=== PATIENT | female | born 1990 | race Hispanic/Latino ===

== ENCOUNTER 2016-09-25 14:44 | Inpatient (IN) | payer MEDICARE, MEDICAID ==
[~2016-09-25] VITALS: Ht 154.9 cm; Wt 50.3 kg
[~2016-09-25 14:44] MED LIST: HYDR-4003 PO; LEUP3.75 IM; ONDA4TAB48 PO; ONDA8TAB10 PO; [UNRECOGNIZED DRUG - CODE] IV
[2016-09-25 14:55] VITALS: BP 113/74; PULSE 78; RESP 16; O2SAT 100
[2016-09-25 17:49] LABS: BASOPHILS % (AUTO) 0.3 % (0-3); EOSINOPHILS % (AUTO) 1.9 % (0-5); MONOCYTES % (AUTO) 5.9 % (4-12); Mean Corpuscular Hemoglobin 29.2 pg (27.0-35.0); Mean Corpuscular Volume 89.8 fL (81-100); NEUTROPHILS % (AUTO) 48.1 % (40-74); Platelet Count 216 bil/L (150-400)
--- NOTE | 2016-09-25 18:04 | ED.REPORT ---
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 She reports that pain radiates into her back and down to her knees and it feels just like a porphyria attack. Associated symptoms include feeling bloated, loss of appetite , feeling generally uncomfortable, and nausea. She recently moved back to the area from [place], [place] and has not had a Hemin infusion for two weeks. She reports regularly taking oxycodone as needed for pain that turns out to be on average 2- 3 times per month. She had two doses today before arrival. She reports no other medications. Her last period was a while ago. She denies any fever or . Nursing Notes Stated Complaint: ABDOMINAL PAIN, NAUSEA Chief Complaint: Female Abdominal Pain Nursing Notes Reviewed: Yes ([employer], meds not reconciled) Allergies: Coded Allergies: NSAIDS (Non-Steroidal Anti-Inflamma (Verified Allergy, Severe, 09/25/16) ibuprofen (Verified Allergy, Severe, 09/25/16) acetaminophen (Verified Allergy, Unknown, 09/25/16) dextromethorphan (Verified Allergy, Unknown, 09/25/16) doxylamine (Verified Allergy, Unknown, 09/25/16) pseudoephedrine (Verified Allergy, Unknown, 09/25/16) Barbiturates (Verified Adverse Reaction, Severe, UNSAFE IN ACUTE PORPHYRIA , 09/25/16) Estrogens (Verified Adverse Reaction, Severe, UNSAFE IN ACUTE PORPHYRIA, ) Succinimides (Verified Adverse Reaction, Severe, UNSAFE IN ACUTE PORPHYRIA , 09/25/16) Sulfa (Sulfonamide Antibiotics) (Verified Adverse Reaction, Severe, UNSAFE IN ACUTE PORPHYRIA, 09/25/16) aminopyrine (Verified Adverse Reaction, Severe, UNSAFE IN ACUTE PORPHYRIA , 09/25/16) antipyrine (Verified Adverse Reaction, Severe, UNSAFE IN ACUTE PORPHYRIA, 09/25/16) carbamazepine (Verified Adverse Reaction, Severe, UNSAFE IN ACUTE PORPHYRIA, 09/25/16) carisoprodol (Verified Adverse Reaction, Severe, UNSAFE IN ACUTE PORPHYRIA , 09/25/16) clonazepam (Verified Adverse Reaction, Severe, UNSAFE IN ACUTE PORPHYRIA ( HIGH DOSES), 09/25/16) danazol (Verified Adverse Reaction, Severe, UNSAFE IN ACUTE PORPHYRIA, 09/25) diclofenac (Verified Adverse Reaction, Severe, UNSAFE IN ACUTE PORPHYRIA, 09/25/16) ergot alkaloids (Verified Adverse Reaction, Severe, UNSAFE IN ACUTE PORPHYRIA, 09/25/16) ethchlorvynol (Verified Adverse Reaction, Severe, UNSAFE IN ACUTE PORPHYRIA, 09/25/16) glutethimide (Verified Adverse Reaction, Severe, UNSAFE IN ACUTE PORPHYRIA , 09/25/16) griseofulvin (Verified Adverse Reaction, Severe, UNSAFE IN ACUTE PORPHYRIA , 01/19/15) mebutamate (Verified Adverse Reaction, Severe, UNSAFE IN ACUTE PORPHYRIA, 09/25/16) meprobamate (Verified Adverse Reaction, Severe, UNSAFE IN ACUTE PORPHYRIA , 09/25/16) methyprylon (Verified Adverse Reaction, Severe, UNSAFE IN ACUTE PORPHYRIA , 09/25/16) metoclopramide (Verified Adverse Reaction, Severe, UNSAFE IN ACUTE PORPHYRIA, 09/25/16) phenytoin (Verified Adverse Reaction, Severe, UNSAFE IN ACUTE PORPHYRIA, ) phytonadione (Verified Adverse Reaction, Severe, UNSAFE IN ACUTE PORPHYRIA , 09/25/16) primidone (Verified Adverse Reaction, Severe, UNSAFE IN ACUTE PORPHYRIA, ) progesterone (Verified Adverse Reaction, Severe, UNSAFE IN ACUTE PORPHYRIA , 09/25/16) pyrazinamide (Verified Adverse Reaction, Severe, UNSAFE IN ACUTE PORPHYRIA , 09/25/16) rifampin (Verified Adverse Reaction, Severe, UNSAFE IN ACUTE PORPHYRIA, 09/25/16) tybamate (Verified Adverse Reaction, Severe, UNSAFE IN ACUTE PORPHYRIA, 09/25/16) valproic acid (Verified Adverse Reaction, Severe, UNSAFE IN ACUTE PORPHYRIA, 09/25/16) Scheduled Duloxetine (Duloxetine) 30 Mg Capsule.dr 30 MG PO DAILY Hemin (Panhematin) 313 Mg Vial 313 MG IV QW Fridays Leuprolide Acetate (Lupron Depot) 3.75 Mg Disp.syrin 3.75 MG IM MONTHLY Scheduled PRN Diazepam (Diazepam) 5 Mg Tablet 5 MG PO TID PRN PRN For Anxiety Gabapentin (Gabapentin) 100 Mg Capsule 100 MG PO TID PRN PRN For Pain Hydrocodone-Acetaminophen 5-325 mg (Hydrocodone-Acetaminophen 5-325 mg) 1 Each Tablet 1-2 EACH PO Q6 PRN PRN For Pain Ondansetron ODT (Ondansetron ODT) 8 Mg Tablet.odt 4 MG PO Q4H PRN PRN For Nausea /Vomiting Promethazine (Promethazine) 12.5 Mg Tablet 12.5 MG PO PRN For Nausea/Vomiting General Time Seen by MD: 18:02 Chief Complaint Abdominal pain Hx Obtained From: Patient Arrived By: Walk-in Sudden in Onset?: Yes Onset Occurred: 2 days ago Symptom Duration: Since onset Location: : Diffuse Radiation: : Back (back and knees) Severity: Current: Severe Severity: Maximum: Severe Recent Healthcare: No recent doctor visit Similar Sx Previous: Yes Past Medical History Past Medical History Notes: Last Admit Past Medical History Porphyria Acute intermittent porphyria, diagnosed in 2011-maintained on weekly Hemin infusions with recent addition of low-dose Lupron monthly to suppress ovarian function and prevent menstrual cycles -followed by Dr Bocanegra -port placement on September 25, 2012, for hemin infusions. Attention deficit hyperactivity disorder Thrombocytopenia, Abdominal US without splenomegaly 01/2013 History of recurrent urinary tract infections. Past Surgical History port placement Reports: Portocath Family History Noncontributory Smoking History Never Smoker Social History Alcohol Use: Denies alcohol use Drug Use: Denies drug use Other Social History: Local resident Ambulatory Status Independent Review of Systems Review of Systems Note: feels bloated. loss of appetite. Generally uncomftorable. Constitutional: Denies: Fever GI: Reports: Abdominal pain, Nausea Female: Denies: Complete sys rev & neg: except as marked. Physical Exam Initial Vital Signs Vital Signs (First) Date Time Temp Pulse Resp B/P Pulse Ox O2 Delivery O2 Flow Rate FiO2 09/25/16 14:55 36.0 78 16 113/74 100 09/25/16 19:51 Room Air Initial VS: Reviewed, Vital signs normal General/Constitutional: Awake, Alert, No acute distress mildly uncomftorable. Patient has been seen before with distress being similar to prior visit. Respiratory / Chest: Atraumatic, Breath sounds NL, Breath sounds = bilat, No respiratory distress, No rales, No rhonchi, No wheezing Cardiovascular: Heart rate NL, Regular rhythm, Heart sounds NL, No gallop, No murmurs, No rubs Tenderness/Guarding/Rebound: Positive: Tender epigastric (trace tenderness) no enlarged liver or signs of peritonitis. Back: Atraumatic, Full range of motion Head / Eyes: Atraumatic, Normocephalic, PERRL, EOMI contact lenses are worn by patient. ENT: Atraumatic, Mucous membranes moist Skin: Atraumatic, Color NL, No rash, Warm, Dry Neurologic: Oriented X3, Speech NL Neck: Atraumatic, Full range of motion Upper Extremity / MS: Atraumatic, Full range of motion Lower Extremity / Pelvis / MS: Atraumatic, Full range of motion Interpretation & Diagnostics Lab Results Interpretation Result Diagram: 09/25/16 1730 09/25/16 1730 Test 09/25/16 17:30 09/25/16 18:37 White Blood Count 5.9th/mm3 (3.8-10.1) Red Blood Count 3.91mil/mm3 (3.90-5.20) Hemoglobin 11.4g/dL (12.0-15.6) Hematocrit 35.1% (35.0-46.0) Mean Corpuscular Volume 89.8fL (81-100) Mean Corpuscular Hemoglobin 29.2pg (27.0-35.0) Mean Corpuscular Hemoglobin Concent 32.5% (32.0-37.0) Red Cell Distribution Width 14.0% (12.3-15.4) Platelet Count 216bil/L (150-400) Neutrophils (%) (Auto) 48.1% (40-74) Lymphocytes (%) (Auto) 43.6% (14-46) Monocytes (%) (Auto) 5.9% (4-12) Eosinophils (%) (Auto) 1.9% (0-5) Basophils (%) (Auto) 0.3% (0-3) Sodium Level 136mEq/L (134-144) Potassium Level 3.7mEq/L (3.5-5.2) Chloride Level 98mEq/L (97-108) Carbon Dioxide Level 23mmol/L (18-29) Blood Urea Nitrogen 24mg/dL (6-20) Creatinine 0.88mg/dL (0.57-1.00) Estimat Glomerular Filtration Rate 112mL/min (>59) Glucose Level 115mg/dL (60-99) Calcium Level 8.6mg/dL (8.5-10.1) Magnesium Level 1.9mg/dL (1.6-2.6) Total Bilirubin 0.3mg/dL (0.0-1.2) Aspartate Amino Transf (AST/SGOT) 52U/L (0-50) Alanine Aminotransferase (ALT/SGPT) 31U/L (0-32) Alkaline Phosphatase 106U/L (25-150) Total Protein 7.5g/dL (6.4-8.4) Albumin 4.2g/dL (3.4-5.0) Lipase 34U/L (13-60) Hold [place] Top Tube Received (Received) Urine Color Dark yellow (YELLOW) Urine Appearance Hazy (CLEAR,HAZY) Urine pH 6.0 (5.0-8.0) Urine Specific [place] 1.015 (1.003-1.035) Urine Protein Negativemg/dL (NEG,TRACE) Urine Glucose (UA) Negativemg/dL (NEGATIVE) Urine Ketones Negativemg/dL (NEGATIVE) Urine Occult Blood Negative (NEGATIVE) Urine Nitrite Negative (NEGATIVE) Urine Bilirubin Negative (NEGATIVE) Urine Urobilinogen Normalmg/dL (NORMAL) Urine Leukocyte Esterase Negative (NEGATIVE) Urine RBC 0-2/hpf (0-2) Urine WBC 0-5/hpf (0-5) Urine Epithelial Cells Moderate/hpf (NONE-MOD) Urine Crystals None seen (NONE SEEN) Urine Bacteria Few/hpf (NONE-FEW) Urine Hyaline Casts None/lpf (NONE) Urine Granular Casts None seen (NONE SEEN) Urine Waxy Casts None seen (NONE SEEN) Urine Red Blood Cell Casts None seen (NONE SEEN) Urine White Blood Cell Casts None seen (NONE SEEN) Urine Mucus Present (None Seen) Urine Trichomonas None seen (NONE SEEN) Urine Yeast None (NONE SEEN) Urinalysis Comment None Urine Culture Reflexed Not indicated Lab Results Interpretation: CBC normal CMP normal, and AST marginally elevated (new from more than 1 year ago) Urine dip negative Urine negative Re-Eval/Medical Decision Med Decision/Clinical Course This is a 26-year-old female who has been diagnosed with porphyria and is well- known to the hospital, but he was been residing in [place] for the past year and now returns complaining of acute abdominal pain of identical character to previous acute porphyria attacks. She has a Port-A-Cath in place that she can receive weekly hemin infusions, but due to the logistics of the move has not had her routine infusion. She reports his symptoms are identical to prior exacerbations, she reports no atypical features, no fevers, or additional complaint. Reports she is not on OCPs but does not think she is , and urine is negative. She is afebrile normal vitals. She appears uncomfortable does require some titrated Dilaudid Port-A-Cath is accessed. She is known to me, I seen her previously and she appears identical, I am not appreciate findings clinically to suggest an alternate etiology or need for emergent imaging. I discussed the case with Dr. Fabian, on-call with the patient's previous battery mechanic Dr. Bocanegra (before she moved away) confirmed the plan to bring her in to the hospital for a hemin transfusion at a dose of 4 mg/kg slow infusion. Source of Hx: Old records Consultation #1: Referral / Consult Name: John Fabian MD Call Returned at: 18:27 Supervisor Intelligence Analyst: Agrees with eval, Agrees with plan Note: Discussed patient case with Dr. Fabian and plan for Hemin fusion. Dr. Fabian agrees with the plan. Consultation #2: Referral / Consult Name: Emani Mike DO Call Returned at: 18:35 Note: Discussed patient case with Dr. Mike. Differential Diagnosis: Positive: Acute abdominal pain, Porphyria, Negative: Abscess, Appendicitis, Ectopic preg ruptured, Ectopic , Esophageal rupture, Gun shot wound abdomen, Mesenteric ischemia, Myocardial infarction, Pancreatitis, Pyelonephritis, Stab wound abdomen Counseled Regarding: Diagnosis, Lab results Discharge & Departure Primary Impression: Acute intermittent porphyria Additional Impression: H/O medication noncompliance Disposition: ADMITTED TO HOSPITAL Discharge Condition All VS Reviewed: Yes Condition: Stable Referrals: Dinorah Domínguez MD (PCP) Scribe Attestation Portions of this note were transcribed by Elan Ng and Cleo Gutierrez. I, Dr. Wood, personally performed the history, physical exam and medical decision- making; I reviewed and confirmed the accuracy of the information in the transcribed note. Signed by Elan Ng and Zaki Long, 09/25/16 - 1919. copies to: Dinorah Domínguez MD, Matthew F MD Sep 25, 2016 18:04 Elan Ng Sep 25, 2016 18:13 Cleo Gutierrez Sep 25, 2016 19:18
[2016-09-25] MEDS ORDERED: Ondansetron 2 mg/mL 2 mL Inj IVPUSH ONE (18:05)
[2016-09-25] MEDS ORDERED: 0.9% Sodium Chloride 1,000 ML IV ONE (18:10)
[2016-09-25] MEDS: HYDROmorphone 0.5 mg/0.5 mL iSecure Syringe IVPUSH PRN ×3 (18:25→19:00)
[2016-09-25] MEDS ORDERED: STERILE IV ONE (18:30)
[2016-09-25] MEDS ORDERED: HEMIN IV ONE (18:30)
[2016-09-25 18:31] LABS: Magnesium 1.9 mg/dL (1.6-2.6)
[2016-09-25] MEDS ORDERED: [UNRECOGNIZED DRUG - OTHER] (19:14)
[2016-09-25] MEDS ORDERED: Ondansetron 2 mg/mL 2 mL Inj IVPUSH PRN (19:25)
[2016-09-25] MEDS ORDERED: Alum-Mag Hydrox-Simeth 30 mL Suspension PO PRN (19:25)
[2016-09-25] MEDS ORDERED: HYDROmorphone 1 mg/mL Inj IVPUSH PRN ×4 (19:25→20:30)
[2016-09-25] MEDS: 0.9% Sodium Chloride 1,000 ML IV SCH (19:25)
[2016-09-25] MEDS ORDERED: PROM12.510 PO (19:32)
[2016-09-25] MEDS ORDERED: DULO30CA50 PO (19:32)
[2016-09-25] MEDS ORDERED: DIAZ5TAB3 PO (19:32)
[2016-09-25] MEDS ORDERED: GABA-500 PO (19:32)
[2016-09-25 19:51] VITALS: BP 106/67; PULSE 77; RESP 16; O2SAT 96
--- NOTE | 2016-09-25 19:54 | PCM.HPMED ---
Subjective Date of Service Sep 25, 2016 Primary Provider: Admitting Physician: Primary Care Physician: Dinorah Domínguez MD Attending Physician: Admit Status: From the Emergency Department Chief Complaint: abdominal pain, "pain similar to prior acute porphyria attacks" History of Present Illness: 26yoF with past medical history of acute intermittent porphyria admitted with 1- 2 days history of worsening abdominal pain similar to prior episodes of acute intermittent porphyria. Patient states that she recently moved back to the area to be closer to her family. She normally receives hemin infusions weekly but last infusion was 10 days ago. As per patient and her boyfriend (at bedside), if hemin infusion is missed (>7 days) she will have an acute episode. Abdominal pain is rated 8/10 and 7/10 on presentation with radiation throughout abdomen and to knees. She also endorses some nausea and mild dyspnea and feels as this is associated with abdominal pain but denies fever, chills, vomiting, lightheadedness, dizziness, dysuria or urinary frequency. Presenting vital signs T36.0, HR 78, RR 16, BP 113/74, 100% on RA Hgb 11.4, BUN 24, Glucose 115, AST 52 Review of Systems: complete review of systems obtained. positive as per HPI otherwise negative. Allergies Coded Allergies: NSAIDS (Non-Steroidal Anti-Inflamma (Verified Allergy, Severe, 09/25/16) ibuprofen (Verified Allergy, Severe, 09/25/16) acetaminophen (Verified Allergy, Unknown, 09/25/16) dextromethorphan (Verified Allergy, Unknown, 09/25/16) doxylamine (Verified Allergy, Unknown, 09/25/16) pseudoephedrine (Verified Allergy, Unknown, 09/25/16) Barbiturates (Verified Adverse Reaction, Severe, UNSAFE IN ACUTE PORPHYRIA , 09/25/16) Estrogens (Verified Adverse Reaction, Severe, UNSAFE IN ACUTE PORPHYRIA, ) Succinimides (Verified Adverse Reaction, Severe, UNSAFE IN ACUTE PORPHYRIA , 09/25/16) Sulfa (Sulfonamide Antibiotics) (Verified Adverse Reaction, Severe, UNSAFE IN ACUTE PORPHYRIA, 09/25/16) aminopyrine (Verified Adverse Reaction, Severe, UNSAFE IN ACUTE PORPHYRIA , 09/25/16) antipyrine (Verified Adverse Reaction, Severe, UNSAFE IN ACUTE PORPHYRIA, 09/25/16) carbamazepine (Verified Adverse Reaction, Severe, UNSAFE IN ACUTE PORPHYRIA, 09/25/16) carisoprodol (Verified Adverse Reaction, Severe, UNSAFE IN ACUTE PORPHYRIA , 09/25/16) clonazepam (Verified Adverse Reaction, Severe, UNSAFE IN ACUTE PORPHYRIA ( HIGH DOSES), 09/25/16) danazol (Verified Adverse Reaction, Severe, UNSAFE IN ACUTE PORPHYRIA, 09/25) diclofenac (Verified Adverse Reaction, Severe, UNSAFE IN ACUTE PORPHYRIA, 09/25/16) ergot alkaloids (Verified Adverse Reaction, Severe, UNSAFE IN ACUTE PORPHYRIA, 09/25/16) ethchlorvynol (Verified Adverse Reaction, Severe, UNSAFE IN ACUTE PORPHYRIA, 09/25/16) glutethimide (Verified Adverse Reaction, Severe, UNSAFE IN ACUTE PORPHYRIA , 09/25/16) griseofulvin (Verified Adverse Reaction, Severe, UNSAFE IN ACUTE PORPHYRIA , 01/19/15) mebutamate (Verified Adverse Reaction, Severe, UNSAFE IN ACUTE PORPHYRIA, 09/25/16) meprobamate (Verified Adverse Reaction, Severe, UNSAFE IN ACUTE PORPHYRIA , 09/25/16) methyprylon (Verified Adverse Reaction, Severe, UNSAFE IN ACUTE PORPHYRIA , 09/25/16) metoclopramide (Verified Adverse Reaction, Severe, UNSAFE IN ACUTE PORPHYRIA, 09/25/16) phenytoin (Verified Adverse Reaction, Severe, UNSAFE IN ACUTE PORPHYRIA, ) phytonadione (Verified Adverse Reaction, Severe, UNSAFE IN ACUTE PORPHYRIA , 09/25/16) primidone (Verified Adverse Reaction, Severe, UNSAFE IN ACUTE PORPHYRIA, ) progesterone (Verified Adverse Reaction, Severe, UNSAFE IN ACUTE PORPHYRIA , 09/25/16) pyrazinamide (Verified Adverse Reaction, Severe, UNSAFE IN ACUTE PORPHYRIA , 09/25/16) rifampin (Verified Adverse Reaction, Severe, UNSAFE IN ACUTE PORPHYRIA, 09/25/16) tybamate (Verified Adverse Reaction, Severe, UNSAFE IN ACUTE PORPHYRIA, 09/25/16) valproic acid (Verified Adverse Reaction, Severe, UNSAFE IN ACUTE PORPHYRIA, 09/25/16) Home Medications zolodex hemin - weekly injections oxycodone cannabis tinctures PMH Acute intermittent porphyria Attention deficit hyperactivity disorder Chronic thrombocytopenia H/o recurrent UTI Surgical History Port placement Social History Hx Alcohol Use: No Hx Substance Use: No (Occassional marijuana oil usage for pain/nausea) Hx Tobacco Use: No Smoking Status: Never Smoker Exam Vital Signs Vital Sign - Last Date Time Temp Pulse Resp B/P Pulse Ox O2 Delivery O2 Flow Rate FiO2 09/25/16 14:55 36.0 78 16 113/74 100 Exam General: Alert, Oriented X3, Cooperative, mild distress, scratching body during exam Eyes: PERRLA, Scleral Anicteric Mouth: Mouth Normal, Mucous Membranes Moist/[place] Neck: Supple, no Thyromegaly, trachea central. Chest & Lungs: CTA bilateral, no rhonchi, wheezes, rales, good respiratory effort Cardiovascular: Normal S1, Normal S2, No Murmurs/Rubs/Gallops, Regular Rate/ Rhythm, (No JVD, no peripheral edema) Pulses: Radial (present and equal), Dorsalis Pedi (present and equal) Abdomen: Soft, diffusely tender, Non-distended, Normoactive bowel tones, no rebound tenderness. Musculoskeletal: Unremarkable. Normal range of motion, no swollen or erythematous joints Extremities: no edema, no cyanosis, no clubbing. Skin: No rashes. Warm and dry, no erythematous areas Neurological: Grossly neurologically intact, has generalized weakness, Normal Speech, Sensation Intact Lymphatic: Lymph nodes Cervical and Axillary not palpable. Lab and Diagnostics Result Diagram: 09/25/16 1730 09/25/16 173 Assessment & Plan 26yoF with past medical history of intermittent porphyria on regular hemin infusions admitted with 2 days history of worsening abdominal pain similar to previous Abdominal pain, acute -likely secondary to acute intermittent porphyria -pt with regular hemin infusion last being 2 weeks ago -pain management, hydromorphone 1-2mg IV q2HR PRN, will adjust as needed -diphenhydramine 25mg q4HR PRN, ondansetron 4mg IV q4HR PRN -hemin started in ED -hematology consulted, recs appreciated Nausea, acute, POA -secondary to abdominal pain -ondansetron 4mg IV q4HR PRN -general diet available advise clears at this time advance as tolerated H/o thrombocytopenia, chronic -platelet count currently stable -continue to monitor Chronic anemia, POA -mild anemia noted on admit labs -continue to monitor H/o recurrent UTI, chronic -patient asymptomatic -UA pending on admission Pain Evaluation: Adequate Pain Control VTE Prophylaxis: SCDs, Other (ambulate TID) Resuscitation Status: CPR: Attempt Resuscitation Danette Nolan DO Sep 25, 2016 19:54
[2016-09-25] MEDS ORDERED: Polyethylene Glycol (PEG) 17 Gm Powder PO PRN (19:55)
[2016-09-25 20:23] LABS: APPEARANCE,URINE HAZY (CLEAR,HAZY); COLOR,URINE DARK YELLOW (YELLOW); OCCULT BLOOD,URINE NEGATIVE (NEGATIVE); UROBILINOGEN,URINE NORMAL (NORMAL)
--- NOTE | 2016-09-25 20:30 | NUR ---
Admit to 1004 Pt arrived from ED at 2030. Oriented to room, routines, plan of care and hourly rounding on going. Px 03/03 and itching from shari BENITO aware.
[2016-09-25] MEDS ORDERED: HYDROmorphone 2 mg/mL Inj IVPUSH PRN (20:35)
[2016-09-25 20:50] VITALS: BP 101/62; PULSE 91; RESP 18; O2SAT 98
[2016-09-25] MEDS ORDERED: HYDROmorphone 1 mg/mL Inj ONE (22:26)
[2016-09-25] MEDS: HYDROmorphone 1 mg/mL Inj IVPUSH PRN (22:40)
[2016-09-26] VITALS (13 sets, daily range): BP systolic 108–127; BP diastolic 58–83; PULSE 76–92; RESP 16–20; O2SAT 96–100
[2016-09-26] MEDS: HYDROmorphone 1 mg/mL Inj IVPUSH PRN ×3 (01:05→07:52)
--- NOTE | 2016-09-26 04:43 | NUR ---
Px/itching Pt continues with px 05/03, IV dilaudid given q3hrs, Pt has side effect of itching and requires benadryl- MD aware and Pt has history of this. MD did increase benadryl to 50mg q6hrs, as prior dosing not effective and increased dilaudid to q2hrs bringing px to 03/03
[2016-09-26] MEDS: 0.9% Sodium Chloride 1,000 ML IV SCH ×2 (05:07→16:02)
[2016-09-26 05:12] LABS: BASOPHILS % (AUTO) 0.2 % (0-3); EOSINOPHILS % (AUTO) 2.5 % (0-5); Mean Corpuscular Volume 91.9 fL (81-100); NEUTROPHILS % (AUTO) 40.8 % (40-74); Platelet Count 160 bil/L (150-400)
[2016-09-26] MEDS: Ondansetron 2 mg/mL 2 mL Inj IVPUSH PRN ×3 (05:12→20:47)
[2016-09-26] MEDS: Dextrose 5% 500 ML IV SCH (07:56)
[2016-09-26] MEDS ORDERED: Ondansetron 2 mg/mL 2 mL Inj IVPUSH PRN (08:00)
[2016-09-26] MEDS: HYDROmorphone PCA 0.2 mg/mL 30 mL Inj IV PRN (08:40)
[2016-09-26] MEDS: MetoCLOpramide 5 mg/mL 2 mL Inj IVPUSH PRN ×3 (08:41→23:06)
--- NOTE | 2016-09-26 12:09 | NUR ---
JOVANI signed. Diamond White SCENIC DESIGNER
--- NOTE | 2016-09-26 14:06 | NUR ---
Social Work- Initial Assessment Data: Pt is a 26 year old female admitted 09/25/16 for acute porphyria per H&P. Pt's insurance is [employer]. Pt does not have a PCP, as she recently relocated. DANY met with pt at bedside to discuss discharge plan, DANY role explained. Pt was drowsy but alert and oriented x3. [place] resides [place] with her boyfriend in an apartment, where he assists her with ADLs. Pt does not use DME and does not drive. Pt has not HH or SNF history. Pt has no LTC insurance or VA benefits. SW spoke with pt regarding DPOA, pt states she has not completed this. SW encouraged pt to bring completed forms into the hospital. Pt to discharge home with boyfriend to transport via POV. SW provided phone number and plan on whiteboard. No anticipated discharge needs. SW will continue to follow if needs arise. Assessment: [place]. Plan: Pt to discharge home with boyfriend to transport via POV. No anticipated discharge needs. DANY will continue to follow if needs arise. PIPPA [place] Addendum: 09/26/16 at 1409 by CHERIE RUFFIN Amended: Links added.
[2016-09-26] MEDS: 0.9% Sodium Chloride 250 ML IV SCH (14:35)
[2016-09-26] MEDS ORDERED: Sodium Chloride LOK Flush 10 mL Syringe IVFLUSH PRN ×2 (14:35)
[2016-09-26] MEDS ORDERED: HepLOK Flush 100 unit/mL 5 mL Inj IVFLUSH PRN (14:35)
--- NOTE | 2016-09-26 14:57 | PCM.PNMED ---
Subjective Date of Service Sep 26, 2016 Subjective She continues to have pain typical for her Porphyria. She appears oversedated on the current Dilaudid dosing, falling asleep mid sentence repeatedly. Exam Vital Signs Vital Sign - Last Date Time Temp Pulse Resp B/P Pulse Ox O2 Delivery O2 Flow Rate FiO2 09/26/16 06:40 36.8 76 18 108/69 98 Room Air Intake and Output 09/25/16 09/25/16 09/26/16 Cumulative From/Thru 15:00 23:00 07:00 09/25/16 14:55 - 09/26/16 06:40 Intake Total 1000 ml 1643 ml 2643 ml Output Total 550 ml 550 ml Balance 1000 ml 1093 ml 2093 ml Intake Oral 800 ml 800 ml IV Total 1000 ml 843 ml 1843 ml Output Urine Total 550 ml 550 ml # Voids 2 2 # Bowel Movements 0 0 Exam General: Alert, Oriented X3, Cooperative, mild distress, scratching body during exam Chest & Lungs: CTA bilateral Cardiovascular: Normal S1, Normal S2, No Murmurs/Rubs/Gallops, Regular Rate/ Rhythm Abdomen: Soft, diffusely tender, Non-distended, Normoactive bowel tones, no rebound tenderness. Musculoskeletal: Unremarkable. Normal range of motion, no swollen or erythematous joints Extremities: no edema Skin: No rashes. Warm and dry, no erythematous areas Neurological: Grossly neurologically intact, has generalized weakness, Normal Speech when able to keep awake IVs and Medications Medications Reviewed: Medications were reviewed in detail Lab and Diagnostics Result Diagram: 09/26/16 0504 09/26/16 0504 Assessment & Plan 26yoF with past medical history of intermittent porphyria on regular hemin infusions admitted with 2 days history of worsening abdominal pain similar to previous Abdominal pain, acute -likely secondary to acute intermittent porphyria -pt with regular hemin infusion last being 2 weeks ago -pain management, hydromorphone 1-2mg IV q2HR PRN, 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 -diphenhydramine 25mg q4HR PRN, ondansetron 4mg IV q4HR PRN -hemin started in ED, and will dose daily for up to 4 days as needed. -hematology consulted, recs appreciated Nausea, acute, POA -secondary to abdominal pain -ondansetron 4mg IV q4HR PRN -general diet available advise clears at this time advance as tolerated H/o thrombocytopenia, chronic -platelet count currently stable -continue to monitor Chronic anemia, POA -mild anemia noted on admit labs -continue to monitor H/o recurrent UTI, chronic -UA is normal. Silver Encarnacion MD VTE Prophylaxis: SCDs, Other (ambulate TID) VTE Mechanical Devices: Intermittant Pneumatic CD Resuscitation Status: CPR: Attempt Resuscitation Alejandra Encarnacion MD Sep 26, 2016 07:56
[2016-09-26] MEDS: STERILE IV SCH (20:11)
[2016-09-26] MEDS: HEMIN IV SCH (20:11)
[2016-09-26] MEDS ORDERED: 0.9% Sodium Chloride 100 ML ONE (20:21)
[2016-09-27] VITALS (11 sets, daily range): BP systolic 101–133; BP diastolic 64–88; PULSE 80–109; RESP 16–20; O2SAT 96–100
[2016-09-27] MEDS: 0.9% Sodium Chloride 1,000 ML IV SCH ×3 (02:04→23:02)
--- NOTE | 2016-09-27 02:40 | NUR ---
Activity/pain/nausea Hemin IV infused without issues. 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 CPOx 96% O2 sats. Pt has been drowsy but awakens easily. Given scheduled Gabapentin to help with itching and pt has only needed Benadryl x1 this shift, so itching seems to be improving. Pt complaint of nausea x2 without emesis, alternating between Zofran and Reglan as needed.
--- NOTE | 2016-09-27 05:49 | PCM.PNMED ---
Subjective Date of Service Sep 27, 2016 Subjective Patient says her pain is 7/10, it is a dull pain below her sternum but also diffuse pain. She says she is suppsed to see Dr. Hutchins in a week but had to come to ED due to pain. She was a patient of his before moving to [place], [place] where she aslo started phlebotomy to remove iron due to hemin infusions. She has received daily infusion of hemin since admission. She takes Zolodex to prevent menstruation. It usualy takes her several days to get over her "flares" . She says she is ok with switching over to IV pain meds from the TRIMMER SORTER but not ready for PO meds yet. She denies fevers and chills. She does have nause that is well controlled on reglan and zofran. Endorsing poor appetite. She was ordering from her menu prior to this interview. Exam Vital Signs Vital Sign - Last Date Time Temp Pulse Resp B/P Pulse Ox O2 Delivery O2 Flow Rate FiO2 09/27/16 02:00 16 98 09/27/16 00:36 36.9 85 120/80 Room Air Intake and Output 09/26/16 09/26/16 09/27/16 Cumulative From/Thru 15:00 23:00 07:00 09/25/16 14:55 - 09/27/16 04:49 Intake Total 2052 ml 1007 ml 5702 ml Output Total 1300 ml 1850 ml Balance 752 ml 1007 ml 3852 ml Intake Oral 700 ml 1500 ml IV Total 1352 ml 1007 ml 4202 ml Output Urine Total 1300 ml 1850 ml # Voids 2 # Bowel Movements 0 0 Exam Eyes: [place] conjunctivae. No ptosis Neck: No masses, trachea midline, no thyromegaly Lungs: CTA with normal respiratory effort CV: RRR, no murmurs/rubs/gallops GI: Soft, with no hepatosplenomegaly Skin: Warm and dry. No rash, lesions or ulcers Psych: A&O X3, with approprate affect Neuro: No focal deficits Lab and Diagnostics CBC Test 09/26/16 05:04 White Blood Count 5.6th/mm3 (3.8-10.1) Red Blood Count 3.47mil/mm3 (3.90-5.20) Hemoglobin 10.4g/dL (12.0-15.6) Hematocrit 31.9% (35.0-46.0) Mean Corpuscular Volume 91.9fL (81-100) Mean Corpuscular Hemoglobin 30.0pg (27.0-35.0) Mean Corpuscular Hemoglobin Concent 32.6% (32.0-37.0) Red Cell Distribution Width 14.0% (12.3-15.4) Platelet Count 160bil/L (150-400) Neutrophils (%) (Auto) 40.8% (40-74) Lymphocytes (%) (Auto) 48.1% (14-46) Monocytes (%) (Auto) 8.0% (4-12) Eosinophils (%) (Auto) 2.5% (0-5) Basophils (%) (Auto) 0.2% (0-3) CMP Test 09/25/16 17:30 09/26/16 05:04 09/27/16 18:20 Magnesium Level 1.9mg/dL Lipase 34U/L Hold [place] Top Tube Received Sodium Level 138mEq/L Potassium Level 4.1mEq/L Chloride Level 105mEq/L Carbon Dioxide Level 23mmol/L Blood Urea Nitrogen 17mg/dL Creatinine 0.80mg/dL Estimat Glomerular Filtration Rate 125mL/min Glucose Level 103mg/dL Calcium Level 8.1mg/dL Total Bilirubin 0.3mg/dL Aspartate Amino Transf (AST/SGOT) 46U/L Alanine Aminotransferase (ALT/SGPT) 27U/L Alkaline Phosphatase 94U/L Total Protein 6.5g/dL Albumin 3.7g/dL Iron Level 84ug/dL Total Iron Binding Capacity 280ug/dL Percent Iron Saturation 30%sat Unsaturated Iron Binding 195.5ug/dL Ferritin 3104ng/mL Result Diagram: 09/26/16 0504 09/26/16 0504 Microbiology Laboratory Tests Test 09/27/16 18:20 Iron Level 84ug/dL (35-150) Total Iron Binding Capacity 280ug/dL (250-450) Percent Iron Saturation 30%sat (15-50) Unsaturated Iron Binding 195.5ug/dL Ferritin 3104ng/mL (13-150) Assessment & Plan 26yoF with 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 -hematology consulted, recs appreciated: Called Dr. Hutchins today, he was not aware of consult prior to today. He will see the patient. He does not feel phlebotomy has a big role in her treatment Nausea, acute, POA -secondary to abdominal pain -ondansetron 4mg IV q4HR PRN -general diet available advise clears at this time advance as tolerated: She is eating general diet H/o thrombocytopenia, chronic -platelet count currently stable -continue to monitor Chronic anemia, POA -mild anemia noted on admit labs: Hb=10.4 today. Iron panel reveals anemia of chronic disease, elevated Ferritin levels -continue to monitor, follow hematology recs H/o recurrent UTI, chronic -UA is normal. Silver Encarnacion MD Pain Evaluation: Adequate Pain Control VTE Prophylaxis: SCDs, Other (ambulate TID) VTE Mechanical Devices: Intermittant Pneumatic CD Resuscitation Status: CPR: Attempt Resuscitation Soraya Juarez DO Sep 27, 2016 05:49
[2016-09-27] MEDS: Dextrose 5% 500 ML IV SCH (07:22)
[2016-09-27] MEDS: HYDROmorphone PCA 0.2 mg/mL 30 mL Inj IV PRN (07:51)
[2016-09-27] MEDS: Ondansetron 2 mg/mL 2 mL Inj IVPUSH PRN ×2 (09:32→14:52)
[2016-09-27] MEDS: HYDROmorphone 1 mg/mL Inj IVPUSH PRN ×4 (14:27→22:16)
--- NOTE | 2016-09-27 14:30 | NUR ---
Dilaudid CRIME SPECIALIST discontinued. Pt given 1mg of Dilaudid IV. Pt c/o severe itching afterwards. Pt given gabapentin but is not yet due for benadryl. Will give morphine next when pt c/o pain. Will continue to monitor.
[2016-09-27] MEDS: 0.9% Sodium Chloride 250 ML IV SCH (14:35)
[2016-09-27] MEDS ORDERED: MetoCLOpramide 5 mg/mL 2 mL Inj IVPUSH PRN (16:50)
[2016-09-27 19:01] LABS: Unsaturated Iron Binding 195.5 ug/dL
[2016-09-27] MEDS ORDERED: 0.9% Sodium Chloride 100 ML ONE (20:12)
[2016-09-27] MEDS: STERILE IV SCH (20:29)
[2016-09-27] MEDS: HEMIN IV SCH (20:29)
--- NOTE | 2016-09-27 20:40 | CCS NOTE ---
[facility] [address], [address] [address] MEDICAL ONCOLOGY OFFICE NOTE PATIENT: CAMRON DA SILVA : 1990 MR#: [id number] DATE: 09/25/2016 JOB ID: [id number] DATE: 09/27/2016 HISTORY OF PRESENT ILLNESS: The patient is a 26-year-old lady whom I had seen last about two years ago in October 2015 for acute intermittent porphyria. She was followed prior to that since the beginning of [id number] at our clinic and was getting hemin treatments. Her last hemin infusion was in December/January of 2015 at our clinic and she was receiving it at 4 mg/kg equal to 200 mg once a week with some interruptions due to patient compliance. She was also on ovarian suppression with Lupron injections once a month since recurrent acute porphyria attacks were often triggered by menstrual cycles. She then moved to [place] and therefore I had not seen her over the past two years. Her boyfriend had a business there and she was staying there and transferred her care to a hematology/oncology clinic there. She has recently returned to the area and has contacted our office to re-establish care and was supposed to have a followup with me in the next few days in the clinic She has been admitted in the weekend with abdominal pain that she was not able to control at home with nausea and came into the ED on Tuesday evening and had gotten a partial dose of hemin and a full dose yesterday afternoon. In the past, her acute porphyrias were cleared with often infectious processes either viral respiratory infection or UTIs, a few times with exposure to alcohol. She also occasionally smoked marijuana, but has not been using that for quite some time since she was in [place]. We have obtained the large body of records from the clinic in [place] and this was partially reviewed. She has continued the same management there with weekly administration of IV hemin for prophylaxis and porphyria attack prevention and still had every few months episodes of attacks and brief hospitalization. In addition, she was getting Zoladex injections for ovarian suppression there. Her last hemin infusion was, however, about 2-3 weeks ago and she has missed a couple of weekly doses due to the move. The last Zoladex injection was apparently a month and a half ago. She has not had any menstrual cycles as expected. Due to iron accumulation associated with hemin, she has had a few phlebotomies that have been performed over the past couple of months in [place] every two weeks. EXAMINATION: She is afebrile. Appears in no apparent distress. I have seen her in much more discomfort than currently. She is on a DAIRY CATTLE FARMER pump. Lungs: Clear to auscultation. Heart regular. Abdomen is soft. No rash. She has a new portal catheter. Lab studies are reviewed. 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 I had seen her two years ago last when she moved to [place]. She has relocated back to this area. She states that she has some emotional imbalance and had voiced suicidal ideation to the doctors there, although she did not mean it seriously, she says, but they contacted her family and her mom had her transferred back here to be closer to family. On my exam today, she appears relatively comfortable. At other admits with porphyria attacks, she was at times quite ill with significant nausea, vomiting and abdominal pain which currently seems to be relatively mild. In addition to pain syndrome, other factors during an attack in the past have been occasional elevation of transaminases and also electrolyte issues with hyponatremia. She has not had any neurological symptoms so far. During the current attacks daily, she had IV hemin at 4 mg/kg which translates to about 220 mg total every 24 hours. She has a new portal catheter that is being used and was placed in [place]. At times, she has required premedication with Tylenol during the hemin infusion since occasionally infusion-related low-grade fever was noted in the past but, at this point, it is not occurring. I am ordering a second iron panel to assess the current situation. I do not believe that it is urgent to resume phlebotomies. The current attack does not seem to have had any obvious trigger other than missing a few doses of preventive weekly hemin. I am going to re-establish her prophylaxis in the clinic for next week after obtaining insurance authorization, etc. I am hopeful that she can be discharged in a day or two after she is through with this current attack. Her hemin infusion of today has not been administered yet. TIME SPENT WITH PATIENT: Approximately 1 hour 5 minutes were spent in counseling and coordination of care.
[2016-09-28] MEDS: HYDROmorphone 1 mg/mL Inj IVPUSH PRN ×2 (04:27→09:28)
[2016-09-28] MEDS: Ondansetron 2 mg/mL 2 mL Inj IVPUSH PRN ×5 (04:31→21:19)
--- NOTE | 2016-09-28 05:25 | NUR ---
Hemin/Pain Pt received Hemin infusion per eMAR without issues. Pt reporting pain steady at 7/8 out of 10 with little relief with current pain regimen. paged and ordered Dilaudid 1-2mg q 4 hrs and Oxycodone 10 mg PO q 6 hrs. Pt took oxycodone at bedtime and was able to sleep 4 full hours before needing something for pain this morning. Pt has continued to need Benadryl 50 mg IV for itching and nausea x1 this morning with Zofran given. Pt now resting and appears comfortable.
[2016-09-28 06:20] VITALS: BP 102/67; PULSE 70; RESP 16; O2SAT 96
[2016-09-28] MEDS: 0.9% Sodium Chloride 1,000 ML IV SCH ×2 (09:29→19:59)
[2016-09-28 11:03] LABS: BASOPHILS % (AUTO) 0.1 % (0-3); EOSINOPHILS % (AUTO) 1.8 % (0-5); MONOCYTES % (AUTO) 8.6 % (4-12); Mean Corpuscular Hemoglobin 29.7 pg (27.0-35.0); Mean Corpuscular Volume 88.2 fL (81-100); NEUTROPHILS % (AUTO) 72.5 % (40-74); Platelet Count 149 bil/L (150-400)
[2016-09-28] MEDS: HYDROmorphone PCA 0.2 mg/mL 30 mL Inj IV PRN (13:18)
[2016-09-28 13:20] VITALS: RESP 18; O2SAT 98
[2016-09-28 14:21] VITALS: BP 105/70; PULSE 80; RESP 16; O2SAT 97
[2016-09-28] MEDS: 0.9% Sodium Chloride 250 ML IV SCH (14:35)
[2016-09-28] MEDS: STERILE IV SCH (19:30)
[2016-09-28] MEDS: HEMIN IV SCH (19:30)
--- NOTE | 2016-09-28 19:41 | NUR ---
Pain Pt had increasing pain and nausea with vomiting this AM and was frustrated that her pain had not gone below 5/10. Discussed with MD and switched pt back to MEDICAL LIAISON. Pt given 0.3mg bolus and then button. Pt's pain was improved and she was able to rest comfortably. Pt has not had anymore vomiting, but is using anti-emetics. NUTRITION PROGRAM INSTRUCTOR in place. Pt declined AM gabapentin due to nausea.
[2016-09-28] MEDS ORDERED: 0.9% Sodium Chloride 0 ML ONE (20:29)
[2016-09-28 20:40] VITALS: RESP 16; O2SAT 100
[2016-09-28 20:46] VITALS: BP 125/85; PULSE 106; RESP 18; O2SAT 99
--- NOTE | 2016-09-28 21:08 | PCM.PNMED ---
Subjective Date of Service Sep 28, 2016 Subjective Patient is seen and examined. She says she is feeling itchy, benadryl is not lasting long enough. She is given PACKER DENTURE pump again this AM due to inadequate control with IV PRN. She is hoping to go home tomorrow. She is slightly edematous from IV fluids, they were stopped during this visit. She says Dr. Bocanegra has seen her. No other concerns Exam Vital Signs Vital Sign - Last Date Time Temp Pulse Resp B/P Pulse Ox O2 Delivery O2 Flow Rate FiO2 09/28/16 20:46 36.8 106 18 125/85 99 Room Air Intake and Output 09/27/16 09/27/16 09/28/16 Cumulative From/Thru 15:00 23:00 07:00 09/25/16 14:55 - 09/28/16 06:20 Intake Total 600 ml 2859 ml 9961 ml Output Total 1600 ml 1550 ml 5000 ml Balance -1000 ml 1309 ml 4961 ml Intake Oral 600 ml 600 ml 3500 ml IV Total 2259 ml 6461 ml Output Urine Total 1600 ml 1550 ml 5000 ml # Voids 3 7 # Bowel Movements 0 0 0 Exam General: NAD HEENT: NAD, face appears swollen Heart: RRR, no s3/s4 Lungs: CTA, no crackles or wheezes Abd: Soft, Non-tender Neuro: No focal deficits Psych: Neg for anxiety IVs and Medications IV Fluids None Medications Reviewed: Medications were reviewed in detail Lab and Diagnostics Result Diagram: 09/28/16 1055 09/28/16 1055 Microbiology Laboratory Tests Test 09/27/16 18:20 Iron Level 84ug/dL (35-150) Total Iron Binding Capacity 280ug/dL (250-450) Percent Iron Saturation 30%sat (15-50) Unsaturated Iron Binding 195.5ug/dL Ferritin 3104ng/mL (13-150) Assessment & Plan 26yoF with 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 : No dose available for tonight per pharmacy -hematology consulted, recs appreciated: Called Dr. Hutchins today, he was not aware of consult prior to 09/27/16. He does not feel phlebotomy has a big role in her treatment Nausea, acute, POA -secondary to abdominal pain -ondansetron 4mg IV q4HR PRN -general diet available advise clears at this time advance as tolerated: She is eating general diet H/o thrombocytopenia, chronic -platelet count currently stable -continue to monitor Chronic anemia, POA -mild anemia noted on admit labs: Hb=10.4 today. Iron panel reveals anemia of chronic disease, elevated Ferritin levels -continue to monitor, follow hematology recs H/o recurrent UTI, chronic -UA is normal. Pain Evaluation: Adequate Pain Control VTE Prophylaxis: SCDs, Other (ambulate TID) VTE Mechanical Devices: Intermittant Pneumatic CD Resuscitation Status: CPR: Attempt Resuscitation Soraya Juarez DO Sep 28, 2016 21:08
--- NOTE | 2016-09-28 22:30 | NUR ---
Hemin/activity Pharmacist contacted this RN to inform that they do not have any IV Hemin in house. Pharmacist reported that they contacted the MD with no new orders. Explained issue to pt, who is understanding and reporting to be feeling much better. Nausea and pain have both decreased. Pt reporting pain at 5/10 (the lowest she has had since arrival). Pt continues on OPTOMETRIC TECHNICIAN Dilaudid, IV benadryl for itching and Zofran IV to prevent nausea. Pt has walked 2 laps in the hallway with her boyfriend.
[2016-09-29] MEDS: Ondansetron 2 mg/mL 2 mL Inj IVPUSH PRN ×3 (01:15→10:22)
[2016-09-29 01:25] VITALS: RESP 16; O2SAT 100
[2016-09-29] MEDS: HYDROmorphone PCA 0.2 mg/mL 30 mL Inj IV PRN (01:40)
[2016-09-29 04:33] VITALS: BP_SYST 135; BP_SYST 97; BP_DIAS 54; BP_DIAS 83; PULSE 91; RESP 16; O2SAT 100; O2SAT 99
[2016-09-29 05:40] VITALS: RESP 16; O2SAT 100
[2016-09-29 05:54] LABS: BASOPHILS % (AUTO) 0.2 % (0-3); EOSINOPHILS % (AUTO) 4.3 % (0-5); Mean Corpuscular Hemoglobin 29.9 pg (27.0-35.0); NEUTROPHILS % (AUTO) 52.5 % (40-74); Platelet Count 157 bil/L (150-400)
[2016-09-29] MEDS ORDERED: HEMIN IV ONE (07:05)
[2016-09-29] MEDS ORDERED: STERILE IV ONE (07:05)
--- NOTE | 2016-09-29 07:36 | NUR ---
Hemin Call from Pharmacist this morning and dose of Hemin was found, new order to transfuse. IV Hemin given with 0.22 micron filter.
[2016-09-29] MEDS: 0.9% Sodium Chloride 250 ML IV SCH (08:18)
[2016-09-29 10:30] VITALS: RESP 14; O2SAT 98
--- NOTE | 2016-09-29 11:00 | NUR ---
Pt request Pt requesting to DC. advised. Pt "wants to be DC'd off of her YOUTH LIAISON OFFICER and get out of here."
[2016-09-29 12:00] VITALS: RESP 16; O2SAT 99
--- NOTE | 2016-09-29 12:51 | PCM.DC.MED ---
Discharge Summary Date of Service Sep 29, 2016 Dates of Hospitalization Date of Hospital Admission Sep 25, 2016 at 19:53 Date of Discharge: Sep 29, 2016 Providers: Admitting Physician: Emani Mike DO Primary Care Physician: Dinorah Domínguez MD Attending Physician: Emani Mike DO Diagnosis at Time of Discharge Diagnosis at Time of Discharge Acute intermittent porphyria, chronic thrombocytopenia, chronic anemia due to chronic disease, chronic recurrent UTI Consultations Hematology Brief History 26yoF with past medical history of acute intermittent porphyria admitted with 1- 2 days history of worsening abdominal pain similar to prior episodes of acute intermittent porphyria. Patient states that she recently moved back to the area to be closer to her family. She normally receives hemin infusions weekly but last infusion was 10 days ago. As per patient and her boyfriend (at bedside), if hemin infusion is missed (>7 days) she will have an acute episode. Abdominal pain is rated 8/10 and 7/10 on presentation with radiation throughout abdomen and to knees. She also endorses some nausea and mild dyspnea and feels as this is associated with abdominal pain but denies fever, chills, vomiting, lightheadedness, dizziness, dysuria or urinary frequency. 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 Her home medication Zoladex was continued. Hematology is consulted and they recommended no phlebotomy during this visit. On the day of discharge patient is feeling much better. She is asking to go home. She is tolerating general diet and ambulating. Nausea, acute POA: She is given Zofran Chronic anemia, POA: Daily CBC her partner as well as iron panel to monitor. H/o recurrent UTI, chronic -UA is normal. Exam Vital Signs (Last) Date Time Temp Pulse Resp B/P Pulse Ox O2 Delivery O2 Flow Rate FiO2 09/29/16 10:30 14 98 09/29/16 04:33 36.9 91 97/54 Room Air Exam Gen. no acute distress, HEENT: Bluish discoloration over the face excessive iron, atraumatic Heart: RRR, no S3-S4 murmurs Lungs: Clear to auscultation, no wheezes or crackles Abdomen nontender nondistended, normal bowel sounds Extremities: Negative for edema Psych: Negative for anxiety Neuro: No focal deficits. Test 09/25/16 17:30 09/25/16 18:37 09/26/16 05:04 09/27/16 18:20 Magnesium Level 1.9mg/dL (1.6-2.6) Lipase 34U/L (13-60) Hold [place] Top Tube Received (Received) Urine Color Dark yellow (YELLOW) Urine Appearance Hazy (CLEAR,HAZY) Urine pH 6.0 (5.0-8.0) Urine Specific [place] 1.015 (1.003-1.035) Urine Protein Negativemg/dL (NEG,TRACE) Urine Glucose (UA) Negativemg/dL (NEGATIVE) Urine Ketones Negativemg/dL (NEGATIVE) Urine Occult Blood Negative (NEGATIVE) Urine Nitrite Negative (NEGATIVE) Urine Bilirubin Negative (NEGATIVE) Urine Urobilinogen Normalmg/dL (NORMAL) Urine Leukocyte Esterase Negative (NEGATIVE) Urine RBC 0-2/hpf (0-2) Urine WBC 0-5/hpf (0-5) Urine Epithelial Cells Moderate/hpf (NONE-MOD) Urine Crystals None seen (NONE SEEN) Urine Bacteria Few/hpf (NONE-FEW) Urine Hyaline Casts None/lpf (NONE) Urine Granular Casts None seen (NONE SEEN) Urine Waxy Casts None seen (NONE SEEN) Urine Red Blood Cell Casts None seen (NONE SEEN) Urine White Blood Cell Casts None seen (NONE SEEN) Urine Mucus Present (None Seen) Urine Trichomonas None seen (NONE SEEN) Urine Yeast None (NONE SEEN) Urinalysis Comment None Urine Culture Reflexed Not indicated Total Bilirubin 0.3mg/dL (0.0-1.2) Aspartate Amino Transf (AST/SGOT) 46U/L (0-50) Alanine Aminotransferase (ALT/SGPT) 27U/L (0-32) Alkaline Phosphatase 94U/L (25-150) Total Protein 6.5g/dL (6.4-8.4) Albumin 3.7g/dL (3.4-5.0) Iron Level 84ug/dL (35-150) Total Iron Binding Capacity 280ug/dL (250-450) Percent Iron Saturation 30%sat (15-50) Unsaturated Iron Binding 195.5ug/dL Ferritin 3104ng/mL (13-150) Test 09/28/16 14:28 09/29/16 05:40 White Blood Count 6.3th/mm3 (3.8-10.1) Red Blood Count 3.74mil/mm3 (3.90-5.20) Hemoglobin 11.2g/dL (12.0-15.6) Hematocrit 32.9% (35.0-46.0) Mean Corpuscular Volume 88.0fL (81-100) Mean Corpuscular Hemoglobin 29.9pg (27.0-35.0) Mean Corpuscular Hemoglobin Concent 34.0% (32.0-37.0) Red Cell Distribution Width 13.5% (12.3-15.4) Platelet Count 157bil/L (150-400) Neutrophils (%) (Auto) 52.5% (40-74) Lymphocytes (%) (Auto) 31.8% (14-46) Monocytes (%) (Auto) 11.0% (4-12) Eosinophils (%) (Auto) 4.3% (0-5) Basophils (%) (Auto) 0.2% (0-3) Sodium Level 140mEq/L (134-144) Potassium Level 4.0mEq/L (3.5-5.2) Chloride Level 101mEq/L (97-108) Carbon Dioxide Level 27mmol/L (18-29) Blood Urea Nitrogen 6mg/dL (6-20) Creatinine 0.65mg/dL (0.57-1.00) Estimat Glomerular Filtration Rate 159mL/min (>59) Glucose Level 88mg/dL (60-99) Calcium Level 8.3mg/dL (8.5-10.1) Microbiology Results Laboratory Tests Test 09/27/16 18:20 Iron Level 84ug/dL (35-150) Total Iron Binding Capacity 280ug/dL (250-450) Percent Iron Saturation 30%sat (15-50) Unsaturated Iron Binding 195.5ug/dL Ferritin 3104ng/mL (13-150) Discharge Medications Discharge Medications Duloxetine (Duloxetine) 30 Mg Capsule.dr 30 MG PO DAILY (Reported) Hemin (Panhematin) 313 Mg Vial 313 MG IV QW (Reported) Fridays Leuprolide Acetate (Lupron Depot) 3.75 Mg Disp.syrin 3.75 MG IM MONTHLY ( Reported) As needed Diazepam (Diazepam) 5 Mg Tablet 5 MG PO TID PRN PRN For Anxiety (Reported) Gabapentin (Gabapentin) 100 Mg Capsule 100 MG PO TID PRN PRN For Pain (Reported ) Hydrocodone-Acetaminophen 5-325 mg (Hydrocodone-Acetaminophen 5-325 mg) 1 Each Tablet 1-2 EACH PO Q6 PRN PRN For Pain Prescribed by: SUNNY CRUMP MD Hydrocodone-Acetaminophen 5-325 mg (Hydrocodone-Acetaminophen 5-325 mg) 1 Each Tablet 1 TABLET PO Q4H PRN PRN For Pain Prescribed by: SORAYA ALMONTE DO Ondansetron ODT (Zofran ODT) 4 Mg Tablet 4 MG PO Q4H PRN PRN For Nausea Prescribed by: SORAYA ALMONTE DO Promethazine (Promethazine) 12.5 Mg Tablet 12.5 MG PO PRN For Nausea/Vomiting ( Reported) Soraya Almonte DO Sep 29, 2016 12:51
--- NOTE | 2016-09-29 12:55 | PCM.DIMED ---
Discharge Instructions Date of Service Sep 29, 2016 Dates of Hospitalization Sep 25, 2016 at 19:53 Discharge Diagnosis Discharge Diagnosis Acute intermittent Pophyria, ADHD, Chronic thrombocytopenia, Recurrent UTI Test Results Laboratory Tests Test 09/28/16 14:28 09/29/16 05:40 White Blood Count 6.3th/mm3 (3.8-10.1) Red Blood Count 3.74mil/mm3 (3.90-5.20) Hemoglobin 11.2g/dL (12.0-15.6) Hematocrit 32.9% (35.0-46.0) Mean Corpuscular Volume 88.0fL (81-100) Mean Corpuscular Hemoglobin 29.9pg (27.0-35.0) Mean Corpuscular Hemoglobin Concent 34.0% (32.0-37.0) Red Cell Distribution Width 13.5% (12.3-15.4) Platelet Count 157bil/L (150-400) Neutrophils (%) (Auto) 52.5% (40-74) Lymphocytes (%) (Auto) 31.8% (14-46) Monocytes (%) (Auto) 11.0% (4-12) Eosinophils (%) (Auto) 4.3% (0-5) Basophils (%) (Auto) 0.2% (0-3) Sodium Level 140mEq/L (134-144) Potassium Level 4.0mEq/L (3.5-5.2) Chloride Level 101mEq/L (97-108) Carbon Dioxide Level 27mmol/L (18-29) Blood Urea Nitrogen 6mg/dL (6-20) Creatinine 0.65mg/dL (0.57-1.00) Estimat Glomerular Filtration Rate 159mL/min (>59) Glucose Level 88mg/dL (60-99) Calcium Level 8.3mg/dL (8.5-10.1) Diet No restrictions Activity No restrictions Call your provider Fever or Chills, Shortness of breath, Bleeding, Chest pain, Vomitting, Excessive diarrhea, Weakness (unilateral), Other Patient Instructions Follow-up with PCP in: 2 weeks Provider: Dewey Penny MD Follow-up in: 1 week Soraya Juarez DO Sep 29, 2016 12:55
[2016-09-29] MEDS ORDERED: ONDA4TAB9 PO (12:59)
[2016-09-29] MEDS ORDERED: HYDR-4003 PO (13:01)
--- NOTE | 2016-09-29 13:02 | PCM.DC.MED ---
Discharge Summary Date of Service Sep 29, 2016 Dates of Hospitalization Date of Hospital Admission Sep 25, 2016 at 19:53 Providers: Admitting Physician: Emani Mike DO Primary Care Physician: Dinorah Domínguez MD Attending Physician: Emani Mike DO Diagnosis at Time of Discharge Diagnosis at Time of Discharge Acute intermittent Pophyria, ADHD, Chronic thrombocytopenia, Recurrent UTI Brief History 26yoF with past medical history of acute intermittent porphyria admitted with 1- 2 days history of worsening abdominal pain similar to prior episodes of acute intermittent porphyria. Patient states that she recently moved back to the area to be closer to her family. She normally receives hemin infusions weekly but last infusion was 10 days ago. As per patient and her boyfriend (at bedside), if hemin infusion is missed (>7 days) she will have an acute episode. Abdominal pain is rated 8/10 and 7/10 on presentation with radiation throughout abdomen and to knees. She also endorses some nausea and mild dyspnea and feels as this is associated with abdominal pain but denies fever, chills, vomiting, lightheadedness, dizziness, dysuria or urinary frequency. Presenting vital signs T36.0, HR 78, RR 16, BP 113/74, 100% on RA Hgb 11.4, BUN 24, Glucose 115, AST 52 Hospital Course 26yoF with past medical history of intermittent porphyria on regular hemin infusions admitted with 2 days history of worsening abdominal pain similar to previous Abdominal pain, acute -likely secondary to acute intermittent porphyria -pt with regular hemin infusion last being 2 weeks ago -pain management, switched her to IV dialudid Q4H PRN alternating with Morphine : switched back to [employer] -diphenhydramine 25mg q4HR PRN, ondansetron 4mg IV q4HR PRN, Reglan PRN -hemin started in ED, and will dose daily for up to 4 days as needed. : No dose available for tonight per pharmacy -hematology consulted, recs appreciated: Called Dr. Hutchins today, he was not aware of consult prior to 09/27/16. He does not feel phlebotomy has a big role in her treatment Nausea, acute, POA -secondary to abdominal pain -ondansetron 4mg IV q4HR PRN -general diet available advise clears at this time advance as tolerated: She is eating general diet H/o thrombocytopenia, chronic -platelet count currently stable -continue to monitor Chronic anemia, POA -mild anemia noted on admit labs: Hb=10.4 today. Iron panel reveals anemia of chronic disease, elevated Ferritin levels -continue to monitor, follow hematology recs H/o recurrent UTI, chronic -UA is normal. Exam Vital Signs (Last) Date Time Temp Pulse Resp B/P Pulse Ox O2 Delivery O2 Flow Rate FiO2 09/29/16 10:30 14 98 09/29/16 04:33 36.9 91 97/54 Room Air Test 09/25/16 17:30 09/25/16 18:37 09/26/16 05:04 09/27/16 18:20 Magnesium Level 1.9mg/dL (1.6-2.6) Lipase 34U/L (13-60) Hold [place] Top Tube Received (Received) Urine Color Dark yellow (YELLOW) Urine Appearance Hazy (CLEAR,HAZY) Urine pH 6.0 (5.0-8.0) Urine Specific [place] 1.015 (1.003-1.035) Urine Protein Negativemg/dL (NEG,TRACE) Urine Glucose (UA) Negativemg/dL (NEGATIVE) Urine Ketones Negativemg/dL (NEGATIVE) Urine Occult Blood Negative (NEGATIVE) Urine Nitrite Negative (NEGATIVE) Urine Bilirubin Negative (NEGATIVE) Urine Urobilinogen Normalmg/dL (NORMAL) Urine Leukocyte Esterase Negative (NEGATIVE) Urine RBC 0-2/hpf (0-2) Urine WBC 0-5/hpf (0-5) Urine Epithelial Cells Moderate/hpf (NONE-MOD) Urine Crystals None seen (NONE SEEN) Urine Bacteria Few/hpf (NONE-FEW) Urine Hyaline Casts None/lpf (NONE) Urine Granular Casts None seen (NONE SEEN) Urine Waxy Casts None seen (NONE SEEN) Urine Red Blood Cell Casts None seen (NONE SEEN) Urine White Blood Cell Casts None seen (NONE SEEN) Urine Mucus Present (None Seen) Urine Trichomonas None seen (NONE SEEN) Urine Yeast None (NONE SEEN) Urinalysis Comment None Urine Culture Reflexed Not indicated Total Bilirubin 0.3mg/dL (0.0-1.2) Aspartate Amino Transf (AST/SGOT) 46U/L (0-50) Alanine Aminotransferase (ALT/SGPT) 27U/L (0-32) Alkaline Phosphatase 94U/L (25-150) Total Protein 6.5g/dL (6.4-8.4) Albumin 3.7g/dL (3.4-5.0) Iron Level 84ug/dL (35-150) Total Iron Binding Capacity 280ug/dL (250-450) Percent Iron Saturation 30%sat (15-50) Unsaturated Iron Binding 195.5ug/dL Ferritin 3104ng/mL (13-150) Test 09/28/16 14:28 09/29/16 05:40 White Blood Count 6.3th/mm3 (3.8-10.1) Red Blood Count 3.74mil/mm3 (3.90-5.20) Hemoglobin 11.2g/dL (12.0-15.6) Hematocrit 32.9% (35.0-46.0) Mean Corpuscular Volume 88.0fL (81-100) Mean Corpuscular Hemoglobin 29.9pg (27.0-35.0) Mean Corpuscular Hemoglobin Concent 34.0% (32.0-37.0) Red Cell Distribution Width 13.5% (12.3-15.4) Platelet Count 157bil/L (150-400) Neutrophils (%) (Auto) 52.5% (40-74) Lymphocytes (%) (Auto) 31.8% (14-46) Monocytes (%) (Auto) 11.0% (4-12) Eosinophils (%) (Auto) 4.3% (0-5) Basophils (%) (Auto) 0.2% (0-3) Sodium Level 140mEq/L (134-144) Potassium Level 4.0mEq/L (3.5-5.2) Chloride Level 101mEq/L (97-108) Carbon Dioxide Level 27mmol/L (18-29) Blood Urea Nitrogen 6mg/dL (6-20) Creatinine 0.65mg/dL (0.57-1.00) Estimat Glomerular Filtration Rate 159mL/min (>59) Glucose Level 88mg/dL (60-99) Calcium Level 8.3mg/dL (8.5-10.1) Microbiology Results Laboratory Tests Test 09/27/16 18:20 Iron Level 84ug/dL (35-150) Total Iron Binding Capacity 280ug/dL (250-450) Percent Iron Saturation 30%sat (15-50) Unsaturated Iron Binding 195.5ug/dL Ferritin 3104ng/mL (13-150) Discharge Medications Discharge Medications Duloxetine (Duloxetine) 30 Mg Capsule.dr 30 MG PO DAILY (Reported) Hemin (Panhematin) 313 Mg Vial 313 MG IV QW (Reported) Fridays Leuprolide Acetate (Lupron Depot) 3.75 Mg Disp.syrin 3.75 MG IM MONTHLY ( Reported) As needed Diazepam (Diazepam) 5 Mg Tablet 5 MG PO TID PRN PRN For Anxiety (Reported) Gabapentin (Gabapentin) 100 Mg Capsule 100 MG PO TID PRN PRN For Pain (Reported ) Hydrocodone-Acetaminophen 5-325 mg (Hydrocodone-Acetaminophen 5-325 mg) 1 Each Tablet 1-2 EACH PO Q6 PRN PRN For Pain Prescribed by: SUNNY CRUMP MD Hydrocodone-Acetaminophen 5-325 mg (Hydrocodone-Acetaminophen 5-325 mg) 1 Each Tablet 1 TABLET PO Q4H PRN PRN For Pain Prescribed by: SORAYA ALMONTE DO Ondansetron ODT (Zofran ODT) 4 Mg Tablet 4 MG PO Q4H PRN PRN For Nausea Prescribed by: SORAYA ALMONTE DO Promethazine (Promethazine) 12.5 Mg Tablet 12.5 MG PO PRN For Nausea/Vomiting ( Reported) Followup Plan Discharge Diet: No restrictions Discharge Activity: No restrictions Follow-up with PCP in: 2 weeks Provider: Dewey Penny MD Follow-up in: 1 week Soraya Almonte DO Sep 29, 2016 13:02
--- NOTE | 2016-09-29 14:49 | NUR ---
DC Port de-accessed via IVT. Pt understands all discharge instructions and has medication prescriptions in hand. Leaves with boyfriend to home. Care discontinued
[2016-10-06] MEDS ORDERED: [UNRECOGNIZED DRUG - CODE] SUBQ (09:56)
== END 2016-09-29 14:55 | disposition home or self-care (01) | DRG 642 ==
LOC: SED 14:44 → OSC 19:53
PROVIDERS: ADMIT Neuromusculoskeletal Medicine & OMM; ATTEND Internal Medicine
DX: E80.21 Acute intermittent (hepatic) porphyria (principal); D69.6 Thrombocytopenia, unspecified; D64.9 Anemia, unspecified; Z87.440 Personal history of urinary (tract) infections; R11.0 Nausea

== ENCOUNTER 2016-10-28 20:28 | Emergency (ER) | payer MEDICARE, MEDICAID ==
[~2016-10-28] VITALS: Ht 154.9 cm; Wt 54.0 kg
[~2016-10-28 20:28] MED LIST changes: +DIAZ5TAB3 PO; +DULO30CA50 PO; +GABA-500 PO; -LEUP3.75 IM; -ONDA4TAB48 PO; +ONDA4TAB9 PO; -ONDA8TAB10 PO; +PROM12.510 PO; +[UNRECOGNIZED DRUG - CODE] SUBQ
[2016-10-28 20:56] VITALS: PULSE 79; RESP 20; O2SAT 98
--- NOTE | 2016-10-28 21:33 | ED.REPORT ---
HPI-General Illness Date of Service Oct 28, 2016 ED Provider: Esequiel Marie MD A 26 year old female with a history of porphyria presents to the ED complaining of flare up of porphyria symptoms which include generalized pain and nausea onset yesterday. The patient normally receives hemin transfusions every Tuesday , but missed her appointment yesterday because her clinic stopped accepting her insurance. The patient thinks that flare up is related to not receiving transfusion, or it may be related to stress. Per boyfriend, the patient gets sick if she goes a week without transfusions. She also reports syncopal episode that occurred yesterday. The patient was woken up by her boyfriend after fainting yesterday, and she reports that when she woke up this morning she did not remember fainting the day before. The patient took oxycodone before arrival at ED. Nursing Notes Stated Complaint: PORPHYRA Chief Complaint: General Complaint Nursing Notes Reviewed: Yes Allergies: Coded Allergies: NSAIDS (Non-Steroidal Anti-Inflamma (Verified Allergy, Severe, 09/25/16) ibuprofen (Verified Allergy, Severe, 09/25/16) acetaminophen (Verified Allergy, Unknown, 09/25/16) dextromethorphan (Verified Allergy, Unknown, 09/25/16) doxylamine (Verified Allergy, Unknown, 09/25/16) pseudoephedrine (Verified Allergy, Unknown, 09/25/16) Barbiturates (Verified Adverse Reaction, Severe, UNSAFE IN ACUTE PORPHYRIA , 09/25/16) Estrogens (Verified Adverse Reaction, Severe, UNSAFE IN ACUTE PORPHYRIA, ) Succinimides (Verified Adverse Reaction, Severe, UNSAFE IN ACUTE PORPHYRIA , 09/25/16) Sulfa (Sulfonamide Antibiotics) (Verified Adverse Reaction, Severe, UNSAFE IN ACUTE PORPHYRIA, 09/25/16) aminopyrine (Verified Adverse Reaction, Severe, UNSAFE IN ACUTE PORPHYRIA , 09/25/16) antipyrine (Verified Adverse Reaction, Severe, UNSAFE IN ACUTE PORPHYRIA, 09/25/16) carbamazepine (Verified Adverse Reaction, Severe, UNSAFE IN ACUTE PORPHYRIA, 09/25/16) carisoprodol (Verified Adverse Reaction, Severe, UNSAFE IN ACUTE PORPHYRIA , 09/25/16) clonazepam (Verified Adverse Reaction, Severe, UNSAFE IN ACUTE PORPHYRIA ( HIGH DOSES), 09/25/16) danazol (Verified Adverse Reaction, Severe, UNSAFE IN ACUTE PORPHYRIA, 09/25) diclofenac (Verified Adverse Reaction, Severe, UNSAFE IN ACUTE PORPHYRIA, 09/25/16) ergot alkaloids (Verified Adverse Reaction, Severe, UNSAFE IN ACUTE PORPHYRIA, 09/25/16) ethchlorvynol (Verified Adverse Reaction, Severe, UNSAFE IN ACUTE PORPHYRIA, 09/25/16) glutethimide (Verified Adverse Reaction, Severe, UNSAFE IN ACUTE PORPHYRIA , 09/25/16) griseofulvin (Verified Adverse Reaction, Severe, UNSAFE IN ACUTE PORPHYRIA , 01/19/15) mebutamate (Verified Adverse Reaction, Severe, UNSAFE IN ACUTE PORPHYRIA, 09/25/16) meprobamate (Verified Adverse Reaction, Severe, UNSAFE IN ACUTE PORPHYRIA , 09/25/16) methyprylon (Verified Adverse Reaction, Severe, UNSAFE IN ACUTE PORPHYRIA , 09/25/16) metoclopramide (Verified Adverse Reaction, Severe, UNSAFE IN ACUTE PORPHYRIA, 09/25/16) phenytoin (Verified Adverse Reaction, Severe, UNSAFE IN ACUTE PORPHYRIA, ) phytonadione (vitamin K1) (Verified Adverse Reaction, Severe, UNSAFE IN ACUTE PORPHYRIA, 09/25/16) primidone (Verified Adverse Reaction, Severe, UNSAFE IN ACUTE PORPHYRIA, ) progesterone (Verified Adverse Reaction, Severe, UNSAFE IN ACUTE PORPHYRIA , 09/25/16) pyrazinamide (Verified Adverse Reaction, Severe, UNSAFE IN ACUTE PORPHYRIA , 09/25/16) rifampin (Verified Adverse Reaction, Severe, UNSAFE IN ACUTE PORPHYRIA, 09/25/16) tybamate (Verified Adverse Reaction, Severe, UNSAFE IN ACUTE PORPHYRIA, 09/25/16) valproic acid (Verified Adverse Reaction, Severe, UNSAFE IN ACUTE PORPHYRIA, 09/25/16) Scheduled Duloxetine (Duloxetine) 30 Mg Capsule.dr 30 MG PO prn Goserelin Acetate (Zoladex) 3.6 Mg Impl 3.6 MG SUBQ MONTHLY Hemin (Panhematin) 313 Mg Vial 313 MG IV QW Scheduled PRN Diazepam (Diazepam) 5 Mg Tablet 5 MG PO TID PRN PRN For Anxiety Gabapentin (Gabapentin) 100 Mg Capsule 100 MG PO TID PRN PRN For Pain Hydrocodone-Acetaminophen 5-325 mg (Hydrocodone-Acetaminophen 5-325 mg) 1 Each Tablet 1-2 EACH PO Q6 PRN PRN For Pain Ondansetron ODT (Zofran ODT) 4 Mg Tablet 4 MG PO Q4H PRN PRN For Nausea Promethazine (Promethazine) 12.5 Mg Tablet 12.5 MG PO PRN For Nausea/Vomiting General Time Seen by MD: 21:31 Chief Complaint Other (generalized pain) Hx Obtained From: Patient, Other family... (boyfriend) Arrived By: Walk-in Sudden in Onset?: No Onset Occurred: Yesterday Symptom Duration: Since onset Severity: Current: Moderate Severity: Maximum: Moderate Recent Healthcare: Recent doctor visit Similar Sx Previous: No Past Medical History Past Medical History Notes: Last Admit Past Medical History Porphyria. Hospitalized for porphyria in the past. Acute intermittent porphyria, diagnosed in 2011-maintained on weekly Hemin infusions with recent addition of low-dose Lupron monthly to suppress ovarian function and prevent menstrual cycles -followed by Dr Bocanegra -port placement on September 25, 2012, for hemin infusions. Attention deficit hyperactivity disorder Thrombocytopenia, Abdominal US without splenomegaly 01/2013 History of recurrent urinary tract infections. Takes oxycodone as needed, usually 2 per day. Past Surgical History port placement Reports: Portocath Family History Noncontributory Smoking History Never Smoker Social History Approximately one month ago, the patient moved to [place] from [place]. In [place], her transfusions were covered by [employer], medicare and medicaid. These insurance agencies covered the patient's treatment in [place] until yesterday. The patient is currently trying to get enrolled in a clinic that will accept her insurance in order to continue hemin transfusions. Alcohol Use: Denies alcohol use Drug Use: Denies drug use Other Social History: Local resident Ambulatory Status Independent Review of Systems generalized pain. memory problems. Full Review of Systems GI: Reports: Nausea Neurologic: Reports: Syncope Complete sys rev & neg: except as marked. Physical Exam Vital Signs Vital Signs Date Time Temp Pulse Resp B/P Pulse Ox O2 Delivery O2 Flow Rate FiO2 10/29/16 00:21 91 16 131/88 95 Room Air 10/28/16 23:58 98 16 127/82 95 Room Air 10/28/16 23:31 90 16 134/79 95 Room Air 10/28/16 20:56 36.2 79 20 98 Room Air Initial VS: Reviewed, Vital signs normal General/Constitutional: Awake, Alert Patient appears to be in no distress. She is specific about pain medication needs. Head / Eyes: Normocephalic, PERRL, EOMI ENT: Atraumatic, Mucous membranes moist Neck: No swelling Respiratory / Chest: Atraumatic, Breath sounds NL, Breath sounds = bilat, No respiratory distress, No rales, No rhonchi, No wheezing Cardiovascular: Heart rate NL, Regular rhythm, Heart sounds NL, No gallop, No murmurs, No rubs Diffuse tenderness in abdomen. Upper Extremities Upper Extremity / MS: No swelling, No edema Lower Extremity / Pelvis / MS: No swelling, No edema Skin: Color NL, Warm, Dry Neurologic: Oriented X3, Speech NL Interpretation & Diagnostics Lab Results Interpretation Result Diagram: 10/28/16 2210 10/28/16 2210 Test 10/28/16 22:10 White Blood Count 6.9th/mm3 (3.8-10.1) Red Blood Count 3.65mil/mm3 (3.90-5.20) Hemoglobin 10.8g/dL (12.0-15.6) Hematocrit 32.6% (35.0-46.0) Mean Corpuscular Volume 89.3fL (81-100) Mean Corpuscular Hemoglobin 29.6pg (27.0-35.0) Mean Corpuscular Hemoglobin Concent 33.1% (32.0-37.0) Red Cell Distribution Width 12.9% (12.3-15.4) Platelet Count 90bil/L (150-400) Neutrophils (%) (Auto) 51.5% (40-74) Lymphocytes (%) (Auto) 38.1% (14-46) Monocytes (%) (Auto) 7.7% (4-12) Eosinophils (%) (Auto) 2.3% (0-5) Basophils (%) (Auto) 0.1% (0-3) Band Neutrophils % 0% (1-5) Hold Blue Top Tube Received (Received) Sodium Level 140mEq/L (134-144) Potassium Level 4.0mEq/L (3.5-5.2) Chloride Level 100mEq/L (97-108) Carbon Dioxide Level 26mmol/L (18-29) Blood Urea Nitrogen 15mg/dL (6-20) Creatinine 0.80mg/dL (0.57-1.00) Estimat Glomerular Filtration Rate 125mL/min (>59) Glucose Level 122mg/dL (60-99) Calcium Level 8.8mg/dL (8.5-10.1) Magnesium Level 2.1mg/dL (1.6-2.6) Total Bilirubin 0.3mg/dL (0.0-1.2) Aspartate Amino Transf (AST/SGOT) 63U/L (0-50) Alanine Aminotransferase (ALT/SGPT) 42U/L (0-32) Alkaline Phosphatase 116U/L (25-150) Total Protein 7.4g/dL (6.4-8.4) Albumin 4.0g/dL (3.4-5.0) Hold [place] Top Tube Received (Received) Lab Results Interpretation: Mild thrombocytopenia and mild anemia Re-Eval/Medical Decision Med Decision/Clinical Course 26-year-old female who missed her weekly dose of Hemin due to problems with her insurance. She presents now with start of abdominal pain and is concerned she is having acute exacerbation of porphyria. She was hydrated and given her weekly dose of Hemin, and her symptoms were totally relieved. She is being discharged home to resume her regular medication regimen. Source of Hx: Old records Time of Eval: 21:38 Re-Evaluation/Progress Note: Explained plan to help patiernt with pain and nausea. Time of Eval: 23:26 Re-Evaluation/Progress Note: Rechecked patient who has had their hemin transfusion. The patient needs to go to the bathroom. Time of Eval: 23:39 Re-Evaluation/Progress Note: Rechecked patient, explained test results, diagnosis, and plan for discharge. Emphasized need for patient to enroll in clinic that accepts patient's insurance. Patient understands and agrees with the plan. All questions addressed. Counseled Regarding: Diagnosis, Lab results, Need for follow-up, When/why to return to ED Discharge & Departure Primary Impression: Acute intermittent porphyria Disposition: Home Discharge Condition All VS Reviewed: Yes Condition: Stable Patient Instructions: Acute Porphyria (ED) Additional Instructions: You were given your standard Hemin infusion here in the emergency room, and fluid, pain medication, and nausea medication. Continue your efforts to arrange for your weekly infusions. Referrals: Dinorah Domínguez MD (PCP) Scribe Attestation Portions of this note were transcribed by Elan Ng. I, Dr. Marie personally performed the history, physical exam and medical decision-making; I reviewed and confirmed the accuracy of the information in the transcribed note. Signed by: Jina Torres, 10/29/2016, 0131. copies to: Dinorah Domínguez MD, Howard L MD Oct 28, 2016 21:33 Elan Ng Oct 28, 2016 21:42
[2016-10-28] MEDS ORDERED: 0.9% Sodium Chloride 1,000 ML IV ONE (21:40)
[2016-10-28] MEDS ORDERED: STERILE IV ONE (21:40)
[2016-10-28] MEDS ORDERED: HEMIN IV ONE (21:40)
[2016-10-28] MEDS ORDERED: Ondansetron 2 mg/mL 2 mL Inj IV PRN (21:40)
[2016-10-28 22:22] LABS: Mean Corpuscular Hemoglobin 29.6 pg (27.0-35.0); Mean Corpuscular Volume 89.3 fL (81-100); Platelet Count 90 bil/L (150-400)
[2016-10-28 22:23] LABS: BASOPHILS % (AUTO) 0.1 % (0-3); EOSINOPHILS % (AUTO) 2.3 % (0-5); MONOCYTES % (AUTO) 7.7 % (4-12); NEUTROPHILS % (AUTO) 51.5 % (40-74)
[2016-10-28] MEDS: HYDROmorphone 0.5 mg/0.5 mL iSecure Syringe IVPUSH PRN ×4 (22:46→23:57)
[2016-10-28 22:49] LABS: Magnesium 2.1 mg/dL (1.6-2.6)
[2016-10-28 23:31] VITALS: BP 134/79; PULSE 90; RESP 16; O2SAT 95
[2016-10-28] MEDS ORDERED: HepLOK Flush 100 unit/mL 5 mL Inj ONE (23:54)
[2016-10-28 23:58] VITALS: BP 127/82; PULSE 98; RESP 16; O2SAT 95
[2016-10-29 00:21] VITALS: BP 131/88; PULSE 91; RESP 16; O2SAT 95
== END 2016-10-29 00:22 | disposition home or self-care (01) ==
LOC: SED 20:28
DX: E80.21 Acute intermittent (hepatic) porphyria (principal); Z88.2 Allergy status to sulfonamides; Z88.5 Allergy status to narcotic agent; Z88.8 Allergy status to other drugs, medicaments and biological substances
CPT/HCPCS: 36415; 80053; 83735; 85025; 96361; 96374; 96375; 96376; 99285; J1170; J1200; J1640; J1642; J2405; J7030

== ENCOUNTER 2016-11-05 15:50 | Emergency (ER) | payer MEDICARE, MEDICAID ==
[~2016-11-05] VITALS: Ht 154.9 cm; Wt 54.5 kg
[2016-11-05 16:02] VITALS: BP 114/74; PULSE 84; RESP 16; O2SAT 98
[2016-11-05 18:04] LABS: BASOPHILS % (AUTO) 0.2 % (0-3); EOSINOPHILS % (AUTO) 1.9 % (0-5); MONOCYTES % (AUTO) 8.3 % (4-12); Mean Corpuscular Hemoglobin 29.1 pg (27.0-35.0); Mean Corpuscular Volume 89.4 fL (81-100); NEUTROPHILS % (AUTO) 44.7 % (40-74); Platelet Count 85 bil/L (150-400)
[2016-11-05] MEDS ORDERED: Ondansetron 2 mg/mL 2 mL Inj IVPUSH ONE (18:10)
--- NOTE | 2016-11-05 18:13 | ED.REPORT ---
HPI-Abd Pain F Under 40 Date of Service Nov 05, 2016 ED Provider: Patrick Wood MD The patient is a 26 year old female who presents to the ED due to an acute episode of porphyria onset last night. She describes the pain as "sharp and heated" in her lower abdomen that radiates to her back. Pt c/o associated nausea. Nothing exacerbates the pain. She is accompanied by boyfriend who gives the PMHx. In the last month, her insurance recently discontinued coverage for her treatment. She came to the ED 9 days ago for similar symptoms bc she wasn't able to schedule an appointment for her hemin transfusions. Since then, she has tried to resolve her insurance difficulties with no success. The pt receives hemen transfusion, 200 mg, and she also takes Zoladex. She denies fevers or any other symptoms. Nursing Notes Stated Complaint: ACUTE PORPHYRIA Chief Complaint: Female Abdominal Pain Nursing Notes Reviewed: Yes ([employer], meds not reconciled) Allergies: Coded Allergies: NSAIDS (Non-Steroidal Anti-Inflamma (Verified Allergy, Severe, 11/05/16) ibuprofen (Verified Allergy, Severe, 11/05/16) acetaminophen (Verified Allergy, Unknown, 11/05/16) dextromethorphan (Verified Allergy, Unknown, 11/05/16) doxylamine (Verified Allergy, Unknown, 11/05/16) pseudoephedrine (Verified Allergy, Unknown, 11/05/16) Barbiturates (Verified Adverse Reaction, Severe, UNSAFE IN ACUTE PORPHYRIA , 11/05/16) Estrogens (Verified Adverse Reaction, Severe, UNSAFE IN ACUTE PORPHYRIA, ) Succinimides (Verified Adverse Reaction, Severe, UNSAFE IN ACUTE PORPHYRIA , 11/05/16) Sulfa (Sulfonamide Antibiotics) (Verified Adverse Reaction, Severe, UNSAFE IN ACUTE PORPHYRIA, 11/05/16) aminopyrine (Verified Adverse Reaction, Severe, UNSAFE IN ACUTE PORPHYRIA , 11/05/16) antipyrine (Verified Adverse Reaction, Severe, UNSAFE IN ACUTE PORPHYRIA, 11/05/16) carbamazepine (Verified Adverse Reaction, Severe, UNSAFE IN ACUTE PORPHYRIA, 11/05/16) carisoprodol (Verified Adverse Reaction, Severe, UNSAFE IN ACUTE PORPHYRIA , 11/05/16) clonazepam (Verified Adverse Reaction, Severe, UNSAFE IN ACUTE PORPHYRIA ( HIGH DOSES), 11/05/16) danazol (Verified Adverse Reaction, Severe, UNSAFE IN ACUTE PORPHYRIA, ) diclofenac (Verified Adverse Reaction, Severe, UNSAFE IN ACUTE PORPHYRIA, 11/05/16) ergot alkaloids (Verified Adverse Reaction, Severe, UNSAFE IN ACUTE PORPHYRIA, 11/05/16) ethchlorvynol (Verified Adverse Reaction, Severe, UNSAFE IN ACUTE PORPHYRIA, 11/05/16) glutethimide (Verified Adverse Reaction, Severe, UNSAFE IN ACUTE PORPHYRIA , 11/05/16) griseofulvin (Verified Adverse Reaction, Severe, UNSAFE IN ACUTE PORPHYRIA , 11/05/16) mebutamate (Verified Adverse Reaction, Severe, UNSAFE IN ACUTE PORPHYRIA, 11/05/16) meprobamate (Verified Adverse Reaction, Severe, UNSAFE IN ACUTE PORPHYRIA , 11/05/16) methyprylon (Verified Adverse Reaction, Severe, UNSAFE IN ACUTE PORPHYRIA , 11/05/16) metoclopramide (Verified Adverse Reaction, Severe, UNSAFE IN ACUTE PORPHYRIA, 11/05/16) phenytoin (Verified Adverse Reaction, Severe, UNSAFE IN ACUTE PORPHYRIA, ) phytonadione (vitamin K1) (Verified Adverse Reaction, Severe, UNSAFE IN ACUTE PORPHYRIA, 11/05/16) primidone (Verified Adverse Reaction, Severe, UNSAFE IN ACUTE PORPHYRIA, ) progesterone (Verified Adverse Reaction, Severe, UNSAFE IN ACUTE PORPHYRIA , 11/05/16) pyrazinamide (Verified Adverse Reaction, Severe, UNSAFE IN ACUTE PORPHYRIA , 11/05/16) rifampin (Verified Adverse Reaction, Severe, UNSAFE IN ACUTE PORPHYRIA, ) tybamate (Verified Adverse Reaction, Severe, UNSAFE IN ACUTE PORPHYRIA, ) valproic acid (Verified Adverse Reaction, Severe, UNSAFE IN ACUTE PORPHYRIA, 11/05/16) Scheduled Duloxetine (Duloxetine) 30 Mg Capsule.dr 30 MG PO prn Goserelin Acetate (Zoladex) 3.6 Mg Impl 3.6 MG SUBQ MONTHLY Hemin (Panhematin) 313 Mg Vial 313 MG IV QW Scheduled PRN Diazepam (Diazepam) 5 Mg Tablet 5 MG PO TID PRN PRN For Anxiety Gabapentin (Gabapentin) 100 Mg Capsule 100 MG PO TID PRN PRN For Pain Hydrocodone-Acetaminophen 5-325 mg (Hydrocodone-Acetaminophen 5-325 mg) 1 Each Tablet 1-2 EACH PO Q6 PRN PRN For Pain Ondansetron ODT (Zofran ODT) 4 Mg Tablet 4 MG PO Q4H PRN PRN For Nausea Promethazine (Promethazine) 12.5 Mg Tablet 12.5 MG PO PRN For Nausea/Vomiting General Time Seen by MD: 18:03 Chief Complaint Abdominal pain Hx Obtained From: Patient Arrived By: Walk-in Sudden in Onset?: Yes Onset Occurred: Yesterday Symptom Duration: Since onset Location: : Abdomen lower Quality: Burning, Painful, Sharp Radiation: : Back Severity: Current: Moderate Recent Healthcare: Recent doctor visit Similar Sx Previous: Yes Past Medical History 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 Hospitalized for porphyria in the past. 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 Attention deficit hyperactivity disorder Thrombocytopenia, Abdominal US without splenomegaly 01/2013 History of recurrent urinary tract infections. Takes oxycodone as needed, usually 2 per day. Past Surgical History port placement Reports: Portocath Family History Noncontributory Smoking History Never Smoker Social History Approximately one month ago, the patient moved to [place] from [place]. In [place], her transfusions were covered by [employer], medicare and medicaid. These insurance agencies covered the patient's treatment in [place] until yesterday. The patient is currently trying to get enrolled in a clinic that will accept her insurance in order to continue hemin transfusions. Alcohol Use: Denies alcohol use Drug Use: Denies drug use Other Social History: Local resident Ambulatory Status Independent Review of Systems Constitutional: Denies: Fever GI: Reports: Abdominal pain, Nausea Musculoskeletal: Reports: Back pain Complete sys rev & neg: except as marked. Physical Exam Physical Exam Notes: Initial Vital Signs Vital Signs (First) Date Time Temp Pulse Resp B/P Pulse Ox O2 Delivery O2 Flow Rate FiO2 11/05/16 16:02 36.6 84 16 114/74 98 Room Air Initial VS: Reviewed, Vital signs normal Head / Eyes: Atraumatic, Normocephalic, PERRL ENT: Mucous membranes moist, Conjunctiva normal Neck: Supple, Non-tender Extremities: Vascular intact, Neuro intact, No swelling Skin: Warm, Dry General/Constitutional: Awake, No acute distress fatigued unchanged from previous exams Respiratory / Chest: Atraumatic, Breath sounds NL, Breath sounds = bilat Cardiovascular: Heart rate NL, Regular rhythm, Heart sounds NL Abdomen: Atraumatic, Soft, Non-tender Back: Atraumatic, Inspection NL, Full range of motion Interpretation & Diagnostics Lab Results Interpretation Result Diagram: 11/05/16 1755 11/05/16 1755 Test 11/05/16 17:55 11/05/16 18:00 White Blood Count 4.2th/mm3 (3.8-10.1) Red Blood Count 3.95mil/mm3 (3.90-5.20) Hemoglobin 11.5g/dL (12.0-15.6) Hematocrit 35.3% (35.0-46.0) Mean Corpuscular Volume 89.4fL (81-100) Mean Corpuscular Hemoglobin 29.1pg (27.0-35.0) Mean Corpuscular Hemoglobin Concent 32.6% (32.0-37.0) Red Cell Distribution Width 13.3% (12.3-15.4) Platelet Count 85bil/L (150-400) Neutrophils (%) (Auto) 44.7% (40-74) Lymphocytes (%) (Auto) 44.9% (14-46) Monocytes (%) (Auto) 8.3% (4-12) Eosinophils (%) (Auto) 1.9% (0-5) Basophils (%) (Auto) 0.2% (0-3) Sodium Level 139mEq/L (134-144) Potassium Level 3.7mEq/L (3.5-5.2) Chloride Level 99mEq/L (97-108) Carbon Dioxide Level 24mmol/L (18-29) Blood Urea Nitrogen 20mg/dL (6-20) Creatinine 0.74mg/dL (0.57-1.00) Estimat Glomerular Filtration Rate 137mL/min (>59) Glucose Level 116mg/dL (60-99) Calcium Level 8.5mg/dL (8.5-10.1) Magnesium Level 1.9mg/dL (1.6-2.6) Total Bilirubin 0.3mg/dL (0.0-1.2) Aspartate Amino Transf (AST/SGOT) 51U/L (0-50) Alanine Aminotransferase (ALT/SGPT) 35U/L (0-32) Alkaline Phosphatase 116U/L (25-150) Total Protein 7.7g/dL (6.4-8.4) Albumin 4.2g/dL (3.4-5.0) Lipase 397U/L (13-60) Urine Color Yellow (YELLOW) Urine Appearance Hazy (CLEAR,HAZY) Urine pH 7.0 (5.0-8.0) Urine Specific Waterflow 1.010 (1.003-1.035) Urine Protein Negativemg/dL (NEG,TRACE) Urine Glucose (UA) Negativemg/dL (NEGATIVE) Urine Ketones Negativemg/dL (NEGATIVE) Urine Occult Blood Negative (NEGATIVE) Urine Nitrite Negative (NEGATIVE) Urine Bilirubin Moderate (NEGATIVE) Urine Ictotest Positive (Negative) Urine Urobilinogen Normalmg/dL (NORMAL) Urine Leukocyte Esterase Trace (NEGATIVE) Urine RBC 0-2/hpf (0-2) Urine WBC 0-5/hpf (0-5) Urine Epithelial Cells Occasional/hpf (NONE-MOD) Urine Crystals None seen (NONE SEEN) Urine Bacteria None/hpf (NONE-FEW) Urine Hyaline Casts None/lpf (NONE) Urine Granular Casts None seen (NONE SEEN) Urine Waxy Casts None seen (NONE SEEN) Urine Red Blood Cell Casts None seen (NONE SEEN) Urine White Blood Cell Casts None seen (NONE SEEN) Urine Mucus None seen (None Seen) Urine Trichomonas None seen (NONE SEEN) Urine Yeast None (NONE SEEN) Urine Culture Reflexed Indicated Hold Urine Received (Received) Lab Results Interpretation: CBC Gutierrez, cytopenia CMP normal Re-Eval/Medical Decision Med Decision/Clinical Course This is a 26-year-old female who has porphyria and requires weekly hemin transfusions thru her port. She had traditionally been followed by Dr. Bocanegra for hematology, but moved away to [place]-and just recently moved back in recent months. She has attempted restart with the clinic, and she received several transfusions there, but apparently this been a change in her insurance, so she was recently told she could not get her infusion through [facility] clinic. He realizes that she She was told that things be set up so she could go through the clinic at [facility] this Tuesday, but when she called today it was not set up and she had no place to go. (Social work note from oncology does indicate that was the plan), and now she is having worsening exacerbation of pain. She reports the pain is identical to all of her previous exacerbations, and denies any atypical features. She is not febrile or toxic, but it is mildly uncomfortable. Review of chronic thrombocytopenia, but no other marked findings. She received a transfusion hemin in the department. She is post and now receive Zoladex 3.6 mg injection every 4 weeks which is not received, we do not have this available in pharmacy to administer. The marriage and family social worker was also consultated, and have been able to confirm that indeed '[facility] clinics except the insurance that she has, although because it is a weekend and holiday were not able at this time to sort out if she can establish with the [facility], or have to go up to the [facility]. The marriage and family social worker also wonders if the hemin transfusions might be able to given by home infusions, as the patient's insurance does not permit this. At this stage given a holiday weekend, with not been able to solve the formal dilemma of the setting of the patient's routine prescriptions. At this point the plan is to discharge the patient home and she is now feeling better after several rounds of pain medicine and her hemin transfusion. On Tuesday and they will contact Dr. Bocanegra's office to see if they have any additional input on how to set things up for her-even if it is with a different clinic. She has an appointment to establish care with her primary care physician at [facility] this week, and they may further able to facilitate referrals and set up. I have not been able to give a different timeline of exactly when her routine infusions, and even at which clinic will be available. Efforts this week we will continue to sort this out. The patient does understand that the emergency department does remain in option of last resort. Patient is discharged in improved condition. Source of Hx: Old records Differential Diagnosis: Positive: Acute abdominal pain, Porphyria, Negative: Abscess, C. diff colitis, Cholangitis, Cholecystitis, Cholelithiasis, Diverticular disease, Ectopic preg ruptured, Ectopic , Esophageal rupture, Esophagitis, Gun shot wound abdomen, Infectious mononucleosis, Intrauterine , Myocardial infarction, Stab wound abdomen Counseled Regarding: Diagnosis, Lab results Discharge & Departure Primary Impression: acute intermittant porphyria Disposition: ADMITTED TO HOSPITAL Discharge Condition All VS Reviewed: Yes Condition: Stable Additional Instructions: 1. I am sorry about the insurance challenges she had getting set up for your treatment for the porphyria. 2. We have provided a transfusion of the heme and this week. 3. Our marriage and family social worker has confirmed that there may be a couple of options available-according to the marriage and family social worker, the hematology clinic through [facility] should actually be able to provide coverage. It is not entirely clear still, whether is just miscommunication and the be managed at the [facility] location, or whether or not he will require treatment at [facility]. 4. Please call the hematology office at [facility] on Tuesday to discuss further. 5. Additionally, I would call back Dr. Bocanegra's office to see if they can help as well - and tell them what happened this Tuesday. They may still be able to help you in the interim. It might-although it is not clear-be possible set up for home infusion of hemin according to the marriage and family social worker. Your primary care physician will need to set up the referral, and likely get the arrangement details from the entry level account manager. He is keep your appointment at [facility] this week as the PCP may also help coordinate care. 6. Return to the emergency department if new or worsening symptoms. Referrals: DANISH (PCP) Raymundo Attestation Portion of this note were transcribed by Chelle Murrieta. I, Dr. Wood, personally performed the history, physical exam, and medical decision-making: I reviewed and confirmed the accuracy for the information in the transcribed note. Signed by: raymundo Mercado, 11/05/16 2100 copies to: Patrick Angela MD Nov 05, 2016 18:13 Chelle Murrieta Nov 05, 2016 18:27
[2016-11-05] MEDS: HYDROmorphone 1 mg/mL Inj IVPUSH PRN ×7 (18:15→20:42)
[2016-11-05] MEDS ORDERED: [UNRECOGNIZED DRUG - OTHER] SUBQ ONE (18:25)
[2016-11-05] MEDS ORDERED: HEMIN IV ONE (18:25)
[2016-11-05] MEDS ORDERED: STERILE IV ONE (18:25)
[2016-11-05] MEDS ORDERED: HYDROmorphone 1 mg/mL Inj IVPUSH PRN (18:25)
[2016-11-05 18:29] LABS: Magnesium 1.9 mg/dL (1.6-2.6)
[2016-11-05 18:55] VITALS: BP 120/76; PULSE 80; RESP 17; O2SAT 94
[2016-11-05 19:01] LABS: APPEARANCE,URINE HAZY (CLEAR,HAZY); COLOR,URINE YELLOW (YELLOW); OCCULT BLOOD,URINE NEGATIVE (NEGATIVE); UROBILINOGEN,URINE NORMAL (NORMAL)
[2016-11-05 19:06] LABS: ICTOTEST,URINE POSITIVE (Negative)
[2016-11-05 20:59] VITALS: BP_SYST 104; PULSE 111; RESP 14; O2SAT 95
[2016-11-05] MEDS ORDERED: Famotidine Inj 20 MG in IV Premix 1 EACH IV ONE (21:15)
[2016-11-05 23:32] VITALS: BP 110/72; PULSE 102; RESP 16; O2SAT 96
[2016-11-05] MEDS ORDERED: HepLOK Flush 100 unit/mL 5 mL Inj ONE (23:58)
[2016-11-06 00:08] VITALS: BP 112/70; PULSE 100; RESP 14; O2SAT 97
== END 2016-11-06 00:09 | disposition home or self-care (01) ==
LOC: SED 15:50
DX: E80.21 Acute intermittent (hepatic) porphyria (principal); D69.6 Thrombocytopenia, unspecified; F90.9 Attention-deficit hyperactivity disorder, unspecified type; Z87.440 Personal history of urinary (tract) infections; Z79.891 Long term (current) use of opiate analgesic; Z88.1 Allergy status to other antibiotic agents; Z88.2 Allergy status to sulfonamides; Z88.6 Allergy status to analgesic agent; Z88.8 Allergy status to other drugs, medicaments and biological substances
CPT/HCPCS: 36415; 80053; 81000; 81025; 83690; 83735; 85025; 87086; 87088; 96361; 96365; 96375; 96376; 99285; J1170; J1200; J1640; J1642; J2405; J3490

== ENCOUNTER 2016-11-15 21:21 | Inpatient (IN) | payer MEDICARE, MEDICAID ==
[~2016-11-15] VITALS: Ht 154.9 cm; Wt 56.6 kg
[2016-11-15 21:24] VITALS: BP 107/72; PULSE 82; RESP 16; O2SAT 99
--- NOTE | 2016-11-15 23:47 | ED.REPORT ---
HPI-Abd Pain F Under 40 Date of Service Nov 15, 2016 ED Provider: Karis Lindsey MD Patient is a 26 year old female with a history of acute intermittent porphyria presents to the ED complaining of generalized pain onset 4 days ago. Patient states that her pain is most severe in her abdomen, spine, knees, and ribs. Patient states that her pain has been increasing in severity since onset and is what she always experiences this type of pain with her porphyria. Her episodes typically last for 2-3 days, with periods of 6-12 hours in between when she is pain free. She reports associated nausea, vomiting, and brown colored urine. She denies fever or chills. Patient was previously followed by Dr. Bocanegra at [facility] Oncology, where she received weekly hemin infusions. Patient had moved to [place] for several years and just moved back to the area last month. She was able to have 5x hemin infusions when she was suddenly informed that her insurance was no longer covered. She has therefore not had a hemin infusion in 3 weeks. The patient can now be seen through [facility] in [facility]. 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 Patient was seen in the ED on October 28 and for this complaint, given hemin injections. Nursing Notes Stated Complaint: ABD PAIN,ACUTE PORPHYRIA Chief Complaint: Female Abdominal Pain Nursing Notes Reviewed: Yes Allergies: Coded Allergies: NSAIDS (Non-Steroidal Anti-Inflamma (Verified Allergy, Severe, 11/15/16) ibuprofen (Verified Allergy, Severe, 11/15/16) acetaminophen (Verified Allergy, Unknown, 11/15/16) dextromethorphan (Verified Allergy, Unknown, 11/15/16) doxylamine (Verified Allergy, Unknown, 11/15/16) pseudoephedrine (Verified Allergy, Unknown, 11/15/16) Barbiturates (Verified Adverse Reaction, Severe, UNSAFE IN ACUTE PORPHYRIA , 11/15/16) Estrogens (Verified Adverse Reaction, Severe, UNSAFE IN ACUTE PORPHYRIA, ) Succinimides (Verified Adverse Reaction, Severe, UNSAFE IN ACUTE PORPHYRIA , 11/15/16) Sulfa (Sulfonamide Antibiotics) (Verified Adverse Reaction, Severe, UNSAFE IN ACUTE PORPHYRIA, 11/15/16) aminopyrine (Verified Adverse Reaction, Severe, UNSAFE IN ACUTE PORPHYRIA , 11/15/16) antipyrine (Verified Adverse Reaction, Severe, UNSAFE IN ACUTE PORPHYRIA, 11/15/16) carbamazepine (Verified Adverse Reaction, Severe, UNSAFE IN ACUTE PORPHYRIA, 11/15/16) carisoprodol (Verified Adverse Reaction, Severe, UNSAFE IN ACUTE PORPHYRIA , 11/15/16) clonazepam (Verified Adverse Reaction, Severe, UNSAFE IN ACUTE PORPHYRIA ( HIGH DOSES), 11/15/16) danazol (Verified Adverse Reaction, Severe, UNSAFE IN ACUTE PORPHYRIA, ) diclofenac (Verified Adverse Reaction, Severe, UNSAFE IN ACUTE PORPHYRIA, 11/15/16) ergot alkaloids (Verified Adverse Reaction, Severe, UNSAFE IN ACUTE PORPHYRIA, 11/15/16) ethchlorvynol (Verified Adverse Reaction, Severe, UNSAFE IN ACUTE PORPHYRIA, 11/15/16) glutethimide (Verified Adverse Reaction, Severe, UNSAFE IN ACUTE PORPHYRIA , 11/15/16) griseofulvin (Verified Adverse Reaction, Severe, UNSAFE IN ACUTE PORPHYRIA , 11/15/16) mebutamate (Verified Adverse Reaction, Severe, UNSAFE IN ACUTE PORPHYRIA, 11/15/16) meprobamate (Verified Adverse Reaction, Severe, UNSAFE IN ACUTE PORPHYRIA , 11/15/16) methyprylon (Verified Adverse Reaction, Severe, UNSAFE IN ACUTE PORPHYRIA , 11/15/16) metoclopramide (Verified Adverse Reaction, Severe, UNSAFE IN ACUTE PORPHYRIA, 11/15/16) phenytoin (Verified Adverse Reaction, Severe, UNSAFE IN ACUTE PORPHYRIA, ) phytonadione (vitamin K1) (Verified Adverse Reaction, Severe, UNSAFE IN ACUTE PORPHYRIA, 11/15/16) primidone (Verified Adverse Reaction, Severe, UNSAFE IN ACUTE PORPHYRIA, ) progesterone (Verified Adverse Reaction, Severe, UNSAFE IN ACUTE PORPHYRIA , 11/15/16) pyrazinamide (Verified Adverse Reaction, Severe, UNSAFE IN ACUTE PORPHYRIA , 11/15/16) rifampin (Verified Adverse Reaction, Severe, UNSAFE IN ACUTE PORPHYRIA, ) tybamate (Verified Adverse Reaction, Severe, UNSAFE IN ACUTE PORPHYRIA, ) valproic acid (Verified Adverse Reaction, Severe, UNSAFE IN ACUTE PORPHYRIA, 11/15/16) Scheduled Duloxetine (Duloxetine) 30 Mg Capsule.dr 30 MG PO prn Goserelin Acetate (Zoladex) 3.6 Mg Impl 3.6 MG SUBQ MONTHLY Hemin (Panhematin) 313 Mg Vial 313 MG IV QW Scheduled PRN Diazepam (Diazepam) 5 Mg Tablet 5 MG PO TID PRN PRN For Anxiety Gabapentin (Gabapentin) 100 Mg Capsule 100 MG PO TID PRN PRN For Pain Hydrocodone-Acetaminophen 5-325 mg (Hydrocodone-Acetaminophen 5-325 mg) 1 Each Tablet 1-2 EACH PO Q6 PRN PRN For Pain Ondansetron ODT (Zofran ODT) 4 Mg Tablet 4 MG PO Q4H PRN PRN For Nausea Promethazine (Promethazine) 12.5 Mg Tablet 12.5 MG PO PRN For Nausea/Vomiting General Time Seen by MD: 23:31 Chief Complaint Abdominal pain Hx Obtained From: Patient Arrived By: Walk-in Sudden in Onset?: Yes Onset Occurred: 3 days ago Symptom Duration: Intermittent Location: : Diffuse Quality: Painful Radiation: : Back Severity: Current: Moderate Severity: Maximum: Moderate Recent Healthcare: Recent doctor visit Past Medical History Past Medical History Notes: Previous Admitting Supervisor Dr. Bocanegra- Now seen at [facility] by Dr. Bustamante Last Admit 09/25-03/10 for porphyria ED visit 10/28/16 and 11/05/16 - porphyria (DC home following hemin injection, insurance no longer allows patient to be seen at [facility] oncology)) Past Medical History Porphyria. Hospitalized for porphyria in the past. 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 Attention deficit hyperactivity disorder Thrombocytopenia, Abdominal US without splenomegaly 01/2013 History of recurrent urinary tract infections. Takes oxycodone as needed, usually 2 per day. Past Surgical History port placement Reports: Portocath Family History Noncontributory Smoking History Never Smoker Social History Approximately one month ago, the patient moved to [place] from [place]. In [place], her transfusions were covered by blue cross, medicare and medicaid. Alcohol Use: Denies alcohol use Drug Use: Denies drug use Other Social History: Good social support, Local resident Ambulatory Status Independent Review of Systems Constitutional: Denies: Chills, Fever Cardiovascular: Reports: Chest pain (rib pain) GI: Reports: Abdominal pain, Nausea, Vomiting Female: Reports: Hematuria Musculoskeletal: Reports: Back pain, Extremity pain, Neck pain Complete sys rev & neg: except as marked. Physical Exam Initial Vital Signs Vital Signs (First) Date Time Temp Pulse Resp B/P Pulse Ox O2 Delivery O2 Flow Rate FiO2 11/15/16 21:24 36.4 82 16 107/72 99 Room Air Initial VS: Reviewed, Vital signs normal Head / Eyes: Atraumatic, Normocephalic, PERRL ENT: Mucous membranes moist, Conjunctiva normal, No scleral icterus Neck: Supple, Non-tender, Full range of motion Extremities: Vascular intact, Neuro intact, No swelling, No tenderness Skin: Warm, Dry, No cyanosis Neurologic: Alert, Oriented, Nonfocal Psychiatric: Mood/affect normal, Behavior normal, Normal thought content General/Constitutional: Awake, Alert, Cooperative, Not toxic appearing Respiratory / Chest: Atraumatic, Breath sounds NL, Breath sounds = bilat Cardiovascular: Heart rate NL, Regular rhythm, Heart sounds NL Abdomen: Atraumatic, Soft, No guarding, No rebound Generalized abdominal pain Back: Atraumatic, Full range of motion Interpretation & Diagnostics Lab Results Interpretation Result Diagram: 11/15/16 2352 11/15/16 2352 Test 11/15/16 23:52 11/16/16 01:50 White Blood Count 5.1th/mm3 (3.8-10.1) Red Blood Count 3.54mil/mm3 (3.90-5.20) Hemoglobin 10.4g/dL (12.0-15.6) Hematocrit 31.9% (35.0-46.0) Mean Corpuscular Volume 90.1fL (81-100) Mean Corpuscular Hemoglobin 29.4pg (27.0-35.0) Mean Corpuscular Hemoglobin Concent 32.6% (32.0-37.0) Red Cell Distribution Width 13.3% (12.3-15.4) Platelet Count 115bil/L (150-400) Neutrophils (%) (Auto) 32.0% (40-74) Lymphocytes (%) (Auto) 56.2% (14-46) Monocytes (%) (Auto) 8.8% (4-12) Eosinophils (%) (Auto) 2.6% (0-5) Basophils (%) (Auto) 0.2% (0-3) Sodium Level 140mEq/L (134-144) Potassium Level 3.9mEq/L (3.5-5.2) Chloride Level 101mEq/L (97-108) Carbon Dioxide Level 25mmol/L (18-29) Blood Urea Nitrogen 23mg/dL (6-20) Creatinine 0.87mg/dL (0.57-1.00) Estimat Glomerular Filtration Rate 114mL/min (>59) Glucose Level 105mg/dL (60-99) Calcium Level 9.1mg/dL (8.5-10.1) Total Bilirubin 0.2mg/dL (0.0-1.2) Aspartate Amino Transf (AST/SGOT) 47U/L (0-50) Alanine Aminotransferase (ALT/SGPT) 33U/L (0-32) Alkaline Phosphatase 119U/L (25-150) Total Protein 6.7g/dL (6.4-8.4) Albumin 4.0g/dL (3.4-5.0) Hold [place] Top Tube Received (Received) Re-Eval/Medical Decision Med Decision/Clinical Course The patient presents with increasing abdominal pain which is her usual presentation for acute porphyria. She is given multiple doses of pain medication as well as Hemin with only minimal improvement. The patient was here on the and is unable to follow-up with hematology due to some insurance issues. She has not been receiving regular infusions. The patient required admission for continued pain control. She had requested Dilaudid and Benadryl which she was given and had continued itching but no rash. Source of Hx: Old records, Family Re-Evaluation/Progress : Time of Eval: 02:11 Re-Evaluation/Progress Note: Pt rechecked. Informed pt of need for admission. Pt understands and agrees with the plan for admission. All questions addressed. Consultation #1: Referral / Consult Name: Emmanuel Shipman MD Consulted With: Hospitalist Call Returned at: 02:24 Pneumatic Tester: Will see patient, Agrees with eval, Agrees with plan, Accepts admit Consultation #2: Referral / Consult Name: Hector Hernandez MD Pneumatic Tester: Will see patient Counseled Regarding: Diagnosis, Lab results, Need for admission Discharge & Departure Primary Impression: Acute intermittent porphyria Disposition: ADMITTED TO HOSPITAL Discharge Condition All VS Reviewed: Yes Condition: Stable Referrals: Dinorah Domínguez MD (PCP) Scribe Attestation Portions of this note were transcribed by Brianna Yeboah and Heather Weaver I, personally performed the history, physical exam and medical decision-making;I reviewed and confirmed the accuracy of the information in the transcribed note. Signed by Brianna Yeboah and Jina Tejada. 11/16/16 0301 copies to: Dinorah Domínguez MD, Jena M MD Nov 15, 2016 23:47 Brianna Yeboah Nov 15, 2016 23:55 Heather Weaver Nov 16, 2016 02:00
[2016-11-15] MEDS ORDERED: HEMIN IV ONE (23:55)
[2016-11-15] MEDS ORDERED: HYDROmorphone 1 mg/mL Inj IVPUSH ONE (23:55)
[2016-11-15] MEDS ORDERED: STERILE IV ONE (23:55)
[2016-11-15] MEDS ORDERED: 0.9% Sodium Chloride 1,000 ML IV ONE (23:55)
[2016-11-15] MEDS ORDERED: Ondansetron 2 mg/mL 2 mL Inj IVPUSH PRN (23:55)
[2016-11-16] VITALS (9 sets, daily range): BP systolic 105–120; BP diastolic 65–78; PULSE 79–112; RESP 14–16; O2SAT 94–100
[2016-11-16 00:06] LABS: BASOPHILS % (AUTO) 0.2 % (0-3); EOSINOPHILS % (AUTO) 2.6 % (0-5); MONOCYTES % (AUTO) 8.8 % (4-12); Mean Corpuscular Hemoglobin 29.4 pg (27.0-35.0); Mean Corpuscular Volume 90.1 fL (81-100); Platelet Count 115 bil/L (150-400)
[2016-11-16] MEDS ORDERED: HYDROmorphone 1 mg/mL Inj IVPUSH ONE ×2 (00:50→02:05)
[2016-11-16] MEDS ORDERED: 0.9% Sodium Chloride 1,000 ML IV ONE (01:15)
[2016-11-16] MEDS ORDERED: Famotidine Inj 20 MG in IV Premix 1 EACH IV ONE (02:05)
[2016-11-16] MEDS ORDERED: HYDROmorphone 0.5 mg/0.5 mL iSecure Syringe IVPUSH PRN (03:05)
[2016-11-16] MEDS ORDERED: Polyethylene Glycol (PEG) 17 Gm Powder PO PRN (03:05)
[2016-11-16] MEDS ORDERED: Alum-Mag Hydrox-Simeth 30 mL Suspension PO PRN (03:05)
--- NOTE | 2016-11-16 03:15 | PCM.HPMED ---
Subjective Date of Service Nov 16, 2016 Primary Provider: Admitting Physician: Emmanuel Shipman MD Primary Care Physician: Dinorah Domínguez MD Attending Physician: Emmanuel Shipman MD Admit Status: From the Emergency Department, Remote Telemetry Chief Complaint: Generalized pain with associated nausea, chills, vomiting History of Present Illness: Ms. Newsome is a pleasant 26-year-old woman with history of acute intermittent porphyria once managed with weekly hemin infusions, and multiple hospitalizations for acute exacerbations, that presented to [facility] with a 4 day history of severe, generalized pain that is worsening, with associated nausea, and vomiting. She was admitted for management of symptoms secondary to acute intermittent porphyria. Hospital day 1 Ms. Newsome states that she recently moved back to the [facility] from [place], and she is in the process of reestablishing care locally. She has recently followed up with Dr. Bustamante in [place] oncology, and she reports that Dr. Shankar's concerned with the long-term effects of hemin infusions. She did not receive a hemin fusion for this week. Her pain is described as generalized, severe, and debilitating. She states she has experienced these episodes before, always due to an exacerbation of her porphyria. She denies any fever, but does admit to associated chills, nausea, vomiting, abdominal pain , generalized pain, irritability, and itching.She has multiple hospitalizations in recent past for similar presentations. Due to patient's extensive list of allergies, she reports that Dilaudid, Benadryl, and gabapentin, seemed to work well for her pain control, with few side effects. In the ED, T 36.4, pulse 82, respiratory rate 16, blood pressure 107/72, 99% on room air; initial labs revealed WBC 5.1, hemoglobin 10.4, hematocrit 31.9, platelets 115; total bili 0.2, AST 47, ALT 33, alkaline phosphatase 119; urine porphobilinogen was obtained and sent. Initial therapies included Benadryl, Dilaudid, famotidine, and hemin infusion was completed. The ED kindly contacted Dr. Hernandez of oncology, whom agrees to follow-up in morning. She was seen in the ED, in stable condition. Awaiting transfer to [facility]. Review of Systems: Complete ROS obtained; pertinent positives and negatives as noted above Allergies Coded Allergies: NSAIDS (Non-Steroidal Anti-Inflamma (Verified Allergy, Severe, 11/15/16) ibuprofen (Verified Allergy, Severe, 11/15/16) acetaminophen (Verified Allergy, Unknown, 11/15/16) dextromethorphan (Verified Allergy, Unknown, 11/15/16) doxylamine (Verified Allergy, Unknown, 11/15/16) pseudoephedrine (Verified Allergy, Unknown, 11/15/16) Barbiturates (Verified Adverse Reaction, Severe, UNSAFE IN ACUTE PORPHYRIA , 11/15/16) Estrogens (Verified Adverse Reaction, Severe, UNSAFE IN ACUTE PORPHYRIA, ) Succinimides (Verified Adverse Reaction, Severe, UNSAFE IN ACUTE PORPHYRIA , 11/15/16) Sulfa (Sulfonamide Antibiotics) (Verified Adverse Reaction, Severe, UNSAFE IN ACUTE PORPHYRIA, 11/15/16) aminopyrine (Verified Adverse Reaction, Severe, UNSAFE IN ACUTE PORPHYRIA , 11/15/16) antipyrine (Verified Adverse Reaction, Severe, UNSAFE IN ACUTE PORPHYRIA, 11/15/16) carbamazepine (Verified Adverse Reaction, Severe, UNSAFE IN ACUTE PORPHYRIA, 11/15/16) carisoprodol (Verified Adverse Reaction, Severe, UNSAFE IN ACUTE PORPHYRIA , 11/15/16) clonazepam (Verified Adverse Reaction, Severe, UNSAFE IN ACUTE PORPHYRIA ( HIGH DOSES), 11/15/16) danazol (Verified Adverse Reaction, Severe, UNSAFE IN ACUTE PORPHYRIA, ) diclofenac (Verified Adverse Reaction, Severe, UNSAFE IN ACUTE PORPHYRIA, 11/15/16) ergot alkaloids (Verified Adverse Reaction, Severe, UNSAFE IN ACUTE PORPHYRIA, 11/15/16) ethchlorvynol (Verified Adverse Reaction, Severe, UNSAFE IN ACUTE PORPHYRIA, 11/15/16) glutethimide (Verified Adverse Reaction, Severe, UNSAFE IN ACUTE PORPHYRIA , 11/15/16) griseofulvin (Verified Adverse Reaction, Severe, UNSAFE IN ACUTE PORPHYRIA , 11/15/16) mebutamate (Verified Adverse Reaction, Severe, UNSAFE IN ACUTE PORPHYRIA, 11/15/16) meprobamate (Verified Adverse Reaction, Severe, UNSAFE IN ACUTE PORPHYRIA , 11/15/16) methyprylon (Verified Adverse Reaction, Severe, UNSAFE IN ACUTE PORPHYRIA , 11/15/16) metoclopramide (Verified Adverse Reaction, Severe, UNSAFE IN ACUTE PORPHYRIA, 11/15/16) phenytoin (Verified Adverse Reaction, Severe, UNSAFE IN ACUTE PORPHYRIA, ) phytonadione (vitamin K1) (Verified Adverse Reaction, Severe, UNSAFE IN ACUTE PORPHYRIA, 11/15/16) primidone (Verified Adverse Reaction, Severe, UNSAFE IN ACUTE PORPHYRIA, ) progesterone (Verified Adverse Reaction, Severe, UNSAFE IN ACUTE PORPHYRIA , 11/15/16) pyrazinamide (Verified Adverse Reaction, Severe, UNSAFE IN ACUTE PORPHYRIA , 11/15/16) rifampin (Verified Adverse Reaction, Severe, UNSAFE IN ACUTE PORPHYRIA, ) tybamate (Verified Adverse Reaction, Severe, UNSAFE IN ACUTE PORPHYRIA, ) valproic acid (Verified Adverse Reaction, Severe, UNSAFE IN ACUTE PORPHYRIA, 11/15/16) Home Medications Obtained from ED documentation: Duloxetine (Duloxetine) 30 Mg Capsule.dr 30 MG PO prn Goserelin Acetate (Zoladex) 3.6 Mg Impl 3.6 MG SUBQ MONTHLY Hemin (Panhematin) 313 Mg Vial 313 MG IV QW Scheduled PRN Diazepam (Diazepam) 5 Mg Tablet 5 MG PO TID PRN PRN For Anxiety Gabapentin (Gabapentin) 100 Mg Capsule 100 MG PO TID PRN PRN For Pain Hydrocodone-Acetaminophen 5-325 mg (Hydrocodone-Acetaminophen 5-325 mg) 1 Each Tablet 1-2 EACH PO Q6 PRN PRN For Pain Ondansetron ODT (Zofran ODT) 4 Mg Tablet 4 MG PO Q4H PRN PRN For Nausea Promethazine (Promethazine) 12.5 Mg Tablet 12.5 MG PO PRN For Nausea/Vomiting PMH Acute intermittent porphyria Attention deficit hyperactivity disorder Chronic thrombocytopenia H/o recurrent UTI Additional info: Previous Mini Baccarat Dealer Dr. Bocanegra- Now seen at [facility] by Dr. Bustamante Last Admit 09/25-03/10 for porphyria ED visit 10/28/16 and 11/05/16 - porphyria (DC home following hemin injection, insurance no longer allows patient to be seen at [facility] oncology) Surgical History Left-sided port placement Family History Both parents alive and well, she has a brother and sister, reported as healthy; she is the eldest; maternal grandmother has diabetes and hypertension Social History Hx Alcohol Use: No Hx Substance Use: Yes (marijuana; occasional her pain) Hx Tobacco Use: No Smoking Status: Never Smoker Living Arrangement: with Family (recently returned to [facility] from [place]) Exam Vital Signs Vital Sign - Last Date Time Temp Pulse Resp B/P Pulse Ox O2 Delivery O2 Flow Rate FiO2 11/15/16 21:24 36.4 82 16 107/72 99 Room Air Exam General: Alert and oriented 3; in mild to moderate distress secondary to reported pain and itching HEENT: Atraumatic, mucous membranes moist, sclera anicteric Neck: Full range of motion chin to chest without pain Chest: Left-sided port, without surrounding erythema, bandages clean/dry/intact Cardiac: Regular rate and rhythm at time of examination without any appreciable murmurs Respiratory: Adequate air flow all og; no wheeze or rhonchi appreciated Abdomen: Soft, nondistended; reports generalized pain MSK: Able to move 4/4 against gravity Skin: Warm and dry; multiple tattoos Neuro: CN II-XII grossly intact; speech without slur; facial expressions symmetric Psych: Appropriate mood, affect, and responses to questioning; despite severe pain, pt was cooperative and appreciative of care Lab and Diagnostics Result Diagram: 11/15/16235111/15/16 235 Assessment & Plan Ms. Newsome is a pleasant 26-year-old woman with history of acute intermittent porphyria once managed with weekly hemin infusions, and multiple hospitalizations for acute exacerbations, that presented to [facility] with a 4 day history of severe, generalized pain that is worsening, with associated nausea, and vomiting. She was admitted for management of symptoms secondary to acute intermittent porphyria. Hospital day 1 Acute intermittent porphyria, acute flare, present on admission. Under therapy - Received hemin ED - Oncology note dated 10/06/16: Weekly hemin infusion at the approximate 4 mg/kg , rounded to 250 mg; ovarian suppression also resumed, Lupron switched to Zoladex which is given 3.6 mg every 4 weeks - Oncology consultation order placed; ED contacted Dr. Hernandez, whom kindly agreed to follow up with patient Intractable pain refractory to oral medications, present on admission. Under therapy - Secondary to porphyria flare, as noted above - Patient has extensive list of allergies - Dilaudid RESEARCH NURSE, opioid tolerant initiated - Benadryl as needed - Gabapentin also ordered, as patient reports this has helped in the past PRN: Care will be needed in choosing as needed medications, as patient cannot tolerate acetaminophen, NSAIDs Diet: General DVT: SCDs only at this time GI: Not indicated CODE STATUS: Full code Patient status: Due to severity of presenting symptoms, likely course of care, and risk of adverse events, anticipated length of stay is less than 2 midnight, patient admitted as observation at this time Pain Evaluation: Adequate Pain Control GI Prophylaxis: Not indicated VTE Prophylaxis: SCDs Resuscitation Status: CPR: Attempt Resuscitation Attending Statement The patient was seen and examined together with Dr. Fleming on 11/16 and I agree with the history, exam and plan as outlined in the note above. Abbey Fleming DO Nov 16, 2016 03:14 Emmanuel Shipman MD Nov 16, 2016 19:06
[2016-11-16] MEDS: HYDROmorphone PCA 0.2 mg/mL 30 mL Inj IV PRN (04:30)
[2016-11-16] MEDS: Dextrose 5% 500 ML IV SCH (04:31)
--- NOTE | 2016-11-16 05:25 | NUR ---
ADMIT Patient arrives drowsy and complaining of pain. BIAS BINDING FOLDER dilaudid set up and patient instructed how to use it. Dozing intermittently, arouses easily. Patient med rec will have to be finished in a.m. as she is too sleepy to go over it.
[2016-11-16 07:18] LABS: BASOPHILS % (AUTO) 0.2 % (0-3); EOSINOPHILS % (AUTO) 2.2 % (0-5); MONOCYTES % (AUTO) 7.6 % (4-12); Mean Corpuscular Hemoglobin 29.7 pg (27.0-35.0); Mean Corpuscular Volume 92.9 fL (81-100); NEUTROPHILS % (AUTO) 45.4 % (40-74); Platelet Count 108 bil/L (150-400)
[2016-11-16] MEDS ORDERED: DULoxetine 30 mg DR Capsule PO SCH (07:40)
[2016-11-16] MEDS: DULoxetine 30 mg DR Capsule PO SCH (09:56)
--- NOTE | 2016-11-16 13:19 | NUR ---
Social Work Note - Screening: D/A: EMR reviewed, the Pt is a 26 y/o female that was admitted under observation status for acute porphyria. The Pt's PCP is MD Dinorah Domínguez and her primary insurance is [employer] with a [employer] supplement. The Pt lives independently in [place] with her family. The Pt does not have an Advanced Directive, paperwork provided. The Pt has been previously seen at [facility] with MD Bocanegra for weekly hemin infusions but her care was recently transferred to [facility] with MD Bustamante following due to insurance reasons. As per notes, the Pt reports she has not received her infusion due to MD Shankar's concerns with the long-term effects of hemin infusions. Attending MD in contact with regarding concerns for ongoing infusions, seeking assistance with coordination of these services. DANY t/c to Jj DAS at [facility], PIPPA confirmed that Pt was referred to [facility] due to insurance reasons. PIPPA informed DANY that the Pt's referral was completed on 11APR and her consult was completed on 19APR. MEDIA CONSULTANT OUTSIDE SALES informed SW to contact [facility] for additional assistance and referral if needed. DANY placed call to [facility], left voicemail. SW awaiting return call for additional assistance. DANY will continue to follow. PIPPA [place] Anode Worker Addendum: 11/16/16 at 1546 by SUHAIL TALLEY SS DANY internet site designer note reviewed. PIPPA [place]ales
--- NOTE | 2016-11-16 13:22 | NUR ---
Port called IV therapy concerning port. shift supervisor melting reported that it flushed but not able to sustain IVF infusing.
--- NOTE | 2016-11-16 14:30 | NUR ---
Social Work Note - Continued Discharge Planning: D/A: SW received call from [facility] paper stacker. SW informed that the Oncology department had order labs for the Pt last week and was waiting for results before determining a care plan for the Pt. RN reported that the Pt has a f/u appointment scheduled for tomorrow 11/17/16 at 1140am. MD and RN informed of updated information. Telephone number given to [facility] RN for assistance. SW to follow. P: The Pt is not medically stable for discharge at this time. Updated Pt information from [facility] Oncology given to [facility] RN for further assistance. SW to follow. PIPPA [place] Special Education Para Professional Addendum: 11/16/16 at 1546 by SUHALI TALLEY DANY geotechnical intern note reviewed. PIPPA [place]
[2016-11-16] MEDS: Ondansetron 2 mg/mL 2 mL Inj IVPUSH PRN (17:15)
--- NOTE | 2016-11-16 17:42 | NUR ---
Pain/nausea/itching Pt c/o pain every time she is awake, asking for bolus dose. At times shaking. Within 1 minute of asking pt is asleep, no bolus/clinical dose given. MD notified and DC bolus/clinical dosing. Pt c/o nausea x1 later in shift. No emesis present. Rx given. Had small amounts to eat and tolerating. Falling asleep easily taking a long time to complete meal. C/o itching at 1700, benadryl given per request.
[2016-11-16] MEDS ORDERED: Sodium Chloride LOK Flush 10 mL Syringe IVFLUSH PRN ×2 (19:45)
[2016-11-16] MEDS ORDERED: HepLOK Flush 100 unit/mL 5 mL Inj IVFLUSH PRN (19:45)
[2016-11-16] MEDS: 0.9% Sodium Chloride 250 ML IV SCH (19:45)
[2016-11-16] MEDS ORDERED: STERILE IV ONE (23:59)
[2016-11-16] MEDS ORDERED: HEMIN IV ONE (23:59)
[2016-11-17] VITALS (12 sets, daily range): BP systolic 101–117; BP diastolic 71–82; PULSE 86–105; RESP 16–22; O2SAT 92–97
[2016-11-17] MEDS: HYDROmorphone PCA 0.2 mg/mL 30 mL Inj IV PRN ×5 (00:06→18:44)
[2016-11-17] MEDS: Dextrose 5% 500 ML IV SCH (03:01)
[2016-11-17] MEDS: Ondansetron 2 mg/mL 2 mL Inj IVPUSH PRN ×3 (03:42→22:14)
--- NOTE | 2016-11-17 05:24 | NUR ---
PAIN/NAUSEA Patient continues to c/o pain but is quite drowsy and falls back to sleep without issue. Became nauseated after Hemin infusion, zofran given. Continue to monitor.
[2016-11-17 06:42] LABS: BASOPHILS % (AUTO) 0.2 % (0-3); EOSINOPHILS % (AUTO) 1.4 % (0-5); MONOCYTES % (AUTO) 8.1 % (4-12); Mean Corpuscular Hemoglobin 29.7 pg (27.0-35.0); Mean Corpuscular Volume 91.1 fL (81-100); Platelet Count 113 bil/L (150-400)
[2016-11-17] MEDS: DULoxetine 30 mg DR Capsule PO SCH (09:13)
--- NOTE | 2016-11-17 13:03 | NUR ---
Social Work: Continued d/c planning Data: Pt is on day 1 of hospitalization. EMR reviewed. FINAL INSPECTOR PAPER and UR RN spoke with MD regarding d/c plan. MD hospitalist states that pt's previous oncologist cannot see pt due to insurance issues. SAROJ RN following up on this and will notify FINAL INSPECTOR PAPER once solution is found. FINAL INSPECTOR PAPER will continue to follow. Plan: Pt will d/c home via POV when medically stable. FINAL INSPECTOR PAPER will continue to follow for needs. PIPPA Oleary
--- NOTE | 2016-11-17 19:19 | NUR ---
Pain/nausea/itching Pt reports forgets to push MEDIA RELATIONS INTERN button until pain is 8/10, then takes a long time to recover. 1 dose of nausea medications given with good relief. c/o itching - benadryl given and increased during the shift with minimal relief.
[2016-11-17] MEDS ORDERED: HYDROmorphone PCA 0.2 mg/mL 30 mL Inj - Opioid Tolerant IV PRN (20:45)
--- NOTE | 2016-11-17 20:51 | CCS NOTE ---
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 She was managed at our clinic between 2011 and 2014 and then left the state to [place] and after two years gap returned to this area was again admitted with an acute attack and that is when I got back involved in her care on September 27, 2016 during another hospitalization. We resumed her previous treatment plan which was weekly prophylactic hemin administration at approximately 4 mg/kg once a week IV to prevent acute attacks given the previous experience as well as ovarian suppression with Zoladex injections to prevent menstrual cycles as they have been exacerbating her acute attacks. This treatment plan was also continued while she was in [place] by the local money examiner/oncologist there before she transferred back and was for a few weeks without treatment in that transfer situation and therefore had an acute attack/exacerbation. I had seen her last about six weeks ago on October 08 and she was doing very well. At that day she received the last dose of Zoladex at 3.6 mg subcu which is being given once a month on October 06 and received hemin at our center weekly through October 20. It was then realized that the patient's new insurance did not cover our clinic and it would be out of network and she could no longer come to our center. Since [facility] was in the network and the closest possibility was [facility] cancer clinic, I referred her to establish care there and continued treatment. Apparently, she was seen there by Dr. Bustamante but had not been started on continuation of her weekly hemin as he was not familiar with the diagnosis of management yet, and told her that he was not yet comfortable administering prophylactic hemin. She had also missed her ovarian suppression injection Zoladex that would have been due on November 06. As similar in previous visit, the patient after missing a couple of weeks of prevention, has ended in an acute attack of porphyria and came to the emergency department. Instead of going to the emergency department of the [facility], she came to [facility]. Apparently she was told that she should come here by some staff there. I have been contacted by the hospitalist team to revisit the situation. She was admitted with nausea, vomiting, abdominal pain and body pain which is her usual presentation. At times she has also associated hyponatremia and slight elevation of liver enzymes. She has been given hemin infusion in the ED, a total dose of 300 mg on November 15 at night, a second dose was given last night, and a third dose will be due tonight. LABORATORIES: Show a white count of 6.7, hemoglobin 12, platelets 113. Chemistry shows stable electrolytes. Creatinine 0.72, slight elevation of ALT at 35, albumin normal. Urinalysis showed no evidence of urinary tract infection on admission. PHYSICAL EXAMINATION: She is quite uncomfortable and is on a FINANCE INSURANCE MANAGER pump. Vitals stable. Abdomen is soft. No rash. ASSESSMENT/PLAN: A 26-year-old lady with acute intermittent porphyria that was diagnosed in beginning of 2011 after onset of recurrent symptoms in late 2010 and has had a complex management. I had evaluated her and found the extensive abnormalities in her 24-hour urine collection consistent with acute intermittent porphyria. She was also sent to Dr. Melvi Medrano with Hematology at the [facility] for a second opinion with whom I had been in phone communication, but she saw her also in the clinic after awhile and agreed with the diagnosis. We were not able to control the recurrent hospitalization and attacks with the standard preventions of triggers as well as ovarian suppression since menstrual cycles were associated with attacks. Eventually, we had to start her on preventive weekly hemin infusion once a week at approximately 4 mg/kg. This was the only way to prevent attacks over the past five years and even with this strategy missing just one week of treatment at times has led to a hospitalization or additional triggers such as urinary tract infection. Dr. Medrano had also entertained even the possibility of twice weekly hemin administration for prevention but, so far, luckily that has not become necessary. For details, please refer to above summary. Unfortunately, the patient is now in between management due to insurance issues as she could no longer come to our Cancer Center for therapy since late September. I have personally spoken to Dr. Bustamante at [facility] today to assure that he is aware of the complexity of her management and the course of the past five years and that she needs to continue prophylactic hemin since Dr. Bustamante is now going to assume her care at [facility] since they are in the network for her current insurance which she will maintain at least for the remainder of this year and potentially longer. During the acute attack, she should continue hemin at 250 mg IV every 24 hours. She has had so far two doses and the 3rd one will be due tonjayden, and Dr. Juarez and I spoke about that and she will receive it tonight as well. This should continue for another 2-3 days. Usually, she requires five days of hemin infusion daily to recover from the acute attack. FINANCE INSURANCE MANAGER pump is continued for pain management, and I suggested considering a low-dose basal rate to improve her pain control. Relevant records of the last five years including lab studies and [facility] office notes was personally printed by me and will be faxed to Dr. Bustamante's office tomorrow so that she can resume her next hemin infusion which will be due next Tuesday, November 24, at their office after the discharge here. TIME SPENT WITH PATIENT: Approximately one at 1 hour and 15 minutes were spent in counseling and coordination of care.
[2016-11-17] MEDS: 0.9% Sodium Chloride 250 ML IV SCH (21:09)
[2016-11-17] MEDS ORDERED: STERILE IV ONE (23:55)
[2016-11-17] MEDS ORDERED: HEMIN IV ONE (23:55)
[2016-11-18] VITALS (14 sets, daily range): BP systolic 104–143; BP diastolic 69–96; PULSE 80–103; RESP 15–18; O2SAT 90–100
[2016-11-18] MEDS: HYDROmorphone PCA 0.2 mg/mL 30 mL Inj IV PRN ×3 (00:39→23:37)
--- NOTE | 2016-11-18 01:58 | PCM.PNMED ---
Subjective Date of Service Nov 17, 2016 Subjective Patient is seen and examined. She states that she has seen Dr. Robby pearson for initial visit to establish care he was going to work her up to actually diagnose her acute porphyria. She states that his office has asked her to go to the [facility] for her treatment. Patient complains of itching. We will maximize the Benadryl dose Patient complains of inadequate pain control states that 6 out 10. Explained to her that we worry about respiratory depression and she is on a high-dose protocol. I have told her I will try to give her more clicks the same amount of pain medication. She is agreeable to this plan. We will plan for him an infusion #3at midnight Exam Vital Signs Vital Sign - Last Date Time Temp Pulse Resp B/P Pulse Ox O2 Delivery O2 Flow Rate FiO2 11/17/16 12:00 36.8 89 20 117/82 96 Room Air Intake and Output 11/16/16 11/16/16 11/17/16 Cumulative From/Thru 15:00 23:00 07:00 11/15/16 21:24 - 11/17/16 06:26 Intake Total 665 ml 126 ml 2791 ml Output Total 1150 ml 600 ml 1750 ml Balance -485 ml -474 ml 1041 ml Intake Oral 540 ml 540 ml IV Total 125 ml 126 ml 2251 ml Output Urine Total 1150 ml 600 ml 1750 ml # Bowel Movements 0 0 Exam General: NAD, laying in bed, HEENT: NCAT, Eyes: [place] conjunctivae. No ptosis, PERRL Neck: No masses, trachea midline, no thyromegaly Lungs: CTA with normal respiratory effort, no crackles or wheezes CV: RRR, no murmurs/rubs/gallops, normal PMI GI: Soft, diffusely tender with no hepatosplenomegaly MSK: Normal gait and station, Skin: Warm and dry. Psych: A&O X3, with appropriate affect Neuro: No focal deficits IVs and Medications IV Fluids None Lab and Diagnostics Result Diagram: 11/17/1661911/17/16619 Assessment & Plan Ms. Newsome is a pleasant 26-year-old woman with history of acute intermittent porphyria once managed with weekly hemin infusions, and multiple hospitalizations for acute exacerbations, that presented to [facility] with a 4 day history of severe, generalized pain that is worsening, with associated nausea, and vomiting. She was admitted for management of symptoms secondary to acute intermittent porphyria. Hospital day 1 Acute intermittent porphyria, acute flare, present on admission. Under therapy - Received hemin ED - Oncology note dated 10/06/16: Weekly hemin infusion at the approximate 4 mg/kg , rounded to 250 mg; ovarian suppression also resumed, Lupron switched to Zoladex which is given 3.6 mg every 4 weeks, she is not currently due until November 22 - Oncology consultation order placed; ED initially contacted Dr. Hernandez from admission time records, following the admission we contacted Dr. Bocanegra who noticed the patient very well. He agrees to see the patient on 11/17 after discussing the case with Dr. Bustamante. Received a call from Dr. Bocanegra around 7 PM 11/17 asking to reconsider her pain protocol, put her on Dilaudid drip to keep up with her pain. pharmacy did not quite know quickly how to set this up easily. As this is the end of day shift, we defer this to the day team tomorrow. Please work with pharmacy to see if this is feasible. -- Please call Dr. Bocanegra, and continue to schedule nightly infusions of hemin as recommended by him. Currently she is getting them at a total of 250 units at midnight. Follow his recommendations Intractable pain refractory to oral medications, present on admission. Under therapy - Secondary to porphyria flare, as noted above - Patient has extensive list of allergies - Dilaudid SALES SERVICE MANAGER, opioid tolerant initiated: Just the evening of 11/[address] Bocanegra's call, changed patient's number of demand boluses to 8 from 6 to keep the same total medication of 2.4 milligrams per hour. She was agreeable to this plan - Benadryl as needed: increased dose per paitent request this AM - Gabapentin also ordered, as patient reports this has helped in the past PRN: Care will be needed in choosing as needed medications, as patient cannot tolerate acetaminophen, NSAIDs Diet: General DVT: SCDs only at this time GI: Not indicated CODE STATUS: Full code Patient status: Due to severity of presenting symptoms, likely course of care, and risk of adverse events, anticipated length of stay is less than 2 midnight, patient admitted as observation at this time Pain Evaluation: Pain not Controlled GI Prophylaxis: Not indicated VTE Prophylaxis: SCDs Resuscitation Status: CPR: Attempt Resuscitation Soraya Juarez DO Nov 17, 2016 16:05
[2016-11-18] MEDS: Dextrose 5% 500 ML IV SCH (03:25)
--- NOTE | 2016-11-18 06:00 | NUR ---
Pain/Nausea/Itching/Hemin Infusion Pt anxious and gets restless. She was noted to be more anxious especially when faimily/visitors were in room. Started patient on Dilaudid continuos rate 0.3 mg last night. Pt still reports pain at 8/10 and asking staff to give her bolus doses several times. Encouraging patient that hopefully with the continuous rate, we can control her pain without need for frequent bolus. Pt expressed anxiety that it's not enough and requesting staff to give her bolus. Pt requesting Benadryl every 4h when it's due. She was noted to be drowsy and drifts back to sleep right away especially after doses of Benadryl. Continuous rate 0.3 mg was stopped since 0130. She reports pain as low 6/10 this am. Pt started to wake up more this am and requested her next Benadryl dose this am. Patient reports that MD told her she would be changing the Bendaryl to q3h prn but instructed pt that it's still ordered q4h prn. Hemin infusion given last night as ordered. Zofran x1 given for nausea. Pt taking po without any vomiting noted/reported.
[2016-11-18 07:05] LABS: Mean Corpuscular Hemoglobin 29.3 pg (27.0-35.0); Mean Corpuscular Volume 91.7 fL (81-100)
[2016-11-18] MEDS: DULoxetine 30 mg DR Capsule PO SCH (09:03)
[2016-11-18] MEDS: Ondansetron 2 mg/mL 2 mL Inj IVPUSH PRN ×4 (09:09→18:59)
--- NOTE | 2016-11-18 16:42 | NUR ---
Social Work: Continued d/c planning Data & Assessment: Pt is on day 2 of hospitalization for acute porphyria per H&P. EMR reviewed. SW followed up with UR RN regarding pt's insurance. MD Bocanegra has seen pt- per his note, "Dr. Bustamante is now going to assume her care at [facility] since they are in the network for her current insurance which she will maintain at least for the remainder of this year and potentially longer." Pt's current insurance is [employer] and [facility] Supp. Pt's next hemin infusion is November 24 at MD Bustamante's office. Records have been faxed to Robby's office, ensuring pt can continue her care there. SW to follow up with pt regarding infusion and to ensure pt is aware and able to make this appointment. Plan: Pt will d/c home via POV when medically stable. POLICY DIRECTOR to follow up with pt regarding hemin infusion and ensure pt is aware and able to make appointment with MD Bustamante. POLICY DIRECTOR will continue to follow for needs. PIPPA Sotelo
--- NOTE | 2016-11-18 17:43 | PCM.PNMED ---
Subjective Date of Service Nov 18, 2016 Subjective Very unhappy. Says is not getting adequate pain control, currently 7/10 and best she's been is 4/10 which is not good enough. Nurse did stop her basal rate during the night. Gen pain from chest to knees. Also unhappy that perip IV line is being used for GUIDANCE DIRECTOR when she has a port-cath, thinks it's leaking (which nurse says it has after she scratches body a lot and dislodges). Exam Vital Signs Vital Sign - Last Date Time Temp Pulse Resp B/P Pulse Ox O2 Delivery O2 Flow Rate FiO2 11/18/16 17:00 16 94 11/18/16 16:41 36.2 80 116/70 Room Air 11/18/16 00:45 2.00 Intake and Output 11/17/16 11/17/16 11/18/16 Cumulative From/Thru 15:00 23:00 07:00 11/15/16 21:24 - 11/18/16 05:42 Intake Total 600 ml 854 ml 4245 ml Output Total 600 ml 900 ml 3250 ml Balance 0 ml -46 ml 995 ml Intake Oral 600 ml 582 ml 1722 ml IV Total 272 ml 2523 ml Output Urine Total 600 ml 900 ml 3250 ml # Bowel Movements 0 0 0 Exam Alert and oriented Heart reg lungs clear Abd; fairly soft (states don't push too hard), BT present, no obvious tenderness to light palp Extrem: no edema IVs and Medications Medications Reviewed: Medications were reviewed in detail Lab and Diagnostics Result Diagram: 11/18/16 0616 11/17/16 0620 Assessment & Plan Ms. Newsome is a pleasant 26-year-old woman with history of acute intermittent porphyria once managed with weekly hemin infusions, and multiple hospitalizations for acute exacerbations, that presented to [facility] with a 4 day history of severe, generalized pain that is worsening, with associated nausea, and vomiting. She was admitted for management of symptoms secondary to acute intermittent porphyria. Hospital day 1 Acute intermittent porphyria, acute flare, present on admission. Under therapy - Received hemin in ED, then daily since (at approx midnight) - Oncology note dated 10/06/16: Weekly hemin infusion at the approximate 4 mg/kg , rounded to 250 mg; ovarian suppression also resumed, Lupron switched to Zoladex which is given 3.6 mg every 4 weeks, she is not currently due until November 22 - Oncology consultation done by Dr Bocanegra who recommended continuing the hemin and placing her on Dilaudid drip to keep up with her pain. Intractable pain refractory to oral medications, present on admission. Under therapy - Secondary to porphyria flare, as noted above - Patient has extensive list of allergies - Dilaudid GUIDANCE DIRECTOR, opioid tolerant initiated: the evening of 11/[address] Bocanegra's call, changed patient's number of demand boluses to 8 from 6 to keep the same total medication of 2.4 milligrams per hour. She was agreeable to this plan - Basal rate was stopped during the night by the nurse, discussed with nurse today who will resume basal rate, also see if the central port can be used ( previous nurse thought it wasn't working well enough) - Benadryl as needed: increased dose per paitent request this AM - Gabapentin also ordered, as patient reports this has helped in the past PRN: Care will be needed in choosing as needed medications, as patient cannot tolerate acetaminophen, NSAIDs Diet: General DVT: SCDs only at this time GI: Not indicated CODE STATUS: Full code Patient status: Due to severity of presenting symptoms, likely course of care, and risk of adverse events, anticipated length of stay is less than 2 midnight, patient admitted as observation at this time GI Prophylaxis: Not indicated VTE Prophylaxis: SCDs Resuscitation Status: CPR: Attempt Resuscitation Yvette Kitchen MD Nov 18, 2016 17:43
--- NOTE | 2016-11-18 19:33 | NUR ---
Pain management Dilaudid SHELVER changed to ordered continuous + patient control settings because pt. states pain is "out of control". She is currently sitting upright, using her phone and eating dinner. Will continue to monitor now that continuous rate is started.
[2016-11-18] MEDS: 0.9% Sodium Chloride 250 ML IV SCH (19:45)
[2016-11-18] MEDS ORDERED: HEMIN IV ONE (23:50)
[2016-11-18] MEDS ORDERED: STERILE IV ONE (23:50)
[2016-11-19] VITALS (11 sets, daily range): BP systolic 98–112; BP diastolic 58–75; PULSE 83–106; RESP 14–16; O2SAT 94–100
[2016-11-19] MEDS ORDERED: 0.9% Sodium Chloride 100 ML ONE (00:05)
[2016-11-19] MEDS: Dextrose 5% 500 ML IV SCH (03:01)
[2016-11-19] MEDS: Ondansetron 2 mg/mL 2 mL Inj IVPUSH PRN ×2 (04:20→19:48)
--- NOTE | 2016-11-19 07:18 | NUR ---
Anxiety/Pain Pt very anxious at beginning of shift and unable to manage pain. Boyfriend at bedside during early evening, he expressed much concern over her anxiety and pain. Followed protocol with STRAW HAT BRIM CUTTER OPERATOR and administered bolus x 2 which pt stated didnt help. Benadryl for itchiness helped pt with pain, sleep and lowered anxiety level throughout night. CPOX on ear while sleeping, fell off frequently and needed to be repositioned throughout night. Beeping of monitor did not arouse pt or disturb her sleep. Pt arousable to touch or voice directed at her. At checks, she stated that she was relieved that the pain was under control at this time. No further c/o of pain until 0500. 1 bolus requested at 0550. Frequent rounding continues.
[2016-11-19] MEDS: DULoxetine 30 mg DR Capsule PO SCH (08:25)
[2016-11-19] MEDS: HYDROmorphone PCA 0.2 mg/mL 30 mL Inj IV PRN ×2 (10:11→17:27)
--- NOTE | 2016-11-19 11:32 | NUR ---
Palliative Care Palliative Care received order from Dr Kitchen 11/19/16 to assist with pain management. Patient is a 26 year old woman with history of acute intermittent porphyria and multiple hospitalizations for acute exacerbations. She was admitted 11/16/16 for care of symptoms secondary to acute intermittent porphyria. Patient lives at home with family. Karma Newsome ([facility] [place]) [phone] Palliative Care to follow. Ibeth Valdez
--- NOTE | 2016-11-19 11:42 | PCM.PNMED ---
Subjective Date of Service Nov 19, 2016 Subjective Still severe pain, generalized to mid body. Very upset about lack of pain control. Exam Vital Signs Vital Sign - Last Date Time Temp Pulse Resp B/P Pulse Ox O2 Delivery O2 Flow Rate FiO2 11/19/16 08:00 88 11/19/16 07:50 14 97 11/19/16 07:50 36.9 107/72 Room Air 11/18/16 00:45 2.00 Intake and Output 11/18/16 11/18/16 11/19/16 Cumulative From/Thru 15:00 23:00 07:00 11/15/16 21:24 - 11/18/16 17:26 Intake Total 720 ml 4965 ml Output Total 500 ml 3750 ml Balance 220 ml 1215 ml Intake Oral 600 ml 2322 ml IV Total 120 ml 2643 ml Output Urine Total 500 ml 3750 ml # Bowel Movements 0 Exam Gen: alert and oriented, appears in at least mod distress due to pain Heart: REg Lungs: clear Abd: soft, BT present, nontender to light palp Extrem: no edema IVs and Medications Medications Reviewed: Medications were reviewed in detail Lab and Diagnostics Result Diagram: 11/18/1616 11/17/16 0620 Assessment & Plan Ms. Newsome is a pleasant 26-year-old woman with history of acute intermittent porphyria once managed with weekly hemin infusions, and multiple hospitalizations for acute exacerbations, that presented to [facility] with a 4 day history of severe, generalized pain that is worsening, with associated nausea, and vomiting. She was admitted for management of symptoms secondary to acute intermittent porphyria. Acute intermittent porphyria, acute flare, present on admission. Under therapy - Received hemin in ED, then daily since (at approx midnight) - Oncology note dated 10/06/16: Weekly hemin infusion at the approximate 4 mg/kg , rounded to 250 mg; ovarian suppression also resumed, Lupron switched to Zoladex which is given 3.6 mg every 4 weeks, she is not currently due until November 22 - Oncology consultation done by Dr Bocanegra who recommended continuing the hemin and placing her on Dilaudid drip to keep up with her pain. Intractable pain refractory to oral medications, present on admission. Under therapy - Secondary to porphyria flare, as noted above - Patient has extensive list of allergies - Dilaudid DATA ANALYSIS MANAGER, opioid tolerant initiated: the evening of 11/[address] Bocanegra's call, 11/17 changed patient's number of demand boluses to 8 from 6 to keep the same total medication of 2.4 milligrams per hour. - Basal rate was stopped during the night by the nurse, discussed with nurse who will resume basal rate, also see if the central port can be used ( previous nurse thought it wasn't working well enough) - Benadryl as needed: increased dose per paitent request 11/17 AM - Gabapentin also ordered, as patient reports this has helped in the past - Pain still not controlled, will consult palliative care for pain management recommendations PRN: Care will be needed in choosing as needed medications, as patient cannot tolerate acetaminophen, NSAIDs Diet: General DVT: SCDs only at this time GI: Not indicated CODE STATUS: Full code Patient status: Due to severity of presenting symptoms, likely course of care, and risk of adverse events, anticipated length of stay is less than 2 midnight, patient admitted as observation at this time Pain Evaluation: Pain not Controlled GI Prophylaxis: Not indicated VTE Prophylaxis: SCDs Resuscitation Status: CPR: Attempt Resuscitation Yvette Kitchen MD Nov 19, 2016 11:42
[2016-11-19] MEDS ORDERED: HYDROmorphone 1 mg/mL Inj IVPUSH ONE ×2 (12:10→12:15)
[2016-11-19 13:17] LABS: Mean Corpuscular Hemoglobin 29.5 pg (27.0-35.0); Mean Corpuscular Volume 90.9 fL (81-100)
--- NOTE | 2016-11-19 13:46 | PCM.CONPAL ---
Date of Service Nov 19, 2016 Date of Hospital Admission: Nov 16, 2016 at 02:53 Date of Palliative Consult: Nov 19, 2016 Requesting Provider: Yvette Kitchen MD Reason Palliative Care Consult: Pain Hospital Unit @time of consult: Other (MOC) Palliative Care Recommendation Summary of palliative recommendations: -Symptom management (Pain/other)- one-time extra dose 0.5 mg IV hydromorphone now; increase patient controlled dose via MUSIC VIDEO DIRECTOR to 0.4 mg Q 10 min w appropriate lockout. Continue basal at 0.3 mg/hr. Follow and adjust. If she appears oversedated, decrease basal to 0.1 mg/hr but do not discontinue completely. (Returned to recheck later in PM- nurse reports not further crying, is more comfortable. Will continue current management.) Per her request, adjust frequency of IV Benadryl to 25 mg Q 2 hr prn pruritis ( she believes increased freq gives better results). Once symptoms stabilized, continue meds for additional 12-24 hours at those levels and then begin rapid taper and return to outpatient PO pain meds (oxycodone 5-10 mg up to TID prn). Make her diazepam scheduled TID with hold for excessive lethargy. Consider referral to outpatient chronic pain clinic for halfway followup, in addition to her hem/onc followup at [facility]. Additional laboratories ordered to rule out unexpected pathology essentially unremarkable, including CBC, CMP and lipase. For constipation, increase Miralax and senna to scheduled BID. -DPOA/Advanced Directives/POLST- full code Additional Medical Diagnoses with primary management by Hospitalist team include : Acute intermittent porphyria, acute flare, present on admission. Under therapy - Oncology consultation done by Dr Bocanegra who recommended continuing the hemin and placing her on Dilaudid drip to keep up with her pain. Intractable pain refractory to oral medications, present on admission. Under therapy Problems: End of Life Preferences Full code Resuscitation Status Resuscitation Status: CPR: Attempt Resuscitation . 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 She was admitted for management of symptoms secondary to acute intermittent porphyria. Hospital day 1 Ms. Newsome states that she recently moved back to the [place] area from [place], and she is in the process of reestablishing care locally. She has recently followed up with Dr. Bustamante in [place] oncology, and she reports that Dr. Shankar's concerned with the long-term effects of hemin infusions. She did not receive a hemin fusion for this week. Her pain is described as generalized, severe, and debilitating. She states she has experienced these episodes before, always due to an exacerbation of her porphyria. She denies any fever, but does admit to associated chills, nausea, vomiting, abdominal pain , generalized pain, irritability, and itching.She has multiple hospitalizations in recent past for similar presentations. Due to patient's extensive list of allergies, she reports that Dilaudid, Benadryl, and gabapentin, seemed to work well for her pain control, with few side effects. In the ED, T 36.4, pulse 82, respiratory rate 16, blood pressure 107/72, 99% on room air; initial labs revealed WBC 5.1, hemoglobin 10.4, hematocrit 31.9, platelets 115; total bili 0.2, AST 47, ALT 33, alkaline phosphatase 119; urine porphobilinogen was obtained and sent. Initial therapies included Benadryl, Dilaudid, famotidine, and hemin infusion was completed. The ED kindly contacted Dr. Hernandez of oncology, whom agrees to follow-up in morning. Since admit, w continued pain. Palliat consulted to assist w management. Prior to visiting I reviewed records in EMR in detail (of interest, I admitted/ followed patient here in 2014). Spoke w nurses and w her hospitalist. When seen, was tearful, c/o severe abd pain, typical of her porphyria, but worse than usual. No current n, v. Last BM 4-5 days ago. Distraught and angry at inadequate symptom mngmnt. Reviewed outpt meds in detail w her; reviewed recent use of narcs (claims oxycodone 5-10 mg daily/intermittently, but later admits to IV narcs at many ER visits, so question of tolerance remains open). Reviewed and d/w her nurses in detail her med usage/changes in regimen over last several days. Continues on IV hemin daily- last dose to be given today it appears. Past Medical History Significant PMH Noted: Acute intermittent porphyria Attention deficit hyperactivity disorder Chronic thrombocytopenia H/o recurrent UTI Surgical history Port placement L upper chest 2013 Social History Living Situation: As noted in H+P. See Dr. Bocanegra's noted for addtn'l details of her troubles w establishing ongoing care Palliative Performance Scale PPS Patient Status: Baseline PPS Ambulation: Full PPS Activity: Normal activity & work PPS Self-Care: Full Self Care PPS Intake: Normal PPS Conscious Level: Full Performance Scale: 100% POLST at Time of Admission Previous POLST?: No Allergy Allergies Reviewed: Yes (extensive allergy list) Medications Current Medications: Current Medications Diphenhydramine HCl 25 mg Q4H PRN IVPUSH; Start 11/17/16 at 14:20; Stop at 16:11; Status DC Diphenhydramine HCl 50 mg Q4H PRN IVPUSH Last administered on 11/19/16 08:26; Admin Dose 50 MG; Start 11/17/16 at 16:11; Stop 11/19/16 at 12:10; Status DC Hydromorphone/ Sodium Chloride Per Protocol PRN PRN IV; Start 11/17/16 at 20:45 ; Stop 11/19/16 at 12:10; Status DC Diazepam 5 mg TID PO; Start 11/19/16 at 14:30 Diphenhydramine HCl 25 mg Q2 PRN IVPUSH Last administered on 11/19/16 12:49; Admin Dose 25 MG; Start 11/19/16 at 12:30 Hydromorphone/ Sodium Chloride Per Protocol PRN PRN IV; Start 11/19/16 at 12:10 Polyethylene Glycol 17 gm BID PO; Start 11/19/16 at 20:30 Senna 17.2 mg BID PO; Start 11/19/16 at 20:30 Scheduled Duloxetine (Duloxetine) 30 Mg Capsule.dr 30 MG PO prn Gabapentin (Gabapentin) 100 Mg Capsule 100 MG PO Q8HR Goserelin Acetate (Zoladex) 3.6 Mg Impl 3.6 MG SUBQ MONTHLY Hemin (Panhematin) 313 Mg Vial 313 MG IV QW Scheduled PRN Diazepam (Diazepam) 5 Mg Tablet 5 MG PO EVERY 8 HOURS PRN PRN For Anxiety Hydrocodone-Acetaminophen 5-325 mg (Hydrocodone-Acetaminophen 5-325 mg) 1 Each Tablet 1-2 EACH PO Q6 PRN PRN For Pain Ondansetron ODT (Zofran ODT) 4 Mg Tablet 4 MG PO Q4H PRN PRN For Nausea Promethazine (Promethazine) 12.5 Mg Tablet 12.5 MG PO PRN For Nausea/Vomiting Objective Findings Exam Vital Sign - Last Date Time Temp Pulse Resp B/P Pulse Ox O2 Delivery O2 Flow Rate FiO2 11/19/16 08:00 88 11/19/16 07:50 14 97 11/19/16 07:50 36.9 107/72 Room Air 11/18/16 00:45 2.00 Intake and Output 11/18/16 11/18/16 11/19/16 Cumulative From/Thru 15:00 23:00 07:00 11/15/16 21:24 - 11/18/16 17:26 Intake Total 720 ml 4965 ml Output Total 500 ml 3750 ml Balance 220 ml 1215 ml Intake Oral 600 ml 2322 ml IV Total 120 ml 2643 ml Output Urine Total 500 ml 3750 ml # Bowel Movements 0 Objective Tearful anguished young woman lying in bed. VS noted. Skin W+D. Mild tachycardia. HEENT neg. Lungs CTA. Abd soft and intermittently tender- pain behaviors and findings vary with distraction. Ext unremarkable. Labs pending incl CBC, CMP, lipase to r/o new pathology contributing to her out- of-ordinary symptoms. Lab/Diagnostics Lab and Imaging results reviewed in detail in EMR. Time spent Total time 70 minutes; >50% face to face with patient, providing counselling regarding plans and recommendations, and in care coordination with her medical teams. Wade Cheng MD Nov 19, 2016 13:46
--- NOTE | 2016-11-19 14:06 | NUR ---
Social Work- Readiness for Discharge Data: EMR reviewed. Pt is on day 3 of hospitalization. Pt is not medically stable for discharge, anticipate 1-2 more days. Pt is ambulating in room. SW followed up with pt regarding hemin infusion at MD Bustamante's office on 24 November. Pt is aware of appointment and states that she has transportation and will be able to make that infusion. SW confirmed discharge plan with pt, pt to discharge home with family to transport via POV and follow up with MD Bustamante for infusion. No anticipated discharge needs. SW will continue to follow if needs arise. Assessment: [place] base. Plan: Pt to discharge home with family to transport via POV and follow up with MD Bustamante for infusion on November 24. No anticipated discharge needs. SW will continue to follow if needs arise. Diamond White MSW
--- NOTE | 2016-11-19 19:26 | NUR ---
Pain management Pt. crying with pain most of the morning, despite USED CAR MAKE READY WORKER dilaudid and IV benadryl. Says she is "just tired of being in pain all the time" and is wanting the pain meds to change. MDs notified, and palliative consult ordered. After changes of USED CAR MAKE READY WORKER dosing and addition of scheduled valium, pt was much more relaxed in the afternoon, stating her pain was much better and was able to take a long nap. Oxygen saturation monitored by continuous pulse ox. This afternoon, mother and MD came in the room to find patient asleep. They tried to wake her but she wouldnt wake up. I was called in, and I vigorously shook her and she startled awake. She has been awake since then, talking with mother and boyfriend.
[2016-11-19] MEDS: Polyethylene Glycol (PEG) 17 Gm Powder PO SCH (20:20)
--- NOTE | 2016-11-19 20:35 | CCS NOTE ---
[facility] [address] [address] MEDICAL ONCOLOGY OFFICE NOTE PATIENT: CAMRON DA SILVA : 1990 MR#: [id number] DATE: 11/16/2016 JOB ID: [id number] DATE: SUBJECTIVE: Patient was extremely sedated this evening due to increase of MARITIME ENGINEER pain medication, as well as administration of Ativan for anxiety. Apparently, she was very anxious and agitated with her pain issues and Palliative Care was involved now with Dr. Cheng. The patient's mother was in the room today. Even though she was profoundly lethargic, the patient was arousable and was able to answer questions and was oriented. Her vitals are stable. She remains afebrile. There appears to be a slight improvement in her comfort level today compared to yesterday. Hemin was administered yesterday evening as planned at 250 mg IV. On exam, she has no rash. Abdomen has been soft. Lab studies show no major abnormalities. ASSESSMENT AND PLAN: A 26-year-old lady with acute intermittent porphyria attack. For details, please refer to my note of Tuesday. She had continued daily Hemin infusion at 250 mg IV every 24 hours and the next one will be due tonight before midnight. There seemed to be a slight improvement in her pain level and anxiety per increase of medication. I am hopeful that over the weekend she will be able to turn around and come off the MARITIME ENGINEER. My records as discussed in my note of November 17 have been faxed to the office of Dr. Shankar with instruction that the patient will be due to coal picker her weekly Hemin infusion next Tuesday, November 24, along with her Zoladex injection for ovarian suppression. Her mother was also pleased about that. We will continue the care due to the insurance issues at [facility].
[2016-11-19] MEDS ORDERED: STERILE IV ONE (23:50)
[2016-11-19] MEDS ORDERED: HEMIN IV ONE (23:50)
[2016-11-20] VITALS (14 sets, daily range): BP systolic 98–125; BP diastolic 58–87; PULSE 89–115; RESP 14–20; O2SAT 92–100
[2016-11-20] MEDS: Ondansetron 2 mg/mL 2 mL Inj IVPUSH PRN ×4 (00:58→19:17)
[2016-11-20] MEDS: 0.9% Sodium Chloride 250 ML IV SCH (01:30)
[2016-11-20] MEDS: Dextrose 5% 500 ML IV SCH ×2 (03:01→22:08)
[2016-11-20] MEDS: HYDROmorphone PCA 0.2 mg/mL 30 mL Inj IV PRN ×3 (04:32→22:47)
--- NOTE | 2016-11-20 05:40 | NUR ---
Pain/anxiety Pain appeared better control throughout night and anxiety appears alleviated with cj Valium did ask for a bolus dose on elevator adjuster but only twice through shift
--- NOTE | 2016-11-20 09:10 | NUR ---
JOVANI signed by pt PIPPA Jarquin
[2016-11-20] MEDS: Polyethylene Glycol (PEG) 17 Gm Powder PO SCH ×2 (09:13→20:41)
[2016-11-20] MEDS: DULoxetine 30 mg DR Capsule PO SCH (09:14)
[2016-11-20] MEDS ORDERED: HYDROmorphone PCA 0.2 mg/mL 30 mL Inj IV PRN (12:20)
--- NOTE | 2016-11-20 13:07 | PCM.PNMED ---
Subjective Date of Service Nov 20, 2016 Subjective Reports being awakened this morning by sudden worsening of abd pain like a knife stabbing her and it has persisted. She feels it's her porphyria pain, just worse. Exam Vital Signs Vital Sign - Last Date Time Temp Pulse Resp B/P Pulse Ox O2 Delivery O2 Flow Rate FiO2 11/20/16 10:13 36.6 108 16 103/70 94 Room Air 11/18/16 00:45 2.00 Intake and Output 11/19/16 11/19/16 11/20/16 Cumulative From/Thru 15:00 23:00 07:00 11/15/16 21:24 - 11/20/16 06:46 Intake Total 920 ml 620 ml 901 ml 7406 ml Output Total 1500 ml 700 ml 750 ml 6700 ml Balance -580 ml -80 ml 151 ml 706 ml Intake Oral 800 ml 500 ml 360 ml 3982 ml IV Total 120 ml 120 ml 541 ml 3424 ml Output Urine Total 1500 ml 700 ml 750 ml 6700 ml # Bowel Movements 0 Exam Gen: crying, legs drawn up, appears in sig distress from pain Heart: Reg Lungs: clear ant/lat Abd: tenses to exam and refuses all but a very light touch to abd so difficult to evaluate, BT decreased but present Extrem: no edema IVs and Medications Medications Reviewed: Medications were reviewed in detail Lab and Diagnostics Result Diagram: 11/19/16 1313 11/19/16 1313 Assessment & Plan Ms. 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 She was admitted for management of symptoms secondary to acute intermittent porphyria. Acute intermittent porphyria, acute flare, present on admission. Under therapy - Received hemin in ED, then daily since (at approx midnight), has received 5 doses, discussed with Dr Bocanegra by phone today. Although she usually improves after 5 doses he says there is no limit so continue daily until improved. Dose ordered for this evening (computer won't allow it to be ordered qd, only one time) - Oncology note dated 10/06/16: Weekly hemin infusion at the approximate 4 mg/kg , rounded to 250 mg; ovarian suppression also resumed, Lupron switched to Zoladex which is given 3.6 mg every 4 weeks, she is not currently due until November 22 - Oncology consultation done by Dr Bocanegra 11/17 who recommended continuing the hemin and placing her on Dilaudid drip to keep up with her pain. He also did a follow up visit 11/19 Intractable pain refractory to oral medications, present on admission. Under therapy - Secondary to porphyria flare, as noted above - Patient has extensive list of allergies - Dilaudid HAND STONECUTTER, opioid tolerant initiated: the evening of 11/[address] Bocanegra's call, 11/17 changed patient's number of demand boluses to 8 from 6 to keep the same total medication of 2.4 milligrams per hour. - Basal rate was stopped during the night by the nurse, discussed with nurse who will resume basal rate, also see if the central port can be used ( previous nurse thought it wasn't working well enough) - Palliative Care consulted 11/20 and continued the basal rate at .3 and increased pt bolus to .4 every 10 min, I will increase it today to .5 - Benadryl as needed: increased dose per paitent request 11/17 AM and then Palliative Care changed the 50 q 4 to 25 q 2 - Gabapentin also ordered, as patient reports this has helped in the past, will increase from 100 to 200 mg tid - Since pain suddenly worsened this morning I feel we need to evaluate for other causes but patient is refusing abd xrays. - Discussed with Dr Bocanegra who felt she should be evaluated for other etiologies of worsening abdominal pain and recommended CT instead of Xrays, will also repeat chemscreen and CBC (although both were normal yesterday) and obtain UA (if patient will agree to any of these) Addendum at 1500: Patient wishes to try Fentanyl HAND STONECUTTER instead of Dilaudid. Discussed dosing with pharmacist Iftikhar and will change to what he says are equivalent doses of Fentanyl. Later nurse called to say patient was too sedated and she didn't feel comfortable with the basal rate so this is held and the bolus dose decreased. But if becomes more alert should have low threshold for resuming basal rate as holding it earlier in hospital stay was felt to contribute to current poor pain control 1844 addendum: CT negative except constipation, relayed to nurse to tell pt ( who doesn't want to see me anymore) and also to give prn meds for constipation UA with a few WBC's, culture pending. CBC and Chem unremarkable PRN: Care will be needed in choosing as needed medications, as patient cannot tolerate acetaminophen, NSAIDs Diet: General DVT: SCDs only at this time GI: Not indicated CODE STATUS: Full code Patient status: Due to severity of presenting symptoms, likely course of care, and risk of adverse events, anticipated length of stay is less than 2 midnight, patient admitted as observation at this time GI Prophylaxis: Not indicated VTE Prophylaxis: SCDs Resuscitation Status: CPR: Attempt Resuscitation Yvette Kitchen MD Nov 20, 2016 13:07
[2016-11-20 14:55] LABS: Mean Corpuscular Hemoglobin 29.4 pg (27.0-35.0); Mean Corpuscular Volume 89.1 fL (81-100)
[2016-11-20] MEDS ORDERED: fentaNYL PCA 10 mCg/mL 30 mL Inj IV PRN ×2 (15:00→16:50)
--- NOTE | 2016-11-20 15:00 | NUR ---
Pain management issues Pt has made multiple requests for more pain medications today. Pt has been crying, and at times verbally abrasive. Hospitalist was called in to speak with the patient, and then again when the pt's mother arrived (per the mother's request). The pt had made multiple threats of leaving, and asking to be discharged because her pain was not being managed. Hospitalist has been notified each time, and the pt's AIR FILLER dose was increased from 0.4mg to 0.5mg. Pt agreed to try a Fentanly AIR FILLER (she has not tried this medication before). Initially, pt did not notice a difference with the increased Dilaudid AIR FILLER dose, but experienced a decrease in pain shortly before the Dilaudid AIR FILLER was discontinued to switch to Fentanyl AIR FILLER.
[2016-11-20 15:14] LABS: APPEARANCE,URINE CLEAR (CLEAR,HAZY); COLOR,URINE YELLOW (YELLOW); OCCULT BLOOD,URINE TRACE (NEGATIVE); PH,URINE 7.5 (5.0-8.0); UROBILINOGEN,URINE NORMAL (NORMAL)
--- NOTE | 2016-11-20 16:51 | DRSVH ---
PROCEDURE: CT ABDOMEN AND PELVIS WITH CONTRAST ([id number]) INDICATIONS: abd pain TECHNIQUE: After the administration of oral and intravenous contrast, 5 mm thick sections acquired from the diap hragms to the symphysis. 5 mm thick coronal and sagittal reformats were performed. For radiation do se reduction, the following was used: automated exposure control, adjustment of mA and/or kV accordi ng to patient size. COMPARISON: [facility], CT, ABD/PELVIS W/CON (PN), 09/15/2014, 12:33. FINDINGS: Image quality: Excellent. ABDOMEN: Lung bases: Lung bases are clear. Heart size is normal. Solid organs: Liver and spleen are normal in size and enhancement. Gallbladder is unremarkable. Bi liary system is non-dilated. Pancreas enhances normally. No adrenal nodules. Kidneys are normal in size and enhancement, without hydronephrosis. Peritoneum and bowel: Stomach, small bowel, and colon loops are normal in caliber and wall thickness . No free fluid or air. Moderate stool is present throughout colon without obstruction. Nodes and vessels: No retroperitoneal or mesenteric adenopathy. Aorta and inferior vena cava are no rmal in caliber. Miscellaneous: No ventral hernias. PELVIS: Genitourinary: Bladder wall thickness is normal. Miscellaneous: No inguinal hernias or adenopathy. Bones: No suspicious bony lesions. No vertebral body compression fractures. IMPRESSION: 1. Moderate stool suggesting constipation. No gross obstruction. Dictated by: Wendi Bradford M.D. on 11/20/2016 at 16:48 Approved by: Wendi Bradford M.D. on 11/20/2016 at 16:50
--- NOTE | 2016-11-20 18:37 | NUR ---
FUNERAL LIMOUSINE DRIVER Dilaudid FUNERAL LIMOUSINE DRIVER discontinued around 153 so that fentanyl FUNERAL LIMOUSINE DRIVER could be started. At this time, pt is experiencing much better pain control. Pt verbalized that it would be ok for her to go for a CT before the FUNERAL LIMOUSINE DRIVER started. When she returned, her pain was still under control and pt was napping frequently. Vitals have been stable and pt responds and wakes up to verbal stimuli. Has not requested her pain medication at this time. Fentanyl FUNERAL LIMOUSINE DRIVER has not been started at this time. Will continue to monitor
--- NOTE | 2016-11-20 20:53 | NUR ---
PAIN/ANX/NAUSEA/ITCHING Pt's boyfriend visited pt and were heard yelling at each other in room. Security called, but boyfriend left willingly. Pt then reporting still itching (though benadryl given q2h), still nausea (though zofran given q4h), and no pain relief, though started on fentanyl BILLET EXAMINER. Paged Dr. Nolan, "Pt not experiencing relief from BILLET EXAMINER. Still nausea though receiving Zofran. Still itching though receiving Benadryl. Recommendations?" Called back. read through her chart, comparing what she had last visit and will reevaluate what we can give her. She reported though that we already increased gabapentin and benadryl, and is already on a opioid-tolerant BILLET EXAMINER dosing and we "don't want to knock her out." Hourly rounding. Addendum: 11/20/16 at 2156 by KERRI WASHINGTON RN Pt no longer crying, but still complaining of ineffective pain management. Paged Dr. Nolan again: "Pt would like to speak with you. I explained our concerns about knocking her out, but she still c/o ineffective pain management."
[2016-11-20] MEDS ORDERED: HYDROmorphone 0.5 mg/0.5 mL iSecure Syringe IVPUSH PRN (22:10)
--- NOTE | 2016-11-20 22:35 | NUR ---
PAIN Per new orders from Dr. Nolan, bolus of 1mg dilaudid pt stated "I felt it right away. Even the benadryl helps with the pain." PHYSICAL THERAPIST ASSISTANT dilaudid to be set-up. Pt on continuous pulse oximetry, pt currently awake and talking with family, not drowsy at all. Pt seems happy with the change in orders for pain management. Hourly rounding. Addendum: 11/20/16 at 2305 by KERRI WASHINGTON RN PHYSICAL THERAPIST ASSISTANT started, explained how to use, lockout times, and pt is only person to push the button. Gave loading dose of 0.3mg. Pt expressed frustration about this medication not working right away and did not push the button as soon as was given to her. Explained pain medication does not work immediately so she needs to push the button to start to decrease her pain and wait for it to build-up to reach a tolerable pain level, and we will test this PHYSICAL THERAPIST ASSISTANT for a couple hours and then evaluate effectiveness.
[2016-11-20] MEDS ORDERED: HEMIN IV ONE (23:50)
[2016-11-20] MEDS ORDERED: STERILE IV ONE (23:50)
[2016-11-21] VITALS (19 sets, daily range): BP systolic 91–107; BP diastolic 59–70; PULSE 90–111; RESP 16–20; O2SAT 94–100
[2016-11-21] MEDS: 0.9% Sodium Chloride 250 ML IV SCH ×2 (00:04→04:48)
[2016-11-21] MEDS: Ondansetron 2 mg/mL 2 mL Inj IVPUSH PRN ×4 (00:04→21:54)
[2016-11-21] MEDS: DULoxetine 30 mg DR Capsule PO SCH (09:19)
[2016-11-21] MEDS: Polyethylene Glycol (PEG) 17 Gm Powder PO SCH ×2 (09:20→21:46)
[2016-11-21] MEDS: HYDROmorphone PCA 0.2 mg/mL 30 mL Inj IV PRN (10:38)
--- NOTE | 2016-11-21 12:45 | NUR ---
elevated pulse per Telemetry sinus Tacy 120. Bp 105/68, pulse 111-114, Temp 98.1, stable oxygenation. Patient is asymptomatic. ariela mchugh hospitalist and called back. no new orders received.
[2016-11-21] MEDS ORDERED: HEMIN IV ONE (15:35)
[2016-11-21] MEDS ORDERED: STERILE IV ONE (15:35)
--- NOTE | 2016-11-21 15:41 | PCM.PNMED ---
Subjective Date of Service Nov 21, 2016 Subjective Patient was seen and examined at bedside today. Patient denies any chest pain, shortness of breath, vomiting, diarrhea, but reports nausea and abdominal pain. Overnight events: Patient's pain seemed to be uncontrolled and the patient seemed to be very agitated overnight. Exam Vital Signs Vital Sign - Last Date Time Temp Pulse Resp B/P Pulse Ox O2 Delivery O2 Flow Rate FiO2 11/21/16 12:41 36.7 111 16 105/68 96 Room Air 11/18/16 00:45 2.00 Intake and Output 11/20/16 11/20/16 11/21/16 Cumulative From/Thru 15:00 23:00 07:00 11/15/16 21:24 - 11/21/16 06:32 Intake Total 1060 ml 800 ml 9266 ml Output Total 100 ml 700 ml 7500 ml Balance 960 ml 100 ml 1766 ml Intake Oral 960 ml 628 ml 5570 ml IV Total 100 ml 172 ml 3696 ml Output Urine Total 100 ml 700 ml 7500 ml # Bowel Movements 0 Exam Physical Exam: GEN: Patient was awake, alert, responding appropriately to questions HEENT: Pupils equal round and reactive to light, extraocular eye muscles intact , Neck soft supple, trachea midline, nomocephalic/atraumatic CV: +S1/S2, regular rate and rhythm, no murmurs auscultated, left Groshong in place Respiratory: CTAB, no wheezes, rales, rhonchi GI: +bowel sounds x4, soft, compressible, tender to palpation EXT: no clubbing, cyanosis, edema Neuro: Cranial nerves II-XII grossly intact Psych: mood and affect were appropriate IVs and Medications Medications Reviewed: Medications were reviewed in detail Lab and Diagnostics Result Diagram: 11/20/16 1430 11/20/16 1430 Assessment & Plan 26-year-old female with presents with acute intermittent porphyria exacerbation. Acute intermittent porphyria, acute flare, present on admission. - Patient has received 5 doses of hemin 250 mg IV -Patient still has significant pain we will give another dose today. According to previous notes this was discussed with Dr. Tam who states that she should receive 250 mg of hematin until her symptoms resolve - Oncology note dated 10/06/16: Weekly hemin infusion at the approximate 4 mg/kg , rounded to 250 mg; ovarian suppression also resumed, Lupron switched to Zoladex which is given 3.6 mg every 4 weeks, she is not currently due until November 22 - Oncology consultation done by Dr Bocanegra 11/17 who recommended continuing the hemin and placing her on Dilaudid drip to keep up with her pain. He also did a follow up visit 11/19 Intractable pain refractory to oral medications, present on admission. - Secondary to porphyria flare, as noted above - Patient has extensive list of allergies - Dilaudid FREIGHT BOOKER, opioid tolerant initiated: 11/17 changed patient's number of demand boluses to 8 from 6 to keep the same total medication of 2.4 milligrams per hour. - Patients basal rate was increased to 0.5 every 10 minutes yesterday. - Hold Benadryl 50mg IV [id number] as needed for itching, will try patient on the Vistaril 50 mg 3 times a day. - Gabapentin increased to 300 mg 3 times a day -CT of the abdomen was negative except for constipation -UA was positive for trace leukoesterase UTI -Patient has trace leukoesterase -We will treat with Rocephin daily as patient does continue to have increased in abdominal pain -We will continue to monitor Diet: General DVT: SCDs only at this time GI: Not indicated CODE STATUS: Full code GI Prophylaxis: Not indicated VTE Prophylaxis: SCDs Resuscitation Status: CPR: Attempt Resuscitation Time spent Greater than 45 minutes Emani Mike DO Nov 21, 2016 15:41 PRN: Care will be needed in choosing as needed medications, as patient cannot tolerate acetaminophen, NSAIDs Diet: General DVT: SCDs only at this time GI: Not indicated CODE STATUS: Full code Patient status: Due to severity of presenting symptoms, likely course of care, and risk of adverse events, anticipated length of stay is less than 2 midnight, patient admitted as observation at this time GI Prophylaxis: Not indicated VTE Prophylaxis: SCDs Resuscitation Status: CPR: Attempt Resuscitation Emani Mike DO Nov 21, 2016 15:41
[2016-11-21] MEDS ORDERED: HYDROmorphone PCA 0.2 mg/mL 30 mL Inj IV PRN (15:50)
[2016-11-21] MEDS: cefTRIAXone Inj 2,000 MG in Dextrose 5% Minibag Plus 50 ML IV SCH (17:35)
--- NOTE | 2016-11-21 19:19 | NUR ---
Pain Increased pain 7/10 Abdomen. CINNAMON GRINDER Dilaudid as ordered with effective results. patient is easily aroused, RR 16 with stable oxygenation 98% RA. Hospitalist at bed side and spoke to the patient r/t pain management. New orders for Vistaril PRN and CINNAMON GRINDER dilaudid 0.4 mg to 0.5 mg. per hospitalist do not give PRN Benadryl and Vistaril at the same time. Report given to Night nurse
[2016-11-21] MEDS: Dextrose 5% 500 ML IV SCH (22:08)
[2016-11-22] VITALS (10 sets, daily range): BP systolic 97–145; BP diastolic 64–90; PULSE 73–130; RESP 16–18; O2SAT 92–99
[2016-11-22] MEDS: Ondansetron 2 mg/mL 2 mL Inj IVPUSH PRN ×3 (03:02→19:43)
[2016-11-22] MEDS: 0.9% Sodium Chloride 250 ML IV SCH (03:15)
--- NOTE | 2016-11-22 06:04 | NUR ---
Shift Note Assumed pt care at 1900,pt pain managed with PRINTED CIRCUIT PHOTOGRAPHER Dilaudid, given Bolus x2 this shift, effective, 02 at 2l/min given at 0400 for 02 at 89-90%, RR at 16, pt awake, and alert, acoustic pulse ox probe on at all times, call light in reach, qhrly checks done.
[2016-11-22] MEDS: DULoxetine 30 mg DR Capsule PO SCH (09:01)
[2016-11-22] MEDS: Polyethylene Glycol (PEG) 17 Gm Powder PO SCH ×2 (09:02→19:02)
[2016-11-22] MEDS ORDERED: diphenhydrAMINE 50 mg Capsule PO PRN (09:10)
[2016-11-22 09:17] LABS: Mean Corpuscular Hemoglobin 29.7 pg (27.0-35.0); Mean Corpuscular Volume 87.6 fL (81-100)
[2016-11-22 09:58] LABS: Magnesium 1.6 mg/dL (1.6-2.6)
[2016-11-22] MEDS ORDERED: HYDROmorphone 0.5 mg/0.5 mL iSecure Syringe IVPUSH PRN (10:00)
--- NOTE | 2016-11-22 11:05 | NUR ---
Case Management: Per PLUMBING HARDWARE ASSEMBLER, pt requesting to speak with SAROJ RN re: insurance coverage questions. Spoke with pt at bedside at 10:55 am following MD visit today. Pt eating breakfast (oatmeal). After introducing self to pt and asking what questions or concerns pt had, pt asking if she will be discharged tomorrow as she has an appointment at a "dispensary" tomorrow at 1 pm. Asked pt if she discussed this with her physician, who had just left the room. Pt stated no. Pt indicated her ride to the appt would be her boyfriend. MD still on unit, states discharge will be dependent upon weaning of IV pain meds and if tolerating po. Communicated to pt that her discharge will be dependent upon if she is medically ready for discharge. Pt lying in bed with eyes closed, drowsy, just nodding acknowledgement. Asked pt if any questions about insurance, pt shook head no. Updated pt's nurse and PLUMBING HARDWARE ASSEMBLER re: above. SAROJ Peralta RN
--- NOTE | 2016-11-22 13:12 | PCM.PALLBR ---
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 Completed her IV hemin last week and finally seems to be symptomatically improving. Palliative medicine consulted to assist with symptom management. Summary of palliative recommendations: -Symptom management (Pain/other)- begin transition to oral meds with rapid taper off ASSOCIATE DIRECTOR OF DEVELOPMENT. I initially started her on scheduled oral hydromorphone, 4 mg every 8 hours, but have already reduced that to 2 mg every 8 hours and nurses may hold the medication if she remains drowsy. She also has additional breakthrough prn oral hydromorphone. Nurses will encourage her to use these and taper off ASSOCIATE DIRECTOR OF DEVELOPMENT through the day and evening (basal mode was already discontinued). If her pain remains well controlled, further wean from oral hydromorphone to her usual oxycodone, which she claimed she took 5-10 mg once or twice a day as needed, hopefully before discharge tomorrow. Switch her prn IV Benadryl to oral and also change IV to ODT Zofran prn Continue her diazepam scheduled TID with hold for excessive lethargy. Consider referral to outpatient chronic pain clinic for long-term followup, in addition to her hem/onc followup at [facility]. For constipation, continue Miralax and senna scheduled BID, though nurses may hold if diarrhea develops. -DPOA/Advanced Directives/POLST- full code Additional Medical Diagnoses with primary management by Hospitalist team include : Acute intermittent porphyria, acute flare, present on admission. Under therapy Intractable pain refractory to oral medications, present on admission. Under therapy Problems: End of Life Preferences Full code Resuscitation Status Resuscitation Status: CPR: Attempt Resuscitation POLST Updates/Changes Previous POLST?: No . Pain: Mild Symptom management: Drowsiness/sleepiness, Pain Total time 35 minutes; >50% face to face with patient and/or family, providing counselling regarding plans and recommendations, and in care coordination with his/her medical teams. Palliative Brief Note Date of Service November 22, 2016 . Returned to reevaluate patient. Prior to visiting, reviewed her updated records in the EMR in detail, spoke with her bedside nurse. She continued to require high-dose narcotics through the weekend. Nursing notes indicated she was distraught and tearful at times with complaints of pain. Today, however, she seems much more comfortable. She is actually sleeping when I arrived and remains drowsy after I awakened her and we talked. She says her pain is much better controlled and when I told her we would begin to wean her off her IV pain medications she was completely comfortable with that, saying that she hoped she could be off all IV meds and ready to go home tomorrow. On exam, young woman lying in bed in no distress. Vital signs noted. Skin is warm and dry. Lungs clear, heart sounds regular, abdomen is flat, soft, minimally tender. No peritoneal signs. Nurses note she has had several bowel movements without difficulty. Lab and imaging studies reviewed in detail. No evidence of other ongoing pathology in the abdomen. Wade Cheng MD November 22, 2016 13:12
[2016-11-22] MEDS ORDERED: STERILE IV ONE (14:25)
[2016-11-22] MEDS ORDERED: HEMIN IV ONE (14:25)
--- NOTE | 2016-11-22 14:51 | PCM.PNMED ---
Subjective Date of Service November 22, 2016 Subjective Patient was seen and examined at bedside today. Patient denies any chest pain, shortness of breath, vomiting, diarrhea. Patient stated that her nausea has improved however she still complains of some abdominal pain but this is also improved. Overnight events: Patient states that she started her menstrual cycle overnight. The patient has been on ovarian suppression as her menstrual cycles have been known to stimulate her porphyria exacerbations. Exam Vital Signs Vital Sign - Last Date Time Temp Pulse Resp B/P Pulse Ox O2 Delivery O2 Flow Rate FiO2 11/22/16 09:20 111 11/22/16 05:55 16 95 11/22/16 05:00 37.3 103/65 Nasal Cannula 2.00 Intake and Output 11/21/16 11/21/16 11/22/16 Cumulative From/Thru 15:00 23:00 07:00 11/15/16 21:24 - 11/22/16 06:00 Intake Total 1210 ml 500 ml 72843 ml Output Total 7500 ml Balance 1210 ml 500 ml 3476 ml Intake Oral 1100 ml 350 ml 7020 ml IV Total 110 ml 150 ml 3956 ml Output Urine Total 7500 ml # Voids 3 4 7 # Bowel Movements 0 Exam Physical Exam: GEN: Patient was awake, alert, responding appropriately to questions HEENT: Pupils equal round and reactive to light, extraocular eye muscles intact , Neck soft supple, trachea midline, nomocephalic/atraumatic CV: +S1/S2, regular rate and rhythm, no murmurs auscultated Respiratory: CTAB, no wheezes, rales, rhonchi GI: +bowel sounds x4, soft, compressible, tender to palpation EXT: no clubbing, cyanosis, edema Neuro: Cranial nerves II-XII grossly intact Psych: mood and affect were appropriate IVs and Medications Medications Reviewed: Medications were reviewed in detail Lab and Diagnostics Result Diagram: 11/22/1690911/22/16909 Assessment & Plan 26-year-old female with presents with acute intermittent porphyria exacerbation. Acute intermittent porphyria, acute flare, present on admission. - Patient has received 6 doses of hemin 250 mg IV -Patient still has significant pain we will give another dose today. According to previous notes this was discussed with Dr. Bocanegra who states that she should receive 250 mg of hematin until her symptoms resolve - Oncology note dated 10/06/16: Weekly hemin infusion at the approximate 4 mg/kg , rounded to 250 mg; ovarian suppression also resumed, Lupron switched to Zoladex which is given 3.6 mg every 4 weeks, which is due today November 22 - Dr. Bocanegra following Intractable pain refractory to oral medications, present on admission (improving ) - Secondary to porphyria flare, as noted above - Patient has extensive list of allergies - We will discontinue Dilaudid SOCIAL SERVICES ANALYST - Discontinue IV Dilaudid switch patient over to 2 mg by mouth every 4 hours when necessary - Will try patient on Vistaril 50 mg 3 times a day. - Continue Gabapentin 300 mg 3 times a day - CT of the abdomen was negative except for constipation - UA was positive for trace leukoesterase Hypoxia -Most likely secondary to oversedation of medications -Discontinue Dilaudid switch patient over to by mouth 2 mg scheduled every 8hrs -Discontinued Benadryl and switch patient over to Vistaril -We will obtain a chest x-ray to assess for pneumonia versus atelectasis may consider CT angiogram to rule out for PE -Incentive spirometer ordered UTI -Patient has trace leukoesterase -We will treat with Rocephin daily as patient does continue to have increased in abdominal pain -We will continue to monitor Diet: General DVT: SCDs only at this time GI: Not indicated CODE STATUS: Full code Disposition: The patient has had an unusual course to her porphyria exacerbation. The patient's case was discussed with Dr. Bocanegra her oncologist who feels that this is been a particularly extended course. The patient has experienced some episodes of hypoxia which is new to her and is most likely secondary from medication sedation from her extreme pain. This hypoxia is most likely atelectasis and the patient will have a chest x-ray and given an incentive spirometer in order to rule out atelectasis versus pneumonia. Many of the patient's sedating medications have been changed or decreased. It was explained to the patient with teach back method as this is necessary as she is becoming hypoxic and the patient states that she understands and is amenable to this. GI Prophylaxis: Not indicated VTE Prophylaxis: SCDs Resuscitation Status: CPR: Attempt Resuscitation Emani Mike DO November 22, 2016 14:51 Emani Mike DO November 22, 2016 14:51
--- NOTE | 2016-11-22 15:10 | NUR ---
Pain management Patient agreeable with plan for pain management. Seen by Dr. Cheng and Dr. Bocanegra this am. Explained to patient the importance of weaning off from IV pain meds to oral. Patient cooperative with all care and treatment. Benadryl and zofran effective, no further complaints of nausea/vomiting. Eating and drinking well. Ambulating in the room, SBA for safety. Will continue to monitor.
--- NOTE | 2016-11-22 15:17 | DRSVH ---
PROCEDURE: X-RAY CHEST ONE VIEW ([id number]) INDICATIONS: hypoxia TECHNIQUE: One view of the chest was acquired. COMPARISON: [facility], CR, CHEST 1VW (PORTABLE), 01/18/2012, 8:13. [facility], CR, CHEST 1VW (PORTABLE), 06/12/2014, 18:36. FINDINGS: Surgical changes and devices: Stable position of left subclavian chest port. Lungs and pleura: No pleural effusions or pneumothorax. Right upper and medial left lower lung patc hy airspace opacity present.. Mediastinum: Mediastinal contours appear normal. Heart size is normal. Bones and chest wall: No suspicious bony lesions. Overlying soft tissues appear unremarkable. IMPRESSION: Right upper and left lower lobe airspace opacities suspicious for aspiration or developin g pneumonia. Dictated by: Rober Finch [facility] Interpreted: Shonna Draper MD on 11/22/2016 at 15:15 Transcribed by: HERMINIA on 11/22/2016 at 15:17 Approved by: Shonna Draper MD, PhD on 11/22/2016 at 16:15
[2016-11-22] MEDS ORDERED: 0.9% Sodium Chloride 100 ML ONE (15:57)
[2016-11-22] MEDS: cefTRIAXone Inj 2,000 MG in Dextrose 5% Minibag Plus 50 ML IV SCH (17:34)
--- NOTE | 2016-11-22 18:22 | CCS NOTE ---
[facility] [address], [address] [address] MEDICAL ONCOLOGY OFFICE NOTE PATIENT: CAMRON DA SILVA : 1990 MR#: [id number] DATE: 11/16/2016 JOB ID: [id number] DATE: 11/22/2016 SUBJECTIVE: I have reviewed the course of her labs and clinical course over the weekend. I spoke on Tuesday with the hospitalist, Dr. Kitchen, as the patient was having still persistent, in fact increasing abdominal pain. In her to avoid the risk that she could have an additional problem intra-abdominally, given the somewhat delayed course of recovery with this admission, I suggested to obtain a CT of the abdomen and pelvis to rule out any concomitant intra-abdominal problem. The CT showed constipation but no other abnormalities. She had some liver enzyme abnormality and she was also given a single dose of ceftriaxone for possibility of urinary tract infection as part of the workup of abdominal pain. The urinalysis had shown a trace positivity for leukocyte esterase and had 6-10 WBCs. Culture was nondiagnostic with mixed atul. She has been receiving daily Hemin infusion at 4 mg/kg, rounded up to 250 mg IV since her admission on November 16. The last dose was given last night. I have also noticed that the patient had a couple of episodes of slightly reduced O2 saturation and that she had been given oxygen at 2 L. Her heart rate has been around 110. Blood pressure is stable. She has been afebrile, although her temperature was 37.4 earlier today Lab studies show a white count of 7.8, hemoglobin 11.3, platelet count 116. Chemistry shows normal electrolytes, creatinine 0.8. Liver enzymes show slight deterioration with ALT 45, AST 57, normal bilirubin and albumin. She also reports that she started having her menstrual periods again last night, likely after missing her Zoladex injection two weeks ago for ovarian suppression. PHYSICAL EXAM: When I saw her today, again she was deeply sedated and sleeping but arousable. Her oxygenation was in the upper 80s initially, but after taking some deep breaths while she is awake, O2 sat improved to 94% to 95%. On auscultation, she has bilateral basilar crackles. She denies any chest pain and does not feel particularly short of breath and has no difficulty breathing, and has a soft abdomen and no rash. Her legs show no asymmetry or evidence of edema or rash. The pain has been mostly in upper quadrant of the abdomen on both sides below her rib cage. She states that the pain has started to improve. MEDICATIONS: She is on: 1. Diazepam 5 mg b.i.d. 2. Dilaudid 2 mg every 8 hours p.o. 3. The CORKING MACHINE OPERATOR is being reduced. 4. She is also on gabapentin 300 mg t.i.d. 5. Vistaril for itching. 6. Ceftriaxone started yesterday, 2 g IV q.24 hours. 7. Cymbalta 30 mg daily. ASSESSMENT AND PLAN: A 26-year-old lady admitted on November 16 with generalized pain and nausea and particularly abdominal pain similar to previous presentations for her acute intermittent porphyria attacks. Usually after 4-5 days of daily hemin infusion, her symptoms start to recover, but this admission, it has lingered longer, even though she has been promptly started with the Hemin, 1st does administered in the ED and continued daily. CT of the abdomen and pelvis was negative for appendicitis or any kidney stones. That was done over the weekend. She has been asking heavily for medications that have sedation effect, both in terms of increasing her CORKING MACHINE OPERATOR, along with antihistamines to help with the itching and anti-anxiety medication, all of which are adding to sedation. On Tuesday, she was complaining about severe pain and her symptoms not being adequately controlled and essentially desires to be mostly asleep and comfortable rather than risking any severe pain. However, I have the sense that this has been contributing to some respiratory issues. I am seeing for the first time that she has had episodes of hypoxia, which she has never had with previous attacks. Her lung auscultation also shows some crackles. I think staying in bed for several days with shallow breathing and being sedated from pain medication might have caused bilateral atelectasis versus aspiration from her own saliva. Less likely appears a PE. She has no chest pain and no subjective sense of short of breath. I spoke with both the hospitalist team, Dr. Mike, and the palliative care team, Dr. Cheng, and welcome reduction in her medication intensity and the transition to oral meds. I explained to the patient that she needs to use bedside spirometry and avoid heavy sedation. Her chest x-ray is being ordered to rule out infiltrate. If her chest x-ray is normal, then that would be a strong reason to consider a CT angio of the chest to rule out PE. Another differential diagnosis would be respiratory muscle weakness due to acute porphyria effect on neuromuscular respiratory muscles. I am somewhat reassured that when she was awakened and prompted to take deep breaths, she was able to do that and her O2 saturation was normal on room air. She has started her menstrual period last night due to missing the Zoladex injection two weeks ago as part of the problem of losing her insurance authorization at our center and being transferred to [facility] without resuming her injection there. The menstrual cycle might be a contributing factor to this time somewhat unusual longer duration and severity of her attack. For now, will continue daily hemin infusion. Approximately 1 hour was spent in counseling and coordination of care.
[2016-11-22] MEDS: HYDROmorphone PCA 0.2 mg/mL 30 mL Inj IV PRN (18:43)
[2016-11-22] MEDS: Dextrose 5% 500 ML IV SCH (20:57)
[2016-11-22] MEDS: Piperacillin-Tazo 3.375 Gm Inj 3.375 GM in Dextrose 5% Minibag Plus 50 ML IV SCH (20:58)
--- NOTE | 2016-11-22 21:24 | NUR ---
Nausea Pt reported nausea at shift change 1900. No vomitus. Zofran 4mg IV push administered, to some relief. No symptoms 1 hour later. Will continue to monitor.
[2016-11-23] VITALS (13 sets, daily range): BP systolic 85–153; BP diastolic 47–75; PULSE 58–110; RESP 15–19; O2SAT 92–100
[2016-11-23] MEDS ORDERED: hydrOXYzine Pamoate 25 mg Capsule PO PRN ×2 (04:58→12:05)
[2016-11-23] MEDS: Piperacillin-Tazo 3.375 Gm Inj 3.375 GM in Dextrose 5% Minibag Plus 50 ML IV SCH ×3 (05:22→21:03)
[2016-11-23] MEDS: 0.9% Sodium Chloride 250 ML IV SCH (05:52)
[2016-11-23] MEDS: HYDROmorphone PCA 0.2 mg/mL 30 mL Inj IV PRN (06:23)
--- NOTE | 2016-11-23 06:42 | NUR ---
Pain Pt's pain was relatively controlled. She stated 5-6/10 rather than the 8-9/10. And was able to express that it was "somewhat better than before". She mentioned wanting to move to oral pain medication so she could go home, yet pushes her CARDIOTHORACIC ICU RN frequently. Some itchiness was reported, it appeared that the vistaril was effective at minimizing that itchiness.
[2016-11-23] MEDS: Polyethylene Glycol (PEG) 17 Gm Powder PO SCH ×2 (08:17→21:02)
[2016-11-23] MEDS: DULoxetine 30 mg DR Capsule PO SCH (08:17)
--- NOTE | 2016-11-23 08:51 | PCM.PALLBR ---
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 Completed her IV hemin last week and finally seems to be symptomatically improving. Palliative medicine consulted to assist with symptom management. Summary of palliative recommendations: Symptom management (Pain/other): 1. Stop LANDSCAPE LABORER. (done at around 9am). 2. Continue dilaudid 2 mg q 8 hours scheduled and 2 mg q 4 hours PRN. 3. Pruritis: likely 2/2 opiate use. D/C IV benadryl. Continue po vistaril. If her pain remains well controlled, we discussed moving from oral hydromorphone to her usual oxycodone, which she claimed she took 5-10 mg once or twice a week as needed. Consider referral to outpatient chronic pain clinic for intermediate accountant followup, in addition to her hem/onc followup at [facility]. For constipation, continue Miralax and senna scheduled BID, though nurses may hold if diarrhea develops. -DPOA/Advanced Directives/POLST- full code Additional Medical Diagnoses with primary management by Hospitalist team include : Acute intermittent porphyria, acute flare, present on admission. Under therapy Intractable pain refractory to oral medications, present on admission. Under therapy Problems: End of Life Preferences Full code Resuscitation Status Resuscitation Status: CPR: Attempt Resuscitation POLST Updates/Changes Previous POLST?: No Total time 65 minutes; >50% face to face with patient and/or family, providing counselling regarding plans and recommendations, and in care coordination with his/her medical teams. Palliative Brief Note Date of Service November 23, 2016 . Patient Identification: This is a 26-year-old female who was admitted 11/16/16 with acute intermittent porphyria exacerbation managed with weekly hemin infusions, who continues to be hospitalized for persistent abdominal pain. She has been receiving daily Hemin infusion at 4 mg/kg, rounded up to 250 mg IV since her admission on November 16. The last dose was given night of . This is Hospital Day 9. Dr. Tanner rounds today to reevaluate patient's pain. Prior to visiting, reviewed her updated records in the EMR in detail, spoke with her bedside nurse. She continued to use her dilaudid LANDSCAPE LABORER overnight, rather than oral dilaudid ordered. Nursing notes indicated she thinks her pain is better and talks about taking oral meds but continues to push her LANDSCAPE LABORER button regularly. On interview today, pt is tearful and upset that Dr. Tanner has stopped LANDSCAPE LABORER dilaudid. She attests to 6/10 pain and doesn't think she can get through this pain without IV pain meds. We talk for some time about her distress and her expectations that pain will be worse. Pt requestin. IV pain meds today and until her menses is over. 2. Zoladex injection in hospital before she leaves to prevent her next period. 3. Restart Hemin infusions as outpatient, as she has had them monthly for the last 5 years since her diagnosis of porphyria. Dr. Tanner called Dr. Bocanegra, who said he prefers IV med is stopped today and he will reinforce that when he round on her later. Dr. Bocanegra says that there is no reason to administrer Zoladex now, as pt already has her menses. This should be done as outpatient in a few weeks. He explains that he has clearly communicated to Dr. Shankar about the patient's condition and that she needs both Zoladex and Hemin infusions to control her porphyria and prevent future admissions for pain. Dr. Tanner communicates this back to patient and her boyfriend. Now pt is more composed and willing to try oral pain medications at the direction of Dr. Bocanegra. Dr. Tanner counsels her that she will return around noon to check on the pain control. On exam, young woman sitting up in bed and tearful. Vital signs noted. Skin is warm and dry. Lungs clear, heart sounds regular, abdomen is flat, soft, minimally tender. Lab and imaging studies reviewed in detail. No evidence of other ongoing pathology in the abdomen. Ila Tanner MD November 23, 2016 08:51 minimally tender. Lab and imaging studies reviewed in detail. No evidence of other ongoing pathology in the abdomen. Ila Tanner MD November 23, 2016 08:51
--- NOTE | 2016-11-23 10:12 | NUR ---
Lab draw Unable to have good blood return left chest port. Called IV therapy and at bed side.
--- NOTE | 2016-11-23 10:20 | NUR ---
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 Dr. Cheng at bed side. per SWIMMING POOL MAINTENANCE SUPERVISOR history..Completed 3, partial 0, Denies 8, and total day shift before SWIMMING POOL MAINTENANCE SUPERVISOR DC'd 0.9mg. Dr. Cheng aware. PO Dilaudid given once so far this shift and pain still 01/01 per patient report.
[2016-11-23 10:33] LABS: Mean Corpuscular Hemoglobin 29.4 pg (27.0-35.0); Mean Corpuscular Volume 87.8 fL (81-100)
--- NOTE | 2016-11-23 12:26 | NUR ---
Mentation patient is alert and oriented X3. Patient walked around the [place] [address] with out difficulty breathing or SOB. no c/o pain or discomfort during walk reported by patient. BP after walk 99/57, pulse 92, RR15, Temp 36.9, Oxygen 100% RA on right foot toe. unable to check oxygen due to long nails and nail slovak bilateral hands. patient ordered lunch and sitting in chair at bed side. Encouraged to eat meals in chair and walks in the [place] [address] and patient is cooperative and pleasant.
--- NOTE | 2016-11-23 12:43 | NUR ---
Social Work- Readiness for Discharge Data: EMR reviewed. Pt is on day 7 of hospitalization for acute porphyria per H&P. Pt is not medically stable, likely anticipate discharge tomorrow. Pt is up ambulating independently in her room. Pt has been transitioned to PO medications. Pt to receive hemin infusion on 24 NOVEMBER at MD Bustamante's office at [facility]. Pt to discharge home with significant other to transport via POV. SW will continue to follow. Assessment: Pt who is independent at baseline. Plan: Pt to receive hemin infusion on 24 NOVEMBER at MD Bustamante's office at [facility]. Pt to discharge home with significant other to transport via POV. SW will continue to follow. PIPPA Sotelo Addendum: 11/23/16 at 1345 by CHERIE RUFFIN [facility] confirmed pt's appointment with MD Bustamante. Prior date is incorrect. Correct date is NOVEMBER 26, with an 8:50 am check in. PIPPA Sotelo
--- NOTE | 2016-11-23 13:31 | NUR ---
Pain PRN Dilaudid given for pain 6/10 abdominal pain after walk in the [place] way 2 times. PT will work with patient, pre medicated with PRN Dilaudid
--- NOTE | 2016-11-23 14:45 | NUR ---
Physical Therapy Patient worked/walked with Physical therapy this shift. PRN Dilaudid prior to PT with effective results. Tolerating well PO fluids. Incentive spirometery encouraged for cough and deep breathing and compliant. Dr. Lei in to see patient. Stable oxygenation this shift so far. Stable vital signs. Stable mood. continue to monitor.
--- NOTE | 2016-11-23 17:28 | PCM.PNMED ---
Subjective Date of Service November 23, 2016 Subjective Patient was seen and examined at bedside today. Patient denies any chest pain, shortness of breath, vomiting, diarrhea. Patient still complains of significant abdominal pain but states that her nausea has improved. Patient has been eating all of her meals with no vomiting. Overnight events: None Exam Vital Signs Vital Sign - Last Date Time Temp Pulse Resp B/P Pulse Ox O2 Delivery O2 Flow Rate FiO2 11/23/16 12:25 36.9 92 15 99/57 100 Room Air 11/22/16 05:00 2.00 Intake and Output 11/22/16 11/22/16 11/23/16 Cumulative From/Thru 15:00 23:00 07:00 11/15/16 21:24 - 11/23/16 06:30 Intake Total 1535 ml 541 ml 79560 ml Output Total 1050 ml 8550 ml Balance 485 ml 541 ml 4502 ml Intake Oral 1050 ml 300 ml 8370 ml IV Total 485 ml 241 ml 4682 ml Output Urine Total 1050 ml 8550 ml # Voids 1 8 # Bowel Movements 1 1 Exam Physical Exam: GEN: Patient was awake, alert, responding appropriately to questions HEENT: Pupils equal round and reactive to light, extraocular eye muscles intact , Neck soft supple, trachea midline, nomocephalic/atraumatic CV: +S1/S2, regular rate and rhythm, no murmurs auscultated Respiratory: CTAB, no wheezes, rales, rhonchi GI: +bowel sounds x4, soft, compressible, tenderness to palpation EXT: no clubbing, cyanosis, edema Neuro: Cranial nerves II-XII grossly intact Psych: mood and affect were appropriate IVs and Medications Medications Reviewed: Medications were reviewed in detail Lab and Diagnostics Result Diagram: 11/23/16 1023 11/23/16 1023 Assessment & Plan 26-year-old female with presents with acute intermittent porphyria exacerbation. Acute intermittent porphyria, acute flare, present on admission. - Patient has received 7 doses of hemin 250 mg IV -Patient still has significant pain we will give another dose today. According to previous notes this was discussed with Dr. Bocanegra who states that she should receive 250 mg of hematin until her symptoms resolve - Oncology note dated 10/06/16: Weekly hemin infusion at the approximate 4 mg/kg , rounded to 250 mg; ovarian suppression also resumed, Lupron switched to Zoladex which is given 3.6 mg every 4 weeks, which is due today November 22 (at this time because we do not have that drug and our stores patient will have to follow up outpatient in order to get this medication) - Dr. Bocanegra following Intractable pain refractory to oral medications, present on admission (improving ) - Secondary to porphyria flare, as noted above - Patient has extensive list of allergies -Discontinue Dilaudid CLINICAL EDUCATOR - Discontinue by mouth Dilaudid as requested by patient -Start Percocet 5/325mg one to 2 by mouth when necessary every 6 hours - Decreased Vistaril 25 mg 3 times a day as patient had significant sedation - Continue Gabapentin 300 mg 3 times a day - CT of the abdomen was negative - UA was positive for trace leukoesterase Hypoxia vs pneumonia -Most likely secondary to oversedation of medications -Discontinue Dilaudid switch patient over to by mouth 2 mg scheduled every 8hrs -Discontinued Benadryl and switch patient over to Vistaril -We will obtain a chest x-ray to assess for pneumonia versus atelectasis may consider CT angiogram to rule out for PE -Incentive spirometer ordered UTI -Patient has trace leukoesterase -We will treat with Rocephin daily as patient does continue to have increased in abdominal pain -We will continue to monitor Diet: General DVT: SCDs only at this time CODE STATUS: Full code Disposition: The patient is still in a porphyria exacerbation however it does seem to be improving. The patient is now up for all her meals and is currently walking and encouraged continued to do this as this will help with the disease process. The patient is a little adamant about lying in bed all day however he think that this is infection causing a possible aspiration pneumonia with an underlying atelectasis. The patient has been encouraged to use her incentive spirometer 10 times an hour and to become for all of her meals and to walk around the nurse's station daily. The patient stated that she would cooperate with nursing staff in this regard. The patient states that the Dilaudid is not helping her pain and would like to switch back to her normal home dose of hydrocodone. The patient has been started on hydrocodone 5/325mg one to 2 pills when necessary every 6 hours. We will attempt to reschedule the patient' s outpatient appointment with Dr. Bustamante for next week. The patient is progressing almost likely be discharged home in the next 1-2 days. The patient' s course was discussed in depth with Dr. Bocanegra (oncology) today. GI Prophylaxis: Not indicated VTE Prophylaxis: SCDs Resuscitation Status: CPR: Attempt Resuscitation Emani Mike DO November 23, 2016 17:28
[2016-11-23] MEDS ORDERED: HEMIN IV ONE (17:30)
[2016-11-23] MEDS ORDERED: STERILE IV ONE (17:30)
--- NOTE | 2016-11-23 17:46 | NUR ---
Pain Notified Dr. Mike r/t patient stating," Dilaudid is not doing anything to relieve pain." new orders for PRN [place]. patient aware.
[2016-11-23] MEDS: HYDROcodone-APAP 5-325 mg Tablet PO PRN ×2 (17:51→17:55)
--- NOTE | 2016-11-23 18:26 | CCS NOTE ---
[facility] [address] [place] [address], [address] [address] MEDICAL ONCOLOGY OFFICE NOTE PATIENT: CAMRON DA SILVA : 1990 MR#: [id number] DATE: 11/16/2016 JOB ID: [id number] DATE: 11/23/2016 SUBJECTIVE: The patient appears slightly improved today compared to yesterday in terms of pain and ambulation. She did have a borderline temperature of 38.0 yesterday evening. The chest x-ray did show some opacities in the airspace of the left lower lobe as well as right upper lobe suggestive for possible aspiration as was suspected by me. However, with her sitting up more and working on the spirometry, her O2 saturation has improved, has been mostly above 95% on room air. The hospitalist team has changed her antibiotic from ceftriaxone to Zosyn to cover possibility of aspiration pneumonia. Her blood pressure is low but stable, and she has not had any febrile episodes during the day. She has started having her menstrual cycle yesterday. EXAMINATION: On exam, she is interactive, less sedated but still somewhat lethargic. Her pain is better. Abdomen is soft. Lungs show also better auscultation sounds in the bases than yesterday. Spirometry is at bedside. No rash. She does not seem to have any focal neurologic signs. LABORATORIES: Labs of today, show a white count of 7.5, hemoglobin 11, platelets 120. Chemistry shows normal electrolytes and creatinine. ASSESSMENT AND PLAN: A 26-year-old lady with recurrent acute porphyria attack precipitated by the fact that she missed her outpatient prophylactic weekly hemin infusion for two consecutive weeks and also missed her ovarian suppression with Zoladex injection once a month in mid October that has resulted fairly quickly in regaining menstrual cycle that started yesterday. With this acute attack, she has had longer duration of hospitalization and needing daily hemin now for seven days. Over the past 24 hours, we are finally noticing a turn around and improvement. In addition, she seemed to have a urinary tract infection although mild and the possible aspiration as she was on a large number of medications to manage her pain and agitation and anxiety associated with severe sedation. Chest x-ray is somewhat suggestive for that and she did have this episode of mild room-air hypoxia that has improved today and she is on appropriate antibiotic with Zosyn. I spoke with the hospitalist team as well as with Dr. Tanner of Palliative Care. She is agreeable with the change to oral pain management and I think she is certainly ready for that. She is ambulating in the room. I am hopeful that she can be then changed to oral antibiotics tomorrow and potentially be discharged on if the current trend continues. In order to assure that she does not get another menstrual cycle next month in case she misses Zoladex injection again, I am writing for the injection that she missed in mid October to be administered during this hospitalization. In the past, we know that menstrual cycles are heavily associated with getting an acute porphyria attack. I recommended that she goes ahead with the hemin infusion again today evening with reassessment tomorrow.
[2016-11-23] MEDS: diphenhydrAMINE 50 mg Capsule PO PRN (19:22)
[2016-11-24] MEDS: HYDROcodone-APAP 5-325 mg Tablet PO PRN ×2 (02:13→08:35)
[2016-11-24 02:16] VITALS: BP 104/69; PULSE 94; RESP 16; O2SAT 100
[2016-11-24] MEDS: Piperacillin-Tazo 3.375 Gm Inj 3.375 GM in Dextrose 5% Minibag Plus 50 ML IV SCH ×2 (05:22→13:00)
[2016-11-24] MEDS: diphenhydrAMINE 50 mg Capsule PO PRN (05:30)
--- NOTE | 2016-11-24 05:47 | NUR ---
Shift note Patient up ambulating w/ S/O at shift start he brought her dinner burger! medicated once w/[place] and Benadryl slept well through night
[2016-11-24 06:02] VITALS: BP 107/72; PULSE 90; RESP 16; O2SAT 100
[2016-11-24] MEDS: Polyethylene Glycol (PEG) 17 Gm Powder PO SCH (08:30)
[2016-11-24] MEDS: DULoxetine 30 mg DR Capsule PO SCH (08:34)
[2016-11-24] MEDS: [UNRECOGNIZED DRUG - OTHER] SUBQ ONE ×2 (08:38→11:59)
[2016-11-24 10:04] VITALS: BP 104/66; PULSE 92; RESP 16; O2SAT 97
[2016-11-24 10:42] VITALS: PULSE 82
--- NOTE | 2016-11-24 10:45 | NUR ---
Morning Rounds Staffed patient's case with Dr. Mike and case management. Dr. Mike stated patient will be discharging today, but an attempt is being made to get Zoladox injection in our pharmacy to administer to patient prior to discharge, if this cannot be done though, patient will still discharge today. stated patient has an appointment with Dr. Bustamante today, but this appointment needs to be rescheduled for sometime next week, will need UA to make this appointment prior to discharge today.
--- NOTE | 2016-11-24 12:07 | NUR ---
Zoladex Inj/Discharge Contacted Dr. Mike with the following cook page: Patient has now been given Zoladex injection, please place discharge order if still planning on discharging today. Thank you. Mayra BERGERON
[2016-11-24] MEDS ORDERED: GABA100C PO (12:13)
--- NOTE | 2016-11-24 12:21 | PCM.DIMED ---
Discharge Instructions Date of Service November 24, 2016 Dates of Hospitalization Nov 16, 2016 at 02:53 Discharge Diagnosis Discharge Diagnosis Acute intraventricular porphyria flare Intractable pain Aspiration Pneumonia UTI Medication Instructions You have been prescribed the antibiotic Augmentin for aspiration pneumonia. Please take yogurt or lactobacillus pills with this medication as it does have the side effect of causing loose stools. However if you take yogurt or lactobacillus pills while on this medication and this can decrease the side effects. Diet Other (please maintain your current porphyria diet) Activity No restrictions (gradually return to normal daily activities) Call your provider Fever or Chills, Shortness of breath, Vomitting, Excessive diarrhea, Weakness ( unilateral) Patient Instructions Follow-up with PCP in: 1 week (you have an appointment with Dr. Shankar this Tuesday11/26/16 at 8:40 AM. Please do not miss this appointment as he will continue with your regular hemin infusions) Provider: Dinorah Domínguez MD Follow-up in: 1 week (if an appointment has not been made please call to schedule an appointment) Emani Mike DO November 24, 2016 12:21
[2016-11-24] MEDS ORDERED: AMOX-366 PO (12:23)
--- NOTE | 2016-11-24 12:31 | PCM.DC.MED ---
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 She was admitted for management of symptoms secondary to acute intermittent porphyria. Hospital day 1 Ms. Newsome states that she recently moved back to the [facility] from [place], and she is in the process of reestablishing care locally. She has recently followed up with Dr. Bustamante in [place] oncology, and she reports that Dr. Shankar's concerned with the long-term effects of hemin infusions. She did not receive a hemin fusion for this week. Her pain is described as generalized, severe, and debilitating. She states she has experienced these episodes before, always due to an exacerbation of her porphyria. She denies any fever, but does admit to associated chills, nausea, vomiting, abdominal pain , generalized pain, irritability, and itching.She has multiple hospitalizations in recent past for similar presentations. Due to patient's extensive list of allergies, she reports that Dilaudid, Benadryl, and gabapentin, seemed to work well for her pain control, with few side effects. In the ED, T 36.4, pulse 82, respiratory rate 16, blood pressure 107/72, 99% on room air; initial labs revealed WBC 5.1, hemoglobin 10.4, hematocrit 31.9, platelets 115; total bili 0.2, AST 47, ALT 33, alkaline phosphatase 119; urine porphobilinogen was obtained and sent. Initial therapies included Benadryl, Dilaudid, famotidine, and hemin infusion was completed. The ED kindly contacted Dr. Hernandez of oncology, whom agrees to follow-up in morning. Since admit, w continued pain. Palliat consulted to assist w management. Prior to visiting I reviewed records in EMR in detail (of interest, I admitted/ followed patient here in 2014). Spoke w nurses and w her hospitalist. When seen, was tearful, c/o severe abd pain, typical of her porphyria, but worse than usual. No current n, v. Last BM 4-5 days ago. Distraught and angry at inadequate symptom mngmnt. Reviewed outpt meds in detail w her; reviewed recent use of narcs (claims oxycodone 5-10 mg daily/intermittently, but later admits to IV narcs at many ER visits, so question of tolerance remains open). Reviewed and d/w her nurses in detail her med usage/changes in regimen over last several days. Continues on IV hemin daily- last dose to be given today it appears. Hospital Course 26-year-old female with presents with acute intermittent porphyria exacerbation. The patient was admitted with acute intermittent porphyria flare. This was a significantly difficult case for this particular patient. Generally after 4 doses of hemin the patient returns back to her normal baseline status however the patient was given 8 doses while here in the hospital before there any significant changes in the patient's pain. Pain management was also very difficult for the patient and may have been a little too sedated and therefore she aspirated and developed an aspiration pneumonia. The patient was immediately placed on Zosyn and this also helped to improve the patient's hypoxia. The patient was a little difficult during this admission and was very demanding especially in regards to her pain medications. After the patient's pain medications were scaled back her Dilaudid PLANT RELIABILITY ENGINEER remained hooked up to the patient however it was turned off without the patient's knowledge. This remained off for 24 hours and the patient 's pain was well-controlled. The patient is now back on her normal pain medication regiment and the PLANT RELIABILITY ENGINEER pump has been removed from her room and she is now currently stable. The patient's porphyria flare may have been secondary to missing her dose of Zoladex as the patient is currently menstruating. Menstruation is a known trigger for this patient's porphyria and this may explain why this particular episode was worse than usual. The patient did receive a dose of Zoladex today 11/24/2016 and the patient should resume her regular normally scheduled Zoladex dosaging to prevent further triggering of her porphyria flares. The patient is being discharged home in stable conditioning and finishing out 5 more days of antibiotic therapy for the aspiration pneumonia. This case was discussed extensively with Dr. Bocanegra with oncology and he agrees with the current plan and has been involved throughout the course of this patient's stay. See below for full hospital course: Acute intermittent porphyria, acute flare, present on admission. - Patient has received 7 doses of hemin 250 mg IV -Patient still has significant pain we will give another dose today. According to previous notes this was discussed with Dr. Bocanegra who states that she should receive 250 mg of hematin until her symptoms resolve - Oncology note dated 10/06/16: Weekly hemin infusion at the approximate 4 mg/kg , rounded to 250 mg; ovarian suppression also resumed, Lupron switched to Zoladex which is given 3.6 mg every 4 weeks, which is due today November 22 (at this time because we do not have that drug and our stores patient will have to follow up outpatient in order to get this medication) - Dr. Bocanegra following Intractable pain refractory to oral medications, present on admission (improving ) - Secondary to porphyria flare, as noted above - Patient has extensive list of allergies -Discontinue Dilaudid PLANT RELIABILITY ENGINEER - Discontinue by mouth Dilaudid as requested by patient -Start Percocet 5/325mg one to 2 by mouth when necessary every 6 hours - Decreased Vistaril 25 mg 3 times a day as patient had significant sedation - Continue Gabapentin 300 mg 3 times a day - CT of the abdomen was negative - UA was positive for trace leukoesterase Hypoxia vs pneumonia -Most likely secondary to oversedation of medications -Discontinue Dilaudid switch patient over to by mouth 2 mg scheduled every 8hrs -Discontinued Benadryl and switch patient over to Vistaril -We will obtain a chest x-ray to assess for pneumonia versus atelectasis may consider CT angiogram to rule out for PE -Incentive spirometer ordered UTI -Patient has trace leukoesterase -We will treat with Rocephin daily as patient does continue to have increased in abdominal pain -We will continue to monitor Diet: General DVT: SCDs only at this time CODE STATUS: Full code Disposition: The patient is still in a porphyria exacerbation however it does seem to be improving. The patient is now up for all her meals and is currently walking and encouraged continued to do this as this will help with the disease process. The patient is a little adamant about lying in bed all day however he think that this is infection causing a possible aspiration pneumonia with an underlying atelectasis. The patient has been encouraged to use her incentive spirometer 10 times an hour and to become for all of her meals and to walk around the nurse's station daily. The patient stated that she would cooperate with nursing staff in this regard. The patient states that the Dilaudid is not helping her pain and would like to switch back to her normal home dose of hydrocodone. The patient has been started on hydrocodone 5/325mg one to 2 pills when necessary every 6 hours. We will attempt to reschedule the patient' s outpatient appointment with Dr. Bustamnate for next week. The patient is progressing almost likely be discharged home in the next 1-2 days. The patient' s course was discussed in depth with Dr. Bocanegra (oncology) today. Exam Vital Signs (Last) Date Time Temp Pulse Resp B/P Pulse Ox O2 Delivery O2 Flow Rate FiO2 11/24/16 10:42 82 11/24/16 10:04 36.6 16 104/66 97 Room Air 11/22/16 05:00 2.00 Exam Physical Exam: GEN: Patient was awake, alert, responding appropriately to questions HEENT: Pupils equal round and reactive to light, extraocular eye muscles intact , Neck soft supple, trachea midline, nomocephalic/atraumatic CV: +S1/S2, regular rate and rhythm, no murmurs auscultated Respiratory: CTAB, no wheezes, rales, rhonchi GI: +bowel sounds x4, soft, compressible, mild tenderness to palpation significantly improved from yesterday EXT: no clubbing, cyanosis, edema Neuro: Cranial nerves II-XII grossly intact Psych: mood and affect were appropriate Test 11/15/16 23:52 11/16/16 01:50 11/17/16 06:20 11/19/16 13:13 Hold [place] Top Tube Received (Received) Neutrophils (%) (Auto) 70.0% (40-74) Lymphocytes (%) (Auto) 20.1% (14-46) Monocytes (%) (Auto) 8.1% (4-12) Eosinophils (%) (Auto) 1.4% (0-5) Basophils (%) (Auto) 0.2% (0-3) Lipase 14U/L (13-60) Test 11/20/16 14:40 11/22/16 09:10 11/23/16 10:23 Urine Color Yellow (YELLOW) Urine Appearance Clear (CLEAR,HAZY) Urine pH 7.5 (5.0-8.0) Urine Specific [place] 1.010 (1.003-1.035) Urine Protein Negativemg/dL (NEG,TRACE) Urine Glucose (UA) Negativemg/dL (NEGATIVE) Urine Ketones Negativemg/dL (NEGATIVE) Urine Occult Blood Trace (NEGATIVE) Urine Nitrite Negative (NEGATIVE) Urine Bilirubin Negative (NEGATIVE) Urine Urobilinogen Normalmg/dL (NORMAL) Urine Leukocyte Esterase Trace (NEGATIVE) Urine RBC 0-2/hpf (0-2) Urine WBC 6-10/hpf (0-5) Urine Epithelial Cells Moderate/hpf (NONE-MOD) Urine Crystals None seen (NONE SEEN) Urine Bacteria Few/hpf (NONE-FEW) Urine Hyaline Casts None/lpf (NONE) Urine Granular Casts None seen (NONE SEEN) Urine Waxy Casts None seen (NONE SEEN) Urine Red Blood Cell Casts None seen (NONE SEEN) Urine White Blood Cell Casts None seen (NONE SEEN) Urine Mucus None seen (None Seen) Urine Trichomonas None seen (NONE SEEN) Urine Yeast None (NONE SEEN) Urinalysis Comment None Urine Culture Reflexed Indicated Hemoglobin A1c 5.3% (4.8-5.6) Magnesium Level 1.6mg/dL (1.6-2.6) Total Bilirubin 0.4mg/dL (0.0-1.2) Aspartate Amino Transf (AST/SGOT) 57U/L (0-50) Alanine Aminotransferase (ALT/SGPT) 45U/L (0-32) Alkaline Phosphatase 134U/L (25-150) Total Protein 6.5g/dL (6.4-8.4) Albumin 3.9g/dL (3.4-5.0) White Blood Count 7.5th/mm3 (3.8-10.1) Red Blood Count 3.78mil/mm3 (3.90-5.20) Hemoglobin 11.1g/dL (12.0-15.6) Hematocrit 33.2% (35.0-46.0) Mean Corpuscular Volume 87.8fL (81-100) Mean Corpuscular Hemoglobin 29.4pg (27.0-35.0) Mean Corpuscular Hemoglobin Concent 33.4% (32.0-37.0) Red Cell Distribution Width 12.9% (12.3-15.4) Platelet Count 120bil/L (150-400) Sodium Level 134mEq/L (134-144) Potassium Level 3.6mEq/L (3.5-5.2) Chloride Level 95mEq/L (97-108) Carbon Dioxide Level 24mmol/L (18-29) Blood Urea Nitrogen 10mg/dL (6-20) Creatinine 0.88mg/dL (0.57-1.00) Estimat Glomerular Filtration Rate 112mL/min (>59) Glucose Level 114mg/dL (60-99) Calcium Level 9.1mg/dL (8.5-10.1) Discharge Medications Discharge Medications Amoxicillin/Clav K 875-125 mg (Augmentin 875-125 mg) 1 Each Tablet 1 TABLET PO BID Prescribed by: YESIKA GAN DO Duloxetine (Duloxetine) 30 Mg Capsule.dr 30 MG PO prn (Reported) Gabapentin (Neurontin) 100 Mg Capsule 300 MG PO TID Prescribed by: YESIKA GAN DO Goserelin Acetate (Zoladex) 3.6 Mg Impl 3.6 MG SUBQ MONTHLY (Reported) Hemin (Panhematin) 313 Mg Vial 313 MG IV QW (Reported) As needed Diazepam (Diazepam) 5 Mg Tablet 5 MG PO EVERY 8 HOURS PRN PRN For Anxiety ( Reported) Hydrocodone-Acetaminophen 5-325 mg (Hydrocodone-Acetaminophen 5-325 mg) 1 Each Tablet 1-2 EACH PO Q6 PRN PRN For Pain Prescribed by: SUNNY CRUMP MD Ondansetron ODT (Zofran ODT) 4 Mg Tablet 4 MG PO Q4H PRN PRN For Nausea Prescribed by: ELENA ALMONTE DO Promethazine (Promethazine) 12.5 Mg Tablet 12.5 MG PO PRN For Nausea/Vomiting ( Reported) Additional med instructions You have been prescribed the antibiotic Augmentin for aspiration pneumonia. Please take yogurt or lactobacillus pills with this medication as it does have the side effect of causing loose stools. However if you take yogurt or lactobacillus pills while on this medication and this can decrease the side effects. Followup Plan Discharge Diet: Other (please maintain your current porphyria diet) Discharge Activity: No restrictions (gradually return to normal daily activities) Follow-up with PCP in: 1 week (you have an appointment with Dr. Shankar this Tuesday11/26/16 at 8:40 AM. Please do not miss this appointment as he will continue with your regular hemin infusions) Provider: Dinorah Domínguez MD Follow-up in: 1 week (if an appointment has not been made please call to schedule an appointment) Time spent Greater than 35 minutes copies to: Dinorah Domínguez MD, Precious L DO November 24, 2016 12:31
--- NOTE | 2016-11-24 13:32 | NUR ---
Social Work: Discharge Data: Pt is on day 8 of hospitalization. EMR reviewed. D/C orders are in. No d/c planning needs at this time. GRADE FOREMAN will continue to follow if needs arise. Assessment: Pt who is independent at baseline. Plan: Pt will d/c home via POV today. No d/c planning needs at this time. GRADE FOREMAN will continue to follow if needs arise. PIPPA [place]
--- NOTE | 2016-11-24 13:44 | PCM.PALLBR ---
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 Completed her IV hemin last week and finally seems to be symptomatically improving. Palliative medicine consulted to assist with symptom management. Summary of palliative recommendations: Symptom management (Pain/other): 1. Stop AUTO SERVICE WRITER. (done around 9am on 11/23/16). 2. Dilaudid 2 mg q 8 hours scheduled and 2 mg q 4 hours PRN were both discontinued by Dr. Mike yesterday evening 11/23/2016. Pain is currently well controlled with [place] 5mg PO Q6 hours PRN. 3. Pruritis: likely 2/2 opiate use. Continue po vistaril. Her pain is well controlled on oral [place] 5mg, but patient prefers her usual oxycodone/Percocet, which she claimed she took 5-10 mg once or twice a week as needed. The decision to discharge the patient on [place] or Percocet will be deferred to the hospitalist. Consider referral to outpatient chronic pain clinic for care home followup, in addition to her hem/onc followup at [facility]. For constipation, continue Miralax and senna scheduled BID, though nurses may hold if diarrhea develops. -DPOA/Advanced Directives/POLST- full code Additional Medical Diagnoses with primary management by Hospitalist team include : Acute intermittent porphyria, acute flare, present on admission. Under therapy Intractable pain refractory to oral medications, present on admission. Under therapy Problems: End of Life Preferences Full code Disposition Home Resuscitation Status Resuscitation Status: CPR: Attempt Resuscitation POLST Updates/Changes Previous POLST?: No . Pain: Mild Symptom management: Pain Total time 25 minutes; >50% face to face with patient and/or family, providing counselling regarding plans and recommendations, and in care coordination with his/her medical teams. Attending Statement Dr Tanner attended resident physician and discussed pt management with resident. I agree with the palliative care plan outlined above by resident physician Dr. Chaparro. Palliative Brief Note Date of Service November 24, 2016 . This is a 26-year-old female who was admitted 11/16/16 with acute intermittent porphyria exacerbation managed with weekly hemin infusions, who continues to be hospitalized for persistent abdominal pain. She has been receiving daily Hemin infusion at 4 mg/kg, rounded up to 250 mg IV since her admission on November 16. The last dose was given night of . This is Hospital Day 10. Patient was switched from oral Dilaudid to oral [place] yesterday evening, which apparently works well for her. On interview today, patient appears comfortable and in no acute distress. She reports significant pain improvement on the [place] 5mg although she prefers her usual Oxycodone/Percocet. Patient has not had any pain medication since 8am this morning, but denies any pain currently. She has no complaint and is waiting to be discharged. On exam, young woman sitting up in bed and comfortable. Vital signs noted. Skin is warm and dry. Lab and imaging studies reviewed in detail. No evidence of other ongoing pathology in the abdomen. Belkis Awad DO November 24, 2016 13:44 Ila Tanner MD November 24, 2016 13:52
[2016-11-24] MEDS ORDERED: HYDR-4003 PO (14:08)
--- NOTE | 2016-11-24 14:59 | NUR ---
Discharge Note Patient given all discharge instructions and information, including appointment information for this Tuesday with Dr. Bustamante. Patient's IV discontinued at this time, intact. Patient's port was deaccessed earlier by IV therapy. Patient's telemetry removed at this time. Patient declined assistance with getting dressed and ready for discharge. Patient stated she will gather her belongings herself and stated she has a ride coming. She agreed to call for help once her ride arrives so that she can be transported to waiting vehicle via wheelchair.
--- NOTE | 2016-11-24 16:36 | NUR ---
Transport via Wheelchair Patient's family member arrived and she was transported to waiting vehicle via wheelchair at this time.
--- NOTE | 2016-11-24 18:29 | CCS NOTE ---
[facility] [address], [address] [address] MEDICAL ONCOLOGY OFFICE NOTE PATIENT: CAMRON DA SILVA : 1990 MR#: [id number] DATE: 11/16/2016 JOB ID: [id number] DATE: 11/24/2016 SUBJECTIVE: The patient seems to have been improving over the past 48 hours and has been ambulating more. She has now completely switched to p.o. pain medication over the past couple of days and has started keeping her food down without any nausea or vomiting. This is her second day of IV Zosyn for presumed aspiration pneumonia. Her oxygenation has normalized and she has been afebrile. White count of yesterday was 7.5, hemoglobin 11, platelet count 120. Chemistry shows no significant abnormalities. They were not able to give her the Zoladex injection yesterday evening as the medication was not available in the inpatient pharmacy. OBJECTIVE: On exam, her abdomen is soft. She is interactive although still somewhat lethargic from pain medication and her twice daily diazepam. ASSESSMENT AND PLAN: A 26-year-old lady with acute intermittent porphyria and recent attack that was the longest lasting from her hospitalizations I have seen over the past years; likely aggravated by repeat onset of her menstrual cycle and possible infectious issues. She however had improved over the past 48 hours. The patient is interested in discharge and I discussed that with the hospitalist team and she will be switched to oral antibiotic from her Zosyn to continue as an outpatient. She should be following up with her new Hematology/Oncology doctor, Dr. Shankar at [place] next Tuesday, December 01, when she should be receiving her weekly prophylactic Hemin. Weekly administration of Hemin is crucial in her case to prevent recurrent attacks as it has been given over the past five years. I was able to obtain Zoladex after discussing with our oncology pharmacy and the drug was sent to the hospital for administration with one month dose of Zoladex 3.6 mg subcu today before she is discharged so that she is covered to prevent future menstrual cycles. She has been on ovarian suppression for the past 3-4 years. She might benefit from increasing the dose to the 10 mg vial and administered every three months so that avoidance of menstruation is more securely achieved. cc: Dr. Shankar at [facility]
== END 2016-11-24 16:30 | disposition home or self-care (01) | DRG 642 ==
LOC: SED 21:21 → OBSVTOIN 11-16 02:53 → MOC 11-16 02:53
PROVIDERS: ADMIT Hospitalist; ATTEND Hospitalist
DX: E80.21 Acute intermittent (hepatic) porphyria (principal); J69.0 Pneumonitis due to inhalation of food and vomit; N39.0 Urinary tract infection, site not specified; Z51.5 Encounter for palliative care; R10.84 Generalized abdominal pain; R11.2 Nausea with vomiting, unspecified

== ENCOUNTER 2017-01-13 20:23 | Inpatient (IN) | payer MEDICARE, MEDICAID ==
[~2017-01-13] VITALS: Ht 154.9 cm; Wt 57.0 kg
[~2017-01-13 20:23] MED LIST changes: +AMOX-366 PO; -GABA-500 PO; +GABA100C PO
[2017-01-13 20:27] VITALS: BP 130/88; PULSE 86; RESP 16; O2SAT 100
--- NOTE | 2017-01-13 20:44 | ED.REPORT ---
[facility] Illness Date of Service Jan 13, 2017 ED Provider: Sarita Hayden MD Patient is a 26 year old female with a hx porphyria who presents to the ED complaining of abdominal pain onset 3 days ago. Associated symptoms include vomiting today. She was seen at [facility] prior to arrival where she was given morphine and Benadryl without relief. They refused to admit her and reportedly treated her like a drug seeker. She has had cold-like symptoms for 4 days and abdominal and vomiting pain since yesterday. This morning she woke up feeling worse and has not been able to eat or keep her pain medications down. Associated symptoms include epigastric pain that radiates to her L flank and down the back of her leg. She denies fever, discolored urine, or any other symptoms. She had a dose of hemin yesterday. She normally gets 3-4 doses when she has acute attacks. She has had Zofran once today and received one bag of normal saline. She normally takes 2, 5mg hydrocodone for pain. Nursing Notes Stated Complaint: ACUTE PORPHYRIA Chief Complaint: Female Abdominal Pain Nursing Notes Reviewed: Yes Allergies: Coded Allergies: NSAIDS (Non-Steroidal Anti-Inflamma (Verified Allergy, Severe, 11/15/16) ibuprofen (Verified Allergy, Severe, 11/15/16) acetaminophen (Verified Allergy, Unknown, 11/15/16) dextromethorphan (Verified Allergy, Unknown, 11/15/16) doxylamine (Verified Allergy, Unknown, 11/15/16) pseudoephedrine (Verified Allergy, Unknown, 11/15/16) Barbiturates (Verified Adverse Reaction, Severe, UNSAFE IN ACUTE PORPHYRIA , 11/15/16) Estrogens (Verified Adverse Reaction, Severe, UNSAFE IN ACUTE PORPHYRIA, ) Succinimides (Verified Adverse Reaction, Severe, UNSAFE IN ACUTE PORPHYRIA , 11/15/16) Sulfa (Sulfonamide Antibiotics) (Verified Adverse Reaction, Severe, UNSAFE IN ACUTE PORPHYRIA, 11/15/16) aminopyrine (Verified Adverse Reaction, Severe, UNSAFE IN ACUTE PORPHYRIA , 11/15/16) antipyrine (Verified Adverse Reaction, Severe, UNSAFE IN ACUTE PORPHYRIA, 11/15/16) carbamazepine (Verified Adverse Reaction, Severe, UNSAFE IN ACUTE PORPHYRIA, 11/15/16) carisoprodol (Verified Adverse Reaction, Severe, UNSAFE IN ACUTE PORPHYRIA , 11/15/16) clonazepam (Verified Adverse Reaction, Severe, UNSAFE IN ACUTE PORPHYRIA ( HIGH DOSES), 11/15/16) danazol (Verified Adverse Reaction, Severe, UNSAFE IN ACUTE PORPHYRIA, ) diclofenac (Verified Adverse Reaction, Severe, UNSAFE IN ACUTE PORPHYRIA, 11/15/16) ergot alkaloids (Verified Adverse Reaction, Severe, UNSAFE IN ACUTE PORPHYRIA, 11/15/16) ethchlorvynol (Verified Adverse Reaction, Severe, UNSAFE IN ACUTE PORPHYRIA, 11/15/16) glutethimide (Verified Adverse Reaction, Severe, UNSAFE IN ACUTE PORPHYRIA , 11/15/16) griseofulvin (Verified Adverse Reaction, Severe, UNSAFE IN ACUTE PORPHYRIA , 11/15/16) mebutamate (Verified Adverse Reaction, Severe, UNSAFE IN ACUTE PORPHYRIA, 11/15/16) meprobamate (Verified Adverse Reaction, Severe, UNSAFE IN ACUTE PORPHYRIA , 11/15/16) methyprylon (Verified Adverse Reaction, Severe, UNSAFE IN ACUTE PORPHYRIA , 11/15/16) metoclopramide (Verified Adverse Reaction, Severe, UNSAFE IN ACUTE PORPHYRIA, 11/15/16) phenytoin (Verified Adverse Reaction, Severe, UNSAFE IN ACUTE PORPHYRIA, ) phytonadione (vitamin K1) (Verified Adverse Reaction, Severe, UNSAFE IN ACUTE PORPHYRIA, 11/15/16) primidone (Verified Adverse Reaction, Severe, UNSAFE IN ACUTE PORPHYRIA, ) progesterone (Verified Adverse Reaction, Severe, UNSAFE IN ACUTE PORPHYRIA , 11/15/16) pyrazinamide (Verified Adverse Reaction, Severe, UNSAFE IN ACUTE PORPHYRIA , 11/15/16) rifampin (Verified Adverse Reaction, Severe, UNSAFE IN ACUTE PORPHYRIA, ) tybamate (Verified Adverse Reaction, Severe, UNSAFE IN ACUTE PORPHYRIA, ) valproic acid (Verified Adverse Reaction, Severe, UNSAFE IN ACUTE PORPHYRIA, 11/15/16) Scheduled Goserelin Acetate (Zoladex) 3.6 Mg Impl 3.6 MG SUBQ MONTHLY Hemin (Panhematin) 313 Mg Vial 250 MG IV QW WEDNESDAYS Scheduled PRN Diazepam (Diazepam) 5 Mg Tablet 5 MG PO EVERY 8 HOURS PRN PRN For Anxiety Duloxetine (Duloxetine) 30 Mg Capsule.dr 30 MG PO DAILY PRN PRN For Pain Gabapentin (Gabapentin) 100 Mg Capsule 100 MG PO TID PRN PRN For Pain Hydrocodone-Acetaminophen 5-325 mg (Hydrocodone-Acetaminophen 5-325 mg) 1 Each Tablet 1 TABLET PO Q6H PRN PRN For Mild Pain Ondansetron ODT (Zofran ODT) 4 Mg Tablet 4 MG PO Q4H PRN PRN For Nausea General Time Seen by MD: 20:40 Chief Complaint Abdominal pain Hx Obtained From: Patient Arrived By: Walk-in Sudden in Onset?: Yes Onset Occurred: 4 days ago Symptom Duration: Since onset Recent Healthcare: Recent doctor visit Similar Sx Previous: Yes Past Medical History Past Medical History Notes: Porphyria. Hospitalized for porphyria in the past. 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 Attention deficit hyperactivity disorder Thrombocytopenia, Abdominal US without splenomegaly 01/2013 History of recurrent urinary tract infections. Takes oxycodone as needed, usually 2 per day. Past Medical History Porphyria. Hospitalized for porphyria in the past. 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 Attention deficit hyperactivity disorder Thrombocytopenia, Abdominal US without splenomegaly 01/2013 History of recurrent urinary tract infections. Takes oxycodone as needed, usually 2 per day. Past Surgical History port placement Reports: Portocath Family History Noncontributory Smoking History Never Smoker Social History Approximately one month ago, the patient moved to [place] from [place]. In [place], her transfusions were covered by [employer] cross, medicare and medicaid. Uses CBD oil for pain Alcohol Use: Denies alcohol use Other Social History: Good social support, Local resident Ambulatory Status Independent Review of Systems -discolored urine Full Review of Systems Constitutional: Denies: Fever GI: Reports: Abdominal pain, Vomiting Musculoskeletal: Reports: Back pain, Extremity pain Complete sys rev & neg: except as marked. Physical Exam Vital Signs Vital Signs Date Time Temp Pulse Resp B/P Pulse Ox O2 Delivery O2 Flow Rate FiO2 01/13/17 23:03 73 114/63 96 Room Air 01/13/17 23:00 73 114/63 96 Room Air 01/13/17 20:27 36.4 86 16 130/88 100 Initial VS: Reviewed, Vital signs normal Head / Eyes: Atraumatic, Normocephalic Neck: Full range of motion Respiratory: Breath sounds normal, Clear to auscultation, No respiratory distress Cardiovascular: Regular rate & rhythm, Heart sounds normal, Intact distal pulses Skin: Warm, Dry Neurologic: Alert, Oriented, Nonfocal Psychiatric: Mood/affect normal, Behavior normal, Normal thought content General/Constitutional: Awake, Alert, Well developed Behavior: Positive: Tearful Abdomen: Atraumatic, No rebound Tenderness/Guarding/Rebound: Positive: Tender diffuse (mild ) slightly distended Some guarding hypoactive bowel tones Back: No CVA tenderness Interpretation & Diagnostics Interpretation & Diagnostics: labs were drawn earlier today at [facility]. Reviewed. Normal CMP and CBC. Re-Eval/Medical Decision Time of Eval: 21:30 Re-Evaluation/Progress Note: Discussed paln for admission. Patient understands and agrees with plan. All questions addressed at this time. Consultation : Referral / Consult Name: Danette Nolan DO Consulted With: Hospitalist Call Returned at: 21:58 Sanforizing Machine Operator: Will see patient, Agrees with eval, Agrees with plan, Accepts admit Note: Discussed pt's case. Accepts admit. Counseled Regarding: Diagnosis, Lab results, Need for admission Discharge & Departure Primary Impression: acute intermittant porphyria Disposition: ADMITTED TO HOSPITAL Discharge Condition All VS Reviewed: Yes Condition: Improved Referrals: Dinorah Domínguez MD (PCP) Scribe Attestation Portions of this note were transcribed by Asha Nelson. I, Dr. Hayden personally performed the history, physical exam and medical decision-making; I reviewed and confirmed the accuracy of the information in the transcribed note. Signed by: Asha Nelson 01/13/17, [id number] copies to: Dinorah Domínguez MD, Shawna L MD Jan 13, 2017 20:44 ASHA NELSON Jan 13, 2017 20:51
[2017-01-13] MEDS ORDERED: 0.9% Sodium Chloride 1,000 ML IV ONE (21:01)
[2017-01-13] MEDS ORDERED: HEMIN IV ONE (21:05)
[2017-01-13] MEDS ORDERED: HYDROmorphone 1 mg/mL Inj IVPUSH ONE ×2 (21:05→22:55)
[2017-01-13] MEDS ORDERED: HYDROmorphone 1 mg/mL Inj IVPUSH PRN (21:05)
[2017-01-13] MEDS ORDERED: Ondansetron 2 mg/mL 2 mL Inj IVPUSH ONE (21:05)
[2017-01-13] MEDS ORDERED: STERILE IV ONE (21:05)
[2017-01-13] MEDS ORDERED: GABA-500 PO (21:50)
[2017-01-13] MEDS ORDERED: Polyethylene Glycol (PEG) 17 Gm Powder PO PRN (22:40)
[2017-01-13] MEDS ORDERED: Alum-Mag Hydrox-Simeth 30 mL Suspension PO PRN (22:40)
[2017-01-13] MEDS ORDERED: HYDROmorphone PCA 0.2 mg/mL 30 mL Inj IV PRN (22:40)
[2017-01-13] MEDS ORDERED: HYDROmorphone 0.5 mg/0.5 mL iSecure Syringe IVPUSH PRN (22:40)
[2017-01-13] MEDS ORDERED: diphenhydrAMINE 50 mg Capsule PO ONE (22:40)
[2017-01-13] MEDS ORDERED: diphenhydrAMINE 25 mg Capsule PO ONE (22:50)
[2017-01-13 23:00] VITALS: BP 114/63; PULSE 73; O2SAT 96
[2017-01-13 23:03] VITALS: BP 114/63; PULSE 73; O2SAT 96
--- NOTE | 2017-01-13 23:29 | PCM.HPMED ---
Subjective Date of Service Jan 13, 2017 Primary Provider: Admitting Physician: Danette Nolan DO Primary Care Physician: Dinoarh Domínguez MD Attending Physician: Danette Nolan DO Chief Complaint: Abd pain History of Present Illness: Romi Newsome is a 26-year-old woman with history of intermittent porphyria who presented with worsening abdominal pain over 3 days to schedule a hospital emergency department. Symptoms are associated with vomiting, nausea, feeling of pressure sharp pain in her epigastrium with radiation down into her limbs. On presentation she stated her pain was 8 out of 10, and currently after receiving treatment in the ER is down to 7 out of 10. She reportedly when she noted general prior to [facility] and was given morphine and Benadryl without relief, they declined to admit her so she reported to [facility]. She claims that her symptoms are synonymous with her previous acute attacks, citing that she has had cold-like symptoms for the last 4 days, vomiting and abdominal pain since yesterday. She stated she could not eat or keep any of her pain meds down today prompting her to go to the hospital. She had a dose of Hemin yesterday and typically gets 3-4 doses when she has acute attacks, 250 mg was administered in the ER. She said Zofran and 1 L normal saline, home pain medication includes 10 mg of hydrocodone for pain. Endorses continued abdominal pain, nausea without vomiting, constipation, and pruritus. No fevers, chills, dysuria, shortness of breath, lightheadedness or dizziness. On presentation: 36.4C 86, 16, 130/88, 100% on room air. Labs from [facility]: WBC 4.3, Hgb 10.5, platelets 67 Chemistry: Sodium 140, potassium 4.0, chloride 105, bicarbonate 28, BUN 16, creatinine 0.72, glucose 85, total bilirubin 0.3, ALT/AST 61/56 Review of Systems: A comprehensive review of systems was conducted with the patient and found to be negative except as above in the history of presenting illness. Allergies Coded Allergies: NSAIDS (Non-Steroidal Anti-Inflamma (Verified Allergy, Severe, 11/15/16) ibuprofen (Verified Allergy, Severe, 11/15/16) acetaminophen (Verified Allergy, Unknown, 11/15/16) dextromethorphan (Verified Allergy, Unknown, 11/15/16) doxylamine (Verified Allergy, Unknown, 11/15/16) pseudoephedrine (Verified Allergy, Unknown, 11/15/16) Barbiturates (Verified Adverse Reaction, Severe, UNSAFE IN ACUTE PORPHYRIA , 11/15/16) Estrogens (Verified Adverse Reaction, Severe, UNSAFE IN ACUTE PORPHYRIA, ) Succinimides (Verified Adverse Reaction, Severe, UNSAFE IN ACUTE PORPHYRIA , 11/15/16) Sulfa (Sulfonamide Antibiotics) (Verified Adverse Reaction, Severe, UNSAFE IN ACUTE PORPHYRIA, 11/15/16) aminopyrine (Verified Adverse Reaction, Severe, UNSAFE IN ACUTE PORPHYRIA , 11/15/16) antipyrine (Verified Adverse Reaction, Severe, UNSAFE IN ACUTE PORPHYRIA, 11/15/16) carbamazepine (Verified Adverse Reaction, Severe, UNSAFE IN ACUTE PORPHYRIA, 11/15/16) carisoprodol (Verified Adverse Reaction, Severe, UNSAFE IN ACUTE PORPHYRIA , 11/15/16) clonazepam (Verified Adverse Reaction, Severe, UNSAFE IN ACUTE PORPHYRIA ( HIGH DOSES), 11/15/16) danazol (Verified Adverse Reaction, Severe, UNSAFE IN ACUTE PORPHYRIA, ) diclofenac (Verified Adverse Reaction, Severe, UNSAFE IN ACUTE PORPHYRIA, 11/15/16) ergot alkaloids (Verified Adverse Reaction, Severe, UNSAFE IN ACUTE PORPHYRIA, 11/15/16) ethchlorvynol (Verified Adverse Reaction, Severe, UNSAFE IN ACUTE PORPHYRIA, 11/15/16) glutethimide (Verified Adverse Reaction, Severe, UNSAFE IN ACUTE PORPHYRIA , 11/15/16) griseofulvin (Verified Adverse Reaction, Severe, UNSAFE IN ACUTE PORPHYRIA , 11/15/16) mebutamate (Verified Adverse Reaction, Severe, UNSAFE IN ACUTE PORPHYRIA, 11/15/16) meprobamate (Verified Adverse Reaction, Severe, UNSAFE IN ACUTE PORPHYRIA , 11/15/16) methyprylon (Verified Adverse Reaction, Severe, UNSAFE IN ACUTE PORPHYRIA , 11/15/16) metoclopramide (Verified Adverse Reaction, Severe, UNSAFE IN ACUTE PORPHYRIA, 11/15/16) phenytoin (Verified Adverse Reaction, Severe, UNSAFE IN ACUTE PORPHYRIA, ) phytonadione (vitamin K1) (Verified Adverse Reaction, Severe, UNSAFE IN ACUTE PORPHYRIA, 11/15/16) primidone (Verified Adverse Reaction, Severe, UNSAFE IN ACUTE PORPHYRIA, ) progesterone (Verified Adverse Reaction, Severe, UNSAFE IN ACUTE PORPHYRIA , 11/15/16) pyrazinamide (Verified Adverse Reaction, Severe, UNSAFE IN ACUTE PORPHYRIA , 11/15/16) rifampin (Verified Adverse Reaction, Severe, UNSAFE IN ACUTE PORPHYRIA, ) tybamate (Verified Adverse Reaction, Severe, UNSAFE IN ACUTE PORPHYRIA, ) valproic acid (Verified Adverse Reaction, Severe, UNSAFE IN ACUTE PORPHYRIA, 11/15/16) Home Medications Home medications from previous discharge summary November 24, 2016 Duloxetine (Duloxetine) 30 Mg Capsule.dr 30 MG PO prn (Reported) Gabapentin (Neurontin) 100 Mg Capsule 300 MG PO TID Prescribed by: YESIKA GAN DO Goserelin Acetate (Zoladex) 3.6 Mg Impl 3.6 MG SUBQ MONTHLY (Reported) Hemin (Panhematin) 313 Mg Vial 313 MG IV QW (Reported) As needed Diazepam (Diazepam) 5 Mg Tablet 5 MG PO EVERY 8 HOURS PRN PRN For Anxiety ( Reported) Hydrocodone-Acetaminophen 5-325 mg (Hydrocodone-Acetaminophen 5-325 mg) 1 Each Tablet 1-2 EACH PO Q6 PRN PRN For Pain Prescribed by: SUNNY CRUMP MD Ondansetron ODT (Zofran ODT) 4 Mg Tablet 4 MG PO Q4H PRN PRN For Nausea Prescribed by: ELENA ALMONTE DO Promethazine (Promethazine) 12.5 Mg Tablet 12.5 MG PO PRN For Nausea/Vomiting ( Reported) PMH Porphyria. Hospitalized for porphyria in the past. 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 Attention deficit hyperactivity disorder Thrombocytopenia, Abdominal US without splenomegaly 01/2013 History of recurrent urinary tract infections. Surgical History Left-sided port placement Family History Both parents alive and well, she has a brother and sister, reported as healthy; she is the eldest; maternal grandmother has diabetes and hypertension Social History Hx Alcohol Use: No Hx Substance Use: Yes (marijuana; occasional her pain) Hx Tobacco Use: No Smoking Status: Never Smoker Living Arrangement: with Family Exam Vital Signs Vital Sign - Last Date Time Temp Pulse Resp B/P Pulse Ox O2 Delivery O2 Flow Rate FiO2 01/13/17 23:03 73 114/63 96 Room Air 01/13/17 20:27 36.4 16 Exam General: Laying in bed, moderate distress, uncomfortable occasional writhing HEENT: Normocephalic, atraumatic, EOMI grossly, his membranes moist, neck supple without lymphadenopathy, conjunctiva pink, tongue has annular midline scar Cardiovascular: Regular rate and rhythm, no clicks murmurs rubs, peripheral pulses 2/4 equal bilaterally Pulmonary: Clear to auscultation bilaterally, no W/R/R. Abdominal: Soft to palpation, bowel sounds present 4, no hepatosplenomegaly. Negative rebound. Diffusely tender, markedly so in the epigastrium. Extremities: No edema appreciated. No tenderness, asymmetry. Neuro: Neurologically grossly intact, strength is equal bilaterally upper and lower extremities. MSK: Able to move extremities on their own volition, strength 5 out of 5 equal bilaterally to upper and lower extremities. Psych: Oriented person, place, time and situation. She is intermittently tearful with some pressured speech with pangs of pain. Otherwise appropriate mood and affect Assessment & Plan Ms. Newsome is a pleasant 26-year-old woman with history of acute intermittent porphyria managed with weekly hemin infusions, and multiple hospitalizations for acute exacerbations, that presented to [facility] with a 4 day history cold-like symptoms, and worsening abdominal pain, nausea no vomiting. She is admitted for management of symptoms secondary to acute intermittent porphyria. Hospital day 1 Acute intermittent porphyria, acute flare, present on admission. Treatment ongoing. - Received hemin ED - Flare most likely precipitated by URI. History of recurrent UTIs, without dysuria at this time, will check UA. - Weekly hemin infusion at the approximate 4 mg/kg, rounded to 250 mg; ovarian suppression with Zoladex which is given 3.6 mg every 4 weeks - Review of previous hospitalization and discussion with pharmacist showed she received hemin in the ER, on admission, and on day 2 of hospitalization. - We will order morning dose of Hemin to be given, - Consider heme-onc consultation if patient's symptoms do not begin to improve. - CBC, CMP, UA tomorrow morning. Intractable pain refractory to oral medications, present on admission. Initiated and ongoing. - Secondary to porphyria flare, as noted above - Patient has extensive list of allergies - Dilaudid REAL ESTATE SITE ANALYST, opioid tolerant initiated -patient stated pain was managed with REAL ESTATE SITE ANALYST at previous hospitalization from 11/16/2016. However review of that hospitalization showed that she had hypoxic events, recommend transitioning to oral pain management once pain has been brought under control. - Gabapentin 100 mg 3 times a day, continued from ambulatory - Benadryl as needed for itching, nausea. Acute URI, POA, active -Afebrile, lungs clear on exam, felt to be viral in nature, normal white count on labs -pneumonia is not felt to be present in this patient based on exam and current findings. Concern for opioid abuse, POA, active -Documentation from [facility] shows concern for opioid abuse, citing patient asked to have the Dilaudid push very fast and then became angry when it was not and ultimately held. -Review of previous hospitalization showed hypoxic events which were attributed to narcotics. -Discussed with patient the use of REAL ESTATE SITE ANALYST to get pain under control but we will transferred over to oral medications as soon as possible, patient stated understanding and agreement. -Discussed with nurse to monitor for signs of abuse, patient's boyfriend is in the room and to monitor for signs of diversion. Patient is admitted to inpatient status, greater than 2 minutes and dissipated based on presenting symptoms, complexity of care, and anticipated risk of adverse events. Pain Evaluation: Adequate Pain Control GI Prophylaxis: Not indicated VTE Prophylaxis: SCDs Resuscitation Status: CPR: Attempt Resuscitation Attending Statement The patient was seen and examined together with house staff on 01/14/2017 and I agree with the history, exam and plan as outlined in the note above. Jah Jacques DO Jan 13, 2017 23:29 Danette Nolan DO Jan 14, 2017 03:26
[2017-01-13 23:30] VITALS: BP 105/69; PULSE 76; RESP 16; O2SAT 96
[2017-01-13] MEDS ORDERED: DULoxetine 30 mg DR Capsule PO PRN (23:30)
[2017-01-13] MEDS: 0.9% Sodium Chloride 1,000 ML IV SCH (23:58)
[2017-01-14] VITALS (10 sets, daily range): BP systolic 105–131; BP diastolic 57–88; PULSE 73–90; RESP 10–17; O2SAT 94–100
[2017-01-14 00:02] LABS: APPEARANCE,URINE CLEAR (CLEAR,HAZY); COLOR,URINE YELLOW (YELLOW); OCCULT BLOOD,URINE NEGATIVE (NEGATIVE); UROBILINOGEN,URINE NORMAL (NORMAL)
[2017-01-14] MEDS ORDERED: Heparin 5,000 Unit/mL Inj SUBQ SCH (00:30)
[2017-01-14] MEDS ORDERED: diphenhydrAMINE 25 mg Capsule PO ONE (04:05)
[2017-01-14] MEDS: Ondansetron 2 mg/mL 2 mL Inj IVPUSH PRN ×3 (04:16→12:43)
[2017-01-14 06:01] LABS: BASOPHILS % (AUTO) 0 % (0-3); EOSINOPHILS % (AUTO) 3.2 % (0-5); MONOCYTES % (AUTO) 6.1 % (4-12); Mean Corpuscular Hemoglobin 29.2 pg (27.0-35.0); Mean Corpuscular Volume 91.5 fL (81-100); NEUTROPHILS % (AUTO) 68.5 % (40-74); Platelet Count 81 bil/L (150-400)
--- NOTE | 2017-01-14 06:03 | NUR ---
Admit to 1020 Pt arrived from ED very tired, able to transfer self to bed, falls to sleep during conversation; respirations regular, >10/minute, O2 > 95 on room air. C/o pain 6/10 and has severe itching, Benadryl received in ED. TRIMMING MACHINE SET UP OPERATOR initiated which gave pt adequate control except after sleeping for several hours, bolus required to regain manageable pain level. Pulse oximetry, bedside commode in place, IV fluids infusing. Nausea controlled with Zofran, one episode of emesis. Mds discussed stopping TRIMMING MACHINE SET UP OPERATOR in am with transition to oral pain meds, this increased pt anxiety considerably, Dr Nolan allows for continued use of TRIMMING MACHINE SET UP OPERATOR for now. Port accessed, has stiff flush and good blood return. Oriented to hospital routines, call light, plan of care; hourly rounding ongoing.
[2017-01-14] MEDS ORDERED: HEMIN IV ONE (08:00)
[2017-01-14] MEDS ORDERED: STERILE IV ONE (08:00)
[2017-01-14] MEDS: 0.9% Sodium Chloride 1,000 ML IV SCH ×3 (10:33→21:42)
[2017-01-14] MEDS: 0.9% Sodium Chloride 250 ML IV SCH (11:18)
[2017-01-14] MEDS ORDERED: Sodium Chloride LOK Flush 10 mL Syringe IVFLUSH PRN ×2 (11:20)
[2017-01-14] MEDS ORDERED: HepLOK Flush 100 unit/mL 5 mL Inj IVFLUSH PRN (11:20)
--- NOTE | 2017-01-14 11:41 | PCM.PNMED ---
Subjective Date of Service Jan 14, 2017 Subjective pt looked drowsy but easily arousable still has significant abdominal pain, had vomiting discussed the case with send out respiratory PCR given productive cough, Spo2 remained stable 93 on RA, started [id number] changed SLAT TWISTER setting to standard from opioid tolerant Exam Vital Signs Vital Sign - Last Date Time Temp Pulse Resp B/P Pulse Ox O2 Delivery O2 Flow Rate FiO2 01/14/17 10:55 37.1 90 16 105/57 94 Nasal Cannula 2.00 Intake and Output 01/13/17 01/13/17 01/14/17 Cumulative From/Thru 15:00 23:00 07:00 01/13/17 20:27 - 01/14/17 05:28 Intake Total 1000 ml 1559 ml 2559 ml Balance 1000 ml 1559 ml 2559 ml IV Total 1000 ml 1559 ml 2559 ml Exam Drowsy, uncomfortable due to pain no JVD, MMM, no LAD RRR, nl s1, s2 no mrg CTAB, no w,c S,diffuse tenderness, hypoactive BS+ warm, no edema, pulses 2/2 IVs and Medications Medications Reviewed: Medications were reviewed in detail Lab and Diagnostics Result Diagram: 01/14/1730 01/14/17 0530 Assessment & Plan Ms. Newsome is a pleasant 26-year-old woman with history of acute intermittent porphyria managed with weekly hemin infusions, and multiple hospitalizations for acute exacerbations, that presented to [facility] with a 4 day history cold-like symptoms, and worsening abdominal pain, nausea no vomiting. She is admitted for management of symptoms secondary to acute intermittent porphyria. Hospital day 1 acute, active Acute intermittent porphyria, acute flare, present on admission. recurrent episode since recent hospitalization in OCT, likely trigged by URI, pt was on regular Zoladex and Hemin -s/p hemin 01/11 regular dose and 01/13 in ED, -discussed case with , will continue hemin daily dosing(due to unavailability at pharmacy) 4mg/kg/day -daily CBC -O2 supplement as needed Intractable pain refractory to oral medications, present on admission. Initiated and ongoing. - Secondary to porphyria flare, as noted above - Patient has extensive list of allergies - Dilaudid SLAT TWISTER, standard setting, please consider to change to oral once pain is better controlled, monitor respiratory status closely as pt had aspiration PNA with respiratory depression in last hospitalization, - Gabapentin 100 mg 3 times a day, continued from ambulatory - Benadryl as needed for itching, nausea. probable acute URI, POA, active -get resp PCR, CXR dispo: likely at least 3-4more days, assess daily with hemin tx, d/c once pain is under control Full Code GI Prophylaxis: Not indicated VTE Prophylaxis: SCDs Resuscitation Status: CPR: Attempt Resuscitation Time spent 35min Benitez Lockhart MD Jan 14, 2017 11:41
[2017-01-14] MEDS: HYDROmorphone PCA 0.2 mg/mL 30 mL Inj IV PRN (13:10)
--- NOTE | 2017-01-14 14:20 | DRSVH ---
PROCEDURE: X-RAY CHEST ONE VIEW, PORTABLE ([id number]) INDICATIONS: pneumonia TECHNIQUE: One view of the chest was acquired. COMPARISON: 11/22/2016 FINDINGS: Surgical changes and devices: Bilateral nipple jewelry. Left-sided port with tip over the distal SVC. . Lungs and pleura: No pleural effusions or pneumothorax. Lungs are clear. The radiodensities over th e right upper and left lower lung og have resolved. Mediastinum: Mediastinal contours appear normal. Heart size is normal. Bones and chest wall: No suspicious bony lesions. Overlying soft tissues appear unremarkable. IMPRESSION: No acute cardiopulmonary abnormality. Dictated by: Colby Dale M.D. on 01/14/2017 at 14:16 Approved by: Colby Dale M.D. on 01/14/2017 at 14:18
--- NOTE | 2017-01-14 16:57 | NUR ---
Social Work: Update Note D: Per MD, RN, and pharmacist in AM multidisciplinary rounds, pt is not likely to discharge for 3-4 more days. Per pharmacist, pt's medication administered at [facility] costs $18,000 per dose and is not covered by pt's listed insurance. Pt has Medicare and [employer]. Medication is Hemin and pt receives 250 mg 1x/day. Pharmacist states pt's insurance doesn't cover medication but SW will need to confirm. Pt reported to RN that pt had agreement with oncologist at [facility] to receive medication necessary for admitting diagnosis and medication is covered at [facility] based on "agreement with oncologist." Per RN, prior to arriving to [facility], pt arrived at [facility] and felt she was treated as though she was drug seeking so pt left A and came to [facility] to receive better care. Per RN, pt is very happy with care at [facility] and would like to transfer oncology to [facility] provider and receive medication at [facility]. At this time, RN states pt might not be aware of medication cost per day at [facility] but SW must confirm that medication is not covered at [facility]. A: TBD P: SW to determine if pt's doses of Hemin are covered at [facility] by Medicare and [employer]SH[employer] and if not, confirm the low is $18,000 per dose as quoted by the [facility] pharmacist. Follow-up with pt regarding cost of medication per day while at hospital once cost is determined. SW to explore if pt can continue oncology and care at [facility] where pt states she has an "agreement with oncologist at [facility] to have medication covered" ([facility] potentially contracted with oncology to cover medication at hospital). PIPPA Camara
--- NOTE | 2017-01-14 18:32 | NUR ---
PO Intake/Pain Pt had poor PO intake earlier today, this evening a bit better. N/V without emesis today, 4mg IV Zofran given per pt request then able to drink and order dinner tray tonight. Pt c/o pain 12/01 all day; WELLNESS EDUCATOR Dilaudid infusing with a few bolus doses today; pt requesting continuous today. RN explained that the medication had dropped her respirations and SPO2 earlier in shift, hence 1-2L O2 NC when sleeping and continuous pulse ox applied to monitor SPO2; pt seemed to understand that pain control is important but so is response to pain medications and over medicating. RN inquired if pt sees a pain specialist for her pain when not in the hospital and pt states she has not seen one yet, but had an appointment in the future to see one, but then admitted to the hospital. She also states that she takes PO Duloxetine for pain and anxiety at home. Pt more alert and conversational this evening than previously in shift. Will continue to monitor with frequent rounds.
[2017-01-15] VITALS (8 sets, daily range): BP systolic 117–124; BP diastolic 77–85; PULSE 71–89; RESP 14–17; O2SAT 94–98
[2017-01-15] MEDS: Ondansetron 2 mg/mL 2 mL Inj IVPUSH PRN ×4 (06:42→20:27)
[2017-01-15] MEDS: HYDROmorphone PCA 0.2 mg/mL 30 mL Inj IV PRN ×2 (10:30→22:05)
[2017-01-15] MEDS: 0.9% Sodium Chloride 1,000 ML IV SCH ×2 (10:41→21:10)
[2017-01-15] MEDS: HEMIN IV SCH (10:41)
[2017-01-15] MEDS: STERILE IV SCH (10:41)
[2017-01-15] MEDS: 0.9% Sodium Chloride 250 ML IV SCH (11:18)
--- NOTE | 2017-01-15 14:47 | NUR ---
JOVANI signed. Diamond White LIVESTOCK AGENT
--- NOTE | 2017-01-15 15:23 | NUR ---
Family request Eder mchugh hospitalist r/t family/mother wanting to speak to hospitalist regarding better pain management.
--- NOTE | 2017-01-15 16:24 | NUR ---
Pain/nausea/anxiety PRN anti anxiety given as ordered for due to patient is in tears and anxious. family at bed side. Family spoke to hospitalist and new orders for basal rate 0.5 mg/hour. STOCK GRADER running as ordered. Anti nausea given as ordered with effective results.
--- NOTE | 2017-01-15 16:28 | NUR ---
Social Work- Initial Assessment Data: See Initial Assessment. 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 Pt's current insurance is [facility] and [facility] Supp. Pt's PCP is Dinorah Domínguez MD. Pt's designated contact is JAYDEN Alfaro [phone] and mother Karma Newsome, . Pt's readmit risk score is 4 high risk. Pt has a long history of admissions at [facility]. Pt was referred to [facility] for management of her porphyria because they accept pt's prior insurance of [employer] and [employer] Supp. Pt was last discharged from [facility] on 24 NOVEMBER with a discharge plan of home no needs, as pt was transitioned to PO medications and ambulating independently in the room. Pt requested that ATOMIC FUEL ASSEMBLER meet with her at bedside today. SW met with pt and pt's boyfriend at bedside regarding discharge planning, SW role explained. Pt was alert and oriented x3 but was in pain during this assessment. Pt responded with her eyes closed. Per pt and SO, pt and SO now reside in [place]. SO is pt's caregiver through [facility]. Pt reports she has chronic pain and memory issues associated with her disease and medications. Pt uses no DME at baseline. Pt does not drive. Pt has no LTC or VA benefits. Pt has no HH or SNF history. Pt recently presented to [facility] and, per pt, was denied admission. Pt is very upset by this. Per ED note, pt left AMA. Per prior ATOMIC FUEL ASSEMBLER note, pt's hemin is very expensive and coverage of this drug at [facility] is unknown. When ATOMIC FUEL ASSEMBLER was speaking with pt, pt requested that ATOMIC FUEL ASSEMBLER move pt's oncology services back to [facility] and hemin infusions back to [facility]. Pt and boyfriend state the care is better here and they are hopeful it will be covered because pt's insurance is different now than in past admissions. SW to discuss with the possibility of this. Pt anticipated to discharge in 3-4 days after receiving daily hemin infusions and her pain in controlled. Pt is likely to discharge home with her SO, no additional needs. SW will continue to follow and coordinate pt's care as able. Assessment: Pt who requests that her care be transferred back to [facility] Plan: Pt recently presented to [facility] and, per pt, was denied admission. Pt is very upset by this. Per ED note, pt left AMA. Per prior ATOMIC FUEL ASSEMBLER note, pt's hemin is very expensive and coverage of this drug at [facility] is unknown. When ATOMIC FUEL ASSEMBLER was speaking with pt, pt requested that ATOMIC FUEL ASSEMBLER move pt's oncology services back to [facility] and hemin infusions back to [facility]. Pt and boyfriend state the care is better here and they are hopeful it will be covered because pt's insurance is different now than in past admissions. SW to discuss with MD the possibility of this. Pt anticipated to discharge in 3-4 days after receiving daily hemin infusions and her pain in controlled. Pt is likely to discharge home with her SO, no additional needs. SW will continue to follow and coordinate pt's care as able. PIPPA Sotelo Addendum: 01/15/17 at 1634 by CHERIE LAZCANO Amended: Links added.
--- NOTE | 2017-01-15 23:06 | PCM.PNMED ---
Subjective Date of Service Jan 15, 2017 Subjective Patient is complaining that her current CONCERT SINGER pump with hydromorphone is not controlling her pain. She states that her pain is constantly a 5 or above. Her mother arrived and was very concerned that even though the nurse felt the patient was sleeping most the time when she entered her roommates when the patient wakes up with pain that is bothering the patient the most that she has no basal hydromorphone going while she is sleeping. Patient expresses her frustration that multiple providers have questioned her drug-seeking behavior in the past and states that her porphyria is extremely painful and she finds that many healthcare providers do not seem to believe her. I reassured her that I was there to help her and help control her pain. Exam Vital Signs Vital Sign - Last Date Time Temp Pulse Resp B/P Pulse Ox O2 Delivery O2 Flow Rate FiO2 01/15/17 20:35 36.9 74 16 124/85 95 Room Air 01/14/17 17:50 2.00 Intake and Output 01/14/17 01/14/17 01/15/17 Cumulative From/Thru 15:00 23:00 07:00 01/13/17 20:27 - 01/15/17 06:23 Intake Total 200 ml 1202 ml 418 ml 4379 ml Output Total 650 ml 1500 ml 2800 ml 4950 ml Balance -450 ml -298 ml -2382 ml -571 ml Intake Oral 200 ml 100 ml 418 ml 718 ml IV Total 1102 ml 3661 ml Output Urine Total 500 ml 1500 ml 2800 ml 4800 ml Emesis 150 ml 0 ml 150 ml Exam General: Patient is resting comfortably supine in bed. HEENT: Head is atraumatic and normocephalic. Eyes: Pupils are equally round and reactive to light and accommodation. Extraocular muscles are intact. Sclera are white, anicteric. Subconjunctival mucosa is pink. Ears and nose are unremarkable. Oropharynx: There is no mucosal lesions, there is no thrush, there is no pharyngitis. Neck: Is supple, there are no nodes, or masses or tenderness. Chest: Is clear to auscultation and percussion. There are no rales, rhonchi, wheezes or rubs. Heart: Rate, rhythm is regular. There is no murmur, rub or gallop. Abdomen: Good bowel sounds are present. Abdomen is soft, and tender to palpation. There is no rebound tenderness. Extremities: Are symmetrical and well perfused. There is no edema, there is no cellulitis, no rash. Neurologic: There are no focal neurological deficits. Cranial nerves II through XII are intact. There are no sensory or motor deficits. Psychiatric: Patients mood is calm and shows no sign of agitation. Genital: Deferred Rectal: Deferred Lab and Diagnostics Result Diagram: 01/14/17 0530 01/14/17 0530 Microbiology RHINOVIRUS OR ENTEROVIRUS PCR Final 01/14/17-5 Organism 1 RHINOVIRUS/ENTEROVIRUS TIME CALLED: 1123 DATE CALLED: 01/14/17 FLOOR/DOCTOR: TAPAN/HUGO Mackenzie X-Rays, CTs and MRIs PROCEDURE: X-RAY CHEST ONE VIEW, PORTABLE ([id number]) INDICATIONS: pneumonia TECHNIQUE: One view of the chest was acquired. COMPARISON: 11/22/2016 FINDINGS: Surgical changes and devices: Bilateral nipple jewelry. Left-sided port with tip over the distal SVC.. Lungs and pleura: No pleural effusions or pneumothorax. Lungs are clear. The radiodensities over the right upper and left lower lung og have resolved. Mediastinum: Mediastinal contours appear normal. Heart size is normal. Bones and chest wall: No suspicious bony lesions. Overlying soft tissues appear unremarkable. IMPRESSION: No acute cardiopulmonary abnormality. Dictated by: Colby Dale M.D. on 01/14/2017 at 14:16 Approved by: Colby Dale M.D. on 01/14/2017 at 14:18 Assessment & Plan Ms. 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 with a 4 day history cold-like symptoms, and worsening abdominal pain, nausea no vomiting. She is admitted for management of symptoms secondary to acute intermittent porphyria. Hospital day 2 Acute intermittent porphyria, acute flare, present on admission. recurrent episode since recent hospitalization in [place], likely trigged by URI, pt was on regular Zoladex and Hemin -Patient is s/p hemin 01/11 regular dose and 01/13 in ED, -The discussed case with , will continue hemin daily dosing(due to unavailability at pharmacy) 4mg/kg/day -Continue daily CBC and chemistry profile -O2 supplement as needed -We will advance Dilaudid CONCERT SINGER and to include a basal rate of 0.5 mg per hour to see if this helps the patient's pain Intractable pain refractory to oral medications, present on admission. Initiated and ongoing. - Secondary to porphyria flare, as noted above - Patient has extensive list of allergies - Dilaudid CONCERT SINGER, standard setting, we will order a basal rate of 0.5 mg per hour see if this help control the patient is pain while monitoring respiratory status closely as pt had aspiration PNA with respiratory depression in last hospitalization, - Gabapentin 100 mg 3 times a day, continued from ambulatory - Benadryl as needed for itching, nausea. Acute URI, POA, active -Continue supportive care Disposition: The patient will likely be here at least 3-4more days. We will assess daily with hemin tx, d/c once pain is under control. Consider formal hematology consultation. The patient is a Full Code Pain Evaluation: Adequate Pain Control GI Prophylaxis: Not indicated VTE Prophylaxis: SCDs VTE Mechanical Devices: Intermittant Pneumatic CD Resuscitation Status: CPR: Attempt Resuscitation Howard Carlson MD Jan 15, 2017 23:06
[2017-01-16] VITALS (14 sets, daily range): BP systolic 111–128; BP diastolic 69–73; PULSE 77–101; RESP 14–18; O2SAT 92–98
[2017-01-16] MEDS: Ondansetron 2 mg/mL 2 mL Inj IVPUSH PRN ×3 (00:29→18:01)
--- NOTE | 2017-01-16 02:35 | NUR ---
Nausea Patient complaining of mild nausea. Zofran given q4. Patient has COMMUNICATIONS INTERN Dilaudid for pain. Continuous pulse ox, 94%. Room air. Vitals stable. Patient resting in bed. drowsy. Family by bedside. Patient complains of being itchy. Benadryl given q4.
[2017-01-16 05:33] LABS: BASOPHILS % (AUTO) 0.2 % (0-3); EOSINOPHILS % (AUTO) 3.2 % (0-5); MONOCYTES % (AUTO) 12.5 % (4-12); Mean Corpuscular Hemoglobin 29.2 pg (27.0-35.0); Mean Corpuscular Volume 87.2 fL (81-100); NEUTROPHILS % (AUTO) 49.6 % (40-74); Platelet Count 100 bil/L (150-400)
[2017-01-16 06:05] LABS: Magnesium 1.5 mg/dL (1.6-2.6)
[2017-01-16] MEDS: 0.9% Sodium Chloride 1,000 ML IV SCH ×2 (08:19→19:53)
[2017-01-16] MEDS ORDERED: Magnesium Sulf 4 Gm/100 mL H2O 4 GM in IV Premix 1 EACH IV ONE (08:25)
[2017-01-16] MEDS: HYDROmorphone PCA 0.2 mg/mL 30 mL Inj IV PRN ×2 (09:15→18:36)
[2017-01-16] MEDS: 0.9% Sodium Chloride 250 ML IV SCH (11:18)
--- NOTE | 2017-01-16 12:30 | NUR ---
Congestion/Headache Pt woke from sleeping and c/o 9/10 pain in abdomen and head along with congestion. Educated pt on use of STYLIST APPRENTICE and reminded her that she can hit her button for a dose of pain medication. Notified MD of congestion and gave pt new order of zyrtec. Gave pt prn dose of gabapentin for pain and diazepam for anxiety.
[2017-01-16] MEDS: HEMIN IV SCH (12:44)
[2017-01-16] MEDS: STERILE IV SCH (12:44)
--- NOTE | 2017-01-16 14:30 | NUR ---
Hemin Verified with pharmacy Hemin transfused via portacath. Flushed with 10mls NS before and after transfusion. Hemin infused thru filtered line. Infused without any adverse reactions. Denies chest pain, SOB, Nausea.
--- NOTE | 2017-01-16 15:08 | NUR ---
Social Work- Update Note Data: SW placed call to [facility] EDUCATIONAL PROGRAM DIRECTOR regarding transitioning pt's care to [place]. Left message requesting return call on Tuesday. DANY will continue to follow. PIPPA Sotelo
--- NOTE | 2017-01-16 22:52 | PCM.PNMED ---
Subjective Date of Service Jan 16, 2017 Subjective Patient complains of upper respiratory congestion and has Vicks VapoRub rubbed on her chest. He states that the congestion is giving her a headache. Her abdominal pain is much better controlled today. And she is otherwise more comfortable. She has no other new complaints. Exam Vital Signs Vital Sign - Last Date Time Temp Pulse Resp B/P Pulse Ox O2 Delivery O2 Flow Rate FiO2 01/16/17 20:45 14 93 01/16/17 19:30 37.1 86 128/69 Room Air 01/14/17 17:50 2.00 Intake and Output 01/15/17 01/15/17 01/16/17 Cumulative From/Thru 15:00 23:00 07:00 01/13/17 20:27 - 01/16/17 06:33 Intake Total 1083 ml 1550 ml 1440 ml 8452 ml Output Total 1000 ml 500 ml 6450 ml Balance 1083 ml 550 ml 940 ml 2002 ml Intake Oral 700 ml 200 ml 1618 ml IV Total 1083 ml 850 ml 1240 ml 6834 ml Output Urine Total 1000 ml 500 ml 6300 ml Emesis 150 ml # Bowel Movements 0 0 Exam General: Patient is resting comfortably supine in bed. She has Vicks VapoRub on her neck and chest. HEENT: Head is atraumatic and normocephalic. Eyes: Pupils are equally round and reactive to light and accommodation. Extraocular muscles are intact. Sclera are white, anicteric. Subconjunctival mucosa is pink. Ears and nose are unremarkable. Oropharynx: There is no mucosal lesions, there is no thrush, there is no pharyngitis. Voice sounds nasally congested. Neck: Is supple, there are no nodes, or masses or tenderness. Chest: Is clear to auscultation and percussion. There are no rales, rhonchi, wheezes or rubs. Heart: Rate, rhythm is regular. There is no murmur, rub or gallop. Abdomen: Good bowel sounds are present. Abdomen is soft, and with slight decrease in tenderness to palpation. There is no rebound tenderness. Extremities: Are symmetrical and well perfused. There is no edema, there is no cellulitis, no rash. Neurologic: There are no focal neurological deficits. Cranial nerves II through XII are intact. There are no sensory or motor deficits. Psychiatric: Patients mood is calm and shows no sign of agitation. Genital: Deferred Rectal: Deferred Lab and Diagnostics Result Diagram: 01/16/17 0501/16/17509 Microbiology RHINOVIRUS OR ENTEROVIRUS PCR Final 01/14/17-1124 Organism 1 RHINOVIRUS/ENTEROVIRUS TIME CALLED: 1123 DATE CALLED: 01/14/17 FLOOR/DOCTOR: TAPAN/HUGO Mackenzie X-Rays, CTs and MRIs PROCEDURE: X-RAY CHEST ONE VIEW, PORTABLE ([id number]) INDICATIONS: pneumonia TECHNIQUE: One view of the chest was acquired. COMPARISON: 11/22/2016 FINDINGS: Surgical changes and devices: Bilateral nipple jewelry. Left-sided port with tip over the distal SVC.. Lungs and pleura: No pleural effusions or pneumothorax. Lungs are clear. The radiodensities over the right upper and left lower lung og have resolved. Mediastinum: Mediastinal contours appear normal. Heart size is normal. Bones and chest wall: No suspicious bony lesions. Overlying soft tissues appear unremarkable. IMPRESSION: No acute cardiopulmonary abnormality. Dictated by: Colby Dale M.D. on 01/14/2017 at 14:16 Approved by: Colby Dale M.D. on 01/14/2017 at 14:18 Assessment & Plan Ms. 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 She is admitted for management of symptoms secondary to acute intermittent porphyria. Hospital day 2 Acute intermittent porphyria, acute flare, present on admission. recurrent episode since recent hospitalization in [place], likely trigged by URI, pt was on regular Zoladex and Hemin -Patient is s/p hemin 01/11 regular dose and 01/13 in ED, -The discussed case with , will continue hemin daily dosing(due to unavailability at pharmacy) 4mg/kg/day -Continue daily CBC and chemistry profile -O2 supplement as needed -We have advanced Dilaudid YARD GOODS SALESPERSON to include a basal rate of 0.5 mg per hour to see if this helps the patient's pain. It appears to have been quite successful in controlling her pain. Intractable pain refractory to oral medications, present on admission. Initiated and ongoing. - Secondary to porphyria flare, as noted above - Patient has extensive list of allergies - Dilaudid YARD GOODS SALESPERSON, standard setting, we have added a basal rate of 0.5 mg per hour see if this help control the patient is pain while monitoring respiratory status closely as pt had aspiration PNA with respiratory depression in last hospitalization, appears to have helped her pain considerably. Since O2 sats are staying normal. Her caregiver is staying with her at night. - Gabapentin 100 mg 3 times a day, continued from ambulatory - Benadryl as needed for itching, nausea. Acute URI, present at the time of admission, active - Rhinovirus isolated -Continue supportive care and symptomatic treatment - We will add Zyrtec 10 mg by mouth daily Disposition: The patient will likely be here at least 3-4 more days. We will assess daily with hemin tx, d/c once pain is under control. Consider formal hematology consultation. The patient is a Full Code Pain Evaluation: Adequate Pain Control GI Prophylaxis: Not indicated VTE Prophylaxis: SCDs VTE Mechanical Devices: Intermittant Pneumatic CD Resuscitation Status: CPR: Attempt Resuscitation Howard Carlson MD Jan 16, 2017 22:52
[2017-01-17] VITALS (10 sets, daily range): BP systolic 112–133; BP diastolic 71–80; PULSE 86–89; RESP 14–20; O2SAT 92–98
[2017-01-17] MEDS: HYDROmorphone PCA 0.2 mg/mL 30 mL Inj IV PRN ×3 (04:28→20:15)
[2017-01-17] MEDS: Ondansetron 2 mg/mL 2 mL Inj IVPUSH PRN ×4 (04:39→18:09)
[2017-01-17] MEDS: 0.9% Sodium Chloride 1,000 ML IV SCH ×3 (05:39→23:33)
--- NOTE | 2017-01-17 06:03 | NUR ---
Pain Pt. was sleepy earlier in shift. However, around 0300 pt. rated pain 8/10. Bolus given via DRY GOODS CLERK Dilaudid. Afterwards, pt. did fall back asleep. Will continue to monitor.
[2017-01-17 06:20] LABS: Magnesium 1.7 mg/dL (1.6-2.6)
[2017-01-17] MEDS: DULoxetine 30 mg DR Capsule PO SCH (11:35)
[2017-01-17] MEDS: 0.9% Sodium Chloride 250 ML IV SCH (11:35)
[2017-01-17] MEDS: HEMIN IV SCH (12:01)
[2017-01-17] MEDS: STERILE IV SCH (12:01)
[2017-01-17] MEDS ORDERED: Magnesium Hydroxide 10 mL Oral Concentration PO ONE (15:45)
--- NOTE | 2017-01-17 16:08 | NUR ---
GI/ Pt had episode of emesis this morning after eating a parfait. Zofran was given. Pt states that she thinks she ate too quickly. Pt has not had a bm since 01/12/17. notified and ordered milk of magnesia. Pt declined medication saying she has not had a bm because she has had no appetite.
--- NOTE | 2017-01-17 23:51 | PCM.PNMED ---
Subjective Date of Service Jan 17, 2017 Subjective The patient continues to complain of congestion and now with cough. However, she states that Zyrtec is helping. Her abdominal pain is better controlled. However, she continues to have nausea and after trying to eat some yogurt she vomited she states she has not had a bowel movement for 5 days and has not had hardly anything to eat for that same period of time. She has no other new complaints. Exam Vital Signs Vital Sign - Last Date Time Temp Pulse Resp B/P Pulse Ox O2 Delivery O2 Flow Rate FiO2 01/17/17 20:49 36.8 89 20 126/80 95 Room Air 01/14/17 17:50 2.00 Intake and Output 01/16/17 01/16/17 01/17/17 Cumulative From/Thru 15:00 23:00 07:00 01/13/17 20:27 - 01/17/17 05:37 Intake Total 1295 ml 1579 ml 83557 ml Output Total 800 ml 1700 ml 8950 ml Balance 495 ml -121 ml 2376 ml Intake Oral 400 ml 475 ml 2493 ml IV Total 895 ml 1104 ml 8833 ml Output Urine Total 800 ml 1700 ml 8800 ml Emesis 150 ml # Bowel Movements 0 0 Exam General: Patient is resting comfortably supine in bed. She has Vicks VapoRub on her neck and chest. HEENT: Head is atraumatic and normocephalic. Eyes: Pupils are equally round and reactive to light and accommodation. Extraocular muscles are intact. Sclera are white, anicteric. Subconjunctival mucosa is pink. Ears and nose are unremarkable. Oropharynx: There is no mucosal lesions, there is no thrush, there is no pharyngitis. Voice sounds nasally congested. Neck: Is supple, there are no nodes, or masses or tenderness. Chest: There are very coarse breath sounds due to upper airway congestion. There are no rales, rhonchi, wheezes or rubs. Heart: Rate, rhythm is regular. There is no murmur, rub or gallop. Abdomen: Good bowel sounds are present. Abdomen is soft, and with slight decrease in tenderness to palpation. There is no rebound tenderness. Extremities: Are symmetrical and well perfused. There is no edema, there is no cellulitis, no rash. Neurologic: There are no focal neurological deficits. Cranial nerves II through XII are intact. There are no sensory or motor deficits. Psychiatric: Patients mood is calm and shows no sign of agitation. Genital: Deferred Rectal: Deferred Lab and Diagnostics Result Diagram: 01/16/17 0510 01/17/17 0500 Microbiology RHINOVIRUS OR ENTEROVIRUS PCR Final 01/14/17-1125 Organism 1 RHINOVIRUS/ENTEROVIRUS TIME CALLED: 112 DATE CALLED: 01/14/17 FLOOR/DOCTOR: TAPAN/HUGO Mackenzie X-Rays, CTs and MRIs PROCEDURE: X-RAY CHEST ONE VIEW, PORTABLE ([id number]) INDICATIONS: pneumonia TECHNIQUE: One view of the chest was acquired. COMPARISON: 11/22/2016 FINDINGS: Surgical changes and devices: Bilateral nipple jewelry. Left-sided port with tip over the distal SVC.. Lungs and pleura: No pleural effusions or pneumothorax. Lungs are clear. The radiodensities over the right upper and left lower lung og have resolved. Mediastinum: Mediastinal contours appear normal. Heart size is normal. Bones and chest wall: No suspicious bony lesions. Overlying soft tissues appear unremarkable. IMPRESSION: No acute cardiopulmonary abnormality. Dictated by: Colby Dale M.D. on 01/14/2017 at 14:16 Approved by: Colby Dale M.D. on 01/14/2017 at 14:18 Assessment & Plan Ms. 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 with a 4 day history cold-like symptoms, and worsening abdominal pain, nausea no vomiting. She is admitted for management of symptoms secondary to acute intermittent porphyria. Hospital day 2 Acute intermittent porphyria, acute flare, present on admission. recurrent episode since recent hospitalization in [place], likely trigged by URI, pt was on regular Zoladex and Hemin -Patient is s/p hemin 01/11 regular dose and 01/13 in ED, -The discussed case with , will continue hemin daily dosing(due to unavailability at pharmacy) 4mg/kg/day -Continue daily CBC and chemistry profile -O2 supplement as needed -We have advanced Dilaudid RIBBING MACHINE OPERATOR to include a basal rate of 0.5 mg per hour to see if this helps the patient's pain. It appears to have been quite successful in controlling her pain. Intractable pain refractory to oral medications, present on admission. Initiated and ongoing. - Secondary to porphyria flare, as noted above - Patient has extensive list of allergies - Dilaudid RIBBING MACHINE OPERATOR, standard setting, we have added a basal rate of 0.5 mg per hour see if this help control the patient is pain while monitoring respiratory status closely as pt had aspiration PNA with respiratory depression in last hospitalization, appears to have helped her pain considerably. Since O2 sats are staying normal. Her caregiver is staying with her at night. - Gabapentin 100 mg 3 times a day, continued from ambulatory - Benadryl as needed for itching, nausea. Acute URI, present at the time of admission, active - Rhinovirus isolated -Continue supportive care and symptomatic treatment - We will add Zyrtec 10 mg by mouth daily - As breath sounds have become more coarse will check chest x-ray to ensure patient has not developed a pulmonary infiltrate Disposition: The patient will likely be here at least 3-4 more days. We will assess daily with hemin tx, d/c once pain is under control. Consider formal hematology consultation. The patient is a Full Code Pain Evaluation: Adequate Pain Control GI Prophylaxis: Not indicated VTE Prophylaxis: SCDs VTE Mechanical Devices: Intermittant Pneumatic CD Resuscitation Status: CPR: Attempt Resuscitation Howard Carlson MD Jan 17, 2017 23:51
[2017-01-18] VITALS (10 sets, daily range): BP systolic 101–123; BP diastolic 61–84; PULSE 73–102; RESP 14–20; O2SAT 93–98
[2017-01-18] MEDS: Ondansetron 2 mg/mL 2 mL Inj IVPUSH PRN ×6 (00:36→21:12)
[2017-01-18] MEDS: HYDROmorphone PCA 0.2 mg/mL 30 mL Inj IV PRN ×3 (05:08→19:44)
[2017-01-18 05:29] LABS: BASOPHILS % (AUTO) 0.2 % (0-3); EOSINOPHILS % (AUTO) 3.4 % (0-5); MONOCYTES % (AUTO) 11.3 % (4-12); Mean Corpuscular Hemoglobin 29.1 pg (27.0-35.0); Mean Corpuscular Volume 84.2 fL (81-100); NEUTROPHILS % (AUTO) 58.6 % (40-74); Platelet Count 96 bil/L (150-400)
--- NOTE | 2017-01-18 06:09 | NUR ---
Pain/GI Pt continues on LINING VAMPER Dilaudid with continuous dosing. Requested 3 separate boluses over shift for pain 8-05/03, says it is mostly centered in LUQ. Pt receiving PRN zofran for nausea and benadryl for itching. Pt tolerated fresh cut fruit and PO fluids/popsicle. States she has no appetite yet. Up to BSC independently. CELL TECHNICIAN on, Pt using o2 at 1-2L while sleeping to maintain sats >90%. Care continues
[2017-01-18 06:18] LABS: Magnesium 1.3 mg/dL (1.6-2.6)
[2017-01-18] MEDS ORDERED: Magnesium Sulf 2 Gm/50mL Water 2 GM in IV Premix 1 EACH IV ONE (09:00)
[2017-01-18] MEDS: DULoxetine 30 mg DR Capsule PO SCH (09:25)
[2017-01-18] MEDS ORDERED: Magnesium Sulf 4 Gm/100 mL H2O 4 GM in IV Premix 1 EACH IV ONE (10:00)
[2017-01-18] MEDS: HEMIN IV SCH (11:01)
[2017-01-18] MEDS: STERILE IV SCH (11:01)
--- NOTE | 2017-01-18 11:10 | NUR ---
JOVANI Signed @ [id number]
[2017-01-18] MEDS: 0.9% Sodium Chloride 250 ML IV SCH (11:18)
[2017-01-18] MEDS ORDERED: 0.9% Sodium Chloride 100 ML ONE (11:26)
--- NOTE | 2017-01-18 11:27 | NUR ---
Astrophysics Teacher D/A: OCEAN FREIGHT FORWARDER received a referral regarding patient's current insurance status and the potential of re-establishing care at [facility], which the patient has noted would be her choice. In review of the EMR and [facility] patient is carrying coverage via [facility] Medicaid with a TRUCKLOAD CHECKER/QMB coupon in addition to Medicare as a secondary insurance. Patient reports that she had initiated a change from her [employer] to Medicare once her [facility] Medicaid became active. The patient's [employer] was not an in-network carrier for the patient to receive care at [facility], and precipitated the transfer of care to [facility] two months ago. The patient/patient's fiance noted that they will provide OCEAN FREIGHT FORWARDER with a copy of the letter from Medicare indicating the change in coverage. With verification the patient's in-network insurance status transfer of outpatient care can occur. Per Dr. Bocanegra, the patient will conclude her care with Dr. Shankar through approximately the first two weeks of January for continuity of care, the patient is tentatively scheduled to resume care at [facility] with Dr. Bocanegra on 02/02/17. P: OCEAN FREIGHT FORWARDER updated Abbey DAS on OSC, patient in agreement with planned transfer of outpatient care. OCEAN FREIGHT FORWARDER will continue to monitor and update patient and patient's [facility] provider as the insurance coverage component of her care is resolved. Jj LUISS, OCEAN FREIGHT FORWARDER
[2017-01-18] MEDS: 0.9% Sodium Chloride 1,000 ML IV SCH (12:33)
--- NOTE | 2017-01-18 15:20 | DRSVH ---
PROCEDURE: X-RAY CHEST, TWO VIEWS ([id number]) INDICATIONS: increased cough and congestion/possible pneumonia TECHNIQUE: 2 views of the chest were acquired. COMPARISON: [facility], CR, CHEST 2VW, 09/12/2012, 13:02. [facility], CR, XR CHEST 1VW (PORTABLE), 01/14/2017, 9:08. FINDINGS: Surgical changes and devices: Bilateral nipple jewelry. Left-sided port with tip over the distal SVC. . Lungs and pleura: No pleural effusions or pneumothorax. Retrocardiac posterior airspace opacities p resent. Mediastinum: Mediastinal contours appear normal. Heart size is normal. Bones and chest wall: No suspicious bony lesions. Overlying soft tissues appear unremarkable. IMPRESSION: Left basilar atelectasis versus aspiration or pneumonia. Correlate clinically. Dictated by: Rober BLACKMON Interpreted: Rosalie Lim MD on 01/18/2017 at 10:10 Approved by: Rosalie Lim M.D. on 01/18/2017 at 15:18
--- NOTE | 2017-01-18 18:14 | CCS NOTE ---
[facility] [address] [place] [address], [address] [address] MEDICAL ONCOLOGY OFFICE NOTE PATIENT: CAMRON DA SILVA : 1990 MR#: [id number] DATE: 01/13/2017 JOB ID: [id number] DATE: 01/18/2017 HISTORY OF PRESENT ILLNESS: This is a 26-year-old lady with longstanding history of acute intermittent porphyria since the beginning of 2011. I had seen her last, close to two months ago during her last hospitalization the end of October. For insurance reasons, she had to transfer her care to [facility] since our center would be out of network for her and I have not been seeing her as an outpatient since that visit. I did manage her for several years prior to that initial diagnosis. For details, please refer to my note of November 17, 2016. After her last discharge, in my communication with Dr. Shankar at [facility], she did establish care there and continued weekly prophylactic hemin administration and did receive her last week's dose. She also received her Zoladex injection that is given monthly to suppress her menstrual cycles at the beginning of December. Despite that, she had come to this hospital through the emergency department with abdominal pain and nausea as well as vomiting with the pain radiating down her leg when she presented on January 13 to the emergency department. She was having a few days of upper respiratory infection which was believed to be the trigger point of another acute porphyria attack. Her nasal swab did come back positive for rhinovirus and she does have nasal congestion and cough. I was contacted by Dr. Lockhart on January 14, and I explained that patient had been followed now at [facility] but did recommend that they continue daily Hemin infusion at 4 mg/kg, approximately every 24 hours until symptoms start to improve and communicate with Dr. Shankar. Dr. Carlson to alert today asked me to see the patient. She has been requiring increasing pain medication. During her last hospitalization, she had very difficult pain control requiring large doses of medication as well as anxiety that led to usage of Ativan and excessive hypersomnolence. She did have pneumonia likely due to aspiration during that hospitalization, and had an infiltrate as well as room air hypoxia, and recovered from that. She is currently on Dilaudid ENGINEERING SURVEYOR and appears somewhat improved. LABORATORY DATA: Her labs show normal electrolytes, creatinine 0.56. AST is 51, bilirubin normal. CBC shows chronic thrombocytopenia with platelets around 100. OBJECTIVE: On exam, her abdomen is soft. No edema. She is somewhat congested and has a slight cough but without any purulent sputum. Afebrile. O2 sat 96% on room air. ASSESSMENT AND PLAN: A 26-year-old lady with acute intermittent porphyria which has been difficult to control, requiring weekly prophylactic hemin administration as an outpatient and ovarian suppression due to menstrual cycle triggering previous attacks, getting monthly Zoladex injections. As discussed above, I saw this patient about two months ago with last hospitalization. For insurance reasons, she had to transfer her care to [facility] because her insurance apparently was with [employer] for which we would be out of network. I have contacted our forensic social worker, Jj, to evaluate the current situation and apparently she might have now simply straight Medicaid. This is in process of verification and if that can be verified, and then that we are able to provide her subsequent care, we will arrange her to continue followup. Currently, she has an acute porphyria attack triggered by an upper respiratory infection of rhinovirus. I had over the phone suggested to Dr. Lockhart last January 14, that she continue daily hemin infusion. Usually takes somewhere between 4-7 days for her to get out of the acute attack with daily hemin infusion. She has been receiving it and today there seemed to be a slight improvement. Nausea and vomiting has been slightly better and she might be able to be switched to oral pain medication tomorrow. Her next hemin infusion will be due for prophylaxis next January 26, and for sake of assuring continuity, she should receive that still at [facility] until the insurance situation can be verified, and potentially the subsequent week of February 02, she could possibly transfer to our center again. Her next Zoladex will be due next week as well, that she should receive at Dr. Shankar's office to stay on schedule. This message was also discussed with her and she is okay with that. I am adding iron panel to monitor her iron overload.
--- NOTE | 2017-01-18 19:11 | NUR ---
Pain, Nausea Patient continues to have some pain and nausea this shift, patient reports both are controlled to a tolerable level with ordered medications. Care is ongoing.
--- NOTE | 2017-01-18 22:10 | NUR ---
Report received from Svetlana Kaur. Pt 6/10 pain at this time with dilauded spa supervisor and continuous infusion.
--- NOTE | 2017-01-18 22:42 | PCM.PNMED ---
Subjective Date of Service Jan 18, 2017 Subjective The patient for the first time admits to feeling a little bit better today she is going to try to have some chicken soup. She has slightly less pain and less nausea today. She has no new complaints. Exam Vital Signs Vital Sign - Last Date Time Temp Pulse Resp B/P Pulse Ox O2 Delivery O2 Flow Rate FiO2 01/18/17 20:40 37.0 102 123/84 94 Room Air 01/18/17 19:49 14 01/18/17 05:08 1.00 Intake and Output 01/17/17 01/17/17 01/18/17 Cumulative From/Thru 15:00 23:00 07:00 01/13/17 20:27 - 01/18/17 06:03 Intake Total 1522 ml 40398 ml Output Total 1250 ml 600 ml 18898 ml Balance 272 ml -600 ml 2048 ml Intake Oral 400 ml 2893 ml IV Total 1122 ml 9955 ml Output Urine Total 1250 ml 600 ml 69517 ml Emesis 150 ml # Bowel Movements 0 0 Exam General: Patient is resting comfortably supine in bed. She was asleep when I entered the room even after I knocked on the door. She appears to be feeling a little bit better today HEENT: Head is atraumatic and normocephalic. Eyes: Pupils are equally round and reactive to light and accommodation. Extraocular muscles are intact. Sclera are white, anicteric. Subconjunctival mucosa is pink. Ears and nose are unremarkable. Oropharynx: There is no mucosal lesions, there is no thrush, there is no pharyngitis. Voice sounds nasally congested. Neck: Is supple, there are no nodes, or masses or tenderness. Chest: There are very coarse breath sounds due to upper airway congestion. There are no rales, rhonchi, wheezes or rubs. Heart: Rate, rhythm is regular. There is no murmur, rub or gallop. Abdomen: Good bowel sounds are present. Abdomen is soft, and with slight decrease in tenderness to palpation again today. There is no rebound tenderness. Extremities: Are symmetrical and well perfused. There is no edema, there is no cellulitis, no rash. Neurologic: There are no focal neurological deficits. Cranial nerves II through XII are intact. There are no sensory or motor deficits. Psychiatric: Patients mood is calm and shows no sign of agitation. Genital: Deferred Rectal: Deferred Lab and Diagnostics Result Diagram: 01/18/17 0501/18/17514 Microbiology RHINOVIRUS OR ENTEROVIRUS PCR Final 01/14/17-5 Organism 1 RHINOVIRUS/ENTEROVIRUS TIME CALLED: 1123 DATE CALLED: 01/14/17 FLOOR/DOCTOR: TAPAN/HUGO Mackenzie X-Rays, CTs and MRIs PROCEDURE: X-RAY CHEST ONE VIEW, PORTABLE ([id number]) INDICATIONS: pneumonia TECHNIQUE: One view of the chest was acquired. COMPARISON: 11/22/2016 FINDINGS: Surgical changes and devices: Bilateral nipple jewelry. Left-sided port with tip over the distal SVC.. Lungs and pleura: No pleural effusions or pneumothorax. Lungs are clear. The radiodensities over the right upper and left lower lung og have resolved. Mediastinum: Mediastinal contours appear normal. Heart size is normal. Bones and chest wall: No suspicious bony lesions. Overlying soft tissues appear unremarkable. IMPRESSION: No acute cardiopulmonary abnormality. Dictated by: Colyb Dale M.D. on 01/14/2017 at 14:16 Approved by: Colby Dale M.D. on 01/14/2017 at 14:18 Assessment & Plan Ms. 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 She is admitted for management of symptoms secondary to acute intermittent porphyria. Hospital day 2 Acute intermittent porphyria, acute flare, present on admission. recurrent episode since recent hospitalization in [place], likely trigged by URI, pt was on regular Zoladex for menses suppression and Hemin for acute intermittent porphyria -Patient is s/p hemin 01/11 regular dose and 01/13 in ED, -The discussed case with , will continue hemin daily dosing(due to unavailability at pharmacy) 4mg/kg/day. Dr. Bocanegra has been formally consulted and appreciate his consultation. We will follow his recommendations. -Continue daily CBC and chemistry profile -O2 supplement as needed -We have advanced Dilaudid REAL ESTATE LOAN OFFICER to include a basal rate of 0.5 mg per hour to see if this helps the patient's pain. It appears to have been quite successful in controlling her pain. Intractable pain refractory to oral medications, present on admission. Initiated and ongoing. - Secondary to porphyria flare, as noted above - Patient has extensive list of allergies - Dilaudid REAL ESTATE LOAN OFFICER, standard setting, we have added a basal rate of 0.5 mg per hour see if this help control the patient is pain while monitoring respiratory status closely as pt had aspiration PNA with respiratory depression in last hospitalization, appears to have helped her pain considerably. Since O2 sats are staying normal. Her caregiver is staying with her at night. - Gabapentin 100 mg 3 times a day, continued from ambulatory - Benadryl as needed for itching, nausea. Acute URI, present at the time of admission, active - Rhinovirus isolated -Continue supportive care and symptomatic treatment - We will add Zyrtec 10 mg by mouth daily - As breath sounds have become more coarse will check chest x-ray to ensure patient has not developed a pulmonary infiltrate Disposition: The patient will likely be here a few more days. We will follow Dr. Tomas's recommendations. We will assess daily with hemin tx, d/c once pain is under control. The patient is a Full Code Pain Evaluation: Adequate Pain Control GI Prophylaxis: Not indicated VTE Prophylaxis: SCDs VTE Mechanical Devices: Intermittant Pneumatic CD Resuscitation Status: CPR: Attempt Resuscitation Howard Carlson MD Jan 18, 2017 22:42
[2017-01-19] VITALS (7 sets, daily range): BP systolic 101–126; BP diastolic 64–89; PULSE 84–98; RESP 15–20; O2SAT 95–98
[2017-01-19] MEDS: 0.9% Sodium Chloride 1,000 ML IV SCH ×3 (01:21→20:59)
[2017-01-19] MEDS: Ondansetron 2 mg/mL 2 mL Inj IVPUSH PRN ×6 (01:37→22:34)
[2017-01-19] MEDS: HYDROmorphone PCA 0.2 mg/mL 30 mL Inj IV PRN (03:10)
[2017-01-19 06:31] LABS: BASOPHILS % (AUTO) 0.3 % (0-3); EOSINOPHILS % (AUTO) 4.2 % (0-5); MONOCYTES % (AUTO) 13.8 % (4-12); Mean Corpuscular Hemoglobin 29.2 pg (27.0-35.0); NEUTROPHILS % (AUTO) 54.4 % (40-74); Platelet Count 112 bil/L (150-400)
[2017-01-19 07:31] LABS: Magnesium 2.1 mg/dL (1.6-2.6)
[2017-01-19] MEDS ORDERED: Alteplase (Cathflo) 1 mg/mL 2 mL Inj IVPUSH SCH (07:45)
--- NOTE | 2017-01-19 07:49 | NUR ---
Port failure / Pain FIELD CANE SCALER dilauded for pain at 0.5mg continuous, 0.2 intermittent, and 0.3 clinician bolus given once this shift. Port failure in AM, labs drawn via peripheral site and FIELD CANE SCALER and NS changed to peripheral site while IVT attempts to reaccess port. Pt given zofran and benadryl PRN q4 to manage side effects of dilauded. No chest pain or SOB. Pt remains on CPOX due to FIELD CANE SCALER. Care continues.
[2017-01-19] MEDS: DULoxetine 30 mg DR Capsule PO SCH (08:58)
[2017-01-19] MEDS ORDERED: Alteplase (Cathflo) 1 mg/mL 2 mL Inj IVPUSH ONE (09:45)
--- NOTE | 2017-01-19 09:59 | DRSVH ---
PROCEDURE: X-RAY CHEST ONE VIEW ([id number]) INDICATIONS: total occlusion of left chest port TECHNIQUE: One view of the chest was acquired. COMPARISON: [facility], CR, XR CHEST 2VW, 01/18/2017, 7:57. FINDINGS: Surgical changes and devices: Stable positioning of left subclavian chest port. Lungs and pleura: No pleural effusions or pneumothorax. Airspace opacity again seen involving the l eft lung base. Mediastinum: Mediastinal contours appear normal. Heart size is normal. Bones and chest wall: No suspicious bony lesions. Overlying soft tissues appear unremarkable. IMPRESSION: Left basilar atelectasis versus aspiration or pneumonia. Correlate clinically. Dictated by: oRber Finch RRA Interpreted: Manohar Bashir MD on 01/19/2017 at 9:57 Transcribed by: CHERIE on 01/19/2017 at 9:58 Approved by: Manohar Bashir M.D. on 01/19/2017 at 16:27
[2017-01-19] MEDS: 0.9% Sodium Chloride 250 ML IV SCH (11:18)
--- NOTE | 2017-01-19 13:48 | NUR ---
Social Work- Continued D/C Planning Data: EMR reviewed. Pt is on day 6 of hospitalization for acute intermittent porphyria per H&P. Pt is not medically stable for discharge. Pt continues to receive Dilaudid through KEY ACCOUNT COORDINATOR. Pt continues to have pain. Prior to discharge pt will be transitioned to oral pain medication. Jj Velasquez, Oncology HAMPER MAKER has been working on transitioning pt's outpt care to [facility] (see Jj's note for in-depth explanation). With verification the patient's in-network insurance status transfer of outpatient care can occur. Per Dr. Bocanegra, the patient will conclude her care with Dr. Shankar through approximately the first two weeks of January for continuity of care, the patient is tentatively scheduled to resume care at [facility] with Dr. Bocanegra on 02/02/17. Pt is updated and agreeable to this plan. Pt to discharge home with SO to transport via POV. No additional discharge needs identified at this time, SW will continue to follow. Assessment: Pt who will be tentatively transferring outpt care to Dr. Bocanegra and who has a caregiver at home. Plan: Per Dr. Bocanegra, the patient will conclude her care with Dr. Shankar through approximately the first two weeks of January for continuity of care, the patient is tentatively scheduled to resume care at [facility] with Dr. Bocanegra on 02/02/17. Pt is updated and agreeable to this plan. Pt to discharge home with SO to transport via POV. No additional discharge needs identified at this time, SW will continue to follow. Diamond White, HAMPER MAKER
[2017-01-19] MEDS: HEMIN IV SCH (14:08)
[2017-01-19] MEDS: STERILE IV SCH (14:08)
--- NOTE | 2017-01-19 14:49 | NUR ---
IRONER OR PRESSER stopped Patient has a desire to go home therefore we came up with a plan to switch to PO dilauded to control her pain. Pt able to tolerate dilaudid PO Q4 hours for pain. IRONER OR PRESSER was then stopped.
[2017-01-19 19:06] LABS: Unsaturated Iron Binding 187.5 ug/dL
--- NOTE | 2017-01-19 19:48 | CCS NOTE ---
[facility] [address], [address] [address] MEDICAL ONCOLOGY OFFICE NOTE PATIENT: CAMRON DA SILVA : 1990 MR#: [id number] DATE: 01/13/2017 JOB ID: [id number] DATE: 01/19/2017 SUBJECTIVE: The patient appears slightly better today than yesterday. Remains afebrile. Has slight cough. Her Port-A catheter had some difficulties flushing and this was reviewed with Dr. Carlson, and I suggested catheter patency study and patient may also use instillation of Cathflo by IV therapy. COLLATERAL CLERK has been switched to oral and the patient has not had any vomiting and appears stabilizing. She did receive her hemin infusion today. Laboratory studies show no significant changes. White cells are stable. No edema. ASSESSMENT: A 26-year-old lady with recurrent attack of acute porphyria likely triggered by a respiratory infection by rhinovirus. She has been receiving daily IV hemin since admission on January 13. She is improving. Her nausea and vomiting has improved. She is advancing her diet and her pain medication has been switched over. I am hopeful that she could be discharged tomorrow. Her Port-A catheter has opened up with instillation of Cathflo and therefore no need for a catheter patency study. If her insurance situation confirms, she might be able then to transition back to our clinic for the week of February 02.
--- NOTE | 2017-01-19 22:37 | PCM.PNMED ---
Subjective Date of Service Jan 19, 2017 Subjective Patient is beginning to feel better. 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 Her nausea has improved some She has no other new complaints. Exam Vital Signs Vital Sign - Last Date Time Temp Pulse Resp B/P Pulse Ox O2 Delivery O2 Flow Rate FiO2 01/19/17 19:41 37.7 98 20 120/79 98 Room Air 01/18/17 05:08 1.00 Intake and Output 01/18/17 01/18/17 01/19/17 Cumulative From/Thru 15:00 23:00 07:00 01/13/17 20:27 - 01/19/17 06:02 Intake Total 400 ml 1147 ml 1450 ml 55038 ml Output Total 800 ml 1400 ml 800 ml 00078 ml Balance -400 ml -253 ml 650 ml 2045 ml Intake Oral 400 ml 740 ml 250 ml 4283 ml IV Total 407 ml 1200 ml 83616 ml Output Urine Total 800 ml 1400 ml 800 ml 68053 ml Emesis 150 ml # Bowel Movements 0 0 0 Exam General: Patient is resting comfortably supine in bed. She is in much better spirits today and obviously feeling better. HEENT: Head is atraumatic and normocephalic. Eyes: Pupils are equally round and reactive to light and accommodation. Extraocular muscles are intact. Sclera are white, anicteric. Subconjunctival mucosa is pink. Ears and nose are unremarkable. Oropharynx: There is no mucosal lesions, there is no thrush, there is no pharyngitis. Voice sounds nasally congested. Neck: Is supple, there are no nodes, or masses or tenderness. Chest: The breath sounds are much clearer today. There are no rales, rhonchi, wheezes or rubs. Heart: Rate, rhythm is regular. There is no murmur, rub or gallop. Abdomen: Good bowel sounds are present. Abdomen is soft, and with a significant decrease in tenderness to palpation today. There is no rebound tenderness. Extremities: Are symmetrical and well perfused. There is no edema, there is no cellulitis, no rash. Neurologic: There are no focal neurological deficits. Cranial nerves II through XII are intact. There are no sensory or motor deficits. Psychiatric: Patients mood is calm and she shows no sign of agitation. Genital: Deferred Rectal: Deferred Lab and Diagnostics Result Diagram: 01/19/1761901/19/17619 Microbiology RHINOVIRUS OR ENTEROVIRUS PCR Final 01/14/17-1125 Organism 1 RHINOVIRUS/ENTEROVIRUS TIME CALLED: 1123 DATE CALLED: 01/14/17 FLOOR/DOCTOR: TAPAN/HUGO Mackenzie X-Rays, CTs and MRIs PROCEDURE: X-RAY CHEST ONE VIEW, PORTABLE ([id number]) INDICATIONS: pneumonia TECHNIQUE: One view of the chest was acquired. COMPARISON: 11/22/2016 FINDINGS: Surgical changes and devices: Bilateral nipple jewelry. Left-sided port with tip over the distal SVC.. Lungs and pleura: No pleural effusions or pneumothorax. Lungs are clear. The radiodensities over the right upper and left lower lung og have resolved. Mediastinum: Mediastinal contours appear normal. Heart size is normal. Bones and chest wall: No suspicious bony lesions. Overlying soft tissues appear unremarkable. IMPRESSION: No acute cardiopulmonary abnormality. Dictated by: Colby Dale M.D. on 01/14/2017 at 14:16 Approved by: Colby Dale M.D. on 01/14/2017 at 14:18 Assessment & Plan Ms. 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 She is admitted for management of symptoms secondary to acute intermittent porphyria. Hospital day 2 Acute intermittent porphyria, acute flare, present on admission. recurrent episode since recent hospitalization in [place], likely trigged by URI, pt was on regular Zoladex for menses suppression and Hemin for acute intermittent porphyria -Patient is s/p hemin 01/11 regular dose and 01/13 in ED, -The discussed case with , will continue hemin daily dosing(due to unavailability at pharmacy) 4mg/kg/day. Dr. Bocanegra has been formally consulted and appreciate his consultation. We will follow his recommendations. -Continue daily CBC and chemistry profile -O2 supplement as needed -We have advanced Dilaudid CNC SERVICE TECHNICIAN to include a basal rate of 0.5 mg per hour to see if this helps the patient's pain. It appears to have been quite successful in controlling her pain. Intractable pain refractory to oral medications, present on admission. Initiated and ongoing. - Secondary to porphyria flare, as noted above - Patient has extensive list of allergies - Dilaudid CNC SERVICE TECHNICIAN, standard setting, we have added a basal rate of 0.5 mg per hour see if this help control the patient is pain while monitoring respiratory status closely as pt had aspiration PNA with respiratory depression in last hospitalization, appears to have helped her pain considerably. Since O2 sats are staying normal. Her caregiver is staying with her at night. - Gabapentin 100 mg 3 times a day, continued from ambulatory - Benadryl as needed for itching, nausea. Acute URI, present at the time of admission, active - Rhinovirus isolated -Continue supportive care and symptomatic treatment - We will add Zyrtec 10 mg by mouth daily - As breath sounds have become more coarse will check chest x-ray to ensure patient has not developed a pulmonary infiltrate Port-A-Cath dysfunction improved with cath flow today Disposition: The patient is beginning to improve and hopefully will be able to be discharged in the next 24-48 hours. We will follow Dr. Bocanegra's recommendations. I appreciate his time and expertise. We will assess daily with hemin tx, d/c once pain is under control. The patient is a Full Code Pain Evaluation: Adequate Pain Control GI Prophylaxis: Not indicated VTE Prophylaxis: SCDs VTE Mechanical Devices: Intermittant Pneumatic CD Resuscitation Status: CPR: Attempt Resuscitation Howard Carlson MD Jan 19, 2017 22:37
[2017-01-19] MEDS: 0.9% NaCl + KCl 20 mEq/L 1,000 ML IV SCH (23:22)
[2017-01-20] MEDS: Ondansetron 2 mg/mL 2 mL Inj IVPUSH PRN ×5 (00:09→16:16)
--- NOTE | 2017-01-20 04:37 | NUR ---
Pain Pt requesting dilauded at same time as IV zofran and benadryl. By giving 4mg zofran Q2 in stead of 8mg Q4 I managed to get these meds to be timed similarly. Pt requesting PO dilauded switched to 2x hydrocodone tablets that she has RX for already, MD titus paged but no new orders received. Pt notified that we will continue dilauded Q4h, as her home hydrocodone is Q6. PT agreeable. Pt states she does want to be able to go home today. No SOB, no chest pain. Abdomen pain persists and she is passing gas with no BM. Significant other in room through this shift. Care continues.
[2017-01-20 04:52] VITALS: BP 105/70; PULSE 80; RESP 18; O2SAT 96
[2017-01-20] MEDS: DULoxetine 30 mg DR Capsule PO SCH (07:56)
[2017-01-20 08:27] LABS: BASOPHILS % (AUTO) 0.4 % (0-3); EOSINOPHILS % (AUTO) 4.5 % (0-5); MONOCYTES % (AUTO) 13.3 % (4-12); Mean Corpuscular Hemoglobin 28.6 pg (27.0-35.0); Mean Corpuscular Volume 85.8 fL (81-100); NEUTROPHILS % (AUTO) 53.7 % (40-74); Platelet Count 122 bil/L (150-400)
[2017-01-20] MEDS ORDERED: Alteplase (Cathflo) 1 mg/mL 2 mL Inj IVPUSH ONE (08:30)
[2017-01-20 09:00] LABS: Magnesium 1.4 mg/dL (1.6-2.6)
[2017-01-20] MEDS: 0.9% NaCl + KCl 20 mEq/L 1,000 ML IV SCH (11:00)
[2017-01-20] MEDS ORDERED: MAGNESIUM SULFATE IV ONE ×2 (11:05)
[2017-01-20] MEDS ORDERED: DEXTROSE IV ONE ×2 (11:05)
[2017-01-20] MEDS: 0.9% Sodium Chloride 250 ML IV SCH (11:18)
[2017-01-20] MEDS: HEMIN IV SCH (12:14)
[2017-01-20] MEDS: STERILE IV SCH (12:14)
[2017-01-20 12:54] VITALS: BP 124/86; PULSE 83; RESP 19; O2SAT 95
--- NOTE | 2017-01-20 17:37 | NUR ---
Discharge: Pt wants to discharge tonight. Dr. Carlson ordered IV mag sulfate for low mag of 1.4 from morning labs. Once mag sulfate finishes infusing, pt should be okay to discharge. Contact Dr. Carlson if discharge paperwork not yet entered. Pt has been taking IV Zofran 4mg and IV Benadryl 25mg with 2mg Dilaudid PO for pain. C/o pain levels 4-6 out of 10 before medical insurance claims specialist.
--- NOTE | 2017-01-20 17:59 | PCM.DIMED ---
Discharge Instructions Date of Service Jan 20, 2017 Dates of Hospitalization Jan 13, 2017 at 23:04 Discharge Diagnosis Discharge Diagnosis Acute Intermittent Porphyria Diet Discharge Diet: No restrictions (The patient may advance her diet as tolerated. ) Activity Discharge Activity: No restrictions (The patient may increase her activity gradually as tolerated.) Call your provider Call your provider for: Fever or Chills, Shortness of breath, Bleeding, Chest pain, Vomitting, Excessive diarrhea, Weakness (unilateral), Other Patient Instructions Follow-up Provider: David Shankar MD Follow-up with PCP in: 1 week (Patient is to have her next Hemin injection at [facility] next Tuesday.) Provider: Dewey Penny MD Follow-up in: 2 weeks (Patient is to follow up with Dr. Bocanegra as scheduled.) Howard Carlson MD Jan 20, 2017 17:59
[2017-01-20] MEDS ORDERED: Cetirizine Hcl PO (18:01)
--- NOTE | 2017-01-20 19:10 | NUR ---
Discharge Pt discharged with all belongings via wheel chair at 1910.
--- NOTE | 2017-01-21 00:10 | PCM.DC.MED ---
Discharge Summary Date of Service Jan 20, 2017 Dates of Hospitalization Date of Hospital Admission Jan 13, 2017 at 23:04 Date of Discharge: Jan 20, 2017 Providers: Admitting Physician: Howard Carlson MD Primary Care Physician: Dinorah Domínguez MD Attending Physician: Howard Carlson MD Diagnosis at Time of Discharge Diagnosis at Time of Discharge Acute Intermittent Porphyria Consultations Hematology by Dr. Bocanegra Procedures XRay, CTs & MRIs PROCEDURE: X-RAY CHEST ONE VIEW, PORTABLE ([id number]) INDICATIONS: pneumonia TECHNIQUE: One view of the chest was acquired. COMPARISON: 11/22/2016 FINDINGS: Surgical changes and devices: Bilateral nipple jewelry. Left-sided port with tip over the distal SVC.. Lungs and pleura: No pleural effusions or pneumothorax. Lungs are clear. The radiodensities over the right upper and left lower lung og have resolved. Mediastinum: Mediastinal contours appear normal. Heart size is normal. Bones and chest wall: No suspicious bony lesions. Overlying soft tissues appear unremarkable. IMPRESSION: No acute cardiopulmonary abnormality. Dictated by: Colby Dale M.D. on 01/14/2017 at 14:16 Approved by: Colby Dale M.D. on 01/14/2017 at 14:18 Brief History Romi Newsome is a 26-year-old woman with history of intermittent porphyria who presented with worsening abdominal pain over 3 days to schedule a hospital emergency department. Symptoms are associated with vomiting, nausea, feeling of pressure sharp pain in her epigastrium with radiation down into her limbs. On presentation she stated her pain was 8 out of 10, and currently after receiving treatment in the ER is down to 7 out of 10. She reportedly when she noted general prior to [facility] and was given morphine and Benadryl without relief, they declined to admit her so she reported to [facility]. She claims that her symptoms are synonymous with her previous acute attacks, citing that she has had cold-like symptoms for the last 4 days, vomiting and abdominal pain since yesterday. She stated she could not eat or keep any of her pain meds down today prompting her to go to the hospital. She had a dose of Hemin yesterday and typically gets 3-4 doses when she has acute attacks, 250 mg was administered in the ER. She said Zofran and 1 L normal saline, home pain medication includes 10 mg of hydrocodone for pain. Endorses continued abdominal pain, nausea without vomiting, constipation, and pruritus. No fevers, chills, dysuria, shortness of breath, lightheadedness or dizziness. On presentation: 36.4C 86, 16, 130/88, 100% on room air. Labs from [facility]: WBC 4.3, Hgb 10.5, platelets 67 Chemistry: Sodium 140, potassium 4.0, chloride 105, bicarbonate 28, BUN 16, creatinine 0.72, glucose 85, total bilirubin 0.3, ALT/AST 61/56. Patient was admitted to the hospital service for further evaluation and treatment. Hospital Course Ms. 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 She is admitted for management of symptoms secondary to acute intermittent porphyria. Hospital day 2 Acute intermittent porphyria, acute flare, present on admission. recurrent episode since recent hospitalization in [place], likely trigged by URI, pt was on regular Zoladex for menses suppression and Hemin for acute intermittent porphyria -Patient is s/p hemin 01/11 regular dose and 01/13 in ED, -The discussed case with , will continue hemin daily dosing(due to unavailability at pharmacy) 4mg/kg/day. Dr. Bocanegra has been formally consulted and appreciate his consultation. We will follow his recommendations. -Continue daily CBC and chemistry profile -O2 supplement as needed -We have advanced Dilaudid WOMENS VOLLEYBALL COACH to include a basal rate of 0.5 mg per hour to see if this helps the patient's pain. It appears to have been quite successful in controlling her pain. Intractable pain refractory to oral medications, present on admission. Initiated and ongoing. - Secondary to porphyria flare, as noted above - Patient has extensive list of allergies - Dilaudid WOMENS VOLLEYBALL COACH, standard setting, we have added a basal rate of 0.5 mg per hour see if this help control the patient is pain while monitoring respiratory status closely as pt had aspiration PNA with respiratory depression in last hospitalization, appears to have helped her pain considerably. Since O2 sats are staying normal. Her caregiver is staying with her at night. - Gabapentin 100 mg 3 times a day, continued from ambulatory - Benadryl as needed for itching, nausea. Acute URI, present at the time of admission, active - Rhinovirus isolated -Continue supportive care and symptomatic treatment - We will add Zyrtec 10 mg by mouth daily - As breath sounds have become more coarse will check chest x-ray to ensure patient has not developed a pulmonary infiltrate Port-A-Cath dysfunction improved with cath flow today Disposition: The patient is feeling much better and is wanting to go home. Therefore we will discharge home today Exam Vital Signs (Last) Date Time Temp Pulse Resp B/P Pulse Ox O2 Delivery O2 Flow Rate FiO2 01/20/17 12:54 36.0 83 19 124/86 95 Room Air 01/18/17 05:08 1.00 Exam General: Patient is resting comfortably supine in bed. She is in much better spirits today and obviously feeling better. HEENT: Head is atraumatic and normocephalic. Eyes: Pupils are equally round and reactive to light and accommodation. Extraocular muscles are intact. Sclera are white, anicteric. Subconjunctival mucosa is pink. Ears and nose are unremarkable. Oropharynx: There is no mucosal lesions, there is no thrush, there is no pharyngitis. Voice sounds nasally congested. Neck: Is supple, there are no nodes, or masses or tenderness. Chest: The breath sounds are much clearer today. There are no rales, rhonchi, wheezes or rubs. Heart: Rate, rhythm is regular. There is no murmur, rub or gallop. Abdomen: Good bowel sounds are present. Abdomen is soft, and with minimal to no tenderness. There is no rebound tenderness. Extremities: Are symmetrical and well perfused. There is no edema, there is no cellulitis, no rash. Neurologic: There are no focal neurological deficits. Cranial nerves II through XII are intact. There are no sensory or motor deficits. Psychiatric: Patients mood is calm and she shows no sign of agitation. Genital: Deferred Rectal: Deferred Test 01/13/17 23:30 01/14/17 12:00 01/18/17 03:20 01/19/17 06:20 Urine Color Yellow (YELLOW) Urine Appearance Clear (CLEAR,HAZY) Urine pH 7.0 (5.0-8.0) Urine Specific [place] 1.010 (1.003-1.035) Urine Protein Negativemg/dL (NEG,TRACE) Urine Glucose (UA) Negativemg/dL (NEGATIVE) Urine Ketones Negativemg/dL (NEGATIVE) Urine Occult Blood Negative (NEGATIVE) Urine Nitrite Negative (NEGATIVE) Urine Bilirubin Negative (NEGATIVE) Urine Urobilinogen Normalmg/dL (NORMAL) Urine Leukocyte Esterase Negative (NEGATIVE) Urine RBC 0-2/hpf (0-2) Urine WBC 0-5/hpf (0-5) Urine Epithelial Cells Occasional/hpf (NONE-MOD) Urine Crystals None seen (NONE SEEN) Urine Bacteria None/hpf (NONE-FEW) Urine Hyaline Casts None/lpf (NONE) Urine Granular Casts None seen (NONE SEEN) Urine Waxy Casts None seen (NONE SEEN) Urine Red Blood Cell Casts None seen (NONE SEEN) Urine White Blood Cell Casts None seen (NONE SEEN) Urine Mucus None seen (None Seen) Urine Trichomonas None seen (NONE SEEN) Urine Yeast None (NONE SEEN) Urinalysis Comment None Hold Urine Received (Received) Urine HCG, Qualitative Negative (Negative) Iron Level 53ug/dL (35-150) Total Iron Binding Capacity 241ug/dL (250-450) Percent Iron Saturation 22%sat (15-50) Unsaturated Iron Binding 187.5ug/dL Ferritin > 5000ng/mL (13-150) Test 01/20/17 08:24 White Blood Count 8.2th/mm3 (3.8-10.1) Red Blood Count 3.60mil/mm3 (3.90-5.20) Hemoglobin 10.3g/dL (12.0-15.6) Hematocrit 30.9% (35.0-46.0) Mean Corpuscular Volume 85.8fL (81-100) Mean Corpuscular Hemoglobin 28.6pg (27.0-35.0) Mean Corpuscular Hemoglobin Concent 33.3% (32.0-37.0) Red Cell Distribution Width 12.6% (12.3-15.4) Platelet Count 122bil/L (150-400) Neutrophils (%) (Auto) 53.7% (40-74) Lymphocytes (%) (Auto) 27.0% (14-46) Monocytes (%) (Auto) 13.3% (4-12) Eosinophils (%) (Auto) 4.5% (0-5) Basophils (%) (Auto) 0.4% (0-3) Sodium Level 139mEq/L (134-144) Potassium Level 4.4mEq/L (3.5-5.2) Chloride Level 101mEq/L (97-108) Carbon Dioxide Level 25mmol/L (18-29) Blood Urea Nitrogen 7mg/dL (6-20) Creatinine 0.67mg/dL (0.57-1.00) Estimat Glomerular Filtration Rate 154mL/min (>59) Glucose Level 84mg/dL (60-99) Calcium Level 8.2mg/dL (8.5-10.1) Magnesium Level 1.4mg/dL (1.6-2.6) Total Bilirubin 0.6mg/dL (0.0-1.2) Aspartate Amino Transf (AST/SGOT) 61U/L (0-50) Alanine Aminotransferase (ALT/SGPT) 31U/L (0-32) Alkaline Phosphatase 116U/L (25-150) Total Protein 6.6g/dL (6.4-8.4) Albumin 3.5g/dL (3.4-5.0) Microbiology Results RHINOVIRUS OR ENTEROVIRUS PCR Final 01/14/17-1124 Organism 1 RHINOVIRUS/ENTEROVIRUS TIME CALLED: 1123 DATE CALLED: 01/14/17 FLOOR/DOCTOR: TAPAN/HUGO Mackenzie Discharge Medications Discharge Medications ([Cetirizine Hcl]) 10 MG TABLET 10 MG PO DAILY Prescribed by: OLGA CARLSON MD Goserelin Acetate (Zoladex) 3.6 Mg Impl 3.6 MG SUBQ MONTHLY (Reported) Hemin (Panhematin) 313 Mg Vial 250 MG IV QW (Reported) WEDNESDAYS As needed Diazepam (Diazepam) 5 Mg Tablet 5 MG PO EVERY 8 HOURS PRN PRN For Anxiety ( Reported) Duloxetine (Duloxetine) 30 Mg Capsule.dr 30 MG PO DAILY PRN PRN For Pain ( Reported) Gabapentin (Gabapentin) 100 Mg Capsule 100 MG PO TID PRN PRN For Pain (Reported ) Hydrocodone-Acetaminophen 5-325 mg (Hydrocodone-Acetaminophen 5-325 mg) 1 Each Tablet 1 TABLET PO Q6H PRN PRN For Mild Pain Prescribed by: YESIKA GAN DO Ondansetron ODT (Zofran ODT) 4 Mg Tablet 4 MG PO Q4H PRN PRN For Nausea Prescribed by: ELENA ALMONTE DO Followup Plan Disposition: Patient will be discharged home. Discharge Diet: No restrictions (The patient may advance her diet as tolerated. ) Discharge Activity: No restrictions (The patient may increase her activity gradually as tolerated.) Follow-up Provider: David Shankar MD Follow-up with PCP in: 1 week (Patient is to have her next Hemin injection at [facility] next Tuesday.) Provider: Dewey Penny MD Follow-up in: 2 weeks (Patient is to follow up with Dr. Bocanegra as scheduled.) Time spent Time spent on discharging this patient was greater than 35 minutes, over half of which was involved in counseling and coordination of care. Howard Carlson MD Jan 21, 2017 00:10
== END 2017-01-20 17:10 | disposition home or self-care (01) | DRG 642 ==
LOC: SED 20:23 → OBSVTOIN 23:04 → OSC 23:04
PROVIDERS: ADMIT Internal Medicine Infectious Disease; ATTEND Internal Medicine
DX: E80.21 Acute intermittent (hepatic) porphyria (principal); J06.9 Acute upper respiratory infection, unspecified; B97.89 Other viral agents as the cause of diseases classified elsewhere; D69.6 Thrombocytopenia, unspecified; Z88.6 Allergy status to analgesic agent; Z87.440 Personal history of urinary (tract) infections; Z88.8 Allergy status to other drugs, medicaments and biological substances; Z88.4 Allergy status to anesthetic agent

== ENCOUNTER 2017-02-09 17:11 | Inpatient (IN) | payer MEDICARE, MEDICAID ==
[~2017-02-09] VITALS: Ht 154.9 cm; Wt 56.9 kg
[~2017-02-09 17:11] MED LIST changes: -AMOX-366 PO; -DIAZ5TAB3 PO; +GABA-500 PO; -GABA100C PO; -PROM12.510 PO
[2017-02-09 17:14] VITALS: BP 133/77; PULSE 73; RESP 18; O2SAT 99
[2017-02-09] MEDS ORDERED: HYDROmorphone 0.5 mg/0.5 mL iSecure Syringe IVPUSH PRN (19:05)
[2017-02-09] MEDS ORDERED: diphenhydrAMINE 50 mg Capsule PO ONE (19:05)
[2017-02-09] MEDS ORDERED: diphenhydrAMINE 25 mg Capsule PO ONE (19:20)
[2017-02-09 19:27] LABS: BASOPHILS % (AUTO) 0.2 % (0-3); EOSINOPHILS % (AUTO) 1.6 % (0-5); MONOCYTES % (AUTO) 8.4 % (4-12); Mean Corpuscular Hemoglobin 29.3 pg (27.0-35.0); Mean Corpuscular Volume 88.8 fL (81-100); NEUTROPHILS % (AUTO) 40.4 % (40-74); Platelet Count 104 bil/L (150-400)
[2017-02-09] MEDS ORDERED: 0.9% Sodium Chloride 1,000 ML IV ONE (19:30)
--- NOTE | 2017-02-09 19:32 | DRSVH ---
PROCEDURE: X-RAY CHEST ONE VIEW ([id number]) INDICATIONS: shortness of breath, chest pain TECHNIQUE: One view of the chest was acquired. COMPARISON: None. FINDINGS: Surgical changes and devices: There is a Port-A-Cath from a left approach with the tip in the mid sup erior vena cava. Lungs and pleura: No pleural effusions or pneumothorax. Lungs are clear. Mediastinum: Mediastinal contours appear normal. Heart size is normal. Bones and chest wall: No suspicious bony lesions. Overlying soft tissues appear unremarkable. IMPRESSION: No acute disease is seen in the upright portable chest. Dictated by: David Leong M.D. on 02/09/2017 at 19:29 Approved by: David Leong M.D. on 02/09/2017 at 19:30
[2017-02-09 19:36] LABS: Magnesium 1.8 mg/dL (1.6-2.6)
--- NOTE | 2017-02-09 19:46 | ED.REPORT ---
HPI-Abd Pain F Under 40 Date of Service Feb 09, 2017 ED Provider: Davi Nicole DO 26-year-old female past medical history acute intermittent porphyria presents to the ED with diffuse abdominal pain. Patient complains of pain in the epigastric area which radiates along the diaphragm to the right. Her abdomen is diffusely tender and she also complains of crampy lower abdominal pain. She states that the abdominal pain radiates to the back and down the legs bilaterally. Pain is sharp 10/10. The symptoms are typical for her when she is having an exacerbation of her AIP. She was at Dr. Bocanegra's office earlier today and received her weekly infusion of hemin. At that point she told the nurses that she felt worse than normal and wanted an unscheduled appointment with Dr. Bocanegra. She was told that Dr. Bocanegra would see her however he had many patients are waiting for him already and she would have to wait. After some waiting the patient elected to come to the emergency department. She was recently scheduled to have a shot to delay her menses. This shot was given a week after the scheduled date. She is short of breath, nauseated, complains of vague chest pain. Denies fever/chills, vomiting. Nursing Notes Stated Complaint: CHEST PRESSURE, SOB, ABD PAIN, NAUSEA Chief Complaint: General Complaint Nursing Notes Reviewed: Yes Allergies: Coded Allergies: NSAIDS (Non-Steroidal Anti-Inflamma (Verified Allergy, Severe, 11/15/16) ibuprofen (Verified Allergy, Severe, 11/15/16) acetaminophen (Verified Allergy, Unknown, 11/15/16) dextromethorphan (Verified Allergy, Unknown, 11/15/16) doxylamine (Verified Allergy, Unknown, 11/15/16) lactose (Verified Allergy, Unknown, 01/14/17) pseudoephedrine (Verified Allergy, Unknown, 11/15/16) Barbiturates (Verified Adverse Reaction, Severe, UNSAFE IN ACUTE PORPHYRIA , 11/15/16) Estrogens (Verified Adverse Reaction, Severe, UNSAFE IN ACUTE PORPHYRIA, ) Succinimides (Verified Adverse Reaction, Severe, UNSAFE IN ACUTE PORPHYRIA , 11/15/16) Sulfa (Sulfonamide Antibiotics) (Verified Adverse Reaction, Severe, UNSAFE IN ACUTE PORPHYRIA, 11/15/16) aminopyrine (Verified Adverse Reaction, Severe, UNSAFE IN ACUTE PORPHYRIA , 11/15/16) antipyrine (Verified Adverse Reaction, Severe, UNSAFE IN ACUTE PORPHYRIA, 11/15/16) carbamazepine (Verified Adverse Reaction, Severe, UNSAFE IN ACUTE PORPHYRIA, 11/15/16) carisoprodol (Verified Adverse Reaction, Severe, UNSAFE IN ACUTE PORPHYRIA , 11/15/16) clonazepam (Verified Adverse Reaction, Severe, UNSAFE IN ACUTE PORPHYRIA ( HIGH DOSES), 11/15/16) danazol (Verified Adverse Reaction, Severe, UNSAFE IN ACUTE PORPHYRIA, ) diclofenac (Verified Adverse Reaction, Severe, UNSAFE IN ACUTE PORPHYRIA, 11/15/16) ergot alkaloids (Verified Adverse Reaction, Severe, UNSAFE IN ACUTE PORPHYRIA, 11/15/16) ethchlorvynol (Verified Adverse Reaction, Severe, UNSAFE IN ACUTE PORPHYRIA, 11/15/16) glutethimide (Verified Adverse Reaction, Severe, UNSAFE IN ACUTE PORPHYRIA , 11/15/16) griseofulvin (Verified Adverse Reaction, Severe, UNSAFE IN ACUTE PORPHYRIA , 11/15/16) mebutamate (Verified Adverse Reaction, Severe, UNSAFE IN ACUTE PORPHYRIA, 11/15/16) meprobamate (Verified Adverse Reaction, Severe, UNSAFE IN ACUTE PORPHYRIA , 11/15/16) methyprylon (Verified Adverse Reaction, Severe, UNSAFE IN ACUTE PORPHYRIA , 11/15/16) metoclopramide (Verified Adverse Reaction, Severe, UNSAFE IN ACUTE PORPHYRIA, 11/15/16) phenytoin (Verified Adverse Reaction, Severe, UNSAFE IN ACUTE PORPHYRIA, ) phytonadione (vitamin K1) (Verified Adverse Reaction, Severe, UNSAFE IN ACUTE PORPHYRIA, 11/15/16) primidone (Verified Adverse Reaction, Severe, UNSAFE IN ACUTE PORPHYRIA, ) progesterone (Verified Adverse Reaction, Severe, UNSAFE IN ACUTE PORPHYRIA , 11/15/16) pyrazinamide (Verified Adverse Reaction, Severe, UNSAFE IN ACUTE PORPHYRIA , 11/15/16) rifampin (Verified Adverse Reaction, Severe, UNSAFE IN ACUTE PORPHYRIA, ) tybamate (Verified Adverse Reaction, Severe, UNSAFE IN ACUTE PORPHYRIA, ) valproic acid (Verified Adverse Reaction, Severe, UNSAFE IN ACUTE PORPHYRIA, 11/15/16) [place] And Derivatives (Verified Adverse Reaction, Intermediate, 01/14/17) Scheduled Goserelin Acetate (Zoladex) 3.6 Mg Impl 3.6 MG SUBQ MONTHLY Hemin (Panhematin) 313 Mg Vial 250 MG IV QW WEDNESDAYS Scheduled PRN Duloxetine (Duloxetine) 30 Mg Capsule.dr 30 MG PO DAILY PRN PRN For Pain Gabapentin (Gabapentin) 100 Mg Capsule 100 MG PO TID PRN PRN For Pain Hydrocodone-Acetaminophen 5-325 mg (Hydrocodone-Acetaminophen 5-325 mg) 1 Each Tablet 1 TABLET PO Q6H PRN PRN For Mild Pain Ondansetron ODT (Zofran ODT) 4 Mg Tablet 4 MG PO Q4H PRN PRN For Nausea General Time Seen by MD: 18:52 Chief Complaint Abdominal pain, Dysuria Hx Obtained From: Patient Sudden in Onset?: Yes Onset Occurred: 5 - 8 hours ago Symptom Duration: Since onset Progression since Onset: Unchanged Location: : Diffuse Quality: Same as prior Radiation: : Back Severity: Current: Pain level 10 out of 10 Severity: Maximum: Pain level 10 out of 10 Recent Healthcare: Recent doctor visit Risk Factors Ectopic Risk Stratification Risk factors reviewed CAD Risk Stratification Risk factors reviewed TAD Risk Stratification Risk factors reviewed Past Medical History Past Medical History Notes: Porphyria. Hospitalized for porphyria in the past. 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 Attention deficit hyperactivity disorder Thrombocytopenia, Abdominal US without splenomegaly 01/2013 History of recurrent urinary tract infections. Takes oxycodone as needed, usually 2 per day. Past Medical History Porphyria. Hospitalized for porphyria in the past. 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 Attention deficit hyperactivity disorder Thrombocytopenia, Abdominal US without splenomegaly 01/2013 History of recurrent urinary tract infections. Takes oxycodone as needed, usually 2 per day. Past Surgical History port placement Reports: Portocath Family History Noncontributory Smoking History Never Smoker Social History Approximately one month ago, the patient moved to [place] from [place]. In [place], her transfusions were covered by blue cross, medicare and medicaid. Uses CBD oil for pain Alcohol Use: Denies alcohol use Drug Use: THC Other Social History: Good social support, Local resident Ambulatory Status Independent Review of Systems Constitutional: Denies: Chills, Fever Respiratory: Reports: Pleuritic pain, Shortness of breath, Denies: Dyspnea on exertion, Non-productive cough, Wheezing Cardiovascular: Reports: Chest pain GI: Reports: Abdominal pain, Nausea, Denies: Constipation, Diarrhea, Vomiting Female: Denies: Dysuria Musculoskeletal: Reports: Lumbar pain, Denies: Extremity swelling Complete sys rev & neg: except as marked. Physical Exam Initial Vital Signs Vital Signs (First) Date Time Temp Pulse Resp B/P Pulse Ox O2 Delivery O2 Flow Rate FiO2 02/09/17 17:14 36.8 73 18 133/77 99 Room Air Initial VS: Reviewed, Vital signs normal Head / Eyes: Atraumatic, Normocephalic, PERRL ENT: Mucous membranes moist, Conjunctiva normal, No scleral icterus Neck: Supple, Non-tender, Full range of motion Extremities: Vascular intact, Neuro intact, No swelling, No tenderness Skin: Warm, Dry, No cyanosis Neurologic: Alert, Oriented, Nonfocal Psychiatric: Mood/affect normal, Behavior normal, Normal thought content Respiratory / Chest: Atraumatic, Breath sounds NL, Breath sounds = bilat, No respiratory distress, No rales, No rhonchi, No wheezing, No stridor, No chest tenderness Cardiovascular: Heart rate NL, Regular rhythm, Heart sounds NL, No gallop, No murmurs, No rubs Abdomen: Soft, No rebound, BS normoactive, No distention, No palpable mass, No pulsatile mass Tenderness/Guarding/Rebound: Positive: Tender diffuse (moderate) Interpretation & Diagnostics Lab Results Interpretation Result Diagram: 02/09/17 1920 02/09/17 192 Test 02/09/17 18:55 02/09/17 19:20 02/09/17 19:25 02/09/17 19:50 Hold Purple Top Tube Received (Received) Hold Blue Top Tube Received (Received) Hold [place] Top Tube Received (Received) White Blood Count 5.0th/mm3 (3.8-10.1) Red Blood Count 3.48mil/mm3 (3.90-5.20) Hemoglobin 10.2g/dL (12.0-15.6) Hematocrit 30.9% (35.0-46.0) Mean Corpuscular Volume 88.8fL (81-100) Mean Corpuscular Hemoglobin 29.3pg (27.0-35.0) Mean Corpuscular Hemoglobin Concent 33.0% (32.0-37.0) Red Cell Distribution Width 13.9% (12.3-15.4) Platelet Count 104bil/L (150-400) Neutrophils (%) (Auto) 40.4% (40-74) Lymphocytes (%) (Auto) 49.4% (14-46) Monocytes (%) (Auto) 8.4% (4-12) Eosinophils (%) (Auto) 1.6% (0-5) Basophils (%) (Auto) 0.2% (0-3) Sodium Level 143mEq/L (134-144) Potassium Level 3.8mEq/L (3.5-5.2) Chloride Level 105mEq/L (97-108) Carbon Dioxide Level 21mmol/L (18-29) Blood Urea Nitrogen 12mg/dL (6-20) Creatinine 0.55mg/dL (0.57-1.00) Estimat Glomerular Filtration Rate 193mL/min (>59) Glucose Level 81mg/dL (60-99) Calcium Level 8.5mg/dL (8.5-10.1) Magnesium Level 1.8mg/dL (1.6-2.6) Total Bilirubin 0.6mg/dL (0.0-1.2) Aspartate Amino Transf (AST/SGOT) 49U/L (0-50) Alanine Aminotransferase (ALT/SGPT) 31U/L (0-32) Alkaline Phosphatase 101U/L (25-150) Total Protein 7.1g/dL (6.4-8.4) Albumin 3.8g/dL (3.4-5.0) Lipase 187U/L (13-60) Procalcitonin 0.06ng/mL (0.00-0.08) D-Dimer < 0.50mg/L FEU (<0.50) Lactic Acid Level 0.8mmol/L (0.4-2.0) Re-Eval/Medical Decision Med Decision/Clinical Course Lab findings are benign. Her constellation of symptoms is classic for her typical presentation with acute exacerbation of her acute intermittent porphyria. With these acute exacerbations there is usually in initiating problem, in this case the patient was scheduled to have a shot to delay her menses and this was not given until a week after the scheduled date. Today she presents with crampy lower abdominal pain which likely represents onset of menses. Is there is no evidence of other infection, it is likely her menses which has initiated her acute exacerbation. CT Abd was done 1-2 months ago which showed no acute findings. As per my discussion with Dr. Bocanegra she should be admitted to the hospital. Since she received her hemin infusion today , next infusion should be initiated at 12:00 on 02/10, and should be continued daily while she is in the hospital. Dr. Bocanegra also stated that she will likely require SUPERVISOR ROAD ADMINISTRATOR for pain control. Consultation #1: Referral / Consult Name: Dewey Penny MD Consulted With: Mold Mechanic Pugger Helper: Will see patient, Agrees with plan Note: Suggests hemin infusion tomorrow at noon. SUPERVISOR ROAD ADMINISTRATOR for pain. Consultation #2: Consulted With: Hospitalist Pugger Helper: Will see patient, Agrees with plan, Accepts admit Counseled Regarding: Diagnosis, Lab results, Need for admission Discharge & Departure Primary Impression: Acute intermittent porphyria Additional Impressions: Abdominal pain Abdominal location: generalized Qualified Code: R10.84 - Generalized abdominal pain Weakness Disposition: ADMITTED TO HOSPITAL Discharge Condition All VS Reviewed: Yes Condition: Stable Referrals: Dinorah Domínguez MD (PCP) Attending Statment I personally took a history and physical examination. I concur with the note as written above. The assessment and plan I concur with. I was present during the hematology consultation as well. Raul Hansen DO Feb 09, 2017 19:10 Davi Nicole DO Feb 09, 2017 23:36
[2017-02-09] MEDS ORDERED: HYDROmorphone 0.5 mg/0.5 mL iSecure Syringe IVPUSH ONE (20:00)
[2017-02-09] MEDS: HYDROmorphone 1 mg/mL Inj IVPUSH PRN ×2 (20:39→22:02)
[2017-02-09] MEDS ORDERED: Dextrose 5% 500 ML IV SCH (20:48)
[2017-02-09] MEDS ORDERED: HYDROmorphone PCA 0.2 mg/mL 30 mL Inj IV PRN (20:50)
[2017-02-09] MEDS ORDERED: MetoCLOpramide 5 mg/mL 2 mL Inj IVPUSH PRN (20:50)
[2017-02-09] MEDS ORDERED: Alum-Mag Hydrox-Simeth 30 mL Suspension PO PRN ×2 (20:50→21:20)
[2017-02-09] MEDS ORDERED: Ondansetron 2 mg/mL 2 mL Inj IVPUSH PRN (20:50)
[2017-02-09 21:16] VITALS: BP 124/74; PULSE 83; RESP 16; O2SAT 95
[2017-02-09 22:03] VITALS: BP 124/74; PULSE 83; RESP 16; O2SAT 95
[2017-02-09 22:05] VITALS: BP 110/68; PULSE 73; RESP 14; O2SAT 96
--- NOTE | 2017-02-09 22:27 | PCM.HPMED ---
Subjective Date of Service Feb 09, 2017 Primary Provider: Admitting Physician: Emmanuel Shipman MD Primary Care Physician: Dinorah Domínguez MD Attending Physician: Emmanuel Shipman MD Chief Complaint: Acute intermittent porphyria flare History of Present Illness: Romi Newsome is a 26-year-old woman with past medical history significant for acute intermittent porphyria diagnosed 5 years ago who presents to the ED due to abdominal pain secondary to AIP flare. Patient's AIP is managed by Dr. Bocanegra with weekly hemin administration and ovarian suppression with Zoladex. Patient has an aggressive course per Dr. Bocanegra and states that delaying or missing either of these medications typically precipitates an acute attack. The patient's current pain is described as a diffuse dull, crampy pain that is greatest in the epigastric region. Pain does not radiate. She does note decreased appetite, sensation of fullness, and weakness of the lower extremities. She believes this current attack was secondary to poor sleep the last few days and delayed Zoladex injection. She received her last Zoladex injection on 02/04/2017. She denies any recent illness, sick contacts, or alcohol use. She denies constipation, diarrhea, chest pain, shortness of breath, headache, fever, chills, night sweats or dizziness. In the ED vitals temperature 36.4, pulse 107, respiratory rate 18, blood pressure 107/70, saturating 100% on room air. Labs remarkable only for platelet count of 104 which appears to be close to her baseline, hemoglobin of 10.2, hematocrit 30.9, and elevated lipase of 187. Lipase elevation has been seen on previous admissions. Dr. Bocanegra was contacted by the ED physician and recommended starting a STATIONARY STEAM ENGINEER and scheduling hemin administration for tomorrow at noon. He also noted that there was no need to obtain a CT of the abdomen or administer glucose. Review of Systems: Comprehensive review of systems was conducted with the patient and found to be negative except as noted above in HPI. Allergies Coded Allergies: NSAIDS (Non-Steroidal Anti-Inflamma (Verified Allergy, Severe, 11/15/16) ibuprofen (Verified Allergy, Severe, 11/15/16) acetaminophen (Verified Allergy, Unknown, 11/15/16) dextromethorphan (Verified Allergy, Unknown, 11/15/16) doxylamine (Verified Allergy, Unknown, 11/15/16) lactose (Verified Allergy, Unknown, 01/14/17) pseudoephedrine (Verified Allergy, Unknown, 11/15/16) Barbiturates (Verified Adverse Reaction, Severe, UNSAFE IN ACUTE PORPHYRIA , 11/15/16) Estrogens (Verified Adverse Reaction, Severe, UNSAFE IN ACUTE PORPHYRIA, ) Succinimides (Verified Adverse Reaction, Severe, UNSAFE IN ACUTE PORPHYRIA , 11/15/16) Sulfa (Sulfonamide Antibiotics) (Verified Adverse Reaction, Severe, UNSAFE IN ACUTE PORPHYRIA, 11/15/16) aminopyrine (Verified Adverse Reaction, Severe, UNSAFE IN ACUTE PORPHYRIA , 11/15/16) antipyrine (Verified Adverse Reaction, Severe, UNSAFE IN ACUTE PORPHYRIA, 11/15/16) carbamazepine (Verified Adverse Reaction, Severe, UNSAFE IN ACUTE PORPHYRIA, 11/15/16) carisoprodol (Verified Adverse Reaction, Severe, UNSAFE IN ACUTE PORPHYRIA , 11/15/16) clonazepam (Verified Adverse Reaction, Severe, UNSAFE IN ACUTE PORPHYRIA ( HIGH DOSES), 11/15/16) danazol (Verified Adverse Reaction, Severe, UNSAFE IN ACUTE PORPHYRIA, ) diclofenac (Verified Adverse Reaction, Severe, UNSAFE IN ACUTE PORPHYRIA, 11/15/16) ergot alkaloids (Verified Adverse Reaction, Severe, UNSAFE IN ACUTE PORPHYRIA, 11/15/16) ethchlorvynol (Verified Adverse Reaction, Severe, UNSAFE IN ACUTE PORPHYRIA, 11/15/16) glutethimide (Verified Adverse Reaction, Severe, UNSAFE IN ACUTE PORPHYRIA , 11/15/16) griseofulvin (Verified Adverse Reaction, Severe, UNSAFE IN ACUTE PORPHYRIA , 11/15/16) mebutamate (Verified Adverse Reaction, Severe, UNSAFE IN ACUTE PORPHYRIA, 11/15/16) meprobamate (Verified Adverse Reaction, Severe, UNSAFE IN ACUTE PORPHYRIA , 11/15/16) methyprylon (Verified Adverse Reaction, Severe, UNSAFE IN ACUTE PORPHYRIA , 11/15/16) metoclopramide (Verified Adverse Reaction, Severe, UNSAFE IN ACUTE PORPHYRIA, 11/15/16) phenytoin (Verified Adverse Reaction, Severe, UNSAFE IN ACUTE PORPHYRIA, ) phytonadione (vitamin K1) (Verified Adverse Reaction, Severe, UNSAFE IN ACUTE PORPHYRIA, 11/15/16) primidone (Verified Adverse Reaction, Severe, UNSAFE IN ACUTE PORPHYRIA, ) progesterone (Verified Adverse Reaction, Severe, UNSAFE IN ACUTE PORPHYRIA , 11/15/16) pyrazinamide (Verified Adverse Reaction, Severe, UNSAFE IN ACUTE PORPHYRIA , 11/15/16) rifampin (Verified Adverse Reaction, Severe, UNSAFE IN ACUTE PORPHYRIA, ) tybamate (Verified Adverse Reaction, Severe, UNSAFE IN ACUTE PORPHYRIA, ) valproic acid (Verified Adverse Reaction, Severe, UNSAFE IN ACUTE PORPHYRIA, 11/15/16) [place] And Derivatives (Verified Adverse Reaction, Intermediate, 01/14/17) Home Medications Duloxetine 30 mg when necessary pain Gabapentin 100 mg 3 times a day when necessary pain Hemin injection weekly Zoladex PMH Acute intermittent porphyria Thrombocytopenia Surgical History Port placement in left chest wall Family History Maternal grandmother - diabetes and hypertension Father and mother - healthy Social History Hx Alcohol Use: No Hx Substance Use: No (daily marijuana use) Hx Tobacco Use: No Smoking Status: Never Smoker Exam Vital Signs Vital Sign - Last Date Time Temp Pulse Resp B/P Pulse Ox O2 Delivery O2 Flow Rate FiO2 02/09/17 22:03 36.9 83 16 124/74 95 Room Air Exam General: Mild distress, well-developed, well-nourished, appropriately interactive HEENT: Normocephalic, atraumatic. External ears without defect. Pupils equal, round, and reactive to light and accommodation. Anicteric sclerae, moist conjunctivae, and no lid lag. Oropharynx free of erythema and cobble stoning with moist mucosa. Neck: Supple with full range of motion. No jugular venous distension. No bruits. No lymphadenopathy or thyromegaly. Chest: Left-sided port with no surrounding erythema or induration. Cardiovascular: Regular rate and rhythm with no murmurs, rubs, or gallops appreciated Pulmonary: Clear to auscultation bilaterally with no crackles, wheezes, or rhonchi. Normal respiratory effort with no use of accessory muscles. Abdomen: Bowel tones present. Soft, diffusely tender to palpation greatest in the epigastric area. No hepatosplenomegaly or masses appreciated. Extremities: No clubbing, cyanosis, edema, or lymphadenopathy appreciated. Skin: Normal temperature, turgor, and texture; no rash, ulcers, or subcutaneous nodules appreciated. Neurological: Cranial nerves grossly intact. No known gait impairment. Psychiatric: Normal mood and affect. Alert and oriented to person, place, and time. Lab and Diagnostics Labs Lipase 187 Result Diagram: 02/09/17191902/09/171919 X-Rays, CTs and MRIs X-RAY CHEST ONE VIEW IMPRESSION: No acute disease is seen in the upright portable chest. Dictated by: David Leong M.D. on 02/09/2017 at 19:29 Approved by: David Leong M.D. on 02/09/2017 at 19:30 Assessment & Plan Romi Newsome is a 26-year-old woman with past medical history significant for acute intermittent porphyria diagnosed 5 years ago who presents to the ED due to abdominal pain secondary to AIP flare. Acute intermittent porphyria, present on admission, acute attack. - Managed by Dr. Bocanegra as an outpatient he was notified of admission. - Recommendations per Dr. Bocanegra: - STATIONARY STEAM ENGINEER with hydromorphone - Hemin administration on 02/10/17 at 1200 - No need for CT abdomen or glucose administration - Continue home pain medication including gabapentin 100 mg 3 times a day PRN and duloxetine 30 mg PRN. Elevated lipase, present on admission, active. - Etiology likely secondary to AIP. Patient denies any alcohol use or recent viral illness. - In review of past labs this appears to be a recurrent trend. - Repeat lipase in the morning. Thrombocytopenia, present on admission, chronic. - Patient's current platelet count 104. This appears to be close to the patient 's baseline. - We will continue to monitor. - Repeat CBC in the morning. PRN Medications - Acetaminophen as needed for mild pain/fever/headache - Bowel regimen as needed - Antiemetic as needed Patient is admitted under inpatient status with expected length of stay greater than 2 midnights due to severity of presenting symptoms, risk of adverse event, and complexity of treatment plan. Pain Evaluation: Adequate Pain Control GI Prophylaxis: Not indicated VTE Prophylaxis: Sub-Q Heparin (Unfractionated), SCDs Resuscitation Status: CPR: Attempt Resuscitation Attending Statement The patient was seen and examined together with Dr. Porter on 02/09 and I agree with the history, exam and plan as outlined in the note above. ED PORTER DO Feb 09, 2017 22:27 Emmanuel Shipman MD Feb 10, 2017 02:30
[2017-02-09] MEDS ORDERED: DULoxetine 30 mg DR Capsule PO PRN (22:30)
[2017-02-09] MEDS: HYDROmorphone PCA 0.2 mg/mL 30 mL Inj IV PRN (22:58)
[2017-02-09 23:00] VITALS: RESP 18; O2SAT 95
[2017-02-09] MEDS: Dextrose 5% 500 ML IV SCH (23:04)
[2017-02-10] VITALS (11 sets, daily range): BP systolic 94–112; BP diastolic 60–70; PULSE 70–95; RESP 14–16; O2SAT 95–100
--- NOTE | 2017-02-10 02:09 | NUR ---
Admit received report from Tamara Gonzalez RN from the ED. Pt arrived to room 246-2 approximately at 2200 accompanied by boyfriend and belongings. pt ambulatory. on RA with sat in mid 90s. VSS. pt uses IV QUALITY CONTROL MICROBIOLOGY SUPERVISOR dilaudid for pain. D5W running at 10ml/hr. pt reported itching after Dilaudid dose. paged HS hospitalist and received IVP Benadryl . Administered Benadryl, which is effective. oriented pt to room and call light. will continue to monitor.
--- NOTE | 2017-02-10 07:03 | NUR ---
pain pt reported 6/10 abdominal pain. pt use 1.4mg of IV HIGHWAY PAINTER HELPER Dilaudid. encouraged pt to use the HIGHWAY PAINTER HELPER. pt state she forget it sometimes and fallen asleep. Administered Gabapentin this AM. Pt spent most of the night asleep.
[2017-02-10 11:04] LABS: Mean Corpuscular Hemoglobin 29.8 pg (27.0-35.0); Mean Corpuscular Volume 90.8 fL (81-100); Platelet Count 110 bil/L (150-400)
[2017-02-10 11:05] LABS: BASOPHILS % (AUTO) 0.5 % (0-3); EOSINOPHILS % (AUTO) 3.6 % (0-5); MONOCYTES % (AUTO) 14.2 % (4-12); NEUTROPHILS % (AUTO) 34.3 % (40-74)
[2017-02-10] MEDS ORDERED: HEMIN IV SCH (12:00)
--- NOTE | 2017-02-10 13:12 | NUR ---
Case Management: [facility] delivered and charted. Signed original placed in chart. Copy left at bedside. Melissa Rocha RN
[2017-02-10] MEDS: Ondansetron 2 mg/mL 2 mL Inj IVPUSH PRN ×3 (14:18→22:02)
--- NOTE | 2017-02-10 15:00 | PCM.PNMED ---
Subjective Date of Service Feb 10, 2017 Subjective Patient seen and examined. Complained of itching. Vitals stable. Exam Vital Signs Vital Sign - Last Date Time Temp Pulse Resp B/P Pulse Ox O2 Delivery O2 Flow Rate FiO2 02/10/17 14:30 36.7 95 16 112/67 99 Room Air Exam General:Comfortable. Neck: Supple with full range of motion. No jugular venous distension. No bruits. No lymphadenopathy or thyromegaly. Chest: Left-sided port with no surrounding erythema or induration. Cardiovascular: Regular rate and rhythm with no murmurs, rubs, or gallops appreciated Pulmonary: Clear to auscultation bilaterally with no crackles, wheezes, or rhonchi. Normal respiratory effort with no use of accessory muscles. Abdomen: Bowel tones present. Soft, diffusely tender to palpation greatest in the epigastric area. No hepatosplenomegaly or masses appreciated. Extremities: No clubbing, cyanosis, edema, or lymphadenopathy appreciated. Skin: Normal temperature, turgor, and texture; no rash, ulcers, or subcutaneous nodules appreciated. Lab and Diagnostics Result Diagram: 02/10/17 0610 02/10/17 0610 X-Rays, CTs and MRIs X-RAY CHEST ONE VIEW IMPRESSION: No acute disease is seen in the upright portable chest. Dictated by: David Leong M.D. on 02/09/2017 at 19:29 Approved by: David Leong M.D. on 02/09/2017 at 19:30 Assessment & Plan Romi Newsome is a 26-year-old woman with past medical history significant for acute intermittent porphyria diagnosed 5 years ago who presents to the ED due to abdominal pain secondary to AIP flare. Acute intermittent porphyria, present on admission, acute attack. - Managed by Dr. Bocanegra as an outpatient he was notified of admission. - Recommendations per Dr. Bocanegra as per admission notes: - SUPERINTENDENT TRANSPORTATION with hydromorphone - Hemin administration on 02/10/17 at 1200 - No need for CT abdomen or glucose administration - Continue home pain medication including gabapentin 100 mg 3 times a day PRN and duloxetine 30 mg PRN. - benadryl prn itching Elevated lipase, present on admission, active. - Etiology likely secondary to AIP. Patient denies any alcohol use or recent viral illness. - In review of past labs this appears to be a recurrent trend. - Repeat lipase in the morning ~normal Thrombocytopenia, present on admission, chronic. - Patient's current platelet count 104. This appears to be close to the patient 's baseline. - We will continue to monitor. - Repeat CBC in the morning. PRN Medications - Acetaminophen as needed for mild pain/fever/headache - Bowel regimen as needed - Antiemetic as needed Patient is admitted under inpatient status with expected length of stay greater than 2 midnights due to severity of presenting symptoms, risk of adverse event, and complexity of treatment plan. GI Prophylaxis: Not indicated VTE Prophylaxis: Sub-Q Heparin (Unfractionated), SCDs VTE Mechanical Devices: Intermittant Pneumatic CD Resuscitation Status: CPR: Attempt Resuscitation Time spent 35 mins Pravin Arteaga MD Feb 10, 2017 15:00
--- NOTE | 2017-02-10 15:33 | NUR ---
Social Work: Initial Assessment/Multidisciplinary Rounds D: Per EMR review, pt is a 26 year old female admitted for Acute Intermittant Prophyria Exacerbation. Pt is Medicare with [employer] supplement; pt has no LTC or VA benefits. PCP is Dinorah Domínguez MD. NOK is Karma Newsome, mother, . Advanced directives information provided to patient. Readmit score not entered at this time. KEY ACCOUNT MANAGER met with the patient at bedside. Sw role explained, contact information and dcp checklist provided. Pt lives at home with her boyfriend. Pt uses no DME at baseline, has 100 hours of JOE caregiving in which her boyfriend, Dominic Causey ([phone]) is her caregiver. Pt requires assistance with bathing, laundry, chores and transportation. Pt does not drive and has never had HH or skilled rehab. Pt states that she feels confident with her current caregiving and that she will not require additional support from home health. Pt's s/o to transport when ready. A: Pt who receives assistance with some ADLs including bathing and transportation. P: Anticipate pt to discharge home via POV and resumed JOE caregiving. KEY ACCOUNT MANAGER to continue to follow to assess for d/c needs. PIPPA James Addendum: 02/10/17 at 1539 by CAMILA COLIN SS Amended: Links added.
--- NOTE | 2017-02-10 18:35 | CCS NOTE ---
[facility] [address], [address] [address] MEDICAL ONCOLOGY OFFICE NOTE PATIENT: CAMRON DA SILVA : 1990 MR#: [id number] DATE: 02/09/2017 JOB ID: [id number] DATE: 02/10/2017 SUBJECTIVE: The patient was admitted yesterday evening with presumed recurrent acute porphyria attack. She had her weekly hemin infusion on time last week on Tuesday and again [facility]. Her Zoladex injection that is being given monthly for ovarian suppression was also given last week; a week delay due to patient issues but she did receive the Zoladex injection. She has not had any infections lately. She was just recently hospitalized after a recent attack triggered by a respiratory viral infection. This time we do not have any particular trigger, but there might have been some sleep deprivation. Hemin was given yesterday early afternoon, and I have been in communication with the emergency department physician and admitting team, and she receive the second dose today at noon. OBJECTIVE: On exam, she is afebrile, appears not as sick as some other admissions. CARDIAC SPECIALIST has been started already. Her abdomen is soft. Bowel sounds present. LABORATORY DATA: Labs show mild anemia and mild thrombocytopenia. Otherwise, no significant issues. ASSESSMENT AND PLAN: A 26-year-old lady with acute intermittent porphyria which has been particularly difficult to control despite administration of prophylactic weekly hemin infusion. Menstrual cycles or other issues such as urinary tract infections or viral illnesses have triggered attacks. This time we do not have a particular finding yet as a trigger; may be sleep deprivation. She also occasionally uses marijuana but denies having taken any alcohol. She has not missed any of her weekly hemin infusions lately and does not menstrual cycle, although did have some lower abdominal discomfort. With this admission, she appears less ill overall compared to some other visits. During the October admission, she had fairly severe abdominal pain so that we also performed a CT scan of abdomen and pelvis in October which did not show any abdominal ascites or any other pathology and her symptoms completely resolved once she recovered from the effects. She should continue daily hemin infusion. The one from today at noon was given and the next dose will be due tomorrow at noon. I am hopeful that this time she can be discharged sooner. If she has improved further, she might be able to be discharged before the weekend. I emphasized to her to avoid asking for too many sedating medications that could cause over-sedation and increase her risk of aspiration.
[2017-02-10] MEDS: HYDROmorphone PCA 0.2 mg/mL 30 mL Inj IV PRN (21:10)
--- NOTE | 2017-02-10 22:00 | NUR ---
Itching Pt reported she is itching a lot. pt took Benadryl 25mg Q 4hrs, but not lasting longer. lolita HS hospitalist and increased her dose to 50mg. administered 50mg Benadryl. pt reported relief. will continue to monitor.
[2017-02-10] MEDS: Dextrose 5% 500 ML IV SCH (22:30)
[2017-02-11] VITALS (9 sets, daily range): BP systolic 107–123; BP diastolic 62–75; PULSE 76–92; RESP 11–19; O2SAT 96–99
--- NOTE | 2017-02-11 04:45 | NUR ---
Pain/Nausea pain well managed with IV MATE CHIEF Dilaudid and Gabapentin. pt was also having Nausea after dinner. Administered 8mg of IV Zofran which is effective. itching well managed with 5Omg of IVP Benadryl. VS WNL. will continue to monitor.
[2017-02-11] MEDS: Ondansetron 2 mg/mL 2 mL Inj IVPUSH PRN ×4 (08:08→19:49)
[2017-02-11] MEDS ORDERED: STERILE IV ONE (10:55)
[2017-02-11] MEDS ORDERED: HEMIN IV ONE (10:55)
[2017-02-11] MEDS ORDERED: Polyethylene Glycol (PEG) 17 Gm Powder PO PRN (12:00)
--- NOTE | 2017-02-11 12:01 | PCM.PNMED ---
Subjective Date of Service Feb 11, 2017 Subjective Patient seen and examined. Doing much better today. No nausea. Slightly bloated and constipation. Vitals stable. Exam Vital Signs Vital Sign - Last Date Time Temp Pulse Resp B/P Pulse Ox O2 Delivery O2 Flow Rate FiO2 02/11/17 08:05 85 14 97 Room Air 02/11/17 06:14 36.8 107/62 Intake and Output 02/10/17 02/10/17 02/11/17 Cumulative From/Thru 15:00 23:00 07:00 02/09/17 17:14 - 02/11/17 06:14 Intake Total 763 ml 588 ml 589 ml 1940 ml Output Total 475 ml 875 ml 1350 ml Balance 288 ml 588 ml -286 ml 590 ml Intake Oral 675 ml 400 ml 475 ml 1550 ml IV Total 88 ml 188 ml 114 ml 390 ml Output Urine Total 475 ml 875 ml 1350 ml # Voids 2 2 # Bowel Movements 0 0 Exam General:Comfortable. Neck: Supple with full range of motion. No jugular venous distension. No bruits. No lymphadenopathy or thyromegaly. Chest: Left-sided port with no surrounding erythema or induration. Cardiovascular: Regular rate and rhythm with no murmurs, rubs, or gallops appreciated Pulmonary: Clear to auscultation bilaterally with no crackles, wheezes, or rhonchi. Normal respiratory effort with no use of accessory muscles. Abdomen: Bowel tones present. Soft, diffusely tender to palpation greatest in the epigastric area. No hepatosplenomegaly or masses appreciated. Lab and Diagnostics Result Diagram: 02/10/17 0610 02/10/17 0610 X-Rays, CTs and MRIs X-RAY CHEST ONE VIEW IMPRESSION: No acute disease is seen in the upright portable chest. Dictated by: David Leong M.D. on 02/09/2017 at 19:29 Approved by: David Leong M.D. on 02/09/2017 at 19:30 Assessment & Plan Romi Newsome is a 26-year-old woman with past medical history significant for acute intermittent porphyria diagnosed 5 years ago who presents to the ED due to abdominal pain secondary to AIP flare. Acute intermittent porphyria, present on admission, acute attack, resolving - Managed by Dr. Bocanegra as an outpatient he was notified of admission. - Recommendations per Dr. Bocanegra as per admission notes: - TECHNOLOGY SALES CONSULTANT with hydromorphone - Hemin administration on 02/10/17 at 1200 - No need for CT abdomen or glucose administration - Continue home pain medication including gabapentin 100 mg 3 times a day PRN and duloxetine 30 mg PRN. - benadryl prn itching Elevated lipase, present on admission,resolved - Etiology likely secondary to AIP. Patient denies any alcohol use or recent viral illness. - In review of past labs this appears to be a recurrent trend. - Repeat lipase in the morning ~normal Thrombocytopenia, present on admission, chronic. - Patient's current platelet count 104. This appears to be close to the patient 's baseline. - stable PRN Medications - Acetaminophen as needed for mild pain/fever/headache - Bowel regimen as needed - Antiemetic as needed Dispo: likely home today GI Prophylaxis: Not indicated VTE Prophylaxis: Sub-Q Heparin (Unfractionated), SCDs VTE Mechanical Devices: Intermittant Pneumatic CD Resuscitation Status: CPR: Attempt Resuscitation Time spent 35 mins Pravin Arteaga MD Feb 11, 2017 12:00
--- NOTE | 2017-02-11 12:30 | NUR ---
Pain MD notified that pt states she does want to go home this evening, however per POULTRY PINNER she has been denied dosing 8 times in the last hour. Rating 6/10. VSS. Pt denies constipation but states she is "bloated" which per pt is common during acute attacks. MD aware and no new orders at this time. Likely to DC POULTRY PINNER after hemin dose and transition to PO pain control per MD. Will continue to monitor.
--- NOTE | 2017-02-11 13:28 | NUR ---
Social Work: Multidisciplinary Rounds Pt discussed in am rounds; sw status remains unchanged. Anticipate discharge home when medically stable. LAYER OUT to continue to follow to assess for further d/c needs Michelle Soliman MSW
[2017-02-11] MEDS ORDERED: HYDROmorphone 1 mg/mL Inj IVPUSH PRN (15:00)
--- NOTE | 2017-02-11 15:01 | NUR ---
NUTRITION CONSULT Consult received from MD nuno decreased appetite during porphyria flare-ups. Talked with pt at length re general healthy eating guidelines and ways to maximize kcal/protein intake when having flare-up. High kcal/protein booklet provided. Pt very receptive.
[2017-02-11] MEDS ORDERED: HYDR-4003 PO (16:40)
--- NOTE | 2017-02-11 16:41 | PCM.DIMED ---
Discharge Instructions Date of Service Feb 11, 2017 Dates of Hospitalization Feb 09, 2017 at 21:24 Discharge Diagnosis Discharge Diagnosis Attack of acute intermittent porphyria Call your provider Call your provider for: Fever or Chills Patient Instructions Follow-up with PCP in: 1 week Pravin Arteaga MD Feb 11, 2017 16:41
[2017-02-11] MEDS: Polyethylene Glycol (PEG) 17 Gm Powder PO PRN (16:53)
--- NOTE | 2017-02-11 18:47 | NUR ---
Pain MD notified that pt complaining of 7/10 pain with last dose of IV dilaudid at about 1600. MD requests order to be changed to every 3 hours.
[2017-02-11] MEDS: HYDROmorphone 1 mg/mL Inj IVPUSH PRN ×2 (19:07→23:01)
--- NOTE | 2017-02-11 19:09 | CCS NOTE ---
[facility] [address] [place] [address], [address] [address] MEDICAL ONCOLOGY OFFICE NOTE PATIENT: CAMRON DA SILVA : 1990 MR#: [id number] DATE: 02/09/2017 JOB ID: [id number] DATE: 02/11/2017 SUBJECTIVE: The patient has further improved so that she could come off the PRESSURE DISPATCHER pump. However, she did ask Gil for pain medication and Dilaudid IV was given. Her nausea has not completely resolved. She had started cautiously taking some fruits. She received today's dose of hemin around noon. Her vital signs the signs are stable. She has no neurological deficits and remains afebrile. ASSESSMENT: A 26-year-old lady with acute intermittent porphyria admitted with another episode of abdominal pain and nausea, vomiting. This time the symptom severity was less and the exact trigger is not clear. Possible sleep deprivation or other unknown factors. She has clearly improved over the past 24 hours, but in reviewing her current situation this afternoon I believe it is probably too early for discharge since she still had IV medication this afternoon for pain control and nausea. I suggested that she stay overnight and receive tomorrow's dose of hemin at 4 mg/kg on Tuesday, and if her condition has stabilized further she could then be discharged on Tuesday afternoon. The hospitalist team and myself discussed this plan and the patient is agreeable.
[2017-02-11] MEDS: Dextrose 5% 500 ML IV SCH (21:47)
[2017-02-11] MEDS ORDERED: Ondansetron 2 mg/mL 2 mL Inj IVPUSH ONE (23:25)
[2017-02-12 01:55] VITALS: BP 114/76; PULSE 90; RESP 18; O2SAT 96
[2017-02-12] MEDS: HYDROmorphone 1 mg/mL Inj IVPUSH PRN ×6 (01:56→20:56)
[2017-02-12] MEDS: Ondansetron 2 mg/mL 2 mL Inj IVPUSH PRN ×5 (01:59→18:06)
--- NOTE | 2017-02-12 06:00 | NUR ---
Pain,N/V Early in shift c/o poor pain control and experienced emesis x 2, c/o Zofran not effective paged MD because of multiple allergies no new Meds but did order 1x extra dose of Zofran, eventually by 2am with combination of this Dilaudid and Benadryl fell asleep until this time, requesting all the same and experiencing dry heaves
[2017-02-12 06:46] VITALS: BP 118/72; PULSE 75; RESP 17; O2SAT 98
[2017-02-12] MEDS ORDERED: STERILE IV ONE (08:00)
[2017-02-12] MEDS ORDERED: HEMIN IV ONE (08:00)
[2017-02-12 09:00] VITALS: BP 108/67; PULSE 94; RESP 12; O2SAT 99
--- NOTE | 2017-02-12 11:06 | NUR ---
Pain/nausea 0830 notified that pt is c/o of increased nausea due to increased pain. Some emesis overnight with 1 episode this am. MD to review chart and determine needs. To continue to give current ordered prn's. 1030 pt pain and nausea more controlled with prn zofran and dilaudid. Pain 09/03 and pt requesting popsicle. Will continue to monitor. Addendum: 02/12/17 at 1445 by SAMUEL CHRISTIANSON RN MD notified in rounds of 37.3 temp overnight. No temp this am. Will monitor.
[2017-02-12] MEDS ORDERED: Promethazine 25 mg/mL Inj IM PRN (14:50)
--- NOTE | 2017-02-12 14:52 | PCM.PNMED ---
Subjective Date of Service Feb 12, 2017 Subjective Patient's nausea and pain is in poor control, as such she will remain in hospital overnight for continued IV therapy with hope to transition to oral medications for pain and nausea in the morning in anticipation of discharge. Nausea is her predominant complaint pain is in better control with Dilaudid IV Exam Vital Signs Vital Sign - Last Date Time Temp Pulse Resp B/P Pulse Ox O2 Delivery O2 Flow Rate FiO2 02/12/17 09:00 37.1 94 12 108/67 99 Room Air Intake and Output 02/11/17 02/11/17 02/12/17 Cumulative From/Thru 15:00 23:00 07:00 02/09/17 17:14 - 02/12/17 06:47 Intake Total 958 ml 386 ml 3284 ml Output Total 1100 ml 650 ml 3100 ml Balance -142 ml -264 ml 184 ml Intake Oral 850 ml 240 ml 2640 ml IV Total 108 ml 146 ml 644 ml Output Urine Total 1100 ml 450 ml 2900 ml Emesis 200 ml 200 ml # Voids 2 # Bowel Movements 0 General: Alert, Oriented X3, Moderate Distress Mouth: Mucous Membr Moist/Gilliam Cardiovascular: Exam Unremarkable Abdomen: Tender, Non-distended Neurological: Grossly Neurologically Intact IVs and Medications Medications Reviewed: Medications were reviewed in detail Lab and Diagnostics Result Diagram: 02/10/17 0610 02/10/17 0610 X-Rays, CTs and MRIs X-RAY CHEST ONE VIEW IMPRESSION: No acute disease is seen in the upright portable chest. Dictated by: David Leong M.D. on 02/09/2017 at 19:29 Approved by: David Leong M.D. on 02/09/2017 at 19:30 Assessment & Plan Romi Newsome is a 26-year-old woman with past medical history significant for acute intermittent porphyria diagnosed 5 years ago who presents to the ED due to abdominal pain secondary to AIP flare. Acute intermittent porphyria, present on admission, acute attack, resolving - Managed by Dr. Bocanegra as an outpatient he was notified of admission. - Recommendations per Dr. Bocanegra as per admission notes: - FIELD ASSEMBLY SUPERVISOR with hydromorphone, has been treated incisions to Dilaudid IV push at this time - Hemin administration on 02/12/17 provided, last 02/10 - No need for CT abdomen or glucose administration - Continue home pain medication including gabapentin 100 mg 3 times a day PRN and duloxetine 30 mg PRN. - benadryl prn itching Refractory nausea - Continue Zofran IV and when able sublingual, has had some beneficial effects - We are adding Phenergan this time for additional relief, sensation stitches taken this medication in the past and has been effective. Elevated lipase, present on admission,resolved - Etiology likely secondary to AIP. Patient denies any alcohol use or recent viral illness. - In review of past labs this appears to be a recurrent trend. - Repeat lipase in the morning ~normal Thrombocytopenia, present on admission, chronic. - Patient's current platelet count 110. This appears to be close to the patient 's baseline. - stable Dispo: Home with improved control of nausea and pain GI Prophylaxis: Not indicated VTE Prophylaxis: Sub-Q Heparin (Unfractionated), SCDs VTE Mechanical Devices: Intermittant Pneumatic CD Resuscitation Status: CPR: Attempt Resuscitation Time spent 25 minutes Sen Banuelos DO Feb 12, 2017 14:52
[2017-02-12 16:55] VITALS: BP 127/85; PULSE 98; RESP 14; O2SAT 97
--- NOTE | 2017-02-12 16:58 | NUR ---
Status notified pt's afternoon temp 100.3, nausea continues, had an episode of emesis prior to temp, Phenergan given. will continue to monitor. Addendum: 02/12/17 at 1720 by SAMUEL CHRISTIANSON RN also notified urine output 220ml today, likely due to very little po intake related to her bloating/nausea, encouraging more po fluids as tolerated, another dose of miralax given per pt request.
[2017-02-12] MEDS: Polyethylene Glycol (PEG) 17 Gm Powder PO PRN (17:04)
[2017-02-12] MEDS ORDERED: Promethazine Inj 25 MG in Dextrose 5% 50 ML IV PRN (21:00)
[2017-02-12 21:05] VITALS: BP 110/72; PULSE 104; RESP 18; O2SAT 95
[2017-02-12] MEDS: Promethazine Inj 12.5 MG in Dextrose 5% 50 ML IV PRN (21:15)
[2017-02-13] MEDS: HYDROmorphone 1 mg/mL Inj IVPUSH PRN ×6 (01:56→21:32)
[2017-02-13] MEDS: Ondansetron 2 mg/mL 2 mL Inj IVPUSH PRN ×2 (01:56→11:21)
[2017-02-13 02:14] VITALS: BP 106/73; PULSE 87; RESP 16; O2SAT 97
[2017-02-13] MEDS: Dextrose 5% 500 ML IV SCH (02:25)
[2017-02-13 03:01] LABS: BASOPHILS % (AUTO) 0.2 % (0-3); EOSINOPHILS % (AUTO) 4.3 % (0-5); MONOCYTES % (AUTO) 10.7 % (4-12); Mean Corpuscular Hemoglobin 29.5 pg (27.0-35.0); Mean Corpuscular Volume 87.3 fL (81-100); NEUTROPHILS % (AUTO) 62.2 % (40-74); Platelet Count 90 bil/L (150-400)
--- NOTE | 2017-02-13 05:32 | NUR ---
Pain/nausea Though still c/o both when awake appears to have had a much more restful night sleeping at least 8 of the 12hr shift no emesis tonight urine still appears concentrated but much better output oral intake still poor r/t nausea when awake .
[2017-02-13] MEDS: Promethazine Inj 12.5 MG in Dextrose 5% 50 ML IV PRN ×3 (06:33→19:22)
[2017-02-13 06:34] VITALS: BP 113/66; PULSE 80; RESP 16; O2SAT 98
--- NOTE | 2017-02-13 09:05 | NUR ---
JOVANI signed PIPPA Oleary
--- NOTE | 2017-02-13 11:27 | NUR ---
Social Work: Readiness for d/c / Multidisciplinary Rounds Data: Pt is on day 4 of hospitalization. EMR reviewed, pt discussed in rounds. MD states pt likely ready for d/c tomorrow, no d/c planning needs identified at this time. ELECTRONICS WARFARE TECHNICIAN met with pt at bedside. Pt confirms she plans to d/c home via POV with her boyfriend/manager long term care Mar[place]. ELECTRONICS WARFARE TECHNICIAN will continue to follow. Assessment: Pt with JOE. Plan: Pt will d/c home via POV likely tomorrow per MD. ELECTRONICS WARFARE TECHNICIAN will continue to follow. No d/c planning needs at this time. PIPPA Oleary
[2017-02-13 11:39] VITALS: BP 111/74; PULSE 97; RESP 16; O2SAT 98
[2017-02-13] MEDS: Polyethylene Glycol (PEG) 17 Gm Powder PO PRN (11:44)
--- NOTE | 2017-02-13 12:09 | CCS NOTE ---
[facility] [address], [address] [address] MEDICAL ONCOLOGY OFFICE NOTE PATIENT: CAMRON DA SILVA : 1990 MR#: [id number] DATE: 02/09/2017 JOB ID: [id number] DATE: 02/13/2017 SUBJECTIVE: I reviewed the course in the last 48 hours in [facility] and communicated with Dr. Banuelos, the hospitalist team. The patient did continue to have some abdominal discomfort and nausea issues after Tuesday evening, that lasted beyond Tuesday, and therefore discharge was delayed. She did receive the hemin infusion yesterday as planned. PLAN: I recommended that daily hemin infusion continuous today and probably also tomorrow at the 4 mg/kg dose. She had a brief episode of a low-grade temperature of 37.9, but no obvious fever. At times the hemin infusion itself can be associated with mild pyrexia.
[2017-02-13] MEDS ORDERED: HEMIN IV ONE (12:20)
[2017-02-13] MEDS ORDERED: STERILE IV ONE (12:20)
--- NOTE | 2017-02-13 12:22 | PCM.PNMED ---
Subjective Date of Service Feb 13, 2017 Subjective Patient feeling some improvement in symptoms with cervical requiring IV medications for both pain and nausea to keep symptoms and even moderate control. She is not yet feel ready from discharge but is hopefully making progress and retraction. Denies any fever or chills overnight. Exam Vital Signs Vital Sign - Last Date Time Temp Pulse Resp B/P Pulse Ox O2 Delivery O2 Flow Rate FiO2 02/13/17 11:39 37.3 97 16 111/74 98 Room Air Intake and Output 02/12/17 02/12/17 02/13/17 Cumulative From/Thru 15:00 23:00 07:00 02/09/17 17:14 - 02/13/17 06:28 Intake Total 507 ml 250 ml 4041 ml Output Total 285 ml 900 ml 4285 ml Balance 222 ml -650 ml -244 ml Intake Oral 350 ml 60 ml 3050 ml IV Total 157 ml 190 ml 991 ml Output Urine Total 220 ml 900 ml 4020 ml Emesis 65 ml 265 ml # Voids 2 # Bowel Movements 0 Exam General: Alert, Oriented X3, Moderate Distress Mouth: Mucous Membr Moist/[place] Cardiovascular: Exam Unremarkable Abdomen: Tender, Non-distended Neurological: Grossly Neurologically Intact IVs and Medications Medications Reviewed: Medications were reviewed in detail Lab and Diagnostics Result Diagram: 02/13/1721402/13/17214 X-Rays, CTs and MRIs X-RAY CHEST ONE VIEW IMPRESSION: No acute disease is seen in the upright portable chest. Dictated by: David Leong M.D. on 02/09/2017 at 19:29 Approved by: David Leong M.D. on 02/09/2017 at 19:30 Assessment & Plan Romi Newsome is a 26-year-old woman with past medical history significant for acute intermittent porphyria diagnosed 5 years ago who presents to the ED due to abdominal pain secondary to AIP flare. Acute intermittent porphyria, present on admission, acute attack, resolving - Managed by Dr. Bocanegra as an outpatient he was notified of admission. - Recommendations per Dr. Bocanegra as per admission notes: - RETAIL SECURITY PROFESSIONAL with hydromorphone has been treated incisions to Dilaudid IV push at this time - Hemin administration on 02/12/17 provided, last 02/10 - No need for CT abdomen or glucose administration - Continue home pain medication including gabapentin 100 mg 3 times a day PRN and duloxetine 30 mg PRN. - Benadryl prn itching - We have been tapering intravenous pain medication as tolerated, now off RETAIL SECURITY PROFESSIONAL but continues to require some Dilaudid in addition to oral pain medications for optimal control. - As per Dr. Bocanegra we will continue Hemin injections of weight-based dosage of 250 mg daily while she remains in hospitals. We will reorder infusions on daily basis depending on patient condition. We will continue to appreciate and work closely with Dr. Reynolds to determine when she will be stable for home discharge. Refractory nausea - Continue Zofran IV and when able sublingual, has had some beneficial effects - Phenergan added with beneficial effect. Elevated lipase, present on admission,resolved - Etiology likely secondary to AIP. Patient denies any alcohol use or recent viral illness. - In review of past labs this appears to be a recurrent trend. - Repeat lipase ~normal Thrombocytopenia, present on admission, chronic. - This appears to be close to the patient's baseline. - stable Dispo: Home with improved control of nausea and pain Pain Evaluation: Adequate Pain Control GI Prophylaxis: Not indicated VTE Prophylaxis: Sub-Q Heparin (Unfractionated), SCDs VTE Mechanical Devices: Intermittant Pneumatic CD Resuscitation Status: CPR: Attempt Resuscitation Time spent 25 minutes Sen Banuelos DO Feb 13, 2017 12:22
--- NOTE | 2017-02-13 15:27 | NUR ---
Pain/Nausea Pain appears to be more controlled today, pt still requiring IV Dilaudid. Pt states "nausea seems to be more the issue today". Pt has had one episode of emesis. IV Phenergan and Zofran continue to be needed. Addendum: 02/13/17 at 1813 by ROMINA KIRK RN Pt was given PO oxycodone and Zofran. Patient reports pain slightly decreased and only mild nausea. Pt states she is going to try to limit pain medications tonight.
[2017-02-13] MEDS: Ondansetron 8 mg ODT Tablet PO PRN ×2 (16:21→21:32)
[2017-02-13 17:22] VITALS: BP 120/76; PULSE 103; RESP 16; O2SAT 96
[2017-02-13 20:39] VITALS: BP 108/65; PULSE 102; RESP 16; O2SAT 95
[2017-02-14] MEDS: Ondansetron 8 mg ODT Tablet PO PRN ×3 (03:45→11:21)
[2017-02-14] MEDS: HYDROmorphone 1 mg/mL Inj IVPUSH PRN ×6 (03:45→23:52)
[2017-02-14] MEDS: Dextrose 5% 500 ML IV SCH ×2 (04:44→23:51)
--- NOTE | 2017-02-14 05:00 | NUR ---
Shift note/pain/nausea Appears to have experienced best night this stay ,finding the sublingual Zofran effective in relieving nausea but still not converting to oral pain med though only needed pain med twice on my 12hr shift slept 8+ hours of the 12!
[2017-02-14 06:06] VITALS: BP 116/80; PULSE 110; RESP 16; O2SAT 99
[2017-02-14] MEDS ORDERED: HEMIN IV ONE ×3 (07:15→07:55)
[2017-02-14] MEDS ORDERED: STERILE IV ONE ×2 (07:50→07:55)
[2017-02-14] MEDS: Polyethylene Glycol (PEG) 17 Gm Powder PO PRN (08:16)
[2017-02-14] MEDS: Promethazine Inj 12.5 MG in Dextrose 5% 50 ML IV PRN ×3 (09:14→19:55)
[2017-02-14] MEDS ORDERED: 0.9% Sodium Chloride 100 ML ONE (09:17)
[2017-02-14 10:45] VITALS: BP 127/91; PULSE 100; RESP 18; O2SAT 96
--- NOTE | 2017-02-14 14:11 | PCM.PNMED ---
Subjective Date of Service Feb 14, 2017 Subjective pt received Hemin, still nauseated with abdominal pain, no BM for 4days, Miralax given yesterday, will try Senna requiring dilaudid 1mg q3h prn Pt wants to go home today, but convinced she has to stay until sx are more controlled Exam Vital Signs Vital Sign - Last Date Time Temp Pulse Resp B/P Pulse Ox O2 Delivery O2 Flow Rate FiO2 02/14/17 06:06 37.5 110 16 116/80 99 Room Air Intake and Output 02/13/17 02/13/17 02/14/17 Cumulative From/Thru 15:00 23:00 07:00 02/09/17 17:14 - 02/14/17 06:07 Intake Total 150 ml 450 ml 226 ml 4867 ml Output Total 75 ml 400 ml 500 ml 5260 ml Balance 75 ml 50 ml -274 ml -393 ml Intake Oral 150 ml 200 ml 60 ml 3460 ml IV Total 250 ml 166 ml 1407 ml Output Urine Total 400 ml 500 ml 4920 ml Emesis 75 ml 340 ml # Voids 2 # Bowel Movements 0 Exam NAD, comfortably laying down on the bed no JVD, MMM, no LAD RRR, nl s1, s2 no mrg CTAB, no w,c S,ND,diffuse tenderness, hypoactive BS+ warm, no edema, pulses 2/2 Lab and Diagnostics Result Diagram: 02/13/1721402/13/17214 X-Rays, CTs and MRIs X-RAY CHEST ONE VIEW IMPRESSION: No acute disease is seen in the upright portable chest. Dictated by: David Leong M.D. on 02/09/2017 at 19:29 Approved by: David Leong M.D. on 02/09/2017 at 19:30 Assessment & Plan Romi Newsome is a 26-year-old woman with past medical history significant for acute intermittent porphyria diagnosed 5 years ago who presents to the ED due to abdominal pain secondary to AIP flare. 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 -Patient is clinically improving with current treatment -Continue daily Hemin, given clinical improvement, likely needs 1-2doses -continue pain medication including gabapentin 100 mg 3 times a day PRN and duloxetine 30 mg PRN, dilaudid prn, Oxycodone 5mg q4h prn -Benadryl prn itching -appreciate follow up Refractory nausea - Continue Zofran IV and when able sublingual, has had some beneficial effects - Phenergan added with beneficial effect. Elevated lipase, present on admission,resolved - Etiology likely secondary to AIP. Patient denies any alcohol use or recent viral illness. - In review of past labs this appears to be a recurrent trend. - Repeat lipase ~normal Thrombocytopenia, present on admission, chronic. - This appears to be close to the patient's baseline. - stable Dispo: Home with improved control of nausea and pain GI Prophylaxis: Not indicated VTE Prophylaxis: Sub-Q Heparin (Unfractionated), SCDs VTE Mechanical Devices: Intermittant Pneumatic CD Resuscitation Status: CPR: Attempt Resuscitation Time spent 35min Benitez Lockhart MD Feb 14, 2017 08:16
[2017-02-14] MEDS: Ondansetron 2 mg/mL 2 mL Inj IVPUSH PRN ×2 (14:39→18:52)
[2017-02-14 16:42] VITALS: BP 108/74; PULSE 101; RESP 16; O2SAT 96
--- NOTE | 2017-02-14 17:00 | NUR ---
Shift Report Patient remains nauseous and painful all day today. Requesting phenergan, zofran, and dilaudid IV pushes with benadryl. Patient relieved for a time after dilaudid and benadryl pushes. Remains anorexic.
--- NOTE | 2017-02-14 19:28 | CCS NOTE ---
[facility] [address], [address] [address] MEDICAL ONCOLOGY OFFICE NOTE PATIENT: CAMRON DA SILVA : 1990 MR#: [id number] DATE: 02/09/2017 JOB ID: [id number] DATE: 02/14/2017 SUBJECTIVE: The patient continued to require nausea medication and IV Dilaudid for abdominal pain control, and therefore, discharge has been delayed and she continues hemin infusion. She got the dose yesterday. In her medication list, it was not charted whether she received it today but in my communication with her nurse, she confirmed that she gave her the hemin earlier today as planned. She has been afebrile. She has pain in her legs and abdomen consistent with the porphyria symptoms. Her platelet count is somewhat low, around 90. We have been seeing this repeatedly in the previous attacks. Her electrolytes are stable. Creatinine normal. On exam, she is afebrile. Abdomen is soft. Bowel sounds present. ASSESSMENT AND PLAN: A 26-year-old lady with acute intermittent porphyria. Her symptoms do not show any meaningful improvement. She is now five days in the current attack with daily hemin infusion since last admission on Tuesday night. I verified that the patient did receive her hemin today and this should continue daily at the same dose until we see an improvement trend. I am repeating the urine tests for PBG (porphobilinogen) to document elevation. This has been shown repeatedly in previous attacks as well. If her symptoms do not improve by tomorrow, additional Glucose administration for carbohydrate loading might be considered, which so far has not been necessary as the hemin is substantially more effective than carbohydrate loading.
[2017-02-14 20:24] VITALS: BP 102/70; PULSE 104; RESP 14; O2SAT 97
[2017-02-15] MEDS: Promethazine Inj 12.5 MG in Dextrose 5% 50 ML IV PRN ×3 (03:09→21:01)
[2017-02-15] MEDS: Ondansetron 2 mg/mL 2 mL Inj IVPUSH PRN ×6 (03:41→22:17)
[2017-02-15] MEDS: HYDROmorphone 1 mg/mL Inj IVPUSH PRN ×6 (04:01→22:17)
[2017-02-15 04:11] VITALS: BP 122/80; PULSE 114; RESP 18; O2SAT 97
--- NOTE | 2017-02-15 04:23 | NUR ---
GI Pt states nausea and had episode of vomiting after Phenergan and Zofran given. Dark bile approximately 150 mls
[2017-02-15] MEDS ORDERED: HEMIN IV ONE ×2 (07:15→07:55)
[2017-02-15] MEDS ORDERED: STERILE IV ONE ×2 (07:15→07:55)
[2017-02-15 07:46] VITALS: BP 115/70; PULSE 92; RESP 16; O2SAT 98
[2017-02-15] MEDS: Polyethylene Glycol (PEG) 17 Gm Powder PO PRN (10:00)
[2017-02-15] MEDS: Ondansetron 8 mg ODT Tablet PO PRN (12:27)
--- NOTE | 2017-02-15 12:40 | NUR ---
GI/ACTIVITY Patient is c/of nausea. No emesis noted. Zofran IV and PO administered, which has not been effective. Will administer Phenergan, however, patient is not sure if she wants to take it. No BM since 02/07/2017. Miralax administered. Patient refused any other laxatives. Dr. Richy mchugh. Patient rated her pain as 5-6/10. Dilaudid IV administered with Benadryl and Zofran per patients request. Pain level is down to 4/10, which is tolerable for her after her pain medication. Patient is able to ambulate independently in the room. Gait is steady.
[2017-02-15 14:18] LABS: APPEARANCE,URINE HAZY (CLEAR,HAZY); COLOR,URINE AMBER (YELLOW)
[2017-02-15 14:19] LABS: OCCULT BLOOD,URINE LARGE (NEGATIVE); PH,URINE 6.5 (5.0-8.0)
[2017-02-15 14:20] LABS: ICTOTEST,URINE NEGATIVE (Negative)
--- NOTE | 2017-02-15 15:33 | PCM.PNMED ---
Subjective Date of Service Feb 15, 2017 Subjective pt was still symptomatic, nausea, vomiting c/o abdominal pain, zofran, phenergan, benadryl combination at different timing mildly helpful received Hemin today. pt had mild temp tmax37.9 overnight, mildly tachy, but BP remained stable. Exam Vital Signs Vital Sign - Last Date Time Temp Pulse Resp B/P Pulse Ox O2 Delivery O2 Flow Rate FiO2 02/15/17 07:46 36.3 92 16 115/70 98 Room Air Intake and Output 02/14/17 02/14/17 02/15/17 Cumulative From/Thru 15:00 23:00 07:00 02/09/17 17:14 - 02/15/17 06:13 Intake Total 240 ml 670 ml 550 ml 6327 ml Output Total 600 ml 150 ml 6010 ml Balance 240 ml 70 ml 400 ml 317 ml Intake Oral 320 ml 250 ml 4030 ml IV Total 240 ml 350 ml 300 ml 2297 ml Output Urine Total 600 ml 5520 ml Emesis 150 ml 490 ml # Voids 1 3 # Bowel Movements 0 Exam NAD, mildly agitated due to pain no JVD, MMM, no LAD RRR, nl s1, s2 no mrg CTAB, no w,c S,ND,diffuse tenderness, hypoactive BS+ warm, no edema, pulses 2/2 IVs and Medications Medications Reviewed: Medications were reviewed in detail Lab and Diagnostics Result Diagram: 02/13/1721402/13/17214 X-Rays, CTs and MRIs X-RAY CHEST ONE VIEW IMPRESSION: No acute disease is seen in the upright portable chest. Dictated by: David Leong M.D. on 02/09/2017 at 19:29 Approved by: David Leong M.D. on 02/09/2017 at 19:30 Assessment & Plan Romi Newsome is a 26-year-old woman with past medical history significant for acute intermittent porphyria diagnosed 5 years ago who presents to the ED due to abdominal pain secondary to AIP flare. 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 -Patient is still symptomatic with daily Hemin, n/v/abdominal pain, -Continue daily Hemin, given clinical improvement, likely serveral doses -continue pain medication including gabapentin 100 mg 3 times a day PRN and duloxetine 30 mg PRN, dilaudid prn, Oxycodone 5mg q4h prn -appreciate follow up -awaits urinary PBG to verify acute flare, possible carbohydrate loading per given persistent sx. Refractory nausea -will time zofran 8mg at the same time with Benadryl, Promethazine for n/v, Elevated lipase, present on admission,resolved - Etiology likely secondary to AIP. Patient denies any alcohol use or recent viral illness. - In review of past labs this appears to be a recurrent trend. - Repeat lipase ~normal Thrombocytopenia, present on admission, chronic. - This appears to be close to the patient's baseline. - stable Dispo: Home with improved control of nausea and pain GI Prophylaxis: Not indicated VTE Prophylaxis: Sub-Q Heparin (Unfractionated), SCDs VTE Mechanical Devices: Intermittant Pneumatic CD Resuscitation Status: CPR: Attempt Resuscitation Time spent 35min Benitez Lockhart MD Feb 15, 2017 15:33
[2017-02-15 15:44] VITALS: BP 126/80; PULSE 111; O2SAT 94
--- NOTE | 2017-02-15 15:45 | NUR ---
Faxed H&P to [facility] per [facility]
--- NOTE | 2017-02-15 16:24 | NUR ---
Social Work- Multidisciplinary Rounds Pt continues with hemin infusions. SW met with pt at bedside. Pt's outpt care has successfully been transferred to . Pt's H&P faxed to [facility]. Pt to discharge home with her boyfriend, SW will continue to follow. PIPPA Sotelo
[2017-02-15] MEDS ORDERED: Dextrose 10% 1,000 ML IV ONE (17:40)
--- NOTE | 2017-02-15 18:57 | DRSVH ---
PROCEDURE: X-RAY ABDOMEN, ONE VIEW ([id number]) INDICATIONS: ileus TECHNIQUE: One view of the abdomen acquired. COMPARISON: [facility], CR, ABD/AP 1VW, 04/19/2012, 4:11. FINDINGS: Surgical changes and devices: None. Bowel: Bowel gas pattern is within normal limits. No distended bowel loops are seen.. Soft tissues: No suspicious abdominal calcifications. Visualized solid organ contours appear normal in size. Lung bases are clear. Bones: No suspicious bony lesions. IMPRESSION: Acute disease is not seen in the KUB x-ray. Dictated by: David Leong M.D. on 02/15/2017 at 18:54 Approved by: David Leong M.D. on 02/15/2017 at 18:55
--- NOTE | 2017-02-15 20:56 | CCS NOTE ---
[facility] [address], [address] [address] MEDICAL ONCOLOGY OFFICE NOTE PATIENT: CAMRON DA SILVA : 1990 MR#: [id number] DATE: 02/09/2017 JOB ID: [id number] DATE: 02/15/2017 The patient has still required IV medication for pain management and particularly nausea issues and has not been able to advance her diet and has had very little oral intake in the last few days. Last bowel movement, per nursing, has been on February 07, as a result of both constipation likely as well as low oral intake. Her lab studies have not shown any significant deterioration. She has had a couple of episodes of low-grade temperature, less than 38.0, in the afternoons, possibly due to pyrexia associated with hemin infusion. She is able to ambulate to the bathroom and has no rigidity in the abdomen. Currently afebrile. ASSESSMENT AND PLAN: A 26-year-old lady with acute intermittent porphyria, which has been quite severe requiring prophylactic weekly hemin infusion for the past five years, and despite that, any additional stress factor has precipitated an attack, such as urinary tract infections or upper respiratory infections, sleep deprivation, menstrual cycle, etc. She is on ovarian suppression with Zoladex injections monthly, and received that in mid January at our office. At this time, the attack might have been due to lifestyle distress and sleep deprivation. There has been no other trigger, at this point, identified. It has become increasingly more difficult to manage her attacks with longer duration of need of hemin administration. Several years ago, her average duration of hospital stay for each attack was about 3-4 days with daily hemin, but lately, the hospitalizations have required 7-10 days of duration. I spoke with the hospitalist team to add carbohydrate administration to possibly increase the efficacy of hemin and suggested that a 10% glucose be used and run at approximately 100-150 cc an hour, translating into an approximate total dose of glucose of 250-300 mg. Ideally, the amount of free water should be reduced and Dr. Lockhart of the hospitalist team will review that with pharmacy to see whether this can be mixed with half-normal saline. I suggest also an abdominal x-ray to evaluate for obstipation and more aggressive management of constipation, possibly need for lactulose or enemas. I will be out of town for the next week, starting tomorrow, and Dr. Fabian will be available with any questions. Her next prophylactic hemin is already planned for next Tuesday, February 23, at our clinic. I recommend to continue the daily hemin infusion until she can advance her diet.
[2017-02-15] MEDS: SODIUM CHLORIDE IV SCH (21:50)
[2017-02-15] MEDS: DEXTROSE IV SCH (21:50)
[2017-02-15 22:08] VITALS: BP 103/66; PULSE 112; RESP 14; O2SAT 99
[2017-02-15] MEDS: Dextrose 5% 500 ML IV SCH (22:30)
--- NOTE | 2017-02-15 23:08 | NUR ---
Congestion Pt is c/o congestion and is requesting vaporub. MD mchugh Addendum: 02/15/17 at 7174 by JING WOOTEN RN called and stated pt family can bring from home and keep at bedside.
[2017-02-16] MEDS: HYDROmorphone 1 mg/mL Inj IVPUSH PRN ×3 (03:26→11:53)
[2017-02-16 03:44] VITALS: BP 121/74; PULSE 106; RESP 19; O2SAT 97
[2017-02-16] MEDS ORDERED: Lactulose 10 Gm/15 mL 473 mL Solution PO PRN (07:30)
[2017-02-16] MEDS: Ondansetron 2 mg/mL 2 mL Inj IVPUSH PRN ×3 (07:49→21:27)
[2017-02-16 08:13] VITALS: BP 110/74; PULSE 108; RESP 16; O2SAT 100
[2017-02-16] MEDS: Lactulose 20 Gm/30 mL 30 mL Syrup PO SCH ×2 (09:41→19:46)
[2017-02-16] MEDS: Ondansetron 8 mg ODT Tablet PO PRN ×3 (09:42→23:57)
[2017-02-16 10:50] LABS: Mean Corpuscular Hemoglobin 29.6 pg (27.0-35.0); Mean Corpuscular Volume 85.7 fL (81-100); NEUTROPHILS % (AUTO) 64.1 % (40-74); Platelet Count 65 bil/L (150-400)
[2017-02-16 10:51] LABS: BASOPHILS % (AUTO) 0.1 % (0-3); EOSINOPHILS % (AUTO) 2.3 % (0-5); MONOCYTES % (AUTO) 16.3 % (4-12)
[2017-02-16 11:08] LABS: Magnesium 1.6 mg/dL (1.6-2.6); Phosphorus 1.8 mg/dL (2.5-4.9)
[2017-02-16] MEDS: SODIUM CHLORIDE IV SCH ×3 (11:09→22:39)
[2017-02-16] MEDS: DEXTROSE IV SCH ×3 (11:09→22:39)
[2017-02-16] MEDS: Promethazine Inj 12.5 MG in Dextrose 5% 50 ML IV PRN (11:11)
--- NOTE | 2017-02-16 11:29 | NUR ---
Social Work: Continued d/c planning / multidisciplinary rounds Data: Pt is on day 7 of hospitalization. EMR reviewed. Pt discussed in rounds. MD states pt may be ready for d/c in 1-2 days pending advancing her diet and abdominal pain. No d/c planning needs anticipated at this time. ROAD GANG SUPERVISOR will continue to follow if needs arise. Assessment: Pt on JOE. Plan: Pt will d/c home via POV when medically stable with boyfriend, who is also her JOE caregiver. No d/c planning needs anticipated at this time. ROAD GANG SUPERVISOR will continue to follow if needs arise. PIPPA Oleary
[2017-02-16 12:32] VITALS: BP 107/66; PULSE 98; RESP 16; O2SAT 98
[2017-02-16] MEDS ORDERED: STERILE IV SCH (12:46)
[2017-02-16] MEDS ORDERED: HEMIN IV SCH (12:46)
--- NOTE | 2017-02-16 15:48 | NUR ---
PAIN/BM/NAUSEA/HEME PAIN-Patient request switch to PO pain medications for 6/10 abdomen pain in anticipation of discharge tomorrow. GI- Patient had loose BM today. (medium) Still c/o nausea, Zofran given. Patient not eating much on full liquid diet. PLAN- Patient given todays dose of Heme per MD orders, november d/c tomorrow.
[2017-02-16 17:21] VITALS: BP 122/69; PULSE 87; RESP 16; O2SAT 98
--- NOTE | 2017-02-16 18:49 | PCM.PNMED ---
Subjective Date of Service Feb 16, 2017 Subjective Patient notes that she tolerated a clear liquid diet but not anything else however at her bedside she had what appeared to be some [place] cuisine and notes that she did not tolerate that at all. She notes some continuing abdominal pain. She was started on D10 infusion per gastroenterology. She does have some nausea but no vomiting. Exam Vital Signs Vital Sign - Last Date Time Temp Pulse Resp B/P Pulse Ox O2 Delivery O2 Flow Rate FiO2 02/16/17 17:21 37.2 87 16 122/69 98 Room Air Intake and Output 02/15/17 02/15/17 02/16/17 Cumulative From/Thru 15:00 23:00 07:00 02/09/17 17:14 - 02/16/17 06:15 Intake Total 1708 ml 8035 ml Output Total 1350 ml 7360 ml Balance 358 ml 675 ml Intake Oral 400 ml 4430 ml IV Total 1308 ml 3605 ml Output Urine Total 1250 ml 6770 ml Emesis 100 ml 590 ml # Voids 3 # Bowel Movements 0 Exam Constitutional: Young female in mild pain distress Head: Normocephalic atraumatic Chest: Clear to auscultation Cor: Regular rate and rhythm S1-S2 without murmur Abdomen: Soft, diffuse tenderness bowel sounds are hypo-active Extremities: No pedal edema Neuro: Alert and oriented 3, motor strength is intact bilaterally Lab and Diagnostics Laboratory Tests 72 Hours Test 02/15/17 13:20 02/16/17 10:20 Urine Color Tamara (YELLOW) Urine Appearance Hazy (CLEAR,HAZY) Urine pH 6.5 (5.0-8.0) Urine Specific [place] 1.015 (1.003-1.035) Urine Protein Tracemg/dL (NEG,TRACE) Urine Glucose (UA) Negativemg/dL (NEGATIVE) Urine Ketones 40mg/dL (NEGATIVE) Urine Occult Blood Large (NEGATIVE) Urine Nitrite Positive (NEGATIVE) Urine Bilirubin Negative (NEGATIVE) Urine Ictotest Negative (Negative) Urine Urobilinogen 1.0mg/dL (NORMAL) Urine Leukocyte Esterase Trace (NEGATIVE) Urine RBC 0-2/hpf (0-2) Urine WBC 0-5/hpf (0-5) Urine Epithelial Cells Occasional/hpf (NONE-MOD) Urine Crystals None seen (NONE SEEN) Urine Bacteria Moderate/hpf (NONE-FEW) Urine Hyaline Casts None/lpf (NONE) Urine Granular Casts None seen (NONE SEEN) Urine Waxy Casts None seen (NONE SEEN) Urine Red Blood Cell Casts None seen (NONE SEEN) Urine White Blood Cell Casts None seen (NONE SEEN) Urine Mucus Present (None Seen) Urine Trichomonas None seen (NONE SEEN) Urine Yeast None (NONE SEEN) Urinalysis Comment None Urine Culture Reflexed Indicated White Blood Count 7.4th/mm3 (3.8-10.1) Red Blood Count 3.85mil/mm3 (3.90-5.20) Hemoglobin 11.4g/dL (12.0-15.6) Hematocrit 33.0% (35.0-46.0) Mean Corpuscular Volume 85.7fL (81-100) Mean Corpuscular Hemoglobin 29.6pg (27.0-35.0) Mean Corpuscular Hemoglobin Concent 34.5% (32.0-37.0) Red Cell Distribution Width 13.0% (12.3-15.4) Platelet Count 65bil/L (150-400) Neutrophils (%) (Auto) 64.1% (40-74) Lymphocytes (%) (Auto) 16.9% (14-46) Monocytes (%) (Auto) 16.3% (4-12) Eosinophils (%) (Auto) 2.3% (0-5) Basophils (%) (Auto) 0.1% (0-3) Sodium Level 131mEq/L (134-144) Potassium Level 3.7mEq/L (3.5-5.2) Chloride Level 93mEq/L (97-108) Carbon Dioxide Level 24mmol/L (18-29) Blood Urea Nitrogen 13mg/dL (6-20) Creatinine 0.73mg/dL (0.57-1.00) Estimat Glomerular Filtration Rate 139mL/min (>59) Glucose Level 132mg/dL (60-99) Calcium Level 8.6mg/dL (8.5-10.1) Phosphorus Level 1.8mg/dL (2.5-4.9) Magnesium Level 1.6mg/dL (1.6-2.6) Total Bilirubin 0.9mg/dL (0.0-1.2) Aspartate Amino Transf (AST/SGOT) 54U/L (0-50) Alanine Aminotransferase (ALT/SGPT) 21U/L (0-32) Alkaline Phosphatase 106U/L (25-150) Total Protein 7.2g/dL (6.4-8.4) Albumin 3.9g/dL (3.4-5.0) Result Diagram: 02/16/17 1020 02/16/17 1020 X-Rays, CTs and MRIs X-RAY CHEST ONE VIEW IMPRESSION: No acute disease is seen in the upright portable chest. Dictated by: David Leong M.D. on 02/09/2017 at 19:29 Approved by: David Leong M.D. on 02/09/2017 at 19:30 Assessment & Plan Romi Newsome is a 26-year-old woman with past medical history significant for acute intermittent porphyria diagnosed 5 years ago who presents to the ED due to abdominal pain secondary to AIP flare. 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 -Patient is still symptomatic with daily Hemin, n/v/abdominal pain, -Continue daily Hemin, given clinical improvement, likely serveral doses -continue pain medication including gabapentin 100 mg 3 times a day PRN and duloxetine 30 mg PRN, dilaudid prn, Oxycodone 5mg q4h prn -appreciate follow up -Continue with carbo loading with IV D10 per Dr. Bocanegra.. Refractory nausea -will time zofran 8mg at the same time with Benadryl, Promethazine for n/v, Elevated lipase, present on admission,resolved - Etiology likely secondary to AIP. Patient denies any alcohol use or recent viral illness. - In review of past labs this appears to be a recurrent trend. - Repeat lipase ~normal Thrombocytopenia, present on admission, chronic. - This appears to be close to the patient's baseline. - stable Dispo: Home with improved control of nausea and pain when this occurs GI Prophylaxis: Not indicated VTE Prophylaxis: Sub-Q Heparin (Unfractionated), SCDs VTE Mechanical Devices: Intermittant Pneumatic CD Resuscitation Status: CPR: Attempt Resuscitation Time spent 30 minutes Bessy Dutton MD Feb 16, 2017 18:49
[2017-02-16 19:47] VITALS: BP 112/72; PULSE 96; RESP 20; O2SAT 98
[2017-02-16] MEDS: Dextrose 5% 500 ML IV SCH (21:57)
--- NOTE | 2017-02-16 21:58 | NUR ---
LACTULOSE Pt scheduled for 2030 lactulose. Pt reported diarrhea x2 this a.m. after lactulose administration. Despite education, pt refusing lactulose for tonight. Continuing care.
[2017-02-17] MEDS: Ondansetron 2 mg/mL 2 mL Inj IVPUSH PRN ×2 (01:17→05:17)
[2017-02-17 05:32] VITALS: BP 110/72; PULSE 89; RESP 16; O2SAT 98
[2017-02-17 05:51] LABS: BASOPHILS % (AUTO) 0.2 % (0-3); EOSINOPHILS % (AUTO) 4.8 % (0-5); Mean Corpuscular Hemoglobin 28.7 pg (27.0-35.0); Mean Corpuscular Volume 86.2 fL (81-100); Platelet Count 54 bil/L (150-400)
[2017-02-17 06:34] LABS: Magnesium 1.5 mg/dL (1.6-2.6); Phosphorus 1.6 mg/dL (2.5-4.9)
[2017-02-17] MEDS ORDERED: Magnesium Sulf 2 Gm/50mL Water 2 GM in IV Premix 1 EACH IV ONE (06:55)
[2017-02-17] MEDS ORDERED: Potassium Phos (mEq) Inj 20 MEQ in Dextrose 5% 250 ML IV ONE (06:55)
[2017-02-17] MEDS: Lactulose 20 Gm/30 mL 30 mL Syrup PO SCH (07:48)
[2017-02-17 09:26] VITALS: BP 94/53; PULSE 83; RESP 14; O2SAT 99
[2017-02-17] MEDS ORDERED: STERILE IV ONE ×2 (10:15→10:25)
[2017-02-17] MEDS ORDERED: HEMIN IV ONE ×2 (10:15→10:25)
[2017-02-17] MEDS ORDERED: cefTRIAXone Inj 2,000 MG in Dextrose 5% Minibag Plus 50 ML IV SCH (10:15)
[2017-02-17] MEDS ORDERED: 0.9% Sodium Chloride 250 ML ONE (11:07)
--- NOTE | 2017-02-17 11:46 | NUR ---
Social Work-Multidisciplinary Rounds Pt discussed in rounds. Pt continues with hemin infusions. Pt receiving IV rocefin. No discharge needs identified in rounds. Pt anticipated to discharge in 2-3 days. Pt to discharge home with her SO who is her caregiver. SW will continue to follow. Diamond White MSW
--- NOTE | 2017-02-17 12:00 | NUR ---
IV fluids Patient given Hemin, no s/s of reaction. Educated on the start of Rocephin IV, verbalizes understanding. Also discussed the need for blood glucose checks due to D10 in IV fluids.
[2017-02-17] MEDS: Ondansetron 8 mg ODT Tablet PO PRN ×2 (12:08→16:19)
[2017-02-17] MEDS: SODIUM CHLORIDE IV SCH (14:26)
[2017-02-17] MEDS: DEXTROSE IV SCH (14:26)
[2017-02-17 14:40] VITALS: BP 106/70; PULSE 91; RESP 16; O2SAT 95
--- NOTE | 2017-02-17 15:44 | PCM.PNMED ---
Subjective Date of Service Feb 17, 2017 Subjective Patient notes she feels a little bit better this morning. Has less abdominal pain. She has been able to eat a little bit more than yesterday. Exam Vital Signs Vital Sign - Last Date Time Temp Pulse Resp B/P Pulse Ox O2 Delivery O2 Flow Rate FiO2 02/17/17 14:40 36.8 91 16 106/70 95 Room Air Intake and Output 02/16/17 02/16/17 02/17/17 Cumulative From/Thru 15:00 23:00 07:00 02/09/17 17:14 - 02/16/17 17:21 Intake Total 1460 ml 9495 ml Output Total 1000 ml 8360 ml Balance 460 ml 1135 ml Intake Oral 600 ml 5030 ml IV Total 860 ml 4465 ml Output Urine Total 600 ml 7370 ml Urine/Stool Mix 400 ml 400 ml Emesis 590 ml # Voids 3 6 # Bowel Movements 0 Exam Constitutional: Young female in mild pain distress Head: Normocephalic atraumatic Chest: Clear to auscultation Cor: Regular rate and rhythm S1-S2 without murmur Abdomen: soft mild diffuse tenderness no rebound or guarding Extremities: No pedal edema Neuro: Alert and oriented 3, motor strength is intact bilaterally Psych: Mood and affect appropriate IVs and Medications Medications Reviewed: Medications were reviewed in detail Lab and Diagnostics Laboratory Tests 72 Hours Test 02/15/17 13:20 02/16/17 10:20 02/17/17 05:30 02/17/17 07:45 Urine Color Tamara (YELLOW) Urine Appearance Hazy (CLEAR,HAZY) Urine pH 6.5 (5.0-8.0) Urine Specific [place] 1.015 (1.003-1.035) Urine Protein Tracemg/dL (NEG,TRACE) Urine Glucose (UA) Negativemg/dL (NEGATIVE) Urine Ketones 40mg/dL (NEGATIVE) Urine Occult Blood Large (NEGATIVE) Urine Nitrite Positive (NEGATIVE) Urine Bilirubin Negative (NEGATIVE) Urine Ictotest Negative (Negative) Urine Urobilinogen 1.0mg/dL (NORMAL) Urine Leukocyte Esterase Trace (NEGATIVE) Urine RBC 0-2/hpf (0-2) Urine WBC 0-5/hpf (0-5) Urine Epithelial Cells Occasional/hpf (NONE-MOD) Urine Crystals None seen (NONE SEEN) Urine Bacteria Moderate/hpf (NONE-FEW) Urine Hyaline Casts None/lpf (NONE) Urine Granular Casts None seen (NONE SEEN) Urine Waxy Casts None seen (NONE SEEN) Urine Red Blood Cell Casts None seen (NONE SEEN) Urine White Blood Cell Casts None seen (NONE SEEN) Urine Mucus Present (None Seen) Urine Trichomonas None seen (NONE SEEN) Urine Yeast None (NONE SEEN) Urinalysis Comment None Urine Culture Reflexed Indicated White Blood Count 7.4th/mm3 (3.8-10.1) 6.1th/mm3 (3.8-10.1) Red Blood Count 3.85mil/mm3 (3.90-5.20) 3.56mil/mm3 (3.90-5.20) Hemoglobin 11.4g/dL (12.0-15.6) 10.2g/dL (12.0-15.6) Hematocrit 33.0% (35.0-46.0) 30.7% (35.0-46.0) Mean Corpuscular Volume 85.7fL (81-100) 86.2fL (81-100) Mean Corpuscular Hemoglobin 29.6pg (27.0-35.0) 28.7pg (27.0-35.0) Mean Corpuscular Hemoglobin Concent 34.5% (32.0-37.0) 33.2% (32.0-37.0) Red Cell Distribution Width 13.0% (12.3-15.4) 13.4% (12.3-15.4) Platelet Count 65bil/L (150-400) 54bil/L (150-400) Neutrophils (%) (Auto) 64.1% (40-74) 51.0% (40-74) Lymphocytes (%) (Auto) 16.9% (14-46) 28.8% (14-46) Monocytes (%) (Auto) 16.3% (4-12) 15.0% (4-12) Eosinophils (%) (Auto) 2.3% (0-5) 4.8% (0-5) Basophils (%) (Auto) 0.1% (0-3) 0.2% (0-3) Sodium Level 131mEq/L (134-144) 135mEq/L (134-144) Potassium Level 3.7mEq/L (3.5-5.2) 3.3mEq/L (3.5-5.2) Chloride Level 93mEq/L (97-108) 98mEq/L (97-108) Carbon Dioxide Level 24mmol/L (18-29) 23mmol/L (18-29) Blood Urea Nitrogen 13mg/dL (6-20) 6mg/dL (6-20) Creatinine 0.73mg/dL (0.57-1.00) 0.68mg/dL (0.57-1.00) Estimat Glomerular Filtration Rate 139mL/min (>59) 151mL/min (>59) Glucose Level 132mg/dL (60-99) 113mg/dL (60-99) Calcium Level 8.6mg/dL (8.5-10.1) 8.1mg/dL (8.5-10.1) Phosphorus Level 1.8mg/dL (2.5-4.9) 1.6mg/dL (2.5-4.9) Magnesium Level 1.6mg/dL (1.6-2.6) 1.5mg/dL (1.6-2.6) Total Bilirubin 0.9mg/dL (0.0-1.2) 0.7mg/dL (0.0-1.2) Aspartate Amino Transf (AST/SGOT) 54U/L (0-50) 41U/L (0-50) Alanine Aminotransferase (ALT/SGPT) 21U/L (0-32) 18U/L (0-32) Alkaline Phosphatase 106U/L (25-150) 91U/L (25-150) Total Protein 7.2g/dL (6.4-8.4) 6.3g/dL (6.4-8.4) Albumin 3.9g/dL (3.4-5.0) 3.3g/dL (3.4-5.0) Hold Purple Top Tube Received (Received) Hold [place] Top Tube Received (Received) Result Diagram: [id number] X-Rays, CTs and MRIs X-RAY CHEST ONE VIEW IMPRESSION: No acute disease is seen in the upright portable chest. Dictated by: David Leong M.D. on 02/09/2017 at 19:29 Approved by: David Leong M.D. on 02/09/2017 at 19:30 Date of Service: 02/15/17 0467 PROCEDURE: X-RAY ABDOMEN, ONE VIEW ([id number]) INDICATIONS: ileus TECHNIQUE: One view of the abdomen acquired. COMPARISON: [facility], CR, ABD/AP 1VW, 04/19/2012, 4:11. FINDINGS: Surgical changes and devices: None. Bowel: Bowel gas pattern is within normal limits. No distended bowel loops are seen.. Soft tissues: No suspicious abdominal calcifications. Visualized solid organ contours appear normal in size. Lung bases are clear. Bones: No suspicious bony lesions. IMPRESSION: Acute disease is not seen in the KUB x-ray. Dictated by: David Leong M.D. on 02/15/2017 at 18:54 Approved by: David Leong M.D. on 02/15/2017 at 18:55 Assessment & Plan Romi Newsome is a 26-year-old woman with past medical history significant for acute intermittent porphyria diagnosed 5 years ago who presents to the ED due to abdominal pain secondary to AIP flare. 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 -Patient is still symptomatic with daily Hemin, n/v/abdominal pain, -Continue daily Hemin, given clinical improvement, likely serveral doses -continue pain medication including gabapentin 100 mg 3 times a day PRN and duloxetine 30 mg PRN, dilaudid prn, Oxycodone 5mg q4h prn -appreciate follow up -Completed with carbo loading with IV D10 per Dr. Bocanegra.. -Slightly clinically improved today and has better tolerated her diet yesterday. Refractory nausea -will time zofran 8mg at the same time with Benadryl, Promethazine for n/v, Urinary tract infection, acute, present on admission -Urine culture returned consistent with a urinary tract infection Klebsiella pneumonia and patient was started on IV Rocephin 2 g every 24 hours today(February 17) Elevated lipase, present on admission,resolved - Etiology likely secondary to AIP. Patient denies any alcohol use or recent viral illness. - In review of past labs this appears to be a recurrent trend. - Repeat lipase ~normal Thrombocytopenia, present on admission, chronic. - This appears to be close to the patient's baseline. - stable Dispo: Home with improved control of nausea and pain when this occurs GI Prophylaxis: Not indicated VTE Prophylaxis: Sub-Q Heparin (Unfractionated), SCDs VTE Mechanical Devices: Intermittant Pneumatic CD Resuscitation Status: CPR: Attempt Resuscitation Time spent 30 minutes Bessy Dutton MD Feb 17, 2017 15:44
--- NOTE | 2017-02-17 17:12 | PCM.DIMED ---
Discharge Instructions Date of Service Feb 17, 2017 Dates of Hospitalization Feb 09, 2017 at 21:24 Discharge Diagnosis Discharge Diagnosis Attack of acute intermittent porphyria Diet Discharge Diet: Heart Healthy Activity Discharge Activity: No restrictions Call your provider Call your provider for: Fever or Chills, Shortness of breath, Chest pain, Vomitting, Excessive diarrhea, Weakness (unilateral) Patient Instructions Follow-up Provider: Dewey Penny MD Follow-up with PCP in: 1 week Bessy Dutton MD Feb 17, 2017 17:12
[2017-02-17] MEDS ORDERED: ONDA4TAB9 PO ×2 (17:14→17:19)
--- NOTE | 2017-02-17 17:32 | NUR ---
Discharge All discharge instructions and script given to patient. Follow-up appointments on handouts. Verbalized understanding and denied any further questions/needs. IV therapy DC'd patients port. No s/s of distress.
--- NOTE | 2017-02-17 17:34 | PCM.DC.MED ---
Discharge Summary Date of Service Feb 17, 2017 Dates of Hospitalization Date of Hospital Admission Feb 09, 2017 at 21:24 Date of Discharge: Feb 17, 2017 Providers: Admitting Physician: Emmanuel Shipman MD Primary Care Physician: Dinorah Domínguez MD Attending Physician: Bessy Dutton MD Diagnosis at Time of Discharge Diagnosis at Time of Discharge Attack of acute intermittent porphyria Consultations Hematology/Oncology Procedures XRay, CTs & MRIs X-RAY CHEST ONE VIEW IMPRESSION: No acute disease is seen in the upright portable chest. Dictated by: David Leong M.D. on 02/09/2017 at 19:29 Approved by: David Leong M.D. on 02/09/2017 at 19:30 Date of Service: 02/15/17 1738 PROCEDURE: X-RAY ABDOMEN, ONE VIEW ([id number]) INDICATIONS: ileus TECHNIQUE: One view of the abdomen acquired. COMPARISON: [facility], CR, ABD/AP 1VW, 04/19/2012, 4:11. FINDINGS: Surgical changes and devices: None. Bowel: Bowel gas pattern is within normal limits. No distended bowel loops are seen.. Soft tissues: No suspicious abdominal calcifications. Visualized solid organ contours appear normal in size. Lung bases are clear. Bones: No suspicious bony lesions. IMPRESSION: Acute disease is not seen in the KUB x-ray. Dictated by: David Leong M.D. on 02/15/2017 at 18:54 Approved by: David Leong M.D. on 02/15/2017 at 18:55 Brief History Romi Newsome is a 26-year-old woman with past medical history significant for acute intermittent porphyria diagnosed 5 years ago who presents to the ED due to abdominal pain secondary to AIP flare. Patient's AIP is managed by Dr. Bocanegra with weekly hemin administration and ovarian suppression with Zoladex. Patient has an aggressive course per Dr. Bocanegra and states that delaying or missing either of these medications typically precipitates an acute attack. The patient's current pain is described as a diffuse dull, crampy pain that is greatest in the epigastric region. Pain does not radiate. She does note decreased appetite, sensation of fullness, and weakness of the lower extremities. She believes this current attack was secondary to poor sleep the last few days and delayed Zoladex injection. She received her last Zoladex injection on 02/04/2017. She denies any recent illness, sick contacts, or alcohol use. She denies constipation, diarrhea, chest pain, shortness of breath, headache, fever, chills, night sweats or dizziness. In the ED vitals temperature 36.4, pulse 107, respiratory rate 18, blood pressure 107/70, saturating 100% on room air. Labs remarkable only for platelet count of 104 which appears to be close to her baseline, hemoglobin of 10.2, hematocrit 30.9, and elevated lipase of 187. Lipase elevation has been seen on previous admissions. Dr. Bocanegra was contacted by the ED physician and recommended starting a CONTRACTS ATTORNEY and scheduling hemin administration for tomorrow at noon. He also noted that there was no need to obtain a CT of the abdomen or administer glucose. Hospital Course Romi Newsome is a 26-year-old woman with past medical history significant for acute intermittent porphyria diagnosed 5 years ago who presents to the ED due to abdominal pain secondary to AIP flare. 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 -Patient is still symptomatic with daily Hemin, n/v/abdominal pain, -Continue daily Hemin, given clinical improvement, likely serveral doses -continue pain medication including gabapentin 100 mg 3 times a day PRN and duloxetine 30 mg PRN, dilaudid prn, Oxycodone 5mg q4h prn -appreciate follow up -Completed with carbo loading with IV D10 per Dr. Bocanegra.. -Slightly clinically improved today and has better tolerated her diet yesterday.Pt at the end of the afternoon wanted to go home as she said she was doing much better and tolerated eating. Refractory nausea -will time zofran 8mg at the same time with Benadryl, Promethazine for n/v, Urinary tract infection, acute, present on admission -Urine culture returned consistent with a urinary tract infection Klebsiella pneumonia and patient was started on IV Rocephin 2 g every 24 hours today(February 17) and have discharged on po keflex x 7 days Elevated lipase, present on admission,resolved - Etiology likely secondary to AIP. Patient denies any alcohol use or recent viral illness. - In review of past labs this appears to be a recurrent trend. - Repeat lipase ~normal Thrombocytopenia, present on admission, chronic. - This appears to be close to the patient's baseline. - stable Dispo: Home with improved control of nausea and pain when this occurs Exam Vital Signs (Last) Date Time Temp Pulse Resp B/P Pulse Ox O2 Delivery O2 Flow Rate FiO2 02/17/17 14:40 36.8 91 16 106/70 95 Room Air Exam See progress note for today Test 02/09/17 18:55 02/09/17 19:20 02/09/17 19:25 02/09/17 19:50 Hold Blue Top Tube Received (Received) Procalcitonin 0.06ng/mL (0.00-0.08) D-Dimer < 0.50mg/L FEU (<0.50) Lactic Acid Level 0.8mmol/L (0.4-2.0) Test 02/10/17 06:10 02/15/17 13:20 02/17/17 05:30 02/17/17 07:45 Lipase 33U/L (13-60) Urine Color Tamara (YELLOW) Urine Appearance Hazy (CLEAR,HAZY) Urine pH 6.5 (5.0-8.0) Urine Specific [place] 1.015 (1.003-1.035) Urine Protein Tracemg/dL (NEG,TRACE) Urine Glucose (UA) Negativemg/dL (NEGATIVE) Urine Ketones 40mg/dL (NEGATIVE) Urine Occult Blood Large (NEGATIVE) Urine Nitrite Positive (NEGATIVE) Urine Bilirubin Negative (NEGATIVE) Urine Ictotest Negative (Negative) Urine Urobilinogen 1.0mg/dL (NORMAL) Urine Leukocyte Esterase Trace (NEGATIVE) Urine RBC 0-2/hpf (0-2) Urine WBC 0-5/hpf (0-5) Urine Epithelial Cells Occasional/hpf (NONE-MOD) Urine Crystals None seen (NONE SEEN) Urine Bacteria Moderate/hpf (NONE-FEW) Urine Hyaline Casts None/lpf (NONE) Urine Granular Casts None seen (NONE SEEN) Urine Waxy Casts None seen (NONE SEEN) Urine Red Blood Cell Casts None seen (NONE SEEN) Urine White Blood Cell Casts None seen (NONE SEEN) Urine Mucus Present (None Seen) Urine Trichomonas None seen (NONE SEEN) Urine Yeast None (NONE SEEN) Urinalysis Comment None Urine Culture Reflexed Indicated White Blood Count 6.1th/mm3 (3.8-10.1) Red Blood Count 3.56mil/mm3 (3.90-5.20) Hemoglobin 10.2g/dL (12.0-15.6) Hematocrit 30.7% (35.0-46.0) Mean Corpuscular Volume 86.2fL (81-100) Mean Corpuscular Hemoglobin 28.7pg (27.0-35.0) Mean Corpuscular Hemoglobin Concent 33.2% (32.0-37.0) Red Cell Distribution Width 13.4% (12.3-15.4) Platelet Count 54bil/L (150-400) Neutrophils (%) (Auto) 51.0% (40-74) Lymphocytes (%) (Auto) 28.8% (14-46) Monocytes (%) (Auto) 15.0% (4-12) Eosinophils (%) (Auto) 4.8% (0-5) Basophils (%) (Auto) 0.2% (0-3) Sodium Level 135mEq/L (134-144) Potassium Level 3.3mEq/L (3.5-5.2) Chloride Level 98mEq/L (97-108) Carbon Dioxide Level 23mmol/L (18-29) Blood Urea Nitrogen 6mg/dL (6-20) Creatinine 0.68mg/dL (0.57-1.00) Estimat Glomerular Filtration Rate 151mL/min (>59) Glucose Level 113mg/dL (60-99) Calcium Level 8.1mg/dL (8.5-10.1) Phosphorus Level 1.6mg/dL (2.5-4.9) Magnesium Level 1.5mg/dL (1.6-2.6) Total Bilirubin 0.7mg/dL (0.0-1.2) Aspartate Amino Transf (AST/SGOT) 41U/L (0-50) Alanine Aminotransferase (ALT/SGPT) 18U/L (0-32) Alkaline Phosphatase 91U/L (25-150) Total Protein 6.3g/dL (6.4-8.4) Albumin 3.3g/dL (3.4-5.0) Hold Purple Top Tube Received (Received) Hold [place] Top Tube Received (Received) Microbiology Results Re02/09/17 Disch: Specimen: [id number] Collected: 02/15/17 Status: COMP Req#: [id number] Received: 02/15/17 Source: URINE CC Sp Desc : MANPREET Shea Dr: Raul Hansen DO Ordered: URINE CULT Procedure Result Verified Site Microbiology [facility] CULT URINE Final 02/17/17-643 Organism 1 KLEBSIELLA PNEUMONIAE U COLONY COUNT/QUANTITY >100,000 CFU/ml Cefazolin-predicts results for the oral agents, cefaclor,cefdinir, cefpodoximen, cefprozil, cefuroximne axetil, cephalexin and loracarbed when used for therapy of uncomplicated UTI's due to E. coli, K. pneumoniae, and Proteus mirabilis. Cefpodoxime, cefdinir and cefuroxime axetil may be tested individually because some isolates may be susceptible to these agents while testing resistant to cefazolin. (CLSI F120-H66 pg 53) 1. KLEBSIELLA PNEUMONIAE M.I.C Interp --------- ------ * AMOXICILLIN/CLAVULATE <=2 S * AMPICILLIN >=32 R * CEFAZOLIN (CEPHALOSPORIN) UTI 4 S * CEFEPIME <=1 S * CEFTRIAXONE <=1 S * CEFUROXIME SODIUM 2 S * CIPROFLOXACIN <=0.25 S * ERTAPENEM <=0.5 S * GENTAMICIN <=1 S * IMIPENEM <=1 S * LEVOFLOXACIN <=0.12 S * NITROFURANTOIN 128 R * TETRACYCLINE <=1 S * TOBRAMYCIN <=1 S * TRIMETHOPRIM/SULFAMETHOXAZOLE <=20 S Discharge Medications Discharge Medications Cephalexin (Keflex) 500 Mg Capsule 500 MG PO QID Prescribed by: BESSY DUTTON MD Goserelin Acetate (Zoladex) 3.6 Mg Impl 3.6 MG SUBQ MONTHLY (Reported) Hemin (Panhematin) 313 Mg Vial 250 MG IV QW (Reported) WEDNESDAYS As needed Duloxetine (Duloxetine) 30 Mg Capsule.dr 30 MG PO DAILY PRN PRN For Pain ( Reported) Gabapentin (Gabapentin) 100 Mg Capsule 100 MG PO TID PRN PRN For Pain (Reported ) Hydrocodone-Acetaminophen 5-325 mg (Hydrocodone-Acetaminophen 5-325 mg) 1 Each Tablet 1 TABLET PO Q6H PRN PRN For Mild Pain Prescribed by: MADIE ZAMORA MD Ondansetron ODT (Zofran ODT) 4 Mg Tablet 4 MG PO Q4H PRN PRN For Nausea Prescribed by: ELENA ALMONTE DO Ondansetron ODT (Zofran ODT) 4 Mg Tablet 4 MG PO Q4H PRN PRN For Nausea Prescribed by: BESSY DUTTON MD Ondansetron ODT (Zofran ODT) 4 Mg Tablet 4 MG PO Q4H PRN PRN For Nausea Prescribed by: BESSY DUTTON MD Followup Plan Disposition: Home Discharge Diet: Heart Healthy Discharge Activity: No restrictions Follow-up Provider: Dewey Penny MD Follow-up with PCP in: 1 week Time spent 60 minutes copies to: Dewey Penny MD, Cheryl A MD Feb 17, 2017 17:34
[2017-02-17] MEDS ORDERED: CEPH-512 PO (17:36)
== END 2017-02-17 17:50 | disposition home or self-care (01) | DRG 642 ==
LOC: SED 17:11 → OBSVTOIN 21:24 → MOC 21:24
PROVIDERS: ADMIT Hospitalist; ATTEND Hospitalist
PROC: 3E043GC Introduction of Other Therapeutic Substance into Central Vein, Percutaneous Approach (ICD-10-PCS; principal; 2017-02-10)
DX: E80.21 Acute intermittent (hepatic) porphyria (principal); N39.0 Urinary tract infection, site not specified; F90.9 Attention-deficit hyperactivity disorder, unspecified type; Z87.440 Personal history of urinary (tract) infections; D69.6 Thrombocytopenia, unspecified; R11.2 Nausea with vomiting, unspecified; B96.1 Klebsiella pneumoniae [K. pneumoniae] as the cause of diseases classified elsewhere

== ENCOUNTER 2017-03-02 17:10 | Emergency (ER) | payer MEDICARE, MEDICAID ==
[~2017-03-02] VITALS: Ht 154.9 cm; Wt 115.0 kg
[~2017-03-02 17:10] MED LIST changes: +CEPH-512 PO
[2017-03-02 17:15] VITALS: BP 100/70; PULSE 87; RESP 16; O2SAT 99
[2017-03-02] MEDS ORDERED: diphenhydrAMINE 50 mg Capsule PO ONE (17:35)
[2017-03-02] MEDS ORDERED: diphenhydrAMINE 25 mg Capsule PO ONE (17:40)
--- NOTE | 2017-03-02 18:14 | ED.REPORT ---
HPI-Abd Pain F Under 40 Date of Service Mar 02, 2017 ED Provider: Davi Nicole DO Patient is a 26 year old female with history of intermittent porphyria who presents to the ED complaining of increasing diffuse abdominal pain. Associated symptoms include nausea, weakness, anxiety, insomnia and fatigue since last night. She denies sore throat, vomiting, diarrhea or cough. The patient was sent here after seeing Dr. Rojas with her port accessed and Dilaudid was given. She received Hemin last week. Nursing Notes Stated Complaint: ACUTE PORPHYRIA/SENT FROM DR ROJAS Chief Complaint: Female Abdominal Pain Nursing Notes Reviewed: Yes Allergies: Coded Allergies: NSAIDS (Non-Steroidal Anti-Inflamma (Verified Allergy, Severe, 03/02/17) ibuprofen (Verified Allergy, Severe, 03/02/17) acetaminophen (Verified Allergy, Unknown, 03/02/17) dextromethorphan (Verified Allergy, Unknown, 03/02/17) doxylamine (Verified Allergy, Unknown, 03/02/17) lactose (Verified Allergy, Unknown, 03/02/17) pseudoephedrine (Verified Allergy, Unknown, 03/02/17) Barbiturates (Verified Adverse Reaction, Severe, UNSAFE IN ACUTE PORPHYRIA , 03/02/17) Estrogens (Verified Adverse Reaction, Severe, UNSAFE IN ACUTE PORPHYRIA, ) Succinimides (Verified Adverse Reaction, Severe, UNSAFE IN ACUTE PORPHYRIA , 03/02/17) Sulfa (Sulfonamide Antibiotics) (Verified Adverse Reaction, Severe, UNSAFE IN ACUTE PORPHYRIA, 03/02/17) aminopyrine (Verified Adverse Reaction, Severe, UNSAFE IN ACUTE PORPHYRIA , 03/02/17) antipyrine (Verified Adverse Reaction, Severe, UNSAFE IN ACUTE PORPHYRIA, 03/02/17) carbamazepine (Verified Adverse Reaction, Severe, UNSAFE IN ACUTE PORPHYRIA, 03/02/17) carisoprodol (Verified Adverse Reaction, Severe, UNSAFE IN ACUTE PORPHYRIA , 03/02/17) clonazepam (Verified Adverse Reaction, Severe, UNSAFE IN ACUTE PORPHYRIA ( HIGH DOSES), 03/02/17) danazol (Verified Adverse Reaction, Severe, UNSAFE IN ACUTE PORPHYRIA, 03/02) diclofenac (Verified Adverse Reaction, Severe, UNSAFE IN ACUTE PORPHYRIA, 03/02/17) ergot alkaloids (Verified Adverse Reaction, Severe, UNSAFE IN ACUTE PORPHYRIA, 03/02/17) ethchlorvynol (Verified Adverse Reaction, Severe, UNSAFE IN ACUTE PORPHYRIA, 03/02/17) glutethimide (Verified Adverse Reaction, Severe, UNSAFE IN ACUTE PORPHYRIA , 03/02/17) griseofulvin (Verified Adverse Reaction, Severe, UNSAFE IN ACUTE PORPHYRIA , 03/02/17) mebutamate (Verified Adverse Reaction, Severe, UNSAFE IN ACUTE PORPHYRIA, 03/02/17) meprobamate (Verified Adverse Reaction, Severe, UNSAFE IN ACUTE PORPHYRIA , 03/02/17) methyprylon (Verified Adverse Reaction, Severe, UNSAFE IN ACUTE PORPHYRIA , 03/02/17) metoclopramide (Verified Adverse Reaction, Severe, UNSAFE IN ACUTE PORPHYRIA, 03/02/17) phenytoin (Verified Adverse Reaction, Severe, UNSAFE IN ACUTE PORPHYRIA, ) phytonadione (vitamin K1) (Verified Adverse Reaction, Severe, UNSAFE IN ACUTE PORPHYRIA, 03/02/17) primidone (Verified Adverse Reaction, Severe, UNSAFE IN ACUTE PORPHYRIA, ) progesterone (Verified Adverse Reaction, Severe, UNSAFE IN ACUTE PORPHYRIA , 03/02/17) pyrazinamide (Verified Adverse Reaction, Severe, UNSAFE IN ACUTE PORPHYRIA , 03/02/17) rifampin (Verified Adverse Reaction, Severe, UNSAFE IN ACUTE PORPHYRIA, 03/02/17) tybamate (Verified Adverse Reaction, Severe, UNSAFE IN ACUTE PORPHYRIA, 03/02/17) valproic acid (Verified Adverse Reaction, Severe, UNSAFE IN ACUTE PORPHYRIA, 03/02/17) [place] And Derivatives (Verified Adverse Reaction, Intermediate, 03/02/17) Scheduled Cephalexin (Keflex) 500 Mg Capsule 500 MG PO QID Goserelin Acetate (Zoladex) 3.6 Mg Impl 3.6 MG SUBQ MONTHLY Hemin (Panhematin) 313 Mg Vial 250 MG IV QW WEDNESDAYS Scheduled PRN Duloxetine (Duloxetine) 30 Mg Capsule.dr 30 MG PO DAILY PRN PRN For Pain Gabapentin (Gabapentin) 100 Mg Capsule 100 MG PO TID PRN PRN For Pain Hydrocodone-Acetaminophen 5-325 mg (Hydrocodone-Acetaminophen 5-325 mg) 1 Each Tablet 1 TABLET PO Q6H PRN PRN For Mild Pain Ondansetron ODT (Zofran ODT) 4 Mg Tablet 4 MG PO Q4H PRN PRN For Nausea Ondansetron ODT (Zofran ODT) 4 Mg Tablet 4 MG PO Q4H PRN PRN For Nausea Ondansetron ODT (Zofran ODT) 4 Mg Tablet 4 MG PO Q4H PRN PRN For Nausea General Time Seen by MD: 18:14 Chief Complaint Other (generalized pain) Hx Obtained From: Patient Arrived By: Walk-in Sudden in Onset?: Yes Onset Occurred: Yesterday Symptom Duration: Since onset Location: : Diffuse Quality: Painful Severity: Current: Moderate Recent Healthcare: Recent doctor visit, Recent hospitalization Similar Sx Previous: Yes Past Medical History Past Medical History Notes: Porphyria. Hospitalized for porphyria in the past. 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 Attention deficit hyperactivity disorder Thrombocytopenia, Abdominal US without splenomegaly 01/2013 History of recurrent urinary tract infections. Takes oxycodone as needed, usually 2 per day. Past Medical History Porphyria. Hospitalized for porphyria in the past. 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 Attention deficit hyperactivity disorder Thrombocytopenia, Abdominal US without splenomegaly 01/2013 History of recurrent urinary tract infections. Takes oxycodone as needed, usually 2 per day. Past Surgical History port placement Reports: Portocath Family History Noncontributory Smoking History Never Smoker Social History Uses CBD oil for pain Alcohol Use: Denies alcohol use Drug Use: THC Other Social History: Good social support, Local resident Ambulatory Status Independent Review of Systems Constitutional: Reports: Fatigue, Weakness - generalized, Denies: Chills, Fever Respiratory: Denies: Non-productive cough, Shortness of breath GI: Reports: Abdominal pain, Nausea, Denies: Diarrhea Complete sys rev & neg: except as marked. Ears / Nose / Throat: Denies: Sore throat Hematologic: Denies Bruising Skin: Reports Itching, Denies Rash Psychiatric: Reports: Anxiety, Insomnia Physical Exam Initial Vital Signs Vital Signs (First) Date Time Temp Pulse Resp B/P Pulse Ox O2 Delivery O2 Flow Rate FiO2 03/02/17 17:15 37.0 87 16 100/70 99 Room Air Initial VS: Reviewed General/Constitutional: Awake, Alert Respiratory / Chest: Atraumatic, Breath sounds NL, Breath sounds = bilat, No respiratory distress Cardiovascular: Heart rate NL, Regular rhythm, Heart sounds NL Abdomen: Atraumatic, Soft Back: Atraumatic, Inspection NL Head / Eyes: Atraumatic, Normocephalic, PERRL Neurologic: Oriented X3, Speech NL Interpretation & Diagnostics Lab Results Interpretation Result Diagram: 03/02/17 1846 03/02/17 1846 Test 03/02/17 18:46 03/02/17 18:47 White Blood Count 5.9th/mm3 (3.8-10.1) Red Blood Count 3.64mil/mm3 (3.90-5.20) Hemoglobin 10.5g/dL (12.0-15.6) Hematocrit 32.5% (35.0-46.0) Mean Corpuscular Volume 89.3fL (81-100) Mean Corpuscular Hemoglobin 28.8pg (27.0-35.0) Mean Corpuscular Hemoglobin Concent 32.3% (32.0-37.0) Red Cell Distribution Width 14.4% (12.3-15.4) Platelet Count 146bil/L (150-400) Neutrophils (%) (Auto) 42.1% (40-74) Lymphocytes (%) (Auto) 49.6% (14-46) Monocytes (%) (Auto) 5.8% (4-12) Eosinophils (%) (Auto) 1.9% (0-5) Basophils (%) (Auto) 0.3% (0-3) Sodium Level 141mEq/L (134-144) Potassium Level 4.3mEq/L (3.5-5.2) Chloride Level 101mEq/L (97-108) Carbon Dioxide Level 25mmol/L (18-29) Blood Urea Nitrogen 16mg/dL (6-20) Creatinine 0.62mg/dL (0.57-1.00) Estimat Glomerular Filtration Rate 168mL/min (>59) Glucose Level 90mg/dL (60-99) Lactic Acid Level 0.8mmol/L (0.4-2.0) Calcium Level 9.0mg/dL (8.5-10.1) Total Bilirubin 0.7mg/dL (0.0-1.2) Aspartate Amino Transf (AST/SGOT) 67U/L (0-50) Alanine Aminotransferase (ALT/SGPT) 35U/L (0-32) Alkaline Phosphatase 105U/L (25-150) Total Protein 7.5g/dL (6.4-8.4) Albumin 4.0g/dL (3.4-5.0) Lipase 136U/L (13-60) Urine Color Yellow (YELLOW) Urine Appearance Clear (CLEAR,HAZY) Urine pH 6.0 (5.0-8.0) Urine Specific [place] 1.010 (1.003-1.035) Urine Protein Negativemg/dL (NEG,TRACE) Urine Glucose (UA) Negativemg/dL (NEGATIVE) Urine Ketones Negativemg/dL (NEGATIVE) Urine Occult Blood Negative (NEGATIVE) Urine Nitrite Negative (NEGATIVE) Urine Bilirubin Negative (NEGATIVE) Urine Urobilinogen Normalmg/dL (NORMAL) Urine Leukocyte Esterase Trace (NEGATIVE) Urine RBC 0-2/hpf (0-2) Urine WBC 0-5/hpf (0-5) Urine Epithelial Cells Occasional/hpf (NONE-MOD) Urine Crystals None seen (NONE SEEN) Urine Bacteria Few/hpf (NONE-FEW) Urine Hyaline Casts None/lpf (NONE) Urine Granular Casts None seen (NONE SEEN) Urine Waxy Casts None seen (NONE SEEN) Urine Red Blood Cell Casts None seen (NONE SEEN) Urine White Blood Cell Casts None seen (NONE SEEN) Urine Mucus None seen (None Seen) Urine Trichomonas None seen (NONE SEEN) Urine Yeast None (NONE SEEN) Urinalysis Comment None Urine Culture Reflexed Indicated Re-Eval/Medical Decision Med Decision/Clinical Course No infectious source identified on history, physical exam and diagnostics. Hematology consultation appreciated. IV team and infused. Moderate relief of symptoms. Pain was much better however she had ongoing pruritus. Diphenhydramine seems to have helped. No signs of anaphylaxis. No rash. She feels ready to be discharged home. Recommend she sees her oncologist tomorrow. Routine opiate warnings are given. Re-Evaluation/Progress : Time of Eval: 21:23 Re-Evaluation/Progress Note: Discussed plan for Zofran, pain meds and discharge. Patient understands and agrees to follow up with Dr. Rojas tomorrow. All questions were addressed. Consultation : Referral / Consult Name: John Fabian MD Call Returned at: 19:45 Clock Repairer: Agrees with eval, Agrees with plan Note: Consult with Dr. Fabian, who recommends giving the patient Hemin and if she does well, she can be discharged home Counseled Regarding: Diagnosis, Lab results, Need for follow-up, When/why to return to ED Discharge & Departure Primary Impression: acute intermittant porphyria Disposition: Home Discharge Condition All VS Reviewed: Yes Condition: Stable Additional Instructions: Follow up with Dr. Rojas tomorrow. You received Hemin tonight in the ED. Do not drive tonight as you received IV opiate medication. Follow up with your primary care physician next week. Return to the emergency department if you develop any new or concerning symptoms. Referrals: Dinorah Domínguez MD (PCP) Jina Attestation Portions of this note were transcribed by Paradise Young. I, Dr. Nicole personally performed the history, physical exam and medical decision-making; I reviewed and confirmed the accuracy of the information in the transcribed note. Signed by: Jina Sena, 03/02/17 copies to: Dinorah Domínguez MD, Todd P DO Mar 02, 2017 18:14 Mouna Young Mar 02, 2017 19:12
[2017-03-02] MEDS ORDERED: 0.9% Sodium Chloride 1,000 ML IV ONE (18:26)
[2017-03-02 18:56] LABS: BASOPHILS % (AUTO) 0.3 % (0-3); EOSINOPHILS % (AUTO) 1.9 % (0-5); MONOCYTES % (AUTO) 5.8 % (4-12); Mean Corpuscular Hemoglobin 28.8 pg (27.0-35.0); Mean Corpuscular Volume 89.3 fL (81-100); NEUTROPHILS % (AUTO) 42.1 % (40-74); Platelet Count 146 bil/L (150-400)
[2017-03-02 19:14] LABS: COLOR,URINE YELLOW (YELLOW)
[2017-03-02 19:15] LABS: APPEARANCE,URINE CLEAR (CLEAR,HAZY); OCCULT BLOOD,URINE NEGATIVE (NEGATIVE); UROBILINOGEN,URINE NORMAL (NORMAL)
[2017-03-02] MEDS: HYDROmorphone 0.5 mg/0.5 mL iSecure Syringe IVPUSH PRN ×2 (19:23→21:13)
[2017-03-02] MEDS ORDERED: HEMIN IV ONE (19:50)
[2017-03-02] MEDS ORDERED: STERILE IV ONE (19:50)
[2017-03-02] MEDS ORDERED: HYDROmorphone 1 mg/mL Inj IVPUSH ONE (21:25)
[2017-03-02] MEDS ORDERED: Ondansetron 2 mg/mL 2 mL Inj IVPUSH PRN (21:35)
[2017-03-02] MEDS ORDERED: HepLOK Flush 100 unit/mL 5 mL Inj ONE (22:27)
[2017-03-02 22:40] VITALS: BP 102/64; PULSE 80; RESP 16; O2SAT 96
== END 2017-03-02 22:38 | disposition home or self-care (01) ==
LOC: SED 17:10
DX: E80.21 Acute intermittent (hepatic) porphyria (principal); R11.0 Nausea; R53.1 Weakness; Z88.1 Allergy status to other antibiotic agents; Z88.2 Allergy status to sulfonamides; Z88.5 Allergy status to narcotic agent; Z88.6 Allergy status to analgesic agent; Z88.8 Allergy status to other drugs, medicaments and biological substances
CPT/HCPCS: 36415; 80053; 81000; 81025; 83605; 83690; 85025; 87086; 87088; 96361; 96374; 96375; 96376; 99285; J1170; J1200; J1640; J2405; J7030

== ENCOUNTER 2017-04-23 00:15 | Emergency (ER) | payer MEDICARE, MEDICAID ==
[~2017-04-23] VITALS: Ht 154.9 cm; Wt 53.6 kg
[~2017-04-23 00:15] MED LIST changes: +BANOPHEN 25 MG PO; -CEPH-512 PO; -DULO30CA50 PO
[2017-04-23 00:35] VITALS: BP 121/83; PULSE 78; RESP 18; O2SAT 100
--- NOTE | 2017-04-23 00:49 | ED.REPORT ---
HPI-Headache Date of Service Apr 23, 2017 ED Provider: Dr. Lindsey Pt is a 27 year old female with a hx of acute intermittent porphyria presenting to the ED complaining of a 6/10 left sided headache onset 4-6 hours ago. She also complains of nausea, and upper abdominal bloating. Denies visual changes, vomiting, or fever. She denies any previous similar symptoms. Nursing Notes Stated Complaint: GEN Chief Complaint: General Complaint Nursing Notes Reviewed: Yes Allergies: Coded Allergies: NSAIDS (Non-Steroidal Anti-Inflamma (Verified Allergy, Severe, 04/23/17) ibuprofen (Verified Allergy, Severe, 04/23/17) acetaminophen (Verified Allergy, Unknown, 04/23/17) dextromethorphan (Verified Allergy, Unknown, 04/23/17) doxylamine (Verified Allergy, Unknown, 04/23/17) lactose (Verified Allergy, Unknown, 04/23/17) pseudoephedrine (Verified Allergy, Unknown, 04/23/17) Barbiturates (Verified Adverse Reaction, Severe, UNSAFE IN ACUTE PORPHYRIA , 04/23/17) Estrogens (Verified Adverse Reaction, Severe, UNSAFE IN ACUTE PORPHYRIA, ) Succinimides (Verified Adverse Reaction, Severe, UNSAFE IN ACUTE PORPHYRIA , 04/23/17) Sulfa (Sulfonamide Antibiotics) (Verified Adverse Reaction, Severe, UNSAFE IN ACUTE PORPHYRIA, 04/23/17) aminopyrine (Verified Adverse Reaction, Severe, UNSAFE IN ACUTE PORPHYRIA , 04/23/17) antipyrine (Verified Adverse Reaction, Severe, UNSAFE IN ACUTE PORPHYRIA, 04/23/17) carbamazepine (Verified Adverse Reaction, Severe, UNSAFE IN ACUTE PORPHYRIA, 04/23/17) carisoprodol (Verified Adverse Reaction, Severe, UNSAFE IN ACUTE PORPHYRIA , 04/23/17) clonazepam (Verified Adverse Reaction, Severe, UNSAFE IN ACUTE PORPHYRIA ( HIGH DOSES), 04/23/17) danazol (Verified Adverse Reaction, Severe, UNSAFE IN ACUTE PORPHYRIA, ) diclofenac (Verified Adverse Reaction, Severe, UNSAFE IN ACUTE PORPHYRIA, 04/23/17) ergot alkaloids (Verified Adverse Reaction, Severe, UNSAFE IN ACUTE PORPHYRIA, 04/23/17) ethchlorvynol (Verified Adverse Reaction, Severe, UNSAFE IN ACUTE PORPHYRIA, 04/23/17) glutethimide (Verified Adverse Reaction, Severe, UNSAFE IN ACUTE PORPHYRIA , 04/23/17) griseofulvin (Verified Adverse Reaction, Severe, UNSAFE IN ACUTE PORPHYRIA , 04/23/17) mebutamate (Verified Adverse Reaction, Severe, UNSAFE IN ACUTE PORPHYRIA, 04/23/17) meprobamate (Verified Adverse Reaction, Severe, UNSAFE IN ACUTE PORPHYRIA , 04/23/17) methyprylon (Verified Adverse Reaction, Severe, UNSAFE IN ACUTE PORPHYRIA , 04/23/17) metoclopramide (Verified Adverse Reaction, Severe, UNSAFE IN ACUTE PORPHYRIA, 04/23/17) phenytoin (Verified Adverse Reaction, Severe, UNSAFE IN ACUTE PORPHYRIA, ) phytonadione (vitamin K1) (Verified Adverse Reaction, Severe, UNSAFE IN ACUTE PORPHYRIA, 04/23/17) primidone (Verified Adverse Reaction, Severe, UNSAFE IN ACUTE PORPHYRIA, ) progesterone (Verified Adverse Reaction, Severe, UNSAFE IN ACUTE PORPHYRIA , 04/23/17) pyrazinamide (Verified Adverse Reaction, Severe, UNSAFE IN ACUTE PORPHYRIA , 04/23/17) rifampin (Verified Adverse Reaction, Severe, UNSAFE IN ACUTE PORPHYRIA, ) tybamate (Verified Adverse Reaction, Severe, UNSAFE IN ACUTE PORPHYRIA, ) valproic acid (Verified Adverse Reaction, Severe, UNSAFE IN ACUTE PORPHYRIA, 04/23/17) [place] And Derivatives (Verified Adverse Reaction, Intermediate, 04/23/17) Scheduled ([Banophen 25 Mg]) 25 MG PO Q6 HRS PRN Goserelin Acetate (Zoladex) 3.6 Mg Impl 3.6 MG SUBQ MONTHLY Hemin (Panhematin) 313 Mg Vial 250 MG IV QW WEDNESDAYS Scheduled PRN Gabapentin (Gabapentin) 100 Mg Capsule 100 MG PO TID PRN PRN For Pain Hydrocodone-Acetaminophen 5-325 mg (Hydrocodone-Acetaminophen 5-325 mg) 1 Each Tablet 1 TABLET PO Q6H PRN PRN For Mild Pain Ondansetron ODT (Zofran ODT) 4 Mg Tablet 4 MG PO Q4H PRN PRN For Nausea General Time Seen by MD: 00:49 Chief Complaint Migraine headache Hx Obtained From: Patient Arrived By: Walk-in Sudden in Onset?: Yes Onset Occurred: 5 - 8 hours ago Symptom Duration: Since onset Location: : Parietal left Quality: Painful Severity: Current: Pain level 6 out of 10 Severity: Maximum: Severe Recent Healthcare: No recent doctor visit, No recent hospitalization Similar Sx Previous: No Past Medical History Past Medical History Notes: Porphyria. Hospitalized for porphyria in the past. 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 Attention deficit hyperactivity disorder Thrombocytopenia, Abdominal US without splenomegaly 01/2013 History of recurrent urinary tract infections. Takes oxycodone as needed, usually 2 per day. Past Medical History Porphyria. Hospitalized for porphyria in the past. 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 Attention deficit hyperactivity disorder Thrombocytopenia, Abdominal US without splenomegaly 01/2013 History of recurrent urinary tract infections. Takes oxycodone as needed, usually 2 per day. Past Surgical History port placement Reports: Portocath Family History Noncontributory Smoking History Never Smoker Social History Uses CBD oil for pain Alcohol Use: Denies alcohol use Drug Use: THC Other Social History: Good social support, Local resident Ambulatory Status Independent Review of Systems Reports abdominal bloating Constitutional: Denies: Fever GI: Reports: Nausea, Denies: Vomiting Neurologic: Reports: Headache, Denies: Vision change Complete sys rev & neg: except as marked. Physical Exam Initial Vital Signs Vital Signs (First) Date Time Temp Pulse Resp B/P Pulse Ox O2 Delivery O2 Flow Rate FiO2 04/23/17 00:35 36.9 78 18 121/83 100 Room Air Initial VS: Reviewed, Vital signs normal ENT: Mucous membranes moist, Conjunctiva normal, No scleral icterus Respiratory: Breath sounds normal, Clear to auscultation, No respiratory distress Cardiovascular: Regular rate & rhythm, Heart sounds normal, Intact distal pulses Extremities: Vascular intact, Neuro intact, No swelling, No tenderness Skin: Warm, Dry, No cyanosis Psychiatric: Mood/affect normal, Behavior normal, Normal thought content General/Constitutional: Awake, Alert, No acute distress Head / Eyes: Atraumatic, Normocephalic, PERRL, EOMI, No nystagmus Neck: Atraumatic, Supple, No meningismus Neurologic: Oriented X3, Speech NL, No motor deficits, No sensory deficits, CN II - XII intact, Cerebellar NL Abdomen: Atraumatic Mild epigastric tenderness Interpretation & Diagnostics Lab Results Interpretation Test 04/23/17 01:20 Hold Purple Top Tube Received (Received) Hold [place] Top Tube Received (Received) Re-Eval/Medical Decision Med Decision/Clinical Course The patient has a history of porphyria and has ongoing abdominal pain and has developed a headache. The patient has a normal neurologic exam and her headache is only moderate at 5 out of 10. As far as her abdominal pain the patient feels like she may be having an exacerbation. She was given a dose of Hemin. 0318 the patient's headache is resolved and her abdominal pain is significantly improved. The patient's blood pressure is on the lower side which is likely related to the Dilaudid. She will be discharged after her Hemin infusion finishes. Re-Evaluation/Progress : Time of Eval: 02:07 )( Patient Status: Condition improved Re-Evaluation/Progress Note: Pt still complaining of abdominal pain although her headache is improved. Performed physical exam. Counseled Regarding: Diagnosis, Lab results, Need for follow-up, When/why to return to ED Discharge & Departure Impression: Primary Impression: Headache Headache type: unspecified Headache chronicity pattern: acute headache Intractability: intractable Qualified Code: R51 - Headache Additional Impression: Acute intermittent porphyria Disposition: Home Discharge Condition All VS Reviewed: Yes Condition: Improved Patient Instructions: Acute Headache (ED) Additional Instructions: No dangerous cause for your symptoms was identified. Follow up with your primary care doctor in the next few days if your symptoms persist. Return to the emergency room if you develop any new or concerning symptoms such as weakness, numbness, vision changes, fever, chills, nausea, vomiting or diarrhea. Referrals: Dinorah Domínguez MD (PCP) Scribe Attestation Portions of this note were transcribed by Elvie Smiley. I, Dr. Lindsey personally performed the history, physical exam and medical decision-making; I reviewed and confirmed the accuracy of the information in the transcribed note. Signed by : Jina Carter, 04/23/2017. copies to: Dinorah Domínguez MD, Jena M MD Apr 23, 2017 00:49 ELVIE SMILEY Apr 23, 2017 01:18
[2017-04-23] MEDS ORDERED: ProchlorPERazine 5 mg/mL 2 mL Inj IVPUSH ONE (00:50)
[2017-04-23] MEDS ORDERED: 0.9% Sodium Chloride 1,000 ML IV ONE (00:50)
[2017-04-23] MEDS ORDERED: HEMIN IV ONE (01:35)
[2017-04-23] MEDS ORDERED: STERILE IV ONE (01:35)
[2017-04-23] MEDS ORDERED: HYDROmorphone 1 mg/mL Inj IVPUSH ONE (02:15)
[2017-04-23 03:03] VITALS: BP 93/46; PULSE 97; RESP 18; O2SAT 98
[2017-04-23] MEDS ORDERED: PROM25TA14 PO (03:20)
[2017-04-23 03:48] VITALS: BP 92/40; PULSE 68; RESP 17; O2SAT 100
[2017-04-23] MEDS ORDERED: HepLOK Flush 100 unit/mL 5 mL Inj ONE (03:52)
[2017-04-23 04:04] VITALS: BP 92/40; PULSE 68; RESP 17; O2SAT 100
== END 2017-04-23 04:05 | disposition home or self-care (01) ==
LOC: SED 00:15
DX: R51 Headache (principal); E80.21 Acute intermittent (hepatic) porphyria; F12.10 Cannabis abuse, uncomplicated; D69.6 Thrombocytopenia, unspecified; R10.13 Epigastric pain; Z87.440 Personal history of urinary (tract) infections; Z95.828 Presence of other vascular implants and grafts; Z88.6 Allergy status to analgesic agent; Z88.2 Allergy status to sulfonamides; Z88.8 Allergy status to other drugs, medicaments and biological substances
CPT/HCPCS: 96361; 96365; 96375; 96376; 99284; J0780; J1170; J1200; J1640; J1642; J7030